=== PATIENT | male | born 1995 | race Caucasian/White ===

== ENCOUNTER → 2017-07-06 | Outpatient (CLI) | payer OTHER | LOC: M LAB 14:09 | PROVIDERS: ATTEND Physician Assistant Medical | DX: Z77.120 Contact with and (suspected) exposure to mold (toxic) (principal) ==

== ENCOUNTER → 2017-07-23 | Outpatient (CLI) | payer OTHER ==
[2017-07-23 17:09] LABS: VITAMIN B12 LEVEL 351 PG/ML (247-911)
[2017-07-23 17:10] LABS: ADD MANUAL DIFFER YES; MEAN CORPUSCULAR HEMOGLOBIN 30.4 pg (27.0-33.0); MEAN CORPUSCULAR HGB CONC 35.4 g/dl (32.0-36.5); MEAN CORPUSCULAR VOLUME 85.8 fl (80.0-96.0); PLATELET COUNT, AUTOMATED 197 k/mm3 (150-450); RED CELL DISTRIBUTION WIDTH 13.2 % (11.5-14.5); WHITE BLOOD COUNT 6.8 K/mm3 (4.0-10.0)
[2017-07-23 17:11] LABS: ALBUMIN 3.9 GM/DL (3.2-5.2); ALBUMIN/GLOBULIN RATIO 1.11 (1.00-1.93); ALKALINE PHOSPHATASE 91 U/L (45-117); ALT/SGPT 43 U/L (12-78); ANION GAP 9 MEQ/L (8-16); AST/SGOT 20 U/L (15-37); BILIRUBIN,TOTAL 0.3 MG/DL (0.2-1.0); BLOOD UREA NITROGEN 10 MG/DL (7-18); CARBON DIOXIDE LEVEL 27 MEQ/L (21-32); CHLORIDE LEVEL 105 MEQ/L (98-107); CREATININE FOR GFR 0.99 MG/DL (0.70-1.30); GLOMERULAR FILTRATION RATE > 60.0 (>60); GLUCOSE, FASTING 99 MG/DL (70-105); POTASSIUM SERUM 3.9 MEQ/L (3.5-5.1); SODIUM LEVEL 141 MEQ/L (136-145); TOTAL PROTEIN 7.4 GM/DL (6.4-8.2)
[2017-07-23 18:12] LABS: ERYTHROCYTE SEDIMENTATION RATE 10 mm/hr (0-15)
[2017-07-23 19:26] LABS: EOSINOPHILS 5 % (0-5)
[2017-07-23 19:27] LABS: PLATELET CLUMPS SMALL AMT
[2017-07-27 11:19] LABS: ALBUMIN 4.35 GM/DL (3.29-5.55); ALBUMIN % 58.8 % (55.8-66.1); GAMMA GLOBULIN % 13.2 % (11.1-18.8)
[2017-07-29 08:06] LABS: Lyme Disease IgG/IgM Antibodie <0.91 ISR (0.00-0.90); Lyme Disease IgM Ab Quantitati <0.80 index (0.00-0.79); VITAMIN E LEVEL 7.1 mg/L (5.3-17.5)
== END ==
LOC: M LAB 15:19
PROVIDERS: ATTEND Psychiatry & Neurology Neurology
DX: R51 Headache (principal); R41.3 Other amnesia

== ENCOUNTER 2017-12-10 11:40 | Emergency (ER) | payer OTHER ==
[2017-12-10] MEDS: GI COCKTAIL 50ML BTL(HYOSCYAMINE/MAALOX/LIDOCAINE VISCOUS)(1:3:1) PO (13:39)
[2017-12-10] MEDS: KETOROLAC 60 MG/2 ML VIAL (J1885) IM (13:39)
[2017-12-10 13:58] LABS: BASO % 0.5 % (0.0-1.0); EOS # 0.1 10^3/uL (0.0-0.50); EOS % 1.6 % (0.0-3.0); HEMATOCRIT 46.5 % (42.0-52.0); HEMOGLOBIN 15.5 g/dl (14.0-18.0); IMMATURE GRANULOCYTE % 0.3 % (0-0); LYMPH # 2.3 10^3/uL (1.5-6.5); LYMPH % 30.9 % (24.0-44.0); MEAN CORPUSCULAR HEMOGLOBIN 28.3 pg (27.0-33.0); MEAN CORPUSCULAR HGB CONC 33.3 g/dl (32.0-36.5); MONO # 0.5 10^3/uL (0.0-0.8); MONO % 6.3 % (0.0-5.0); NEUTROPHILS # 4.4 10^3/uL (1.8-7.7); NEUTROPHILS % 60.4 % (36.0-66.0); PLATELET COUNT, AUTOMATED 369 10^3/uL (150-450); RED BLOOD COUNT 5.47 10^6/uL (4.30-6.10); RED CELL DISTRIBUTION WIDTH 13.1 % (11.5-14.5); WHITE BLOOD COUNT 7.3 10^3/uL (4.0-10.0)
[2017-12-10 14:16] LABS: ALBUMIN 4.1 GM/DL (3.2-5.2); ALBUMIN/GLOBULIN RATIO 0.98 (1.00-1.93); ALKALINE PHOSPHATASE 92 U/L (45-117); ALT/SGPT 47 U/L (12-78); ANION GAP 6 MEQ/L (8-16); AST/SGOT 22 U/L (7-37); BILIRUBIN,TOTAL 0.5 MG/DL (0.2-1.0); BLOOD UREA NITROGEN 10 MG/DL (7-18); CALCIUM LEVEL 9.2 MG/DL (8.5-10.1); CARBON DIOXIDE LEVEL 29 MEQ/L (21-32); CHLORIDE LEVEL 104 MEQ/L (98-107); CREATININE FOR GFR 0.84 MG/DL (0.70-1.30); GLOMERULAR FILTRATION RATE > 60.0 (>60); GLUCOSE, FASTING 98 MG/DL (70-105); LIPASE 111 U/L (73-393); POTASSIUM SERUM 4.2 MEQ/L (3.5-5.1); SODIUM LEVEL 139 MEQ/L (136-145); TOTAL PROTEIN 8.3 GM/DL (6.4-8.2); TROPONIN I < 0.02 NG/ML (< 0.10)
== END 2017-12-10 16:09 | disposition home or self-care (01) ==
LOC: M ED 11:40
DX: R07.89 Other chest pain (principal); Z79.899 Other long term (current) drug therapy; Z88.8 Allergy status to other drugs, medicaments and biological substances
CPT/HCPCS: J1885

== ENCOUNTER → 2018-02-14 | Outpatient (CLI) | payer OTHER | LOC: M RAD 09:51 | DX: M54.11 Radiculopathy, occipito-atlanto-axial region (principal); M99.01 Segmental and somatic dysfunction of cervical region; M99.03 Segmental and somatic dysfunction of lumbar region | CPT/HCPCS: 72040 ==

== ENCOUNTER → 2018-03-16 | Outpatient (REF) | payer OTHER, MEDICARE ==
[2018-03-16 16:18] LABS: APPEARANCE, URINE CLEAR (CLEAR); BACTERIA, URINE AUTO NEGATIVE (NEGATIVE); BILIRUBIN, URINE AUTO NEGATIVE (NEGATIVE); BLOOD, URINE BLOOD NEGATIVE (NEGATIVE); COLOR, URINE YELLOW (YELLOW); GLUCOSE, URINE (UA) AUTO NEGATIVE (NEGATIVE); KETONE, URINE AUTO NEGATIVE (NEGATIVE); LEUKOCYTE ESTERASE, URINE AUTO NEGATIVE (NEGATIVE); MUCUS, URINE SMALL (NEGATIVE); NITRITE, URINE AUTO NEGATIVE (NEGATIVE); PROTEIN, URINE AUTO NEGATIVE (NEGATIVE); RBC, URINE AUTO 1 /HPF (0-3); SPECIFIC GRAVITY URINE AUTO 1.026 (1.002-1.035); SQUAMOUS EPITHELIAL CELL UR AU 1 /HPF (0-6); UROBILINOGEN, URINE AUTO 0.2 mg/dL (0.0-2.0); WBC, URINE AUTO 0 /HPF (0-3)
== END ==
LOC: M SMT 15:45
DX: R31.0 Gross hematuria (principal)

== ENCOUNTER → 2018-05-09 | Outpatient (REF) | payer OTHER, MEDICARE | LOC: M LAB REF 13:00 | DX: J02.9 Acute pharyngitis, unspecified (principal) ==

== ENCOUNTER 2018-07-21 17:20 | Emergency (ER) | payer OTHER, MEDICARE ==
[2018-07-21] MEDS: GI COCKTAIL 50ML BTL(HYOSCYAMINE/MAALOX/LIDOCAINE VISCOUS)(1:3:1) PO (18:59)
[2018-07-21 19:19] LABS: BASO % 0.3 % (0.0-1.0); EOS # 0.2 10^3/uL (0.0-0.50); EOS % 1.4 % (0.0-3.0); HEMATOCRIT 43.5 % (42.0-52.0); HEMOGLOBIN 14.2 g/dl (13.5-17.5); IMMATURE GRANULOCYTE % 0.2 % (0-3.0); LYMPH # 2.3 10^3/uL (1.5-6.5); LYMPH % 20.7 % (24.0-44.0); MEAN CORPUSCULAR HEMOGLOBIN 27.8 pg (27.0-33.0); MEAN CORPUSCULAR HGB CONC 32.6 g/dl (32.0-36.5); MEAN CORPUSCULAR VOLUME 85.3 fl (80.0-96.0); MONO # 0.7 10^3/uL (0.0-0.8); MONO % 6.7 % (0.0-5.0); NEUTROPHILS # 7.7 10^3/uL (1.8-7.7); NEUTROPHILS % 70.7 % (36.0-66.0); PLATELET COUNT, AUTOMATED 337 10^3/uL (150-450); RED CELL DISTRIBUTION WIDTH 13.2 % (11.5-14.5); WHITE BLOOD COUNT 10.9 10^3/uL (4.0-10.0)
[2018-07-21 19:24] LABS: KETONE, URINE AUTO RFX NEGATIVE (NEGATIVE); LEUKOCYTE ESTERASE UR AUTO RFX NEGATIVE (NEGATIVE); MUCUS, URINE RFX SMALL (NEGATIVE); NITRITE, URINE AUTO RFX NEGATIVE (NEGATIVE); RBC, URINE AUTO RFX 2 /HPF (0-3); SPECIFIC GRAVITY UR AUTO RFX 1.019 (1.002-1.035); SQUAM EPITHELIAL CELL UR AURFX 0 /HPF (0-6); WBC, URINE AUTO RFX 1 /HPF (0-3)
[2018-07-21 19:44] LABS: ALBUMIN 3.8 GM/DL (3.2-5.2); ALBUMIN/GLOBULIN RATIO 0.95 (1.00-1.93); ALKALINE PHOSPHATASE 89 U/L (45-117); ALT/SGPT 39 U/L (12-78); AMYLASE 41 U/L (25-115); ANION GAP 7 MEQ/L (8-16); AST/SGOT 18 U/L (7-37); BILIRUBIN,DIRECT < 0.1 MG/DL (0.0-0.2); BILIRUBIN,TOTAL 0.3 MG/DL (0.2-1.0); BLOOD UREA NITROGEN 9 MG/DL (7-18); CARBON DIOXIDE LEVEL 30 MEQ/L (21-32); CHLORIDE LEVEL 104 MEQ/L (98-107); CREATININE FOR GFR 0.89 MG/DL (0.70-1.30); GLOMERULAR FILTRATION RATE > 60.0 (>60); GLUCOSE, FASTING 86 MG/DL (70-100); LIPASE 138 U/L (73-393); POTASSIUM SERUM 4.2 MEQ/L (3.5-5.1); SODIUM LEVEL 141 MEQ/L (136-145); TOTAL PROTEIN 7.8 GM/DL (6.4-8.2)
== END 2018-07-21 20:34 | disposition home or self-care (01) ==
LOC: M ED 17:20
DX: K21.9 Gastro-esophageal reflux disease without esophagitis (principal); Z79.899 Other long term (current) drug therapy; Z88.8 Allergy status to other drugs, medicaments and biological substances
CPT/HCPCS: 76705

== ENCOUNTER 2018-10-11 12:03 | Day surgery (SDC) | payer OTHER ==
[2018-10-11] MEDS: NS 1,000 ML IV (07:00)
[~2018-10-11 12:03] MED LIST: NS 1,000 ML IV
[2018-10-11] MEDS ORDERED: fentaNYL 100 MCG/2 ML INJECTION (J3010) As Ordered (14:22)
[2018-10-11] MEDS ORDERED: LIDOCAINE 2% INJ 100 MG/5 ML SDV (FOR ANES.) As Ordered (14:24)
[2018-10-11] MEDS ORDERED: PROPOFOL 200 MG/20 ML VIAL As Ordered ×2 (14:24→14:45)
== END 2018-10-11 15:26 | disposition home or self-care (01) ==
LOC: M OPP 12:03
DX: K21.0 Gastro-esophageal reflux disease with esophagitis (principal); K29.70 Gastritis, unspecified, without bleeding; R10.13 Epigastric pain
CPT/HCPCS: 43239

== ENCOUNTER → 2019-01-24 | Outpatient (REF) | payer OTHER ==
[~2019-01-24] MED LIST changes: +AMBI10TA PO; +AMIT50TA; +CETI10TA PO; -NS 1,000 ML IV; +OMEP40CA2 PO; +PROT1TAB2 PO; +RANI15TA PO; +XYZA5TAB4 PO; +ZOLP10TA2
[2019-01-24 14:05] LABS: BASO # 0.1 10^3/uL (0.0-0.2); BASO % 0.7 % (0.0-1.0); EOS # 0.2 10^3/uL (0.0-0.50); HEMATOCRIT 43.7 % (42.0-52.0); HEMOGLOBIN 14.4 g/dl (13.5-17.5); LYMPH # 2.4 10^3/uL (1.5-6.5); LYMPH % 32.8 % (24.0-44.0); MEAN CORPUSCULAR HEMOGLOBIN 27.8 pg (27.0-33.0); MEAN CORPUSCULAR VOLUME 84.4 fl (80.0-96.0); MONO # 0.5 10^3/uL (0.0-0.8); MONO % 7.3 % (0.0-5.0); NEUTROPHILS # 4.2 10^3/uL (1.8-7.7); NEUTROPHILS % 57.1 % (36.0-66.0); PLATELET COUNT, AUTOMATED 372 10^3/uL (150-450); RED BLOOD COUNT 5.18 10^6/uL (4.30-6.10); WHITE BLOOD COUNT 7.4 10^3/uL (4.0-10.0)
[2019-01-24 14:44] LABS: ALT/SGPT 47 U/L (12-78); BILIRUBIN,TOTAL 0.4 MG/DL (0.2-1.0); BLOOD UREA NITROGEN 9 MG/DL (7-18); CALCIUM LEVEL 8.8 MG/DL (8.5-10.1); CARBON DIOXIDE LEVEL 30 MEQ/L (21-32); CHLORIDE LEVEL 104 MEQ/L (98-107); CHOLESTEROL LEVEL 201 MG/DL (<200); CHOLESTEROL RISK RATIO 4.102 (<5); CREATININE FOR GFR 0.91 MG/DL (0.70-1.30); FREE T4 1.11 NG/DL (0.76-1.46); GLOMERULAR FILTRATION RATE > 60.0 (>60); GLUCOSE, FASTING 91 MG/DL (70-100); HDL CHOLESTEROL 49 MG/DL (>40); LDL CHOLESTEROL 124 MG/DL (<100); NON-HDL-C 152 MG/DL; POTASSIUM SERUM 4.9 MEQ/L (3.5-5.1); SODIUM LEVEL 140 MEQ/L (136-145); TOTAL PROTEIN 7.7 GM/DL (6.4-8.2); TRIGLYCERIDES LEVEL 139 MG/DL (<150)
[2019-01-24 14:46] LABS: HEMOGLOBIN A1c 5.8 %
== END ==
LOC: M SFHCPLAZ 12:06
PROVIDERS: ATTEND Physician Assistant Medical
DX: R73.01 Impaired fasting glucose (principal); K21.0 Gastro-esophageal reflux disease with esophagitis; Z13.220 Encounter for screening for lipoid disorders; E66.01 Morbid (severe) obesity due to excess calories

== ENCOUNTER 2019-04-13 09:00 | Emergency (ER) | payer OTHER ==
[~2019-04-13] VITALS: Ht 157.5 cm; Wt 112.7 kg
[2019-04-13] MEDS ORDERED: RANI150T14 (09:07)
[2019-04-13] MEDS ORDERED: TRAZ-160 (09:07)
[2019-04-13] MEDS ORDERED: FLON27.5 NARES (10:26)
[2019-04-13] MEDS ORDERED: ACETAMINOPHEN 500 MG TAB PO ONE (10:30)
[2019-04-13 10:42] VITALS: BP 120/83
== END 2019-04-13 10:47 | disposition home or self-care (01) ==
LOC: M ED 09:00
DX: R51 Headache (principal); J34.89 Other specified disorders of nose and nasal sinuses; I10 Essential (primary) hypertension; Z88.8 Allergy status to other drugs, medicaments and biological substances; Z79.899 Other long term (current) drug therapy

== ENCOUNTER → 2019-04-26 | Outpatient (REF) | payer OTHER ==
[~2019-04-26] MED LIST changes: +FLON27.5 NARES; +RANI150T14; +TRAZ-252
[2019-04-26 18:25] LABS: HEMOGLOBIN A1c 5.9 %
== END ==
LOC: M SFHCPLAZ 15:42
PROVIDERS: ATTEND Physician Assistant Medical
DX: R73.01 Impaired fasting glucose (principal)

== ENCOUNTER → 2019-04-26 | Outpatient (REF) | payer OTHER | LOC: M LAB REF 15:35 | PROVIDERS: ATTEND Ophthalmology | DX: L72.0 Epidermal cyst (principal); D23.122 Other benign neoplasm of skin of left lower eyelid, including canthus; H02.87 Vascular anomalies of eyelid ==

== ENCOUNTER → 2019-07-19 | Outpatient (REF) | payer OTHER ==
[2019-07-19 13:39] LABS: BASO % 0.4 % (0.0-1.0); EOS # 0.2 10^3/uL (0.0-0.50); EOS % 2.5 % (0.0-3.0); HEMATOCRIT 40.7 % (42.0-52.0); HEMOGLOBIN 13.3 g/dl (13.5-17.5); LYMPH # 2.2 10^3/uL (1.5-6.5); LYMPH % 32.6 % (24.0-44.0); MEAN CORPUSCULAR HEMOGLOBIN 27.5 pg (27.0-33.0); MEAN CORPUSCULAR HGB CONC 32.7 g/dl (32.0-36.5); MEAN CORPUSCULAR VOLUME 84.1 fl (80.0-96.0); MONO # 0.5 10^3/uL (0.0-0.8); MONO % 7.1 % (0.0-5.0); NEUTROPHILS # 3.9 10^3/uL (1.8-7.7); NEUTROPHILS % 57.3 % (36.0-66.0); PLATELET COUNT, AUTOMATED 351 10^3/uL (150-450); RED BLOOD COUNT 4.84 10^6/uL (4.30-6.10); WHITE BLOOD COUNT 6.9 10^3/uL (4.0-10.0)
[2019-07-19 14:13] LABS: ALBUMIN 3.7 GM/DL (3.2-5.2); ALT/SGPT 36 U/L (12-78); BILIRUBIN,TOTAL 0.4 MG/DL (0.2-1.0); BLOOD UREA NITROGEN 10 MG/DL (7-18); CALCIUM LEVEL 9.1 MG/DL (8.5-10.1); CARBON DIOXIDE LEVEL 29 MEQ/L (21-32); CHLORIDE LEVEL 106 MEQ/L (98-107); CREATININE FOR GFR 0.91 MG/DL (0.70-1.30); GLOMERULAR FILTRATION RATE > 60.0 (>60); GLUCOSE, FASTING 94 MG/DL (70-100); POTASSIUM SERUM 4.2 MEQ/L (3.5-5.1); SODIUM LEVEL 139 MEQ/L (136-145); TOTAL PROTEIN 7.3 GM/DL (6.4-8.2)
[2019-07-19 14:29] LABS: HEMOGLOBIN A1c 6.1 %
== END ==
LOC: M SFHCPLAZ 11:29
PROVIDERS: ATTEND Physician Assistant Medical
DX: R73.01 Impaired fasting glucose (principal); J06.9 Acute upper respiratory infection, unspecified

== ENCOUNTER → 2019-10-25 | Outpatient (REF) | payer OTHER ==
[~2019-10-25] MED LIST changes: +FAMO40TA3; +LANS30CA93; +NAPR-837 PO; -OMEP40CA2 PO; +OMEP40CA97 PO; +PARO5TAB
== END ==
LOC: M SFHCPLAZ 08:52
PROVIDERS: ATTEND Physician Assistant Medical
DX: R73.01 Impaired fasting glucose (principal); E66.01 Morbid (severe) obesity due to excess calories

== ENCOUNTER → 2019-10-25 | Outpatient (CLI) | payer OTHER ==
[2019-10-25 16:17] LABS: FREE T4 1.01 NG/DL (0.76-1.46); THYROID STIMULATING HORMONE 2.61 uIU/ML (0.358-3.740)
== END ==
LOC: M PLALAB 11:49
PROVIDERS: ATTEND Physician Assistant Medical
DX: R73.01 Impaired fasting glucose (principal); E66.01 Morbid (severe) obesity due to excess calories

== ENCOUNTER 2019-10-26 10:03 | Emergency (ER) | payer OTHER ==
[~2019-10-26] VITALS: Ht 157.5 cm; Wt 117.2 kg
[2019-10-26 10:03] VITALS: BP 138/80
[~2019-10-26 10:03] MED LIST changes: -FAMO40TA3; -LANS30CA93; -NAPR-837 PO; -PARO5TAB
[2019-10-26] MEDS ORDERED: PARO5TAB (10:13)
[2019-10-26] MEDS ORDERED: FAMO40TA3 (10:13)
[2019-10-26] MEDS ORDERED: LANS30CA93 (10:13)
--- NOTE | 2019-10-26 11:44 | REP ---
Clinical: Left ankle pain . Technique: AP, lateral, bilateral oblique views. Findings: No acute fracture or dislocation. Skeletal structures and joint spaces are intact and normal. Ankle mortise appears stable. No subcutaneous emphysema or radiodense foreign body. Impression: Normal left ankle radiograph series. Electronically Signed by Claude Gusman MD 10/26/2019 11:35 A
[2019-10-26] MEDS ORDERED: NAPR-837 PO (11:56)
== END 2019-10-26 12:13 | disposition home or self-care (01) ==
LOC: M ED 10:03
DX: M25.572 Pain in left ankle and joints of left foot (principal); K21.9 Gastro-esophageal reflux disease without esophagitis; F41.9 Anxiety disorder, unspecified; Z79.899 Other long term (current) drug therapy; Z88.8 Allergy status to other drugs, medicaments and biological substances

== ENCOUNTER → 2019-11-10 | Outpatient (REF) | payer OTHER ==
[~2019-11-10] MED LIST changes: +FAMO40TA3; +LANS30CA93; +NAPR-837 PO; +PARO5TAB
== END ==
LOC: M LAB REF 10:44
PROVIDERS: ATTEND Physician Assistant Medical
DX: B34.9 Viral infection, unspecified (principal); J06.9 Acute upper respiratory infection, unspecified

== ENCOUNTER → 2019-11-23 | Outpatient (CLI) | payer OTHER ==
[2019-11-23 13:51] LABS: HEMOGLOBIN A1c 6.2 %
== END ==
LOC: M PLALAB 11:10
PROVIDERS: ATTEND Physician Assistant Medical
DX: R73.01 Impaired fasting glucose (principal)

== ENCOUNTER 2020-01-31 23:44 | Emergency (ER) | payer OTHER ==
[~2020-01-31] VITALS: Ht 157.5 cm; Wt 120.1 kg
[2020-01-31 23:45] VITALS: BP 140/97
== END 2020-02-01 03:08 | disposition left against medical advice (07) ==
LOC: M ED 23:44
DX: Z53.21 Procedure and treatment not carried out due to patient leaving prior to being seen by health care provider (principal)

== ENCOUNTER → 2020-01-31 | Outpatient (REF) | payer OTHER ==
[2020-01-31 14:27] LABS: BASO # 0.1 10^3/uL (0.0-0.2); BASO % 0.7 % (0.0-1.0); EOS # 0.2 10^3/uL (0.0-0.5); EOS % 2.4 % (0.0-3.0); HEMATOCRIT 43.6 % (42.0-52.0); HEMOGLOBIN 13.9 g/dl (13.5-17.5); LYMPH # 2.3 10^3/uL (1.5-5.0); LYMPH % 29.6 % (24.0-44.0); MEAN CORPUSCULAR HEMOGLOBIN 26.9 pg (27.0-33.0); MEAN CORPUSCULAR HGB CONC 31.9 g/dl (32.0-36.5); MEAN CORPUSCULAR VOLUME 84.5 fl (80.0-96.0); MONO # 0.6 10^3/uL (0.0-0.8); MONO % 7.3 % (0.0-5.0); NEUTROPHILS # 4.6 10^3/uL (1.5-8.5); NEUTROPHILS % 59.6 % (36.0-66.0); PLATELET COUNT, AUTOMATED 356 10^3/uL (150-450); RED BLOOD COUNT 5.16 10^6/uL (4.30-6.10); WHITE BLOOD COUNT 7.6 10^3/uL (4.0-10.0)
[2020-01-31 15:00] LABS: ALBUMIN 3.5 GM/DL (3.2-5.2); ALT/SGPT 53 U/L (12-78); BILIRUBIN,TOTAL 0.2 MG/DL (0.2-1.0); BLOOD UREA NITROGEN 10 MG/DL (7-18); CALCIUM LEVEL 8.6 MG/DL (8.5-10.1); CARBON DIOXIDE LEVEL 27 MEQ/L (21-32); CHLORIDE LEVEL 106 MEQ/L (98-107); CHOLESTEROL LEVEL 181 MG/DL (<200); CHOLESTEROL RISK RATIO 3.549 (<5); CREATININE FOR GFR 0.81 MG/DL (0.70-1.30); FREE T4 1.46 NG/DL (0.76-1.46); GLOMERULAR FILTRATION RATE > 60.0 (>60); GLUCOSE, FASTING 115 MG/DL (70-100); HDL CHOLESTEROL 51 MG/DL (>40); LDL CHOLESTEROL 61 MG/DL (<100); NON-HDL-C 130 MG/DL; POTASSIUM SERUM 4.3 MEQ/L (3.5-5.1); SODIUM LEVEL 139 MEQ/L (136-145); TOTAL PROTEIN 7.1 GM/DL (6.4-8.2); TRIGLYCERIDES LEVEL 344 MG/DL (<150)
== END ==
LOC: M SFHCPLAZ 11:41
PROVIDERS: ATTEND Physician Assistant Medical
DX: Z13.220 Encounter for screening for lipoid disorders (principal); R73.01 Impaired fasting glucose; K21.0 Gastro-esophageal reflux disease with esophagitis

== ENCOUNTER 2020-02-12 19:08 | Emergency (ER) | payer OTHER ==
[~2020-02-12] VITALS: Ht 157.5 cm; Wt 115.5 kg
[2020-02-12] MEDS ORDERED: TRAZ-252 PO (19:16)
[2020-02-12 20:00] LABS: BASO % 0.5 % (0.0-1.0); EOS # 0.2 10^3/uL (0.0-0.5); EOS % 1.8 % (0.0-3.0); HEMATOCRIT 43.6 % (42.0-52.0); HEMOGLOBIN 14.1 g/dl (13.5-17.5); LYMPH # 2.4 10^3/uL (1.5-5.0); LYMPH % 28.7 % (24.0-44.0); MEAN CORPUSCULAR HEMOGLOBIN 26.8 pg (27.0-33.0); MEAN CORPUSCULAR HGB CONC 32.3 g/dl (32.0-36.5); MEAN CORPUSCULAR VOLUME 82.7 fl (80.0-96.0); MONO # 0.6 10^3/uL (0.0-0.8); MONO % 7.7 % (0.0-5.0); NEUTROPHILS % 61.1 % (36.0-66.0); PLATELET COUNT, AUTOMATED 355 10^3/uL (150-450); RED BLOOD COUNT 5.27 10^6/uL (4.30-6.10); WHITE BLOOD COUNT 8.2 10^3/uL (4.0-10.0)
--- NOTE | 2020-02-12 20:22 | REP ---
Clinical: Chest pain . Comparison: 04/18/2016 . Findings: The mediastinum and cardiac silhouette are stable and within normal limits for portable technique. The lung mosher are clear without acute consolidation, effusion, or pneumothorax. Skeletal structures are intact. Impression: No acute cardiopulmonary process appreciated. Electronically Signed by Claude Gusman MD 02/12/2020 08:13 P
[2020-02-12] MEDS ORDERED: MOME50SP NARES (20:42)
[2020-02-12] MEDS ORDERED: LEVOTAB10 PO (20:42)
[2020-02-12 20:50] VITALS: BP 127/80
--- NOTE | 2020-02-13 05:45 | ECGEPIP ---
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 Order Number: [id number] Reading MD: Amaury Gardiner Measurements Intervals [place] Rate: 91 P: 38 TN: 158 QRS: 17 QRSD: 88 T: 25 QT: 347 QTc: 427 Interpretive Statements SINUS RHYTHM SIMILAR TO 12/10/17 Electronically Signed on 02-13-2020 5:45:28 EDT by Amaury Gardiner
== END 2020-02-12 21:04 | disposition home or self-care (01) ==
LOC: M ED 19:08
DX: J31.0 Chronic rhinitis (principal); J45.901 Unspecified asthma with (acute) exacerbation; Z88.8 Allergy status to other drugs, medicaments and biological substances; Z79.899 Other long term (current) drug therapy

== ENCOUNTER → 2020-05-02 | Outpatient (CLI) | payer OTHER ==
[~2020-05-02] MED LIST changes: +LEVOTAB10 PO; +MOME50SP NARES; +TRAZ-252 PO
--- NOTE | 2020-05-03 15:56 | HOLTMON ---
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 Underlying rhythm was sinus with minimal artifact. Rate varied from 38 to 138 beats per minute. There were no significant pauses. Patient experienced 2 ventricular ectopic beats and 9 supraventricular ectopic beats. All diary events were associated with normal sinus rhythm. This is a normal 24 hour holter study. If there is further consideration for the cause of "palpitations" which were not diary events in this study, then consider an event or loop recorder. Electronically Signed on 05-03-2020 15:56:04 EDT by Diomedes Monk
== END ==
LOC: M EKG 09:50
PROVIDERS: ATTEND Family Medicine
DX: R00.2 Palpitations (principal)

== ENCOUNTER → 2020-08-26 | Outpatient (CLI) | payer OTHER, MEDICAID ==
[2020-08-26 15:46] LABS: HEMOGLOBIN A1c 5.6 %
== END ==
LOC: M PLALAB 11:54
PROVIDERS: ATTEND Surgery
DX: Z86.39 Personal history of other endocrine, nutritional and metabolic disease (principal)

== ENCOUNTER 2020-09-16 14:53 | Emergency (ER) | payer MEDICAID, OTHER ==
[~2020-09-16] VITALS: Ht 157.5 cm; Wt 120.7 kg
[2020-09-16] MEDS ORDERED: CYCLOBENZAPRINE 10MG TABLET PO ONE (16:00)
--- NOTE | 2020-09-16 16:19 | REP ---
INDICATION: L knee pain/ distal thigh pain COMPARISON: None. TECHNIQUE: Five views obtained. FINDINGS: Five views of the left knee demonstrate no evidence of acute fracture, dislocation, or intrinsic bone disease. IMPRESSION: No fracture or dislocation. <Electronically signed by Aljeandro Hicks > 09/16/20 1603
--- NOTE | 2020-09-16 16:20 | REP ---
INDICATION: L groin/anterior hip pain. COMPARISON: None. TECHNIQUE: Two views obtained. FINDINGS: Two views of the left hip were performed. There is no acute fracture, dislocation or intrinsic bone disease. Left hip joint is unremarkable. IMPRESSION: Negative left hip series. <Electronically signed by Alejandro Hicks > 09/16/20 2752
--- NOTE | 2020-09-16 17:21 | REP ---
INDICATION: r/o dvt LLE COMPARISON: None. TECHNIQUE: Real time compression and duplex Doppler interrogation of the left lower extremity deep venous system is performed. FINDINGS: The left common femoral, superficial femoral and popliteal veins are fully compressible with transducer pressure and demonstrate normal spontaneous and phasic flow, without evidence of deep venous thrombosis. IMPRESSION: No evidence of deep venous thrombosis of the left lower extremity femoral popliteal venous system. <Electronically signed by Alejandro Hicks > 09/16/20 [id number]
[2020-09-16 18:29] VITALS: BP 128/86
== END 2020-09-16 18:32 | disposition home or self-care (01) ==
LOC: M ED 14:53
DX: S79.922A Unspecified injury of left thigh, initial encounter (principal); X50.0XXA Overexertion from strenuous movement or load, initial encounter; Y92.019 Unspecified place in single-family (private) house as the place of occurrence of the external cause; Y93.9 Activity, unspecified; Y99.9 Unspecified external cause status; I10 Essential (primary) hypertension; R51.9 Headache, unspecified; F41.9 Anxiety disorder, unspecified; Z98.84 Bariatric surgery status; Z88.8 Allergy status to other drugs, medicaments and biological substances; Z79.899 Other long term (current) drug therapy

== ENCOUNTER 2020-10-01 14:58 | Emergency (ER) | payer OTHER ==
[~2020-10-01] VITALS: Ht 157.5 cm; Wt 112.0 kg
[2020-10-01] MEDS ORDERED: NS 1,000 ML IV ONE (16:45)
--- NOTE | 2020-10-01 17:14 | REP ---
INDICATION: bilat rib pain, recent gastic surgery. COMPARISON: Portable chest 02/12/2020. TECHNIQUE: AP chest with bilateral ribs (four views) FINDINGS: AP chest: The lung mosher are adequately inflated. There is no pleural effusion, lateral pleural thickening or pneumothorax heart not enlarged for this projection but I do suspect some left atrial enlargement. No vascular redistribution or edema. No infiltrate, atelectasis or mass. The aorta and airway were intact. Visualized bones show showed clavicles, scapulae and those portions of ribs included to be intact. Some minor lateral pleural thickening or subpleural fat unchanged. Bilateral ribs: There is a mild the levoconvex curve at the thoracolumbar junction in the lumbar spine shows a dextro rotatory curve centered at L2-3. Pedicles spinous and transverse processes are grossly intact the posterior rib articulations were intact bilaterally no visible or displaced rib fracture, focal rib lesion, pleural effusion or pneumothorax. No free air under the diaphragm. Some surgical clips in the left upper quadrant gastric stapling evident. IMPRESSION: 1. No acute cardiopulmonary change is seen. No pneumothorax, infiltrate, effusion or definite rib fracture 2. Spine, clavicles and shoulders intact with no acute finding. No free air under the diaphragm. Postoperative changes with surgical clips and gastric deny in the left upper quadrant. <Electronically signed by Aden Cosby > 10/01/20 1407
[2020-10-01 17:29] LABS: BASO % 0.5 % (0.0-1.0); EOS # 0.1 10^3/uL (0.0-0.5); EOS % 1.5 % (0.0-3.0); HEMATOCRIT 45.4 % (42.0-52.0); HEMOGLOBIN 14.6 g/dl (13.5-17.5); LYMPH # 1.9 10^3/uL (1.5-5.0); LYMPH % 26.2 % (24.0-44.0); MEAN CORPUSCULAR HEMOGLOBIN 27.3 pg (27.0-33.0); MEAN CORPUSCULAR HGB CONC 32.2 g/dl (32.0-36.5); MEAN CORPUSCULAR VOLUME 84.9 fl (80.0-96.0); MONO # 0.6 10^3/uL (0.0-0.8); MONO % 7.4 % (0.0-5.0); NEUTROPHILS # 4.8 10^3/uL (1.5-8.5); NEUTROPHILS % 64.1 % (36.0-66.0); PLATELET COUNT, AUTOMATED 365 10^3/uL (150-450); RED BLOOD COUNT 5.35 10^6/uL (4.30-6.10); WHITE BLOOD COUNT 7.4 10^3/uL (4.0-10.0)
[2020-10-01 18:02] LABS: ALT/SGPT 125 U/L (12-78); BILIRUBIN,DIRECT 0.1 MG/DL (0.0-0.2); BILIRUBIN,TOTAL 0.3 MG/DL (0.2-1.0); BLOOD UREA NITROGEN 12 MG/DL (7-18); CALCIUM LEVEL 9.7 MG/DL (8.5-10.1); CARBON DIOXIDE LEVEL 26 MEQ/L (21-32); CHLORIDE LEVEL 103 MEQ/L (98-107); CK-MB VALUE MASS < 1.0 NG/ML (<3.6); CPK CREATINE PHOSPHOKINASE 58 U/L (39-308); CREATININE FOR GFR 0.96 MG/DL (0.70-1.30); FREE T4 1.37 NG/DL (0.76-1.46); GLOMERULAR FILTRATION RATE > 60.0 (>60); GLUCOSE, FASTING 83 MG/DL (70-100); LIPASE 272 U/L (73-393); MAGNESIUM LEVEL 2.2 MG/DL (1.8-2.4); MB/CK RELATIVE INDEX 1.72 (< OR =4); POTASSIUM SERUM 3.9 MEQ/L (3.5-5.1); SODIUM LEVEL 140 MEQ/L (136-145); TOTAL PROTEIN 7.8 GM/DL (6.4-8.2); TROPONIN I < 0.02 NG/ML (< 0.10)
[2020-10-01 19:51] VITALS: BP 124/74
--- NOTE | 2020-10-01 19:58 | ECGEPIP ---
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
== END 2020-10-01 19:53 | disposition home or self-care (01) ==
LOC: M ED 14:58
DX: R55 Syncope and collapse (principal); E86.0 Dehydration; R42 Dizziness and giddiness; R07.82 Intercostal pain; E11.9 Type 2 diabetes mellitus without complications; I10 Essential (primary) hypertension; K44.9 Diaphragmatic hernia without obstruction or gangrene; Z88.8 Allergy status to other drugs, medicaments and biological substances; Z98.84 Bariatric surgery status; Z79.899 Other long term (current) drug therapy

== ENCOUNTER → 2020-11-18 | Outpatient (REF) | payer OTHER ==
[2020-11-18 15:15] LABS: BASO % 0.6 % (0.0-1.0); EOS # 0.3 10^3/uL (0.0-0.5); HEMATOCRIT 46.2 % (42.0-52.0); HEMOGLOBIN 14.5 g/dl (13.5-17.5); LYMPH # 2.2 10^3/uL (1.5-5.0); LYMPH % 33.3 % (24.0-44.0); MEAN CORPUSCULAR HEMOGLOBIN 27.4 pg (27.0-33.0); MEAN CORPUSCULAR HGB CONC 31.4 g/dl (32.0-36.5); MEAN CORPUSCULAR VOLUME 87.3 fl (80.0-96.0); MONO # 0.5 10^3/uL (0.0-0.8); MONO % 7.3 % (0.0-5.0); NEUTROPHILS # 3.6 10^3/uL (1.5-8.5); NEUTROPHILS % 54.5 % (36.0-66.0); PLATELET COUNT, AUTOMATED 346 10^3/uL (150-450); RED BLOOD COUNT 5.29 10^6/uL (4.30-6.10); WHITE BLOOD COUNT 6.7 10^3/uL (4.0-10.0)
[2020-11-18 15:37] LABS: ALBUMIN 3.7 GM/DL (3.2-5.2); ALT/SGPT 74 U/L (12-78); BILIRUBIN,TOTAL 0.5 MG/DL (0.2-1.0); BLOOD UREA NITROGEN 8 MG/DL (7-18); CALCIUM LEVEL 9.1 MG/DL (8.5-10.1); CARBON DIOXIDE LEVEL 29 MEQ/L (21-32); CHLORIDE LEVEL 106 MEQ/L (98-107); CREATININE FOR GFR 0.98 MG/DL (0.70-1.30); FERRITIN 20 NG/ML (26-388); GLOMERULAR FILTRATION RATE > 60.0 (>60); GLUCOSE, FASTING 115 MG/DL (70-100); IRON (FE) 68 UG/DL (65-175); MAGNESIUM LEVEL 2.1 MG/DL (1.8-2.4); POTASSIUM SERUM 4.1 MEQ/L (3.5-5.1); SODIUM LEVEL 142 MEQ/L (136-145); TOTAL PROTEIN 7.1 GM/DL (6.4-8.2)
[2020-11-18 15:46] LABS: VITAMIN B12 LEVEL 1471 PG/ML (247-911)
[2020-11-18 17:10] LABS: HEMOGLOBIN A1c 5.4 %
== END ==
LOC: M SFHCPLAZ 11:45
PROVIDERS: ATTEND Physician Assistant Medical
DX: Z98.84 Bariatric surgery status (principal); R63.4 Abnormal weight loss

== ENCOUNTER 2020-12-03 03:19 | Emergency (ER) | payer OTHER ==
[~2020-12-03] VITALS: Ht 157.5 cm; Wt 105.2 kg
[2020-12-03 03:19] VITALS: BP 139/83
--- OUTSIDE RECORDS SUMMARY | 2020-12-03 03:24 | CCD ---
Author Author [facility] Organization [facility] ems Address Unknown Phone Unavailable Care Team Providers Care Ambulance Dispatcher Name Role Phone Kyleigh Hernandez Unavailable PROBLEMS Type Condition ICD9-CM Code [id number] Code Onset Dates Condition S tatus SNOMED Code Notes Problem Body mass index (BMI) of 40.0-44.9 in adult Z68.41 Active 785779285 Problem Gastroesophageal reflux disease with esophagitis K 21.0 Active 672392638 Problem PTSD (post-traumatic stress disorder) F43.10 Ac tive 05083442 Problem Gross hematuria R31.0 Active 114127096 Problem Seasonal allergies J30.2 Active 699992369 Problem Morbid (severe) obesity due to excess calories E66 .01 Active 99692301388544 Problem Personal history of other endocrine, nut ritional and metabolic disease Z86.39 Active 581565107 Problem Impaired fasting glucose R73.01 Active 4346047 07 Problem PATTY (obstructive sleep apnea) G47.33 Active 78 960549 Problem Anxiety F41.9 Active 67662572 Problem Vitamin D deficiency E55.9 Active 18231521 Problem H/O gastric bypass Z98.84 Active 118830406 ALLERGIES Allergen (clinical drug ingredient) Drug/Non Drug Allergy do cumented on EMR Reaction Allergy Type Onset Date Status diphenhydramine DiphenhydrAMINE HCl([facility] Code:[address]-93) Unkn own Drug Allergy Active valproate Depakote(NDC Code:[address]-61) Unknown Drug Allergy Active methylphenidate Concerta(ND Code:[address]-71) Unknown Drug Jasson rgy Active ENCOUNTERS from 1995 to 2020-11-25 Encounter Location Date Provider Diagnosis [facility] [address] [place] [address] Oct, Kyleigh Lauraatsworth Anxiety F41.9 ; Weight loss R63.4 ; H/O gastric bypass Z98.84 ; Gastroesophageal reflux disease with esophagitis K21.0 ; Personal history of other endocrine, nutritional and metabolic disease Z86.39 ; Seasonal allergies J30.2 ; Impaired fasting glucose R73.01 and Vitamin D deficiency E55.9 IMMUNIZATIONS Vaccine Route Administration Date Status Influenza (18 yrs & older) Flublok Unknown Aug 22, 2019 Administered SOCIAL HISTORY Tobacco Use: Social History Observation Description Date Details (start date - stop date) Never Smoker Sex Assigned At : Social History Observation Description Sex Assigned At Unknown Education: Question Answer Notes Level of Education: Finished High School Audit Question Answer Notes Total Score: 6 Interpretation: Alcohol Education Language: Question Answer Notes Languages spoken: Romansh Scientology: Question Answer Notes Scientology 21 Zoroastrian No christianity beliefs that would impact health care. Sexual Hx: Question Answer Notes Had sex in the last 12 months (vaginal, oral, or anal)? Yes Have you ever had an STD? No with Men only Use protection? Yes How often? All of the time Drug and Alcohol Question Answer Notes Total Score: 0 Interpretation: No problems reported Alcohol Screening: Question Answer Notes Did you have a drink containing alcohol in the past year? No Points 0 Interpretation Negative Tobacco Use: Question Answer Notes Are you a: never smoker REASON FOR REFERRAL No Information VITAL SIGNS Weight 234 lbs Oct, Height 65 in Oct, BMI 38.94 kg/m2 Oct, Heart Rate 120 /min Oct, Respiratory Rate 18 /min Oct, Temperature 96.5 degrees Fahrenheit Oct, Oximetry 97 Oct, Blood pressure systolic 120 mm Hg Oct, Blood pressure diastolic 80 mm Hg Oct, MEDICATIONS Medication SIG (Take, Route, Frequency, Duration) Notes Start Da te End Date Status Multi For Him - as directed Orally A ctive Vitamin D3 25 MCG (1000 UT) 1 tablet Orally Once a day for 30 da y(s) Oct, Active ReliOn Blood Glucose Test - as directed In Vitro Daily for 30 days Active Famotidine 40 MG 1 tab Orally once daily Active Vitamin B12 1000 MCG 1 tablet Orally Once a day for 30 day(s) Active Ventolin HFA 108 (90 Base) MCG/ACT 1 puff as needed In halation every 4 hrs for 30 days Active Zoloft 25 MG 1 tablet at bedtime Orally Once a day for 30 day(s) Active PROCEDURES No Information RESULTS Component Value Reference Range CBC with Differential Reviewed date:11/19/2020 13:28:42 Interpretation: Performing Lab:[facility] [address] [address] , ,[place] [address] WHITE BLOOD COUNT 6.7 4.0-10.0 RED BLOOD COUNT 5.29 4.30-6.10 HEMOGLOBIN 14.5 13.5-17.5 HEMATOCRIT 46.2 42.0-52.0 MEAN CORPUSCULAR VOLUME 87.3 80.0-96.0 MEAN CORPUSCULAR HEMOGLOBIN 27.4 27.0-33.0 MEAN CORPUSCULAR HGB CONC 31.4 32.0-36.5 RED CELL DISTRIBUTION WIDTH 14.6 11.5-14.5 PLATELET COUNT, AUTOMATED 346 150-450 NEUTROPHILS % 54.5 36.0-66.0 LYMPH % 33.3 24.0-44.0 MONO % 7.3 0.0-5.0 EOS % 4.0 0.0-3.0 BASO % 0.6 0.0-1.0 NEUTROPHILS # 3.6 1.5-8.5 LYMPH # 2.2 1.5-5.0 MONO # 0.5 0.0-0.8 EOS # 0.3 0.0-0.5 BASO # 0.0 0.0-0.2 IRON (FE) Reviewed date:11/19/2020 13:28:59 Interpretation: Performing Lab:[facility] [address] [address] , ,[place] [address] IRON (FE) 68 65-175 FERRITIN Reviewed date:11/19/2020 13:29:32 Interpretation: Performing Lab:[facility] [address] [address] , ,[place] [address] FERRITIN 20 26-388 HEMOGLOBIN A1c Reviewed date:11/19/2020 13:27:48 Interpretation: Performing Lab:[facility], [facility] [address] [address] , ,[facility] HEMOGLOBIN A1c 5.4 ESTIMATED AVERAGE GLUCOSE 108 60-110 VITAMIN D 25-HYDROXY Reviewed date:11/19/2020 13:28:27 Interpretation: Performing Lab:[facility] [address] [address] , ,[place] [address] TOTAL 25(OH) VITAMIN D 17.0 30.0-100.0 MAGNESIUM LEVEL Reviewed date:11/19/2020 13:29:40 Interpretation: Performing Lab:[facility] [address] [address] , ,[place] [address] MAGNESIUM LEVEL 2.1 1.8-2.4 VITAMIN B12 LEVEL Reviewed date:11/19/2020 13:30:23 Interpretation: Performing Lab:[facility] [address] [address] , ,[facility] VITAMIN B12 LEVEL 1471 247-271 REASON FOR VISIT 2-3 MONTH PER RM MEDICAL (GENERAL) HISTORY Type Description Date Medical History PATTY-dx in [address] Posada, Neurology-cannot tolerate CPAP Medical History asthma, mild persistent Medical History hypetension, essential Medical History chronic MDD/PTSD/ADD Medical History GROSS HEMATURIA-last year 2017 seen @ [facility] Medical History GERD Surgical History BILATERAL ANKLE 2015 Surgical History Biopsy under L)eye 04/2019 Surgical History gastric bypass-Dr. Pierre-Jay 09/20 Goals Section No Information Health Concerns No Information MEDICAL EQUIPMENT No Information MENTAL STATUS No Information FUNCTIONAL STATUS No Information ASSESSMENTS Encounter Date Diagnosis Assessment Notes Treatment Notes Treatm ent Clinical Notes Oct, Anxiety (ICD-10 - F41.9) Will cont. rx nl tfts 10/2020 vit. D 17.0 Oct, Weight loss (ICD-10 - R63.4) wt. 234lbs. was 266 04/2019, his goal 145lb.s s/p gastric bypass Oct, H/O gastric bypass (ICD-10 - Z98.84) s/p surgery 09/20/202010/2020 b12 1471,mag 2.1, iron 68, ferr 10/2020 na 142,4.1, bun/cr 8/0.98, gluc 115, calc.9.1, ast 26, alt 74 Oct, Gastroesophageal reflux disease with eso phagitis (ICD-10 - K21.0) Gerd has improved already c wt. loss Oct, Personal history of other en docrine, nutritional and metabolic disease (ICD-10 - Z86.39) Oct, Seasonal allergies (ICD-10 - J30.2) Cont. rx Oct, Impaired fasting glucose (ICD-10 - R73.01) 10/2020 a1c 5.4 Oct, Vitamin D deficiency (ICD-10 - E55.9) Add D 1,000IU daily 10/2020 vit. d 17.0 PLAN OF TREATMENT Medication Medication Name Sig Start Date Stop Date ReliOn Blood Glucose Test - as directed In Vitro Daily for 30 da ys Ventolin HFA 108 (90 Base) MCG/ACT 1 puff as needed In halation every 4 hrs for 30 days Zoloft 25 MG 1 tablet at bedtime Orally Once a day for 30 day (s) Vitamin D3 25 MCG (1000 UT) 1 tablet Orally Once a day for 3 0 day(s) Oct, Treatment Notes Assessment Notes Clinical Notes Anxiety Will cont. rx nl tft vit. D 17.0 Weight loss wt. 234lbs. was 266 04/2019, his goal 145lb.ss/p gastric bypass H/O gastric bypass s/p surgery 09/20/20 b12 1471,mag 2.1, iron 68, ferr na 142,4.1, bun/cr 8/0.98, gluc 115, calc.9.1, ast 26, alt 74 Gastroesophageal reflux disease with esophagitis Gerd has improved already c wt. loss Seasonal allergies Cont. rx Impaired fasting glucose 10/2020 a1c 5.4 Vitamin D deficiency Add D 1,000IU daily 10/2020 vit. d 17.0 Treatment Notes Test Name Order Date FREE T4 & TSH PANEL 2020-11-25 Next Appt Details 2-3 Months c SS BW prior Reason: Provider Name:Kyleigh Garciaworth, 01-15 03:00:00 PM, [address] [place], [address], Insurance Providers Payer Name Payer Address Payer Phone Insured Name Patient Relati onship to Insured Coverage Start Date Coverage End Date [facility] COMM[facility] [address] [facility] [address] [phone] MORA LINN self
--- OUTSIDE RECORDS SUMMARY | 2020-12-03 03:24 | CCD ---
Author Author [facility] Organization [facility] Address Unknown Phone Unavailable Care Team Providers Care Packaging Design Engineer Name Role Phone Kyleigh Hernandez Unavailable PROBLEMS Type Condition ICD9-CM Code IFV90-OG Code Onset Dates Condition S tatus SNOMED Code Notes Problem Morbid (severe) obesity due to excess calories E66 .01 Active 01368579804654 Problem Body mass index (BMI) of 40.0-44.9 in adult Z68.41 Active 080094103 Problem Gastroesophageal reflux disease with esophagitis K 21.0 Active 139186876 Problem Seasonal allergies J30.2 Active 915707617 Problem Impaired fasting glucose R73.01 Active 1665668 07 Problem Personal history of other endocrine, nut ritional and metabolic disease Z86.39 Active 585649667 Problem Gross hematuria R31.0 Active 368018357 Problem PTSD (post-traumatic stress disorder) F43.10 Ac tive 85383763 Problem PATTY (obstructive sleep apnea) G47.33 Active 78 796637 Problem Anxiety F41.9 Active 42924181 Problem H/O gastric bypass Z98.84 Active 302113386 ALLERGIES Allergen (clinical drug ingredient) Drug/Non Drug Allergy do cumented on EMR Reaction Allergy Type Onset Date Status diphenhydramine DiphenhydrAMINE HCl(NDC Code:[address]-44) Unkn own Drug Allergy Active valproate Depakote(NDC Code:[address]-70) Unknown Drug Allergy Active methylphenidate Concerta(NDC Code:[address]-23) Unknown Drug Jasson rgy Active ENCOUNTERS from 1995 to 2020-10-30 Encounter Location Date Provider Diagnosis [address] [address] Oct, Kyleigh Hernandez Anxiety F41.9 ; Weight loss R63.4 ; Pers onal history of other endocrine, nutritional and metabolic disease Z86.39 ; Gastroesophageal reflux disease with esophagitis K21.0 ; H/O gastric bypass Z98.84 ; Seasonal allergies J30.2 and Impaired fasting glucose R73.01 IMMUNIZATIONS Vaccine Route Administration Date Status Influenza [...] Education Language: Question Answer Notes Languages spoken: German Hoahaoism: Question Answer Notes Hoahaoism 21 Adventism No anabaptism beliefs that would impact health care. Sexual [...] FOR REFERRAL No Information VITAL SIGNS Weight 242.6 lbs Oct, Height 65 in Oct, BMI 40.37 kg/m2 Oct, Heart Rate 89 /min Oct, Respiratory Rate 18 /min Oct, Temperature 97.4 degrees Fahrenheit Oct, Oximetry 97% Oct, Blood pressure systolic 122 mm Hg Oct, Blood pressure diastolic 78 mm Hg Oct, MEDICATIONS Medication SIG (Take, Route, Frequency, Duration) Notes Start Da te End Date Status Ventolin HFA 108 (90 Base) MCG/ACT 1 puff as needed In halation every 4 hrs for 30 days Active Vitamin B12 1000 MCG 1 tablet Orally Once a day for 30 day(s) Active Zoloft 25 MG 1 tablet at bedtime Orally Once a day for 30 day(s) Oct, Active Famotidine 40 MG 1 tab Orally once daily Active PROCEDURES No Information RESULTS No Results REASON FOR VISIT Trazadone MEDICAL (GENERAL) HISTORY Type Description Date Medical History PATTY-dx in [address] Posada, Neurology-cannot tolerate [...] Notes Oct, Anxiety (ICD-10 - F41.9) Will add Oct, Weight loss (ICD-10 - R63.4) Already lost 20lbs s/p gastric bypass, bp is down, now drinking better his 64oz Oct, Personal history of other en docrine, nutritional and metabolic disease (ICD-10 - Z86.39) Oct, Gastroesophageal reflux disease with eso phagitis (ICD-10 - K21.0) Gerd has improved already c wt. loss Oct, H/O gastric bypass (ICD-10 - Z98.84) s/p surgery 09/20/2020 Oct, Seasonal allergies (ICD-10 - J30.2) Oct, Impaired fasting glucose (ICD-10 - R73.01) PLAN OF TREATMENT Medication Medication Name Sig Start Date Stop Date Ventolin HFA 108 (90 Base) MCG/ACT 1 puff as needed In halation every 4 hrs for 30 days Zoloft 25 MG 1 tablet at bedtime Orally Once a day for 30 day (s) Oct, Treatment Notes Assessment Notes Clinical Notes Anxiety Will add Weight loss Already lost 20lbs s /p gastric bypass, bp is down, now drinking better his 64oz Gastroesophageal reflux disease with esophagitis Gerd has improved already c wt. loss H/O gastric bypass s/p surgery 09/20/20 Treatment Notes Test Name Order Date HEMOGLOBIN A1c 2020-10-30 Comprehensive Metabolic Profile (CMP) 2020-10-30 VITAMIN D 25-HYDROXY 2020-10-30 CBC with Differential 2020-10-30 IRON (FE) 2020-10-30 VITAMIN B12 LEVEL 2020-10-30 FERRITIN 2020-10-30 VITAMIN B1 LEVEL WHOLE BLOOD 2020-10-30 RBC FOLATE PROFILE 2020-10-30 MAGNESIUM LEVEL 2020-10-30 Next Appt Details BW prior to f/u Reason: Provider Name:Kyleigh Hernandez, 2019-11 03:00:00 PM, [address] [place], [address], Insurance Providers Payer Name Payer Address Payer Phone Insured Name Patient Relati onship to Insured Coverage Start Date Coverage End Date [facility] [employer] [address] [facility] [phone] MORA LINN self
--- OUTSIDE RECORDS SUMMARY | 2020-12-03 03:24 | CCD ---
Author Author [facility] Organization [facility] Address Unknown Phone Unavailable Care Team Providers Care Diamond Driller Helper Name Role Phone Kyleigh Hernandez Unavailable PROBLEMS Type Condition ICD9-CM Code IJF14-ID Code Onset Dates Condition S tatus SNOMED Code Notes Problem Morbid (severe) obesity due to excess calories E66 .01 Active 80224957768588 Problem Body mass index (BMI) of 40.0-44.9 in adult Z68.41 Active 362346638 Problem Gastroesophageal reflux disease with esophagitis K 21.0 Active 650326890 Problem Seasonal allergies J30.2 Active 404558998 Problem Impaired fasting glucose R73.01 Active 5826222 07 Problem Personal history of other endocrine, nut ritional and metabolic disease Z86.39 Active 103003281 Problem Gross hematuria R31.0 Active 722205927 Problem PTSD (post-traumatic stress disorder) F43.10 Ac tive 65052810 Problem PATTY (obstructive sleep apnea) G47.33 Active 78 234093 Problem Anxiety F41.9 Active 88503268 Problem H/O gastric bypass Z98.84 Active 753258924 ALLERGIES Allergen (clinical drug ingredient) Drug/Non Drug Allergy do cumented on EMR Reaction Allergy Type Onset Date Status diphenhydramine DiphenhydrAMINE HCl(NDC Code:[address]-40) Unkn own Drug Allergy Active valproate Depakote(NDC Code:[address]-92) Unknown Drug Allergy Active methylphenidate Concerta(NDC Code:[address]-18) Unknown Drug Jasson rgy Active ENCOUNTERS from 1995 to 2020-10-24 Encounter Location Date Provider Diagnosis [address] [address] Oct, Kyleigh Hernandez IMMUNIZATIONS Vaccine Route Administration Date Status Influenza [...] Education Language: Question Answer Notes Languages spoken: Tristanian Anabaptist: Question Answer Notes Anabaptist 21 Cheondoism No amish beliefs that would impact health care. Sexual [...] REASON FOR REFERRAL No Information VITAL SIGNS No information MEDICATIONS Medication SIG (Take, Route, Frequency, Duration) [...] Information RESULTS No Results REASON FOR VISIT Update Demographics - Personal Info MEDICAL (GENERAL) HISTORY Type Description Date Medical [...] No Information FUNCTIONAL STATUS No Information ASSESSMENTS No Information PLAN OF TREATMENT Medication Medication Name Sig Start Date Stop Date Ventolin HFA 108 (90 Base) MCG/ACT 1 puff as needed In halation every 4 hrs for 30 days Zoloft 25 MG 1 tablet at bedtime Orally Once a day for 30 day (s) Oct, Next Appt Details Provider Name:Kyleigh Laurent David, 2019-01-19 03:00:00 PM, [address] [place], [address], Insurance Providers Payer Name Payer Address Payer Phone Insured Name Patient Relati onship to Insured Coverage Start Date Coverage End Date [facility] COMM[facility]AN [facility] [address] [facility] [phone] MORA LINN self
--- OUTSIDE RECORDS SUMMARY | 2020-12-03 03:24 | CCD ---
Author Author [facility] Organization [facility] Address Unknown Phone Unavailable Care Team Providers Care Studio Sales Associate Name Role Phone Kyleigh Hernandez Unavailable PROBLEMS Type Condition ICD9-CM Code HGP41-KV Code Onset Dates Condition S tatus SNOMED Code Notes Problem Morbid (severe) obesity due to excess calories E66 .01 Active 79134801187381 Problem Body mass index (BMI) of 40.0-44.9 in adult Z68.41 Active 534477651 Problem Gastroesophageal reflux disease with esophagitis K 21.0 Active 041452004 Problem Seasonal allergies J30.2 Active 614621806 Problem Impaired fasting glucose R73.01 Active 5667878 07 Problem Personal history of other endocrine, nut ritional and metabolic disease Z86.39 Active 247121256 Problem Gross hematuria R31.0 Active 002207528 Problem PTSD (post-traumatic stress disorder) F43.10 Ac tive 35586475 Problem PATTY (obstructive sleep apnea) G47.33 Active 78 267520 Problem Anxiety F41.9 Active 42759851 Problem H/O gastric bypass Z98.84 Active 064020232 ALLERGIES Allergen (clinical drug ingredient) Drug/Non Drug Allergy do cumented on EMR Reaction Allergy Type Onset Date Status diphenhydramine DiphenhydrAMINE HCl(NDC Code:[address]-82) Unkn own Drug Allergy Active valproate Depakote(NDC Code:[address]-65) Unknown Drug Allergy Active methylphenidate Concerta(NDC Code:[address]-64) Unknown Drug Jasson rgy Active ENCOUNTERS from 1995 to 2020-10-25 Encounter Location Date Provider Diagnosis [address] [address] Oct, Kyleigh Hernandez Impaired fasting glucose R73.01 IMMUNIZATIONS Vaccine Route [...] Education Language: Question Answer Notes Languages spoken: Indonesian Sikh: Question Answer Notes Sikh 21 Hindu No pentecostal beliefs that would impact health care. Sexual [...] Information RESULTS No Results REASON FOR VISIT ReliOn premier test strips MEDICAL (GENERAL) HISTORY Type Description Date Medical [...] Treatment Notes Treatm ent Clinical Notes Oct, Impaired fasting glucose (ICD-10 - R73.01) PLAN OF TREATMENT Medication Medication Name Sig Start Date Stop Date Ventolin HFA 108 (90 Base) MCG/ACT 1 puff as needed In halation every 4 hrs for 30 days Zoloft 25 MG 1 tablet at bedtime Orally Once a day for 30 day (s) Oct, Next Appt Details Provider Name:Kyleigh Hernandez, 2019-11 03:00:00 PM, [facility] [place], [address], Insurance Providers Payer Name Payer Address Payer Phone Insured Name Patient Relati onship to Insured Coverage Start Date Coverage End Date [facility] [address] [facility] [address] MORA LINN self
--- OUTSIDE RECORDS SUMMARY | 2020-12-03 03:25 | CCD ---
Author Author [facility] [employer] em[employer] Organization [facility] Address Unknown Phone Unavailable Care Team Providers Care Patent Lawyer Name Role Phone Ernie Jaramillo Unavailable PROBLEMS Type Condition ICD9-CM Code BRV41-OE Code Onset Dates Condition S tatus SNOMED Code Notes Problem Gross hematuria R31.0 Active 491693845 Problem Body mass index (BMI) of 40.0-44.9 in adult Z68.41 Active 795138706 Problem PATTY (obstructive sleep apnea) G47.33 Active 78 159364 Problem Anxiety F41.9 Active 96262784 Problem Impaired fasting glucose R73.01 Active 5572106 07 Problem Morbid (severe) obesity due to excess calories E66 .01 Active 32370806786384 Problem Gastroesophageal reflux disease with esophagitis K 21.0 Active 056530062 Problem PTSD (post-traumatic stress disorder) F43.10 Ac tive 87732910 ALLERGIES Allergen (clinical drug ingredient) Drug/Non Drug Allergy do cumented on EMR Reaction Allergy Type Onset Date Status diphenhydramine DiphenhydrAMINE HCl(NDC Code:[address]-59) Unkn own Drug Allergy Active valproate Depakote(NDC Code:[address]-14) Unknown Drug Allergy Active methylphenidate Concerta(NDC Code:[address]-16) Unknown Drug Jasson rgy Active ENCOUNTERS from 1995 to 2020-09-17 Encounter Location Date Provider Diagnosis [address] [address] Aug, 2 020 Ernie Jaramillo Preoperative clearance Z01.818 ; Gastroesophageal reflux disease with esophagitis K21.0 ; PATTY (obstructive sleep apnea) G47.33 ; Impaired fasting glucose R73.01 ; Morbid (severe) obesity due to excess calories E66.01 and Anxiety F41.9 IMMUNIZATIONS Vaccine Route Administration Date Status Influenza [...] Education Language: Question Answer Notes Languages spoken: Kazakh Jewish: Question Answer Notes Jewish 21 Druze No sabianism beliefs that would impact health care. Sexual [...] FOR REFERRAL No Information VITAL SIGNS Weight 265.4 lbs Aug, Height 65 in Aug, BMI 44.16 kg/m2 Aug, Heart Rate 86 /min Aug, Respiratory Rate 20 /min Aug, Temperature 97.4 degrees Fahrenheit Aug, Oximetry 97% Aug, Blood pressure systolic 128 mm Hg Aug, Blood pressure diastolic 72 mm Hg Aug, MEDICATIONS Medication SIG (Take, Route, Frequency, Duration) Start Date En d Date Status Ventolin HFA 108 (90 Base) MCG/ACT 1 puff as needed Inhalation ever y 4 hrs Active Famotidine 40 MG 1 tab Orally bid Active ReliOn Blood Glucose Test - as directed In Vitro Daily for 30 Da ys March, Active PROCEDURES No Information RESULTS No Results REASON FOR VISIT Pre op clearance for Gastric bypass- [facility]. [facility]- 09/20/20-General, Joey escobar @ [phone] fax # [phone] DX: E66.01 MEDICAL (GENERAL) HISTORY Type Description Date Medical History PATTY-dx in [address] Posada, Neurology-cannot tolerate CPAP Medical History asthma, mild persistent Medical History hypetension, essential Medical History chronic MDD/PTSD/ADD Medical History GROSS HEMATURIA-last year 2017 seen @ [facility] Medical History GERD Surgical History BILATERAL ANKLE 2016 Surgical History Biopsy under L)eye 04/2019 Goals Section No Information Health Concerns No Information MEDICAL EQUIPMENT No Information MENTAL STATUS No Information FUNCTIONAL STATUS No Information ASSESSMENTS Encounter Date Diagnosis Notes Aug, Preoperative clearance (ICD-10 - Z01.818 ) Aug, Anxiety (ICD-10 - F41.9) Aug, Morbid (severe) obesity due to excess ca lories (ICD-10 - E66.01) Aug, Gastroesophageal reflux disease with eso phagitis (ICD-10 - K21.0) Aug, Impaired fasting glucose (ICD-10 - R73.0 1) Aug, PATTY (obstructive sleep apnea) (ICD-10 - G47.33) PLAN OF TREATMENT Medication Medication Name Sig Start Date Stop Date Famotidine 40 MG 1 tab Orally bid Treatment Notes Assessment Notes Clinical Notes Preoperative clearance On 09/10/20 the p atient had a stable CBCD, CMP, -COVID PCR.On 09/10/20 the patient's EKG showed normal sinus rhythm at 76 beats per minute, no hypertrophy, normal axis similar to 02/12/20 EKG.On the AM of the surgery, the patient will take famotidine with a sip of water.The patient is currently medically optimized for the above surgery. By the modified RCRI, the patient's 30 day MACE risk is 4%. The patient wishes to assume this risk and proceed with the above surgery. Given unpalliated moderate PATTY, would avoid significant post-operative sedation. Gastroesophageal reflux disease with esophagitis Stable on famo 40 BID PATTY (obstructive sleep apnea) Patient ca nnot tolerate CPAP use03/06/[address] Valenzuela, Sleep Medicine, but then px NS for fu apt Impaired fasting glucose Continue ADA di et08/26/20 A1C 5.6 Morbid (severe) obesity due to excess calories for gb Next Appt Details 2-3M-Kyleigh Reason: Provider Name:Kyleigh Hernandez, 2019-11 03:00:00 PM, [address] [place], [address], Insurance Providers Payer Name Payer Address Payer Phone Insured Name Patient Relati onship to Insured Coverage Start Date Coverage End Date [facility] [address] [facility] [address] MORA LINN self
--- OUTSIDE RECORDS SUMMARY | 2020-12-03 03:25 | CCD ---
Author Author [facility] [employer] [facility] Organization [facility] Address Unknown Phone Unavailable Care Team Providers Care Inhalation Therapist Name Role Phone Kyleigh Hernandez Unavailable PROBLEMS Type Condition ICD9-CM Code UTN81-RW Code Onset Dates Condition S tatus SNOMED Code Notes Problem Gross hematuria R31.0 Active 911861078 Problem Body mass index (BMI) of 40.0-44.9 in adult Z68.41 Active 935864581 Problem PATTY (obstructive sleep apnea) G47.33 Active 78 033465 Problem Anxiety F41.9 Active 80649362 Problem Impaired fasting glucose R73.01 Active 7565503 07 Problem Morbid (severe) obesity due to excess calories E66 .01 Active 22826513022083 Problem Gastroesophageal reflux disease with esophagitis K 21.0 Active 684127101 Problem PTSD (post-traumatic stress disorder) F43.10 Ac tive 58241490 ALLERGIES Allergen (clinical drug ingredient) Drug/Non Drug Allergy do cumented on EMR Reaction Allergy Type Onset Date Status diphenhydramine DiphenhydrAMINE HCl(NDC Code:[address]-35) Unkn own Drug Allergy Active valproate Depakote(NDC Code:[address]-49) Unknown Drug Allergy Active methylphenidate Concerta(NDC Code:[address]-86) Unknown Drug Jasson rgy Active ENCOUNTERS from 1995 to 2020-09-27 Encounter Location Date Provider Diagnosis [address] [address] May, Kyleigh Hernandez IMMUNIZATIONS Vaccine Route Administration Date [...] Education Language: Question Answer Notes Languages spoken: Martiniquais Latter Day: Question Answer Notes Latter Day 21 Caodaism No jainism beliefs that would impact health care. Sexual [...] Information RESULTS No Results REASON FOR VISIT 3rd No SHow MEDICAL (GENERAL) HISTORY Type Description Date Medical [...] Famotidine 40 MG 1 tab Orally bid Next Appt Details Provider Name:Kyleigh Laurent David, 2019-11 03:00:00 PM, [address] [place], [address], Insurance Providers Payer Name Payer Address Payer Phone Insured Name Patient Relati onship to Insured Coverage Start Date Coverage End Date [facility] [address] [place] [phone] MORA LINN self
--- OUTSIDE RECORDS SUMMARY | 2020-12-03 03:25 | CCD ---
Author Organization Unknown Address [address] [place] [address] Phone [phone] Care Team Providers Care Gas Torch Brazier Name Role Phone Rogelio Cadet Unavailable Unavailable Allergies Code Code System Name Reaction Severity Status Onset 386473 RxNorm Concerta Active 03/01/2013108738 RxNorm Benadryl Active 12/17/2015 [place] and Derivatives Active Notes: DEPOKOTE - Reaction: rash Medications Name Status Start Date Stop Date B12 Active Not available calcium citrate Active Not available famotidine Active Not available trazodone 150 mg tablet Take 1 tablet every day by oral route. Active Not available Problems Name Status Onset Date Source Finding of Lower Limb Active 03/01/[address] Concept Active 03/01/[address] Concept Active 10/03/2013 History Pain in Right Knee Active 10/03/2013 History Influenza Vaccination Status Active 10/03/2013 His tory Depressive Disorder Active 10/27/2013 History Finding of General Energy Active 04/30/2014 Histor y Allergic Rhinitis Active 05/07/2014 History Negative Dysphotopsia Active 01/23/2015 History Backache Active 01/23/2015 History Headache Active 01/23/2015 History Finding of Sensation of Skin Active 01/23/2015 His tory Polyalgia Active 03/07/2015 History Influenza Vaccine Needed Active 03/07/2015 History Finding of Neck Region Active 03/07/2015 History Eruption Active 08/01/2015 History Clinical Finding Active 08/01/2015 History Abnormal Weight Gain Active 12/17/[address] Concept Active 12/17/[address] Concept Active History Procedures Date Name Performed by 09/20/2020 Gastric Bypass for Obesity Information n ot available 11/22/2018 Procedure on Skin Information not avai lable 11/22/2014 Ankle Arthroscopy/surgery Information no t available 09/25/2020 US, Breast, Unilateral Information not a vailable 09/25/2020 MAMMO, Screening, Digital, Unilateral In formation not available Notes: wisdom teeth extraction Results Lab Results None recorded. Past Encounters 09/25/2020 Gynecomastia Rogelio Cadet MD: [address] [place] [address], Ph. Social History Tobacco Smoking Status Never Smoker Vaccine List Vaccine Type Hep A, ped/adol, 2 dose 10/03/2013 HPV, quadrivalent 10/03/20130.5 mL 03/07/20150.5 mL influenza, seasonal, injectable, preserv ative free 03/07/2015 IPV 03/07/20150.5 mL meningococcal MCV4O 10/03/20130.5 mL Tdap 03/07/20150.5 mL varicella 03/07/20150.5 mL Plan of Care Reminders Provider Appointments None recorded. Lab None recorded. Referral None recorded. Procedures None recorded. Surgeries None recorded. Imaging None recorded. Vitals Height Weight BMI Blood Pressure 62.4 in 251 lbs 4 oz 45.4 kg/m2 109/79 mm[Hg]
--- OUTSIDE RECORDS SUMMARY | 2020-12-03 03:25 | CCD ---
Author Author [facility] [facility] Organization [facility] Address Unknown Phone Unavailable Care Team Providers Care Pack Out Operator Name Role Phone Kyleigh Hernandez Unavailable PROBLEMS Type Condition ICD9-CM Code YWS75-UR Code Onset Dates Condition S tatus SNOMED Code Notes Problem Body mass index (BMI) of 40.0-44.9 in adult Z68.41 Active 152785153 Problem Impaired fasting glucose R73.01 Active 1183004 07 Problem Primary insomnia F51.01 Active 1995436 Problem PATTY (obstructive sleep apnea) G47.33 Active 78 935320 Problem UTI (urinary tract infection) N39.0 Active 31 8663418 Problem Anxiety F41.9 Active 12977340 Problem Gross hematuria R31.0 Active 540086394 Problem Morbid (severe) obesity due to excess calories E66 .01 Active 08008625314086 Problem Gastroesophageal reflux disease with esophagitis K 21.0 Active 735322043 Problem PTSD (post-traumatic stress disorder) F43.10 Ac tive 34108776 Problem Lipid screening Z13.220 Active 142565726 ALLERGIES Allergen (clinical drug ingredient) Drug/Non Drug Allergy do cumented on EMR Reaction Allergy Type Onset Date Status diphenhydramine DiphenhydrAMINE HCl([facility] Code:[address]-67) Unkn own Drug Allergy Active valproate Depakote(ND Code:[address]-03) Unknown Drug Allergy Active methylphenidate Concerta(ND Code:[address]-62) Unknown Drug Jasson rgy Active ENCOUNTERS from 1995 to 2020-09-07 Encounter Location Date Provider Diagnosis [address] [address] Aug, Kyleigh Hernandez IMMUNIZATIONS Vaccine Route Administration Date [...] Education Language: Question Answer Notes Languages spoken: Mongolian Jewish: Question Answer Notes Jewish 21 Congregation No orthodoxy beliefs that would impact health care. Sexual [...] Duration) Start Date En d Date Status ReliOn Blood Glucose Test - as directed In Vitro Daily for 30 Da ys March, Active Famotidine 40 MG 1 tab Orally bid for 30 Days Active Ventolin HFA 108 (90 Base) MCG/ACT 1 puff as needed Inhalation ever y 4 hrs Active Metformin HCl 500 MG 1 tablet with a meal Orally bid for 30 day( s) March, Active Escitalopram Oxalate 10 MG 1 tablet Orally Once a day for 30 day(s) Apr, Active Trazodone HCl 150 MG 1 tablet at bedtime Orally Once a day f or 30 day(s) Aug, Active PROCEDURES No Information RESULTS No Results REASON FOR VISIT Re:RE:3 month A1C MEDICAL (GENERAL) HISTORY Type Description Date Medical History ADHD Medical History PTSD Medical History DEPRESSION Medical History INSOMNIA Medical History GROSS HEMATURIA-last year 2017 seen [facility] Medical History HTN Medical History GERD Surgical History BILATERAL ANKLE 2016 Surgical History Biopsy under L)eye 04/2019 Goals Section No Information Health Concerns No Information MEDICAL EQUIPMENT No Information MENTAL STATUS No Information FUNCTIONAL STATUS No Information ASSESSMENTS No Information PLAN OF TREATMENT Medication Medication Name Sig Start Date Stop Date Trazodone HCl 150 MG 1 tablet at bedtime Orally Once a day f or 30 day(s) Aug, Escitalopram Oxalate 10 MG 1 tablet Orally Once a day for 30 day(s) Apr, Famotidine 40 MG 1 tab Orally bid for 30 Days Insurance Providers Payer Name Payer Address Payer Phone Insured Name Patient Relati onship to Insured Coverage Start Date Coverage End Date [facility] [address] [facility] [phone] MORA LINN self
--- OUTSIDE RECORDS SUMMARY | 2020-12-03 03:25 | CCD ---
Author Author [facility] [employer] [facility] Organization [facility] Address Unknown Phone Unavailable Care Team Providers Care Handbag Finisher Name Role Phone Kyleigh Hernandez Unavailable PROBLEMS Type Condition ICD9-CM Code ESP66-SL Code Onset Dates Condition S tatus SNOMED Code Notes Problem Gross hematuria R31.0 Active 366516787 Problem Body mass index (BMI) of 40.0-44.9 in adult Z68.41 Active 863070058 Problem PATTY (obstructive sleep apnea) G47.33 Active 78 326611 Problem Anxiety F41.9 Active 52991580 Problem Impaired fasting glucose R73.01 Active 2992747 07 Problem Morbid (severe) obesity due to excess calories E66 .01 Active 86210546508788 Problem Gastroesophageal reflux disease with esophagitis K 21.0 Active 912716837 Problem PTSD (post-traumatic stress disorder) F43.10 Ac tive 62781597 ALLERGIES Allergen (clinical drug ingredient) Drug/Non Drug Allergy do cumented on EMR Reaction Allergy Type Onset Date Status diphenhydramine DiphenhydrAMINE HCl(NDC Code:[address]-81) Unkn own Drug Allergy Active valproate Depakote(NDC Code:[address]-79) Unknown Drug Allergy Active methylphenidate Concerta(NDC Code:[address]-08) Unknown Drug Jasson rgy Active ENCOUNTERS from 1995 to 2020-09-17 Encounter Location Date Provider Diagnosis [address] [address] Aug, Kyleigh Hernandez IMMUNIZATIONS Vaccine Route Administration [...] Education Language: Question Answer Notes Languages spoken: Moldovan Restorationist: Question Answer Notes Restorationist 21 Religion No alevism beliefs that would impact health care. Sexual [...] Information RESULTS No Results REASON FOR VISIT ed [facility] d[facility]c 09/16; knee pain MEDICAL (GENERAL) HISTORY Type Description Date Medical History PATTY-dx in [address] Posada, Neurology-cannot tolerate CPAP Medical History asthma, mild persistent Medical History hypetension, essential Medical History chronic MDD/PTSD/ADD Medical History GROSS HEMATURIA-last [facility] 2017 [facility] Medical History GERD Surgical History BILATERAL ANKLE 2015 Surgical History Biopsy under L)eye 04/2019 Goals Section No Information Health Concerns No Information MEDICAL EQUIPMENT No Information MENTAL STATUS No Information FUNCTIONAL STATUS No Information ASSESSMENTS No Information PLAN OF TREATMENT Medication Medication Name Sig Start Date Stop Date Famotidine 40 MG 1 tab Orally bid Next Appt Details Provider Name:Kyleigh Hernandez, 2019-11 03:00:00 PM, [address] [place], [address], Insurance Providers Payer Name Payer Address Payer Phone Insured Name Patient Relati onship to Insured Coverage Start Date Coverage End Date [facility] [address] [place] [phone] MORA LINN self
--- OUTSIDE RECORDS SUMMARY | 2020-12-03 03:25 | CCD ---
Author Author [facility] Organization [facility] [employer] Address Unknown Phone Unavailable Care Team Providers Care Bun Panner Name Role Phone VizcainoSukh Unavailable PROBLEMS Type Condition ICD9-CM Code GWO09-GB Code Onset Dates Condition S tatus SNOMED Code Notes Problem Gross hematuria R31.0 Active 563407607 Problem Body mass index (BMI) of 40.0-44.9 in adult Z68.41 Active 835486085 Problem PATTY (obstructive sleep apnea) G47.33 Active 78 432641 Problem Anxiety F41.9 Active 32115227 Problem Impaired fasting glucose R73.01 Active 4748800 07 Problem Morbid (severe) obesity due to excess calories E66 .01 Active 92174893378425 Problem Gastroesophageal reflux disease with esophagitis K 21.0 Active 126496059 Problem PTSD (post-traumatic stress disorder) F43.10 Ac tive 49156322 ALLERGIES Allergen (clinical drug ingredient) Drug/Non Drug Allergy do cumented on EMR Reaction Allergy Type Onset Date Status diphenhydramine DiphenhydrAMINE HCl(NDC Code:[address]-58) Unkn own Drug Allergy Active valproate Depakote(NDC Code:[address]-99) Unknown Drug Allergy Active methylphenidate Concerta(NDC Code:[address]-76) Unknown Drug Jasson rgy Active ENCOUNTERS from 1995 to 2020-09-27 Encounter Location Date Provider Diagnosis [address] [address] May, Sukh Vizcaino IMMUNIZATIONS Vaccine Route Administration Date Status Influenza [...] Education Language: Question Answer Notes Languages spoken: Mohawk Jain: Question Answer Notes Jain 21 Shinto No taoist beliefs that would impact health care. Sexual [...] Information RESULTS No Results REASON FOR VISIT missed appts MEDICAL (GENERAL) HISTORY Type Description Date Medical History PATTY-dx in [address] Posada, Neurology-cannot tolerate CPAP Medical History asthma, mild persistent Medical History hypetension, essential Medical History chronic MDD/PTSD/ADD Medical History GROSS HEMATURIA-last year 2017 seen [facility] Medical History GERD Surgical History BILATERAL ANKLE 2016 Surgical History Biopsy under L)eye 04/2019 Goals Section No Information Health Concerns No Information MEDICAL EQUIPMENT No Information MENTAL STATUS No Information FUNCTIONAL STATUS No Information ASSESSMENTS No Information PLAN OF TREATMENT Medication Medication Name Sig Start Date Stop Date Famotidine 40 MG 1 tab Orally bid Next Appt Details Provider Name:Kyleigh Mehran Hernandez, 2019-11 03:00:00 PM, [address] [place], [address], Insurance Providers Payer Name Payer Address Payer Phone Insured Name Patient Relati onship to Insured Coverage Start Date Coverage End Date [facility] [address] [place] [phone] MORA LINN self
--- OUTSIDE RECORDS SUMMARY | 2020-12-03 03:25 | CCD ---
Author Author [facility] [employer] Organization [facility] Address Unknown Phone Unavailable Care Team Providers Care Flight Paramedic Name Role Phone Kyleigh Hernandez Unavailable PROBLEMS Type Condition ICD9-CM Code NWS13-XA Code Onset Dates Condition S tatus SNOMED Code Notes Problem Body mass index (BMI) of 40.0-44.9 in adult Z68.41 Active 372751550 Problem Impaired fasting glucose R73.01 Active 6396517 07 Problem Primary insomnia F51.01 Active 2611249 Problem PATTY (obstructive sleep apnea) G47.33 Active 78 609102 Problem UTI (urinary tract infection) N39.0 Active 31 1354883 Problem Anxiety F41.9 Active 82166156 Problem Gross hematuria R31.0 Active 931295751 Problem Morbid (severe) obesity due to excess calories E66 .01 Active 45622125804132 Problem Gastroesophageal reflux disease with esophagitis K 21.0 Active 490240265 Problem PTSD (post-traumatic stress disorder) F43.10 Ac tive 46866945 Problem Lipid screening Z13.220 Active 973280455 ALLERGIES Allergen (clinical drug ingredient) Drug/Non Drug Allergy do cumented on EMR Reaction Allergy Type Onset Date Status diphenhydramine DiphenhydrAMINE HCl([facility] Code:[address]-11) Unkn own Drug Allergy Active valproate Depakote(ND Code:[address]-86) Unknown Drug Allergy Active methylphenidate Concerta(ND Code:[address]-74) Unknown Drug Jasson rgy Active ENCOUNTERS from 1995 to 2020-09-06 Encounter Location Date Provider Diagnosis [address] [address] Aug, Kyleigh Hernandez IMMUNIZATIONS Vaccine Route Administration [...] Education Language: Question Answer Notes Languages spoken: Slovak Presybeterian: Question Answer Notes Presybeterian 21 Cheondoism No sikh beliefs that would impact health care. Sexual [...] Insured Coverage Start Date Coverage End Date [facility] [address] [facility] [phone] MORA LINN self
--- OUTSIDE RECORDS SUMMARY | 2020-12-03 03:25 | CCD ---
Author Author [facility] Organization [facility] Address Unknown Phone Unavailable Care Team Providers Care Animal Chiropractor Name Role Phone Ernie Jaramillo Unavailable PROBLEMS Type Condition ICD9-CM Code [id number] Code Onset Dates Condition S tatus SNOMED Code Notes Problem Gross hematuria R31.0 Active 298933391 Problem Body mass index (BMI) of 40.0-44.9 in adult Z68.41 Active 005092047 Problem PATTY (obstructive sleep apnea) G47.33 Active 78 531260 Problem Anxiety F41.9 Active 25574303 Problem Impaired fasting glucose R73.01 Active 7716838 07 Problem Morbid (severe) obesity due to excess calories E66 .01 Active 83375091247787 Problem Gastroesophageal reflux disease with esophagitis K 21.0 Active 317959135 Problem PTSD (post-traumatic stress disorder) F43.10 Ac tive 92653979 ALLERGIES Allergen (clinical drug ingredient) Drug/Non Drug Allergy do cumented on EMR Reaction Allergy Type Onset Date Status diphenhydramine DiphenhydrAMINE HCl(NDC Code:[address]-06) Unkn own Drug Allergy Active valproate Depakote(NDC Code:[address]-48) Unknown Drug Allergy Active methylphenidate Concerta(NDC Code:[address]-26) Unknown Drug Jasson rgy Active ENCOUNTERS from 1995 to 2020-09-19 Encounter Location Date Provider Diagnosis [address] [address] Aug, 020 Ernie Jaramillo IMMUNIZATIONS Vaccine Route Administration Date Status Influenza [...] Education Language: Question Answer Notes Languages spoken: [place] Taoism: Question Answer Notes Taoism 21 Worship No jainism beliefs that would impact health [...] Information RESULTS No Results REASON FOR VISIT No Information MEDICAL (GENERAL) HISTORY Type Description Date Medical History PATTY-dx in [address] Posada, Neurology-cannot tolerate CPAP Medical History asthma, mild persistent Medical History hypetension, essential Medical History chronic MDD/PTSD/ADD Medical History GROSS HEMATURIA-[facility] Medical History GERD Surgical History [...] Name:Kyleigh Mehran Hernandez, 2019-11 03:00:00 PM, [address] [place], [address], Insurance Providers Payer Name Payer Address Payer Phone Insured Name Patient Relati onship to Insured Coverage Start Date Coverage End Date [facility] [address] [facility] [phone] MORA LINN self
--- OUTSIDE RECORDS SUMMARY | 2020-12-03 03:25 | CCD ---
Author Author [facility] Organization [facility] Address Unknown Phone Unavailable Care Team Providers Care Artificial Insemination Technician Name Role Phone Kyleigh Hernandez Unavailable PROBLEMS Type Condition ICD9-CM Code BTR42-BO Code Onset Dates Condition S tatus SNOMED Code Notes Problem Body mass index (BMI) of 40.0-44.9 in adult Z68.41 Active 950533326 Problem Impaired fasting glucose R73.01 Active 7314946 07 Problem Primary insomnia F51.01 Active 4762418 Problem PATTY (obstructive sleep apnea) G47.33 Active 78 583961 Problem UTI (urinary tract infection) N39.0 Active 31 3983177 Problem Anxiety F41.9 Active 63821989 Problem Gross hematuria R31.0 Active 867220911 Problem Morbid (severe) obesity due to excess calories E66 .01 Active 92512543542330 Problem Gastroesophageal reflux disease with esophagitis K 21.0 Active 701050372 Problem PTSD (post-traumatic stress disorder) F43.10 Ac tive 12279997 Problem Lipid screening Z13.220 Active 819180354 ALLERGIES Allergen (clinical drug ingredient) Drug/Non Drug Allergy do cumented on EMR Reaction Allergy Type Onset Date Status diphenhydramine DiphenhydrAMINE HCl([facility] Code:[address]-21) Unkn own Drug Allergy Active valproate Depakote(ND Code:[address]-12) Unknown Drug Allergy Active methylphenidate Concerta(ND Code:[address]-72) Unknown Drug Jasson rgy Active ENCOUNTERS from 1995 to 2020-09-06 Encounter Location Date Provider Diagnosis [address] [address] Aug, Kyleigh Hernandez IMMUNIZATIONS Vaccine Route Administration [...] Education Language: Question Answer Notes Languages spoken: Polish Yazidi: Question Answer Notes Yazidi 21 Pentecostal No judaism beliefs that would impact health care. Sexual [...] Results REASON FOR VISIT Update Demographics - Additional Info MEDICAL (GENERAL) HISTORY Type Description Date [...] Insured Coverage Start Date Coverage End Date [facility] [address] [facility] [phone] MORA LINN self
--- OUTSIDE RECORDS SUMMARY | 2020-12-03 03:25 | CCD ---
Author Author [facility] Organization [facility] Address Unknown Phone Unavailable Care Team Providers Care Sales Development Consultant Name Role Phone Kyleigh Hernandez Unavailable PROBLEMS Type Condition ICD9-CM Code IHM15-WY Code Onset Dates Condition S tatus SNOMED Code Notes Problem Morbid (severe) obesity due to excess calories E66 .01 Active 21118244041973 Problem Body mass index (BMI) of 40.0-44.9 in adult Z68.41 Active 315908294 Problem Gastroesophageal reflux disease with esophagitis K 21.0 Active 446169240 Problem Seasonal allergies J30.2 Active 241391318 Problem Impaired fasting glucose R73.01 Active 5170678 07 Problem Personal history of other endocrine, nut ritional and metabolic disease Z86.39 Active 429933330 Problem Gross hematuria R31.0 Active 693139277 Problem PTSD (post-traumatic stress disorder) F43.10 Ac tive 42838873 Problem APTTY (obstructive sleep apnea) G47.33 Active 78 789060 Problem Anxiety F41.9 Active 25340132 Problem H/O gastric bypass Z98.84 Active 835735577 ALLERGIES Allergen (clinical drug ingredient) Drug/Non Drug Allergy do cumented on EMR Reaction Allergy Type Onset Date Status diphenhydramine DiphenhydrAMINE HCl(NDC Code:[address]-27) Unkn own Drug Allergy Active valproate Depakote(NDC Code:[address]-03) Unknown Drug Allergy Active methylphenidate Concerta(NDC Code:[address]-93) Unknown Drug Jasson rgy Active ENCOUNTERS from 1995 to 2020-10-23 Encounter Location Date Provider Diagnosis [address] [address] Oct, Kyleigh Hernandez IMMUNIZATIONS Vaccine Route Administration [...] Education Language: Question Answer Notes Languages spoken: [place] Anabaptist: Question Answer Notes Anabaptist 21 Anglican No confucianism beliefs that would impact health care. Sexual [...] Name:Kyleigh Laurent David, 2019-11 03:00:00 PM, [address] [place], [address], Insurance Providers Payer Name Payer Address Payer Phone Insured Name Patient Relati onship to Insured Coverage Start Date Coverage End Date [facility] [address] [facility] [phone] MORA LINN self
--- OUTSIDE RECORDS SUMMARY | 2020-12-03 03:25 | CCD ---
Author Author [facility] Organization [facility] Address Unknown Phone Unavailable Care Team Providers Care Occupational Health And Safety Manager Name Role Phone Kyleigh Hernandez Unavailable PROBLEMS Type Condition ICD9-CM Code XLT88-ME Code Onset Dates Condition S tatus SNOMED Code Notes Problem Morbid (severe) obesity due to excess calories E66 .01 Active 23318104449550 Problem Body mass index (BMI) of 40.0-44.9 in adult Z68.41 Active 490147943 Problem Gastroesophageal reflux disease with esophagitis K 21.0 Active 224336934 Problem Seasonal allergies J30.2 Active 306532893 Problem Impaired fasting glucose R73.01 Active 8527445 07 Problem Personal history of other endocrine, nut ritional and metabolic disease Z86.39 Active 585832542 Problem Gross hematuria R31.0 Active 218721059 Problem PTSD (post-traumatic stress disorder) F43.10 Ac tive 16627843 Problem PATTY (obstructive sleep apnea) G47.33 Active 78 845221 Problem Anxiety F41.9 Active 76413418 Problem H/O gastric bypass Z98.84 Active 624328245 ALLERGIES Allergen (clinical drug ingredient) Drug/Non Drug Allergy do cumented on EMR Reaction Allergy Type Onset Date Status diphenhydramine DiphenhydrAMINE HCl(NDC Code:[address]-27) Unkn own Drug Allergy Active valproate Depakote(NDC Code:[address]-86) Unknown Drug Allergy Active methylphenidate Concerta(NDC Code:[address]-62) Unknown Drug Jasson rgy Active ENCOUNTERS from 1995 to 2020-10-23 Encounter Location Date Provider Diagnosis [address] [address] Oct, Kyleigh Hernandez IMMUNIZATIONS Vaccine Route Administration [...] Education Language: Question Answer Notes Languages spoken: Panamanian Anabaptism: Question Answer Notes Anabaptism 21 Restoration No bahai beliefs that would impact health care. Sexual [...] Information RESULTS No Results REASON FOR VISIT paperwork, fax office note MEDICAL (GENERAL) HISTORY Type Description Date Medical [...] Name:Kyleigh Laurent David, 2019-11 03:00:00 PM, [address] [place], [address], Insurance Providers Payer Name Payer Address Payer Phone Insured Name Patient Relati onship to Insured Coverage Start Date Coverage End Date [facility] [address] [facility] [phone] MORA LINN self
--- OUTSIDE RECORDS SUMMARY | 2020-12-03 03:25 | CCD ---
Author Author [facility] Organization [facility] Address Unknown Phone Unavailable Care Team Providers Care Automatic Bandsaw Tender Name Role Phone Kyleigh Hernandez Unavailable PROBLEMS Type Condition ICD9-CM Code MUH51-KG Code Onset Dates Condition S tatus SNOMED Code Notes Problem Body mass index (BMI) of 40.0-44.9 in adult Z68.41 Active 095428230 Problem Impaired fasting glucose R73.01 Active 8885915 07 Problem Primary insomnia F51.01 Active 2540697 Problem PATTY (obstructive sleep apnea) G47.33 Active 78 961627 Problem UTI (urinary tract infection) N39.0 Active 31 0337434 Problem Anxiety F41.9 Active 86921438 Problem Gross hematuria R31.0 Active 684147762 Problem Morbid (severe) obesity due to excess calories E66 .01 Active 22940961055271 Problem Gastroesophageal reflux disease with esophagitis K 21.0 Active 246593898 Problem PTSD (post-traumatic stress disorder) F43.10 Ac tive 76969891 Problem Lipid screening Z13.220 Active 120748530 ALLERGIES Allergen (clinical drug ingredient) Drug/Non Drug Allergy do cumented on EMR Reaction Allergy Type Onset Date Status diphenhydramine DiphenhydrAMINE HCl([facility] Code:[address]-04) Unkn own Drug Allergy Active valproate Depakote(ND Code:[address]-11) Unknown Drug Allergy Active methylphenidate Concerta(ND Code:[address]-39) Unknown Drug Jasson rgy Active ENCOUNTERS from 1995 to 2020-09-05 Encounter Location Date Provider Diagnosis [address] [address] Jul, Kyleigh Hernandez Impaired fasting glucose R73.01 IMMUNIZATIONS [...] Language: Question Answer Notes Languages spoken: Mohawk Rastafari: Question Answer Notes Rastafari 21 Gnosticism No catholic beliefs that would impact health care. Sexual [...] Daily for 30 Da ys March, Active TraZODone HCl 100 MG 1 tablet at bedtime Orally Active Ventolin HFA 108 (90 Base) MCG/ACT 1 puff as needed Inhalation ever y 4 hrs Active Metformin HCl 500 MG 1 tablet with a meal Orally bid for 30 day( s) March, Active Escitalopram Oxalate 10 MG 1 tablet Orally Once a day for 30 day(s) Apr, Active Famotidine 40 MG Orally bid Active PROCEDURES No Information RESULTS No Results REASON FOR VISIT 3 month A1C MEDICAL (GENERAL) HISTORY Type Description [...] No Information ASSESSMENTS Encounter Date Diagnosis Notes Jul, Impaired fasting glucose (ICD-10 - R73.0 1) PLAN OF TREATMENT Medication Medication Name Sig Start Date Stop Date Escitalopram Oxalate 10 MG 1 tablet Orally Once a day for 30 day(s) Apr, Insurance Providers Payer Name Payer Address Payer Phone Insured Name Patient Relati onship to Insured Coverage Start Date Coverage End Date [facility] [address] [facility] [phone] MORA LINN self
--- OUTSIDE RECORDS SUMMARY | 2020-12-03 03:26 | CCD ---
Author Author [facility] Organization [facility] Address Unknown Phone Unavailable Support Name Relationship Address Phone [employer] [place] [address] Cathy Torres Next Of Kin [address] [place] [phone] [employer] Next Of Kin [address] [place] [address] [address] [place] [address] STEWARTS* Next Of [facility] [address] [place] [address] KRAFT Next Of Kin [facility] [place] [address] Regina Almanzar Next Of Kin [address] [place] [address] Madelin KITCHEN WORK SUPERVISOR-C, Regina Next Of Kin [address] [place] [phone] Lyudmila PNP-CAyala Next Of [facility] [address] [place], [place] [phone] [employer] [place] [address] [employer] Next Of Kin [address] [place] [address] COUSINS, KAYCEE Next Of Kin [address] [place] [address] STREAM Next Of [facility] [address] [place] [address] JUSTINE ELENA Next Of Kin [address] [place] [address] Madelin KITCHEN WORK SUPERVISOR-C KITCHEN WORK SUPERVISOR-C, Regina Next Of Kin [address] [place] [address] Lyudmila PNP-C, Reba Next Of Kin [address] [place] [address] Laquita Castaneda MD Next Of Kin [address] [place] [address] COUSINS, MARIEL Next [place] [facility] [place] [address] [employer] Galenea [employer]ORY Next [place] [address] - COUSINS, ROBLES Next Of Kin [address] [place] [address] Paola ALVAREZ Next Of Kin [address] [place] [address] UE Next Of Kin Unknown Unavailable ST Next Of Kin [address] [place] [address] ARRON ALVAREZ Next Of Kin [address] [place] [address] COUSINS, MARIEL [facility] , [place] Unavailable Rosangela Das ECON Unknown Care Team Providers Care Manager Of Internal Name Role Phone Cathy Kaur Unavailable Unavailable SKINNY FELTON Unavailable Unavailable Chino Cadet MD Unavailable Unavailable Chino Cadet MD Unavailable Unavailable Chino Cadet MD Unavailable Unavailable Chino Cadet MD Unavailable Unavailable Chino Cadet MD Unavailable Unavailable Chino Cadet MD Unavailable Unavailable Chino Cadet MD Unavailable Unavailable Chino Cadet MD Unavailable Unavailable Chino Cadet MD Unavailable Unavailable Chino Cadet MD Unavailable Unavailable Chino Cadet MD Unavailable Unavailable Chino Cadet MD Unavailable Unavailable Chino Cadet MD Unavailable Unavailable Chino Cadet MD Unavailable Unavailable Chino Cadet MD Unavailable Unavailable Chino Cadet MD Unavailable Unavailable Chino Cadet MD Unavailable Unavailable Chino Cadet MD Unavailable Unavailable Chino Cdaet MD Unavailable Unavailable Chino Cadet MD Unavailable Unavailable Chino Cadet MD Unavailable Unavailable Chino Cadet MD Unavailable Unavailable Chino Cadet MD Unavailable Unavailable Chino Cadet MD Unavailable Unavailable Chino Cadet MD Unavailable Unavailable Chino Cadet MD Unavailable Unavailable Chino Cadet MD Unavailable Unavailable Chino Cadet MD Unavailable Unavailable Chino Cadet MD Unavailable Unavailable Chino Cadet MD Unavailable Unavailable Chino Cadet MD Unavailable Unavailable Chino Cadet MD Unavailable Unavailable Chino Cadet MD Unavailable Unavailable Chino Cadet MD Unavailable Unavailable Chino Cadet MD Unavailable Unavailable Chino Cadet MD Unavailable Unavailable Chino Cadet MD Unavailable Unavailable Chino Cadet MD Unavailable Unavailable Chino Cadet MD Unavailable Unavailable Chino Cadet MD Unavailable Unavailable Chino Cadet MD Unavailable Unavailable Chino Cadet MD Unavailable Unavailable Chino Cadet MD Unavailable Unavailable Chino Cadet MD Unavailable Unavailable Chino Cadet MD Unavailable Unavailable Chino Cadet MD Unavailable Unavailable Cihno Cadet MD Unavailable Unavailable Chino Cadet MD Unavailable Unavailable Chino Cadet MD Unavailable Unavailable Chino Cadet MD Unavailable Unavailable Chino Cadet MD Unavailable Unavailable Chino Cadet MD Unavailable Unavailable Chino Cadet MD Unavailable Unavailable Chino Cadet MD Unavailable Unavailable Chino Cadet MD Unavailable Unavailable Chino Cadet MD Unavailable Unavailable Chino Cadet MD Unavailable Unavailable Chino Cadet MD Unavailable Unavailable Chino Cadet MD Unavailable Unavailable Chino Cadet MD Unavailable Unavailable Chino Cadet MD Unavailable Unavailable Chino Cadet MD Unavailable Unavailable Chino Cadet MD Unavailable Unavailable Chino Cadet MD Unavailable Unavailable Chino Cadet MD Unavailable Unavailable Chino Cadet MD Unavailable Unavailable Chino Cadet MD Unavailable Unavailable Chino Cadet MD Unavailable Unavailable Chino Cadet MD Unavailable Unavailable Chino Cadet MD Unavailable Unavailable Chino Cadet MD Unavailable Unavailable Chino Cadet MD Unavailable Unavailable Chino Cadet MD Unavailable Unavailable Chino Cadet MD Unavailable Unavailable Chino Cadet MD Unavailable Unavailable Chino Cadet MD Unavailable Unavailable Chino Cadet MD Unavailable Unavailable Chino Cadet MD Unavailable Unavailable Chino Cadet MD Unavailable Unavailable Chino Cadet MD Unavailable Unavailable Chino Cadet MD Unavailable Unavailable Chino Cadet MD Unavailable Unavailable Chino Cadet MD Unavailable Unavailable Chino Cadet MD Unavailable Unavailable Chino Cadet MD Unavailable Unavailable Chino Cadet MD Unavailable Unavailable Chino Cadet MD Unavailable Unavailable Chino Cadet MD Unavailable Unavailable Chino Cadet MD Unavailable Unavailable Mehran Lane MD Unavailable Unavailable Mehran Lane MD Unavailable Unavailable Mehran Lane MD Unavailable Unavailable Mehran Lane MD Unavailable Unavailable Mehran Lane MD Unavailable Unavailable Mehran Lane MD Unavailable Unavailable Mehran Lane MD Unavailable Unavailable Mehran Lane MD Unavailable Unavailable Mehran Lane MD Unavailable Unavailable Mehran Lane MD Unavailable Unavailable Mehran Lane MD Unavailable Unavailable Mehran Lane MD Unavailable Unavailable Mehran Lane MD Unavailable Unavailable Mehran Lane MD Unavailable Unavailable Mehran Lane MD Unavailable Unavailable Mehran Lane MD Unavailable Unavailable Mehran Lane MD Unavailable Unavailable Mehran Lane MD Unavailable Unavailable Mehran Lane MD Unavailable Unavailable Mehran Lane MD Unavailable Unavailable Mehran Lane MD Unavailable Unavailable Mehran Lane MD Unavailable Unavailable Mehran Lane MD Unavailable Unavailable Mehran Lane MD Unavailable Unavailable Mehran Lane MD Unavailable Unavailable Mehran Lane MD Unavailable Unavailable Mehran Lane MD Unavailable Unavailable Mehran Lane MD Unavailable Unavailable Mehran Lane MD Unavailable Unavailable Mehran Lane MD Unavailable Unavailable Mehran Lane MD Unavailable Unavailable Mehran Lane MD Unavailable Unavailable Mehran Lane MD Unavailable Unavailable Mehran Lane MD Unavailable Unavailable Mehran Lane MD Unavailable Unavailable Mehran aLne MD Unavailable Unavailable Mehran Lane MD Unavailable Unavailable Mehran Lane MD Unavailable Unavailable Mehran Lane MD Unavailable Unavailable Mehran Lane MD Unavailable Unavailable Mehran Lane MD Unavailable Unavailable Mehran Lane MD Unavailable Unavailable Mehran Lane MD Unavailable Unavailable Mehran Lane MD Unavailable Unavailable Mehran Lane MD Unavailable Unavailable Mehran Lane MD Unavailable Unavailable Mehran Lane MD Unavailable Unavailable Mehran Lane MD Unavailable Unavailable Mehran Lane MD Unavailable Unavailable Mehran Lane MD Unavailable Unavailable Mehran Lane MD Unavailable Unavailable Mehran Lane MD Unavailable Unavailable Mehran Lane MD Unavailable Unavailable Mehran Lane MD Unavailable Unavailable Mehran Lane MD Unavailable Unavailable Mehran Lane MD Unavailable Unavailable Mehran Lane MD Unavailable Unavailable Mehran Lane MD Unavailable Unavailable Mehran Lane MD Unavailable Unavailable Mehran Lane MD Unavailable Unavailable Mehran Lane MD Unavailable Unavailable Mehran Lane MD Unavailable Unavailable Mehran Lane MD Unavailable Unavailable Mehran Lane MD Unavailable Unavailable Mehran Lane MD Unavailable Unavailable Mehran Lane MD Unavailable Unavailable Mehran Lane MD Unavailable Unavailable Mehran Lane MD Unavailable Unavailable Mehran Lane MD Unavailable Unavailable Mehran Lane MD Unavailable Unavailable Mehran Lane MD Unavailable Unavailable Mehran Lane MD Unavailable Unavailable Mehran Lane MD Unavailable Unavailable Mehran Lane MD Unavailable Unavailable Mehran Lane MD Unavailable Unavailable Mehran Lane MD Unavailable Unavailable Mehran Lane MD Unavailable Unavailable Mehran Lane MD Unavailable Unavailable Mehran Lane MD Unavailable Unavailable Mehran Lane MD Unavailable Unavailable Mehran Lane MD Unavailable Unavailable Mehran Lane MD Unavailable Unavailable Mehran Lane MD Unavailable Unavailable Mehran Lane MD Unavailable Unavailable Mehran Lane MD Unavailable Unavailable Mehran Lane MD Unavailable Unavailable Mehran Lane MD Unavailable Unavailable Mehran Lane MD Unavailable Unavailable Mehran Lane MD Unavailable Unavailable Mehran Lane MD Unavailable Unavailable Mehran Lane MD Unavailable Unavailable Mehran Lane MD Unavailable Unavailable Mehran Lane MD Unavailable Unavailable [facility], FASIM Unavailable Unavailable RamsesJennifer PA-C Unavailable Unavailable RamsesJennifer PA-C Unavailable Unavailable RamsesJennifer PA-C Unavailable Unavailable RamsesJennifer PA-C Unavailable Unavailable RamsesJennifer PA-C Unavailable Unavailable RamsesJennifer PA-C Unavailable Unavailable RamsesJennifer PA-C Unavailable Unavailable RamsesJennifer PA-C Unavailable Unavailable RamsesJennifer PA-C Unavailable Unavailable RamsesJennifer PA-C Unavailable Unavailable RamsesJennifer PA-C Unavailable Unavailable Ravi YEH Unavailable Unavailable TONTARSKI, G DANDY PA Unavailable Unavailable TONTARSKI, G DANDY PA Unavailable Unavailable TONTARSKI, G DANDY PA Unavailable Unavailable TONTARSKI, G DANDY PA Unavailable Unavailable TONTARSEMERSON, G DANDY PA Unavailable Unavailable TONTARSEMERSON, G DANDY PA Unavailable Unavailable TONTARSEMERSON, G DANDY PA Unavailable Unavailable TONTARSKI, G DANDY PA Unavailable Unavailable TONTARSKI, G DANDY PA Unavailable Unavailable TONTARSKI, G DANDY PA Unavailable Unavailable TONTARSKI, G DANDY PA Unavailable Unavailable TONTARSEMERSON, G DANDY PA Unavailable Unavailable TONTARSKI, G DANDY PA Unavailable Unavailable TONTARSEMERSON, G DANDY PA Unavailable Unavailable TONTARSEMERSON, G DANDY PA Unavailable Unavailable TONTARSEMERSON, G DANDY PA Unavailable Unavailable TONTARSEMERSON, G DANDY PA Unavailable Unavailable TONTARSEMERSON, G DANDY PA Unavailable Unavailable TONTARSEMERSON, G DANDY PA Unavailable Unavailable TONTARSEMERSON, G DANDY PA Unavailable Unavailable TONTARSEMERSON, G DANDY PA Unavailable Unavailable TONTARSEMERSON, G DANDY PA Unavailable Unavailable TONTARSEMERSON, G DANDY PA Unavailable Unavailable TONTARSEMERSON, G DANDY PA Unavailable Unavailable TONTARSEMERSON, G DANDY PA Unavailable Unavailable TONTARSEMERSON, G DANDY PA Unavailable Unavailable TONTARSEMERSON, G DANDY PA Unavailable Unavailable TONTARSEMERSON, G DANDY PA Unavailable Unavailable TONTARSEMERSON, G DANDY PA Unavailable Unavailable TONTARSEMERSON, G DANDY PA Unavailable Unavailable TONTARSEMERSON, G DANDY PA Unavailable Unavailable TONTARSEMERSON, G DANDY PA Unavailable Unavailable TONTARSEMERSON, G DANDY PA Unavailable Unavailable TONTARSEMERSON, G DANDY PA Unavailable Unavailable TONTARSEMERSON, G DANDY PA Unavailable Unavailable TONTARSEMERSON, G DANDY PA Unavailable Unavailable TONTARSEMERSON, G DANDY PA Unavailable Unavailable TONTARSEMERSON, G DANDY PA Unavailable Unavailable TONTARSEMERSON, G DANDY PA Unavailable Unavailable TONTARSKI, G DANDY PA Unavailable Unavailable TONTARSEMERSON, G DANDY PA Unavailable Unavailable TONTARSEMERSON, G DANDY PA Unavailable Unavailable TONTARSEMERSON G DANDY PA Unavailable Unavailable TONTAARTIE G DANDY PA Unavailable Unavailable TONTARSEMERSON G DANDY PA Unavailable Unavailable Clint, Yelena Klein MD Unavailable Unavailable Clint, E Ernie VUONG Unavailable Unavailable Clint, Yelena Klein MD Unavailable Unavailable Clint, E Ernie VUONG Unavailable Unavailable Clint, E Ernie VUONG Unavailable Unavailable Clint, E Ernie VUONG Unavailable Unavailable Clint, E Ernie VUONG Unavailable Unavailable Clint, E Ernie VUONG Unavailable Unavailable Clint, E Ernie VUONG Unavailable Unavailable Clint, E Ernie VUONG Unavailable Unavailable Clint, E Ernie VUONG Unavailable Unavailable Clint, E Ernie VUONG Unavailable Unavailable Clint, E Ernie VUONG Unavailable Unavailable Clint, E Ernie VUONG Unavailable Unavailable Clint, E Ernie VUONG Unavailable Unavailable Clint, E Ernie VUONG Unavailable Unavailable Clint, E Ernie VUONG Unavailable Unavailable Clint, Yelena Klein MD Unavailable Unavailable Clint, Yelena Klein MD Unavailable Unavailable Clint, Yelena Klein MD Unavailable Unavailable Clint, Yelena Klein MD Unavailable Unavailable Clint, E Ernie VUONG Unavailable Unavailable Clint, Yelena Klein MD Unavailable Unavailable Clint, Yelena Klein MD Unavailable Unavailable Clint, Yelena Klein MD Unavailable Unavailable Clint, Yelena Klein MD Unavailable Unavailable Clint, E Ernie VUONG Unavailable Unavailable Clint, Yelena lKein MD Unavailable Unavailable Clint, Yelena Klein MD Unavailable Unavailable Clint, E Ernie VUONG Unavailable Unavailable Clint, Yelena Klein MD Unavailable Unavailable Clint, E Ernie VUONG Unavailable Unavailable Clint, E Ernie VUONG Unavailable Unavailable Clint, E Ernie VUONG Unavailable Unavailable Clint, E Ernie VUONG Unavailable Unavailable Clint, E Ernie VUONG Unavailable Unavailable Clint, E Ernie VUONG Unavailable Unavailable Clint, Yelena Klein MD Unavailable Unavailable Clint, Yelena Klein MD Unavailable Unavailable Clint, Yelena Klein MD Unavailable Unavailable Clint, Yelena Klein MD Unavailable Unavailable Clint, Yelena Klein MD Unavailable Unavailable Clint, E Ernie VUONG Unavailable Unavailable Clint, Yelena Klein MD Unavailable Unavailable Clint, Yelena Klein MD Unavailable Unavailable Clint, E Ernie VUONG Unavailable Unavailable Clint, Yelena Klein MD Unavailable Unavailable Clint, Yelena Klein MD Unavailable Unavailable Clint, E Ernie VUONG Unavailable Unavailable Clint, E Ernie VUONG Unavailable Unavailable Clint, E Ernie VUONG Unavailable Unavailable Clint, E Ernie VUONG Unavailable Unavailable Clint, Yelena Klein MD Unavailable Unavailable Clint, Yelena Klein MD Unavailable Unavailable Clint, Yelena Klein MD Unavailable Unavailable Clint, Yelena Klein MD Unavailable Unavailable Clint, E Ernie VUONG Unavailable Unavailable SKINNY FELTON Unavailable Unavailable Re-disclosure Warning The records that you are about to access may contain information from federally-assisted alcohol or drug abuse programs. If such information is present, then the following federally mandated warning applies: This information has been disclosed to you from records protected by federal confidentiality rules (42 CFR part 2). The federal rules prohibit you from making any further disclosure of this information unless further disclosure is expressly permitted by the written consent of the person to whom it pertains or as otherwise permitted by 42 CFR part 2. A general authorization for the release of medical or other information is NOT sufficient for this purpose. The Federal rules restrict any use of the information to criminally investigate or prosecute any alcohol or drug abuse patient.The records that you are about to access may contain highly sensitive health information, the redisclosure of which is protected by Article 27-F of the [facility] Public Health law. If you continue you may have access to information: Regarding HIV / AIDS; Provided by facilities licensed or operated by the [facility] Office of Mental Health; or Provided by the [facility] Office for People With Developmental Disabilities. If such information is present, then the following [facility] mandated warning applies: This information has been disclosed to you from confidential records which are protected by state law. State law prohibits you from making any further disclosure of this information without the specific written consent of the person to whom it pertains, or as otherwise permitted by law. Any unauthorized further disclosure in violation of state law may result in a fine or senior living sentence or both. A general authorization for the release of medical or other information is NOT sufficient authorization for further disc losure. Allergies and Adverse Reactions Type Description Substance Reaction Status Data Source(s ) Propensity to adverse reactions DIVALPROEX SODIUM Divalproex Sodium Rash Low Active [facility] Low Propensity to adverse reactions METHYLPHENIDATE HCL ER (CD) Methylphenidate Hcl Er (Cd) Palpitations Low Active [facility] Low Propensity to adverse reactions CITRUS CITRUS AURANTIUM FRUIT OIL Active [facility] Propensity to adverse reactions DIPHENHYDRAMINE Diphenhydramine Active [facility] Drug allergy Concerta Methylphenidate Unknown Active eCW1 ([facility]) Drug allergy Depakote Valproate Unknown Active eCW1 ([facility]) Drug allergy DiphenhydrAMINE HCl Diphenhydramine Unknown Active eCW1 ([facility]) Family History Family Member Name Family Member Gender Family Member Status Date o f Status Description Data Source(s) Unknown Unknown Problem MEDENT ([facility], [facility]) Encounters Encounter Providers Location Date Indications Data Source(s ) Outpatient [address] [id number] 11/18/2020 12:00:00 AM EST eCW1 ([facility]) Unknown [address] [address] 10/23/2020 12:00:00 AM EST eCW1 ([facility]) Unknown [address] [address] 10/23/2020 12:00:00 AM EST eCW1 ([facility]) Outpatient [address] [address] 10/22/2020 12:00:00 AM EST eCW1 ([facility]) Unknown [address] [address] 10/22/2020 12:00:00 AM EST eCW1 ([facility]) Unknown [address] [address] 10/22/2020 12:00:00 AM EST eCW1 ([facility]) Rogelio Cadet MD: [address] [place] [phone], Ph. Attender: Rogelio Cadet MD [place] - [facility] Medical 09/25/2020 12:00:00 AM EST YARA ([facility]) Unknown [address] [address] 09/17/2020 12:00:00 AM EDT eCW1 ([facility]) Outpatient Referrer: SKINNY FELTON MOB-MOB.PAT 2019 10:09:03 AM EDT - 09/15/2020 10:09:07 AM EDT [facility] [place] [address] [address] 09/12/2020 12:00:00 AM EDT eCW1 ([facility]) [place] [address] [address] 09/12/2020 12:00:00 AM EDT eCW1 ([facility]) Outpatient Attender: SKINNY FELTONReferrer: SKINNY HOOVER MOB-MOB.PAT 09/10/2020 11:03:19 AM EDT - 09/10/2020 12:25:[address] [facility] [place] [address] [address] 09/06/2020 12:00:00 AM EDT eCW1 ([facility]) [place] [address] [address] 09/06/2020 12:00:00 AM EDT eCW1 ([facility]) [place] [address] [address] 09/06/2020 12:00:00 AM EDT eCW1 ([facility]) Inpatient Attender: SKINNY Trinidad vincenzo: SKINNY FELTONAdmitter: SKINNY FELTON [id number] 09/03/2020 10:29:48 AM EDT - 09/21/2020 01:49:[address] [facility] Patient discharged. Outpatient Attender: JENNIFER JIANG 08/28/2020 11:18:[address] [facility] Outpatient Attender: LINDA [facility] AP[facility] 08/26/2020 12:25:[address] [facility] Outpatient Attender: LINDA MORALES APOLINAR 08/26/2020 12:22:[address] [facility] [place] [address] [address] 08/13/2020 12:00:00 AM EDT eCW1 ([facility]) [place] [address] [address] 08/13/2020 12:00:00 AM EDT eCW1 ([facility]) [place] [address] [address] 06/05/2020 12:00:00 AM EDT eCW1 ([facility]) [place] [address] [address] 06/03/2020 12:00:00 AM EDT eCW1 ([facility]) Emergency Attender: Anjum RODRIGUEZ-CConsultant: ARMAAN RODRIGUEZ 05/21/2020 01:27:00 PM EDT - 05/21/2020 03:21:00 PM EDT [facility] Patient admitted. [facility] [address] [address] 05/09/2020 12:00:00 AM EDT eCW1 ([facility]) [place] [address] [address] 05/04/2020 12:00:00 AM EDT eCW1 ([facility]) Outpatient Attender: LINDA MORALES APOLINAR 04/30/2020 07:38:[address] [facility] [place] [address] [address] 04/30/2020 12:00:00 AM EDT eCW1 ([facility]) [place] [address] [address] 04/28/2020 12:00:00 AM EDT eCW1 ([facility]) [facility] [address] [address] 04/23/2020 12:00:00 AM EDT eCW1 ([facility]) [facility] [address] [address] 03/28/2020 12:00:00 AM EDT eCW1 ([facility]) [facility] [address] [address] 03/26/2020 12:00:00 AM EDT eCW1 ([facility]) [facility] [address] [address] 03/10/2020 12:00:00 AM EDT eCW1 ([facility]) [address] [address] 03/04/2020 12:00:00 AM EDT eCW1 ([facility]) Outpatient 03/01/2020 06:00:00 AM EDT [facility] [address] [address] 02/13/2020 12:00:00 AM EDT eCW1 ([facility] [address] [address] 02/13/2020 12:00:00 AM EDT eCW1 ([facility] [address] [address] 02/01/2020 12:00:00 AM EDT eCW1 ([facility]) [address] [address] 01/22/2020 12:00:00 AM EST eCW1 ([facility]) [address] [address] 11/23/2019 12:00:00 AM EST eCW1 ([facility]) [address] [address] 11/17/2019 12:00:00 AM EST eCW1 ([facility]) Outpatient 11/07/2019 09:50:00 PM EST [facility] Outpatient Attender: [facility] 10/27/2019 08:01:[address] [facility] Outpatient Attender: [facility] 10/27/2019 01:07:01 PM EST [address] [address] 10/27/2019 12:00:00 AM EST eCW1 ([facility]) Recurring Patient Attender: Dandy Lane MDReferrer: Ernie umanzor MD 10/25/2019 02:47:20 PM EST [facility] [address] [address] 10/25/2019 12:00:00 AM EST eCW1 ([facility]) [facility] [address] [address] 10/25/2019 12:00:00 AM EST eCW1 ([facility]) [facility] [address] [address] 10/12/2019 12:00:00 AM EST eCW1 ([facility]) [facility] [address] [address] 10/05/2019 12:00:00 AM EST eCW1 ([facility]) Immunizations Vaccine Date Status Description Data Source(s) INFLUENZA VIRUS VACCINE QUADRIVALENT 2019-21 (6 MOS AN D UP) 08/08/2020 12:00:00 AM EDT completed [facility] Flu Vaccine Historical 08/07/2020 12:00:00 AM EDT completed Flu Vaccine Historical 08/07/2020 [facility] Medications Medication Brand Name Start Date Product Form Dose Route Admi nistrative Instructions Pharmacy Instructions Status Indications Reaction Description Data Source(s) Cholecalciferol 1000 UNT Oral Tablet Vitamin D3 25 MCG (1000 UT) Vitamin D3 25 MCG (1000 UT) 11/19/2020 12:00:00 AM EST 1.0 {tablet} active Vitamin D3 25 MCG (1000 UT) eCW1 ([facility]) Sertraline 25 MG Oral Tablet [Zoloft] Zoloft 25 MG Zoloft 25 MG 10/22/2020 12:00:00 AM EST 1.0 {tablet_at_bedtime} active Zoloft 25 MG eCW1 ([facility]) Sertraline 25 MG Oral Tablet [Zoloft] Zoloft 25 MG Zoloft 25 MG 10/22/2020 12:00:00 AM EST 1.0 {tablet_at_bedtime} active Zoloft 25 MG eCW1 ([facility]) Sertraline 25 MG Oral Tablet [Zoloft] Zoloft 25 MG Zoloft 25 MG 10/22/2020 12:00:00 AM EST 1.0 {tablet_at_bedtime} active Zoloft 25 MG eCW1 ([facility]) Sertraline 25 MG Oral Tablet [Zoloft] Zoloft 25 MG Zoloft 25 MG 10/22/2020 12:00:00 AM EST 1.0 {tablet_at_bedtime} active Zoloft 25 MG eCW1 ([facility]) Sertraline 25 MG Oral Tablet [Zoloft] Zoloft 25 MG Zoloft 25 MG 10/22/2020 12:00:00 AM EST 1.0 {tablet_at_bedtime} active Zoloft 25 MG [facility] ([facility]) ondansetron (ZOFRAN-ODT) disintegrating tablet 8 mg 09/21/2020 06:00:00 AM EDT 8 mg Oral active [Order 1 Start] Name: ondansetron (ZOFRAN-ODT) disintegrating tablet 8 mg Signed Summary: 8 mg, Oral, Every 6 hours PRN, nausea, Starting 09/21/20 at 0600, Post-op [Order 1 End] [Order 2 Start] N ellyn: ondansetron (ZOFRAN) injection 8 mg Signed Summary: 8 mg, Intravenous, Every 6 hours PRN, nausea, severe nausea, Starting 09/21/20 at 0600, Post-op [Order 2 End] [facility] Medication administered onsite lactated ringers bolus 1,000 mL [id number] 09/21/2020 06:00:00 AM EDT 1000 mL Intravenous completed 1,000 mL , Intravenous, Administer over 2 Hours, Once, 09/21/20 at 0600, For 1 dose, Post-op [facility] Medication administered onsite Acetaminophen 325 MG Oral Tablet acetaminophen (TYLENO L) 325 MG tablet 650 mg acetaminophen (TYLENOL) 325 MG tablet 650 mg 09/21/2020 12:00:00 AM EDT 650 mg Oral active 650 mg, Or al, Every 4 hours PRN, mild pain (1-3), for mild pain, headache, or temperature > 101, Starting 10/31/20 at 0000, Post- op
To begin after routine doses of tylenol.
[facility] Medication administered onsite Magnesium Hydroxide 80 MG/ML Oral Suspen reilly magnesium hydroxide (MILK OF MAGNESIA) 400 MG/5ML suspension magnesium hydroxide (MILK OF MAGNESIA) 4 00 MG/5ML suspension 09/21/2020 12:00:00 AM EDT 15 mL Oral active Take 15 mL by mouth daily as needed for constipation [facility] Metoprolol Tartrate 25 MG Oral Tablet me toprolol tartrate (LOPRESSOR) tablet 25 mg metoprolol tartrate (LOPRESSOR) tablet 25 mg 09/20/2020 09:00:00 PM EDT 25 mg Oral active 25 mg, Ora l, 2 times daily, First dose on Wed09/20/20 at 2100, Post-op
Hold Lopressor for SBP < 100 mmHg or HR < 60.
[facility] Medication administered onsite heparin (porcine) injection 5,000 Units [id number] 09/20/20 06:00:00 PM EDT 5000 U Subcutaneous active 5,000 Units , Subcutaneous, Every 8 hours (relative), First dose on Wed09/20/20 at 1800, Post-op
If platelet count is less than 100,000 or hematocrit is less than 25, or if there is a 5 point decrea se in hematocrit, do not give the dose and call physician/designee.
[facility] Medication administered onsite Insulin Lispro 100 UNT/ML Injectable Jennifer ution insulin lispro (HumaLOG) injection 4-16 Units insulin lispro (HumaLOG) injection 4-16 Units 09/20/20 06:00:00 PM EDT Subcutaneous active 4-1 6 Units, Subcutaneous, Q6HSS, First dose on Wed09/20/20 at 1800, Post-op
Blood Sugar Units of [id number] 4 [id number] 6 [id number] 8 [id number] 10 units 321-370 12 units 371-420 14 units>420 16 units, Call MD
[facility] Medication administered onsite 1 ML Ketorolac Tromethamine 30 MG/ML Car tridge ketorolac (TORADOL) injection 30 mg ketorolac (TORADOL) injection 30 mg 09/20/2020 06:00:00 PM EDT 30 mg Intravenous active 30 mg, Intrav enous, Every 6 hours PRN, severe pain (7-10), Starting Wed09/20/20 at 1800, For 4 doses, Post-op [facility] Medication administered onsite Acetaminophen 500 MG Oral Tablet acetaminophen (TYLENO L) tablet 1,000 mg acetaminophen (TYLENOL) tablet 1,000 mg 09/20/2020 03:00:00 PM EDT 1000 mg Oral active 1,000 mg, Oral , Every 8 hours, First dose on Wed09/20/20 at 1500, For 48 hours, Post-op [facility] Medication administered onsite normal saline flush 0.9 % injection 3 mL [id number] 09/20/2020 02:00:00 PM EDT 3 mL Intravenous active 3 mL , Intravenous, QSHIFT, First dose on Wed09/20/20 at 1400, Post-op
Convert to saline lock after discontinuing D5LR IV.
[facility] Medication administered onsite gabapentin 300 MG Oral Capsule gabapentin (NEURONTIN) capsule 300 mg gabapentin (NEURONTIN) capsule 300 mg 09/20/2020 02:00:00 PM EDT 300 mg Oral active 300 mg, Oral, 3 times daily, First dose on Wed09/20/20 at 1400, Post-op [facility] Medication administered onsite Ondansetron 4 MG Disintegrating Oral Tab let ondansetron (ZOFRAN-ODT) disintegrating tablet 8 mg ondansetron (ZOFRAN-ODT) disintegrating tablet 8 mg 09/20/2020 01:00:00 PM EDT 8 mg Oral completed 8 mg, Oral, Every 6 hours (scheduled), First dose on Wed09/20/20 at 1300, For 24 hours, Post-op [facility] Medication administered onsite Calcium Chloride 0.001 MEQ/ML / Glucose 50 MG/ML / Potassium Chloride 0.004 MEQ/ML / Sodium Chloride 0.103 MEQ/ML / Sodium Lactate 0.028 MEQ/ML Injectable Solution dextrose 5 % in lactated ringers infusion dextrose 5 % in lactated ringers infusion 09/20/2020 01:00:00 PM EDT 150 mL/h Intravenous active at 150 mL/hr, 150 mL/hr, Intravenous, Co ntinuous, Starting Wed09/20/20 at 1300, Post-op
Discontinue IV with adequate PO & convert to saline lock
[facility] Medication administered onsite Simethicone 80 MG Chewable Tablet simethicone (MYLICON ) chewable tablet 80 mg simethicone (MYLICON) chewable tablet 80 mg 09/20/2020 01:00:00 PM EDT 80 mg Oral active 80 mg, Oral, E very 4 hours (scheduled), First dose on Wed09/20/20 at 1300, Post-op [facility] Medication administered onsite pantoprazole 40 MG Delayed Release Oral Tablet pantoprazole (PROTONIX) EC tablet 40 mg pantoprazole (PROTONIX) EC tablet 40 mg 09/20/2020 01:00:00 PM E DT 40 mg Oral active Stress Ulcer Prophylaxis 40 mg, Oral, Daily, Indications: Stress Ulcer Prophylaxis, First dose on Wed09/20/20 at 1300, Post-op [facility] Stress Ulcer Prophylaxis Medication administered onsite metoclopramide (REGLAN) injection 10 mg 09/20/2020 12:19:0 1 PM EDT 10 mg Intravenous active [Order 1 Star t] Name: metoclopramide (REGLAN) injection 10 mg Signed Summary: 10 mg, Intravenous, Every 6 hours PRN, nausea, not relieved by ondansetron, Starting Wed09/20/20 at 1219, Post-op
Once in PACU then every 6 hours PRN for nausea
[Order 1 End] [Order 2 Start] Name: metoclopramide (REGLAN) tablet 10 mg Signed Summary: 10 mg, Oral, Every 6 hours PRN, nausea, not relieved by ondansetron, Starting Wed09/20/20 at 1219, Post- op
Once in PACU then every 6 hours PRN for nausea
[Order 2 End] [facility] Medication administered onsite Prochlorperazine 10 MG Oral Tablet prochlorperazine (C OMPAZINE) tablet 10 mg prochlorperazine (COMPAZINE) tablet 10 mg 09/20/2020 12:19:00 PM EDT 10 mg Oral active 10 mg, Oral, E very 6 hours PRN, nausea, not relieved by metoclopramide, Starting Wed09/20/20 at 1219, Post-op [facility] Medication administered onsite traZODone (DESYREL) tablet 150 mg 09/20/2020 12:19:00 PM EDT 150 mg Oral active 150 mg, Oral, Ni ghtly PRN, sleep, Starting Wed09/20/20 at 1219, Post-op [facility] Medication administered onsite Promethazine Hydrochloride 25 MG Oral Ta blet promethazine (PHENERGAN) tablet 12.5 mg promethazine (PHENERGAN) tablet 12.5 mg 09/20/2020 12:19:00 PM E DT 12.5 mg Oral active 12.5 mg, O ral, Every 4 hours PRN, nausea, not relieved by prochlorperazine, Starting Wed09/20/20 at 1219, Post-op [facility] Medication administered onsite Albuterol 0.83 MG/ML Inhalant Solution a lbuterol (PROVENTIL) nebulizer solution 2.5 mg albuterol (PROVENTIL) nebulizer solution 2.5 mg 2019 12:18:59 PM EDT 2.5 mg active 2.5 mg, Nebulization, RT every 4 hours as needed, wheezing, shortness of breath, Starting Wed09/20/20 at 1218, Post-op [facility] Medication administered onsite Clonidine Hydrochloride 0.1 MG Oral Tablet cloNIDine ( CATAPRES) tablet 0.1 mg cloNIDine (CATAPRES) tablet 0.1 mg 09/20/2020 12:18:59 PM EDT 0.1 mg Oral active 0.1 mg, Oral, Every 4 hours PRN, high blood pressure, for SBP > 140 mmHg and/or DBP > 90 mmHg, Starting Wed09/20/20 at 1218, Post-op [facility] Medication administered onsite enalaprilat (VASOTEC) injection 1.25 mg [id number] 09/20/20 12:18:59 PM EDT 1.25 mg Intravenous active 1.25 mg, Int ravenous, Every 6 hours PRN, for SBP > 140 mmHg and/or DBP > 90 mmHg, Starting Wed09/20/20 at 1218, Post- op
Mix in 50 mL NS, infuse over 30 minutes via infusion pump.For IVMB on NON-ICU units.
[facility] Medication administered onsite 0.4 ML Enoxaparin sodium 100 MG/ML Prefi lled Syringe enoxaparin (LOVENOX) syringe 40 mg enoxaparin (LOVENOX) syringe 40 mg 09/20/2020 12:18:59 PM EDT 40 mg Subcutaneous completed 40 mg, Subcutaneous, Before Discharge, for prophylaxis, Starting Wed09/20/20 at 1218, For 1 dose, Post-op
At discharge. To be administered by patient or significant other.
[facility] Medication administered onsite HYDROmorphone (DILAUDID) injection 0.5 mg [id number] 09/20/2020 10:16:41 AM EDT 0.5 mg Intravenous aborted 0.5 mg, Intravenous, Every 5 min PRN, severe pain (7-10), Starting Wed09/20/20 at 1016, For 5 doses, PACU (only) [facility] Medication administered onsite fentaNYL Citrate (PF) (SUBLIMAZE) injection 25 mcg [id number] 09/20/2020 10:16:41 AM EDT 25 ug Intravenous aborted 25 mcg, Intravenous, Every 5 min PRN, moderate pain (4-6), Starting Wed09/20/20 at 1016, For 12 doses, PACU (only) [facility] Medication administered onsite Clonidine Hydrochloride 0.1 MG Oral Tablet cloNIDine ( CATAPRES) tablet 0.1 mg cloNIDine (CATAPRES) tablet 0.1 mg 09/20/2020 07:00:00 AM EDT 0.1 mg Oral completed 0.1 mg, Oral, call center consultant, 09/20 at 0700, For 1 dose, Pre-op [facility] Medication administered onsite Acetaminophen 325 MG Oral Tablet acetaminophen (TYLENO L) 325 MG tablet 975 mg acetaminophen (TYLENOL) 325 MG tablet 975 mg 09/20/2020 07:00:00 AM EDT 975 mg Oral completed 975 mg, Or al, call center consultant, Wed09/20/20 at 0700, For 1 dose, Pre-op
"Maximum dose of acetaminophen is 4,000 mg from all sources in 24 hours."
[facility] Medication administered onsite Albuterol 0.83 MG/ML Inhalant Solution a lbuterol (PROVENTIL) nebulizer solution 2.5 mg albuterol (PROVENTIL) nebulizer solution 2.5 mg 2019 07:00:00 AM EDT 2.5 mg completed 2.5 mg , Nebulization, call center consultant, Wed09/20/20 at 0700, For 1 dose, Pre-op
To be started by pre-op unit
[facility] Medication administered onsite Calcium Chloride 0.0014 MEQ/ML / Potassi um Chloride 0.004 MEQ/ML / Sodium Chloride 0.103 MEQ/ML / Sodium Lactate 0.028 MEQ/ML Injectable Solution lactated ringers infusion lactated ringers infusion 09/20/2020 07:00:00 AM EDT 100 mL/h Intravenous aborted at 100 m L/hr, 100 mL/hr, Intravenous, Continuous, Starting Wed09/20/20 at 0700, Pre-op
Please place IV on left side if able
[facility] Medication administered onsite heparin (porcine) injection 5,000 Units [id number] 09/20/20 20 07:00:00 AM EDT 5000 U Subcutaneous completed 5,000 Uni ts, Subcutaneous, call center consultant, Wed09/20/20 at 0700, For 1 dose, Pre-op
If platelet count is less than 100,000 or hematocrit is less than 25, or if there is a 5 point decrease in hematocrit, do not give the dose and call physician/designee.
[facility] Medication administered onsite gabapentin 600 MG Oral Tablet gabapentin (NEURONTIN) t ablet 600 mg gabapentin (NEURONTIN) tablet 600 mg 09/20/2020 07:00:00 AM EDT 600 mg Oral completed 600 mg, Oral, On hai l, Wed09/20/20 at 0700, For 1 dose, Pre-op
Hold if age greater than 70 or chronic renal failure/insufficiency
[facility] Medication administered onsite Dexamethasone 4 MG Oral Tablet dexamethasone (DECADRON ) tablet 4 mg dexamethasone (DECADRON) tablet 4 mg 09/20/2020 07:00:00 AM EDT 4 mg Oral completed 4 mg, Oral, call center consultant, Wed 0 at 0700, For 1 dose, Pre-op [facility] Medication administered onsite Alprazolam 0.25 MG Oral Tablet ALPRAZolam (XANAX) tabl et 0.25 mg ALPRAZolam (XANAX) tablet 0.25 mg 09/20/2020 07:00:00 AM EDT 0.25 mg Oral completed 0.25 mg, Oral, call center consultant, Wed09/20/20 at 0700, For 1 dose, Pre-op [facility] Medication administered onsite celecoxib 100 MG Oral Capsule celecoxib (CeleBREX) cap raeann 200 mg celecoxib (CeleBREX) capsule 200 mg 09/20/2020 07:00:00 AM EDT 200 mg Oral completed 200 mg, Oral, call center consultant, 09/20 at 0700, For 1 dose, Pre-op [facility] Medication administered onsite Tetrahydrocannabinol 2.5 MG Oral Capsule dronabinol (M ARINOL) capsule 5 mg dronabinol (MARINOL) capsule 5 mg 09/20/2020 07:00:00 AM EDT 5 mg Oral completed 5 mg, Oral, call center consultant, Wed 0 at 0700, For 1 dose, Pre-op [facility] Medication administered onsite Prochlorperazine 10 MG Oral Tablet prochlorperazine (C OMPAZINE) tablet 10 mg prochlorperazine (COMPAZINE) tablet 10 mg 09/20/2020 07:00:00 AM EDT 10 mg Oral completed 10 mg, Oral, O n call, Wed09/20/20 at 0700, For 1 dose, Pre-op [facility] Medication administered onsite scopolamine (TRANSDERM-SCOP) 1.5 MG (Bariatric only) 1 patch [id number] 09/20/2020 05:46:17 AM EDT 1 {patch} Transdermal aborted 1 patch, Transdermal, Administer over 24 Hours, Every 24 hours (relative), First dose on Wed09/20/20 at 0700, For 1 dose, Pre-op
Scopolamine patch applied behind ear. Hold for any of the followin+ yrs old, hx of glaucoma, hx of vertigo, dementia.
[facility] Medication administered onsite Ondansetron 4 MG Disintegrating Oral Tab let ondansetron (ZOFRAN-ODT) 4 MG disintegrating tablet ondansetron (ZOFRAN-ODT) 4 MG disintegrating tablet 09/20/2020 12:00:00 AM EDT 4 mg Oral active Take 1 tablet (4 mg total) by mouth every 6 (six) hours as needed for nausea [facility] Simethicone 80 MG Chewable Tablet simethicone (MYLICON ) 80 MG chewable tablet simethicone (MYLICON) 80 MG chewable tablet 09/20/2020 12:00:00 AM EDT 80 mg Oral active Chew 1 tablet (80 mg total) every 6 (six) hours as needed for flatulence [facility] Vitamin B 12 0.5 MG Oral Tablet cyanocob alamin ([facility] VITAMIN B-12) 500 MCG tablet cyanocobalamin ([facility] VITAMIN B-12) 500 MCG tablet 09/20/2020 12:0 0:00 AM EDT 1000 ug Oral active Take 2 tablets (1,000 mc g total) by mouth daily [facility] Acetaminophen 325 MG Oral Tablet acetaminophen (TYLENO L) 325 MG tablet acetaminophen (TYLENOL) 325 MG tablet 09/20/2020 12:00:00 AM EDT 65 0 mg Oral active Take 2 tablets (650 mg total) by mouth every 6 (six) hours as needed for pain [facility] Omeprazole 40 MG Delayed Release Oral Ca psule omeprazole (PRILOSEC) 40 MG capsule omeprazole (PRILOSEC) 40 MG capsule 09/20/2020 12:00:00 AM EDT 40 mg Oral active Take 1 capsule (40 m g total) by mouth daily [facility] Ascorbic Acid 60 MG / Beta Carotene 5000 UNT / Copper Sulfate 40 MG / dl-alpha tocopheryl acetate 30 UNT / Sodium Selenite 0.04 MG / Zinc Oxide 40 MG Oral Tablet Multiple Vitamins-Minerals (MULTIVITAMIN WITH MINERALS) tablet Multiple Vitamins-Minerals (MULTIVITAMIN WITH MINERALS) tablet 09/20/2020 12:00:00 AM EDT 2 {tbl} Oral active Take 2 tablets b y mouth daily [facility] 0.4 ML Enoxaparin sodium 100 MG/ML Prefi lled Syringe enoxaparin (LOVENOX) 40 MG/0.4ML SOLN enoxaparin (LOVENOX) 40 MG/0.4ML SOLN 09/20/2020 12:00:00 AM EDT 40 mg Subcutaneous active Inject 0.4 mL (40 mg total) under the skin daily for [address] [facility] Trazodone Hydrochloride 150 MG Oral Tablet Trazodone H Cl 150 MG Trazodone HCl 150 MG 09/06/2020 12:00:00 AM EDT 1.0 {tablet_at_bedtime} active Trazodone HCl 150 MG eCW1 ([facility]) Trazodone Hydrochloride 150 MG Oral Tablet Trazodone H Cl 150 MG Trazodone HCl 150 MG 09/06/2020 12:00:00 AM EDT 1.0 {tablet_at_bedtime} active Trazodone HCl 150 MG eCW1 ([facility]) Trazodone Hydrochloride 150 MG Oral Tablet Trazodone H Cl 150 MG Trazodone HCl 150 MG 09/06/2020 12:00:00 AM EDT 1.0 {tablet_at_bedtime} active Trazodone HCl 150 MG eCW1 ([facility]) Escitalopram 10 MG Oral Tablet Escitalopram Oxalate 10 MG Escitalopram Oxalate 10 MG 04/30/2020 12:00:00 AM EDT 1.0 {tablet} activ e Escitalopram Oxalate 10 MG eCW1 ([facility]) Escitalopram 10 MG Oral Tablet Escitalopram Oxalate 10 MG Escitalopram Oxalate 10 MG 04/30/2020 12:00:00 AM EDT 1.0 {tablet} activ e Escitalopram Oxalate 10 MG eCW1 ([facility]) Escitalopram 10 MG Oral Tablet Escitalopram Oxalate 10 MG Escitalopram Oxalate 10 MG 04/30/2020 12:00:00 AM EDT 1.0 {tablet} activ e Escitalopram Oxalate 10 MG eCW1 ([facility]) Escitalopram 10 MG Oral Tablet ESCITALOPRAM OXALATE 04/30/2020 1 2:00:00 AM EDT tablet 30 TAKE ONE TABLET BY MOUTH EVERY D AY TAKE ONE TABLET BY MOUTH EVERY DAY SOLD: 04/30/2020 [facility] Escitalopram 10 MG Oral Tablet Escitalopram Oxalate 10 MG Escitalopram Oxalate 10 MG 04/30/2020 12:00:00 AM EDT 1.0 {tablet} activ e Escitalopram Oxalate 10 MG eCW1 ([facility]) Escitalopram 10 MG Oral Tablet Escitalopram Oxalate 10 MG Escitalopram Oxalate 10 MG 04/30/2020 12:00:00 AM EDT 1.0 {tablet} activ e Escitalopram Oxalate 10 MG eCW1 ([facility]) Escitalopram 10 MG Oral Tablet Escitalopram Oxalate 10 MG Escitalopram Oxalate 10 MG 04/30/2020 12:00:00 AM EDT 1.0 {tablet} activ e Escitalopram Oxalate 10 MG eCW1 ([facility]) Escitalopram 10 MG Oral Tablet Escitalopram Oxalate 10 MG Escitalopram Oxalate 10 MG 04/30/2020 12:00:00 AM EDT 1.0 {tablet} activ e Escitalopram Oxalate 10 MG eCW1 ([facility]) Escitalopram 10 MG Oral Tablet Escitalopram Oxalate 10 MG Escitalopram Oxalate 10 MG 04/30/2020 12:00:00 AM EDT 1.0 {tablet} activ e Escitalopram Oxalate 10 MG eCW1 ([facility]) Metformin hydrochloride 500 MG Oral Tablet Metformin H Cl 500 MG Metformin HCl 500 MG 03/28/2020 12:00:00 AM EDT 1.0 {tablet_with_a_meal} active Metformin HCl 500 MG eCW1 ([facility]) ReliOn Blood Glucose Test - ReliOn Blood Glucose Test - 05/2020 12:00:00 AM EDT active ReliOn Blood Gluc ose Test - eCW1 ([facility]) Metformin hydrochloride 500 MG Oral Tablet Metformin H Cl 500 MG Metformin HCl 500 MG 03/28/2020 12:00:00 AM EDT 1.0 {tablet_with_a_meal} active Metformin HCl 500 MG eCW1 ([facility]) BLOOD SUGAR DIAGNOSTIC 03/28/2020 12:00:00 AM EDT strip 25 TEST DAILY DIRECTED TEST DAILY DIRECTED SOLD: 03/28/2020 [facility] ReliOn Blood Glucose Test - ReliOn Blood Glucose Test - 05/2020 12:00:00 AM EDT active ReliOn Blood Gluc ose Test - eCW1 ([facility]) ReliOn Blood Glucose Test - ReliOn Blood Glucose Test - 05/2020 12:00:00 AM EDT active ReliOn Blood Gluc ose Test - eCW1 ([facility]) Metformin hydrochloride 500 MG Oral Tablet Metformin H Cl 500 MG Metformin HCl 500 MG 03/28/2020 12:00:00 AM EDT active 1 tablet with a meal eCW1 ([facility]) Metformin hydrochloride 500 MG Oral Tablet Metformin H Cl 500 MG Metformin HCl 500 MG 03/28/2020 12:00:00 AM EDT 1.0 {tablet_with_a_meal} active Metformin HCl 500 MG eCW1 ([facility]) Metformin hydrochloride 500 MG Oral Tablet Metformin H Cl 500 MG Metformin HCl 500 MG 03/28/2020 12:00:00 AM EDT 1.0 {tablet_with_a_meal} active Metformin HCl 500 MG eCW1 ([facility]) ReliOn Blood Glucose Test - ReliOn Blood Glucose Test - 05/2020 12:00:00 AM EDT active ReliOn Blood Gluc ose Test - W1 ([facility]) ReliOn Blood Glucose Test - ReliOn Blood Glucose Test - 05/2020 12:00:00 AM EDT active ReliOn Blood Gluc ose Test - eCW1 ([facility]) ReliOn Blood Glucose Test - ReliOn Blood Glucose Test - 05/2020 12:00:00 AM EDT active ReliOn Blood Gluc ose Test - eCW1 ([facility]) ReliOn Blood Glucose Test - ReliOn Blood Glucose Test - 05/2020 12:00:00 AM EDT active ReliOn Blood Gluc ose Test - eCW1 ([facility]) Metformin hydrochloride 500 MG Oral Tablet Metformin H Cl 500 MG Metformin HCl 500 MG 03/28/2020 12:00:00 AM EDT 1.0 {tablet_with_a_meal} active Metformin HCl 500 MG eCW1 ([facility]) ReliOn Blood Glucose Test - ReliOn Blood Glucose Test - 05/2020 12:00:00 AM EDT active ReliOn Blood Gluc ose Test - eCW1 ([facility]) Metformin hydrochloride 500 MG Oral Tablet Metformin H Cl 500 MG Metformin HCl 500 MG 03/28/2020 12:00:00 AM EDT 1.0 {tablet_with_a_meal} active Metformin HCl 500 MG eCW1 ([facility]) ReliOn Blood Glucose Test - ReliOn Blood Glucose Test - 05/2020 12:00:00 AM EDT active as directed eCW1 ([facility]) ReliOn Blood Glucose Test - ReliOn Blood Glucose Test - 05/2020 12:00:00 AM EDT active ReliOn Blood Gluc ose Test - W1 ([facility]) 500 mg 03/28/2020 12:00:00 AM EDT tablet 60 TAKE ONE TABLET BY MOUTH TWICE A DAY WITH A MEAL TAKE ONE TABLET BY MOUTH TWICE A DAY WITH A MEAL SOLD: 03/28/2020 [facility] ReliOn Blood Glucose Test - ReliOn Blood Glucose Test - 05/2020 12:00:00 AM EDT active ReliOn Blood Gluc ose Test - W1 ([facility]) ReliOn Blood Glucose Test - ReliOn Blood Glucose Test - 05/2020 12:00:00 AM EDT active ReliOn Blood Gluc ose Test - W1 ([facility]) Metformin hydrochloride 500 MG Oral Tablet Metformin H Cl 500 MG Metformin HCl 500 MG 03/28/2020 12:00:00 AM EDT 1.0 {tablet_with_a_meal} active Metformin HCl 500 MG eCW1 ([facility]) Metformin hydrochloride 500 MG Oral Tablet Metformin H Cl 500 MG Metformin HCl 500 MG 03/28/2020 12:00:00 AM EDT 1.0 {tablet_with_a_meal} active Metformin HCl 500 MG eCW1 ([facility]) ReliOn Blood Glucose Test - ReliOn Blood Glucose Test - 05/2020 12:00:00 AM EDT active ReliOn Blood Gluc ose Test - eCW1 ([facility]) ReliOn Blood Glucose Test - ReliOn Blood Glucose Test - 050 05/2020 12:00:00 AM EDT active ReliOn Blood Gluc ose Test - eCW1 ([facility]) 90 mcg/actuation 03/12/2020 12:00:00 AM EDT HFA aerosol inha ler 8 INHALE ONE PUFF BY MOUTH EVERY 4 HOURS NEEDED INHALE ONE PUFF BY MOUTH EVERY 4 HOURS A S NEEDED SOLD: 03/13/2020 [facility] 50 mcg/actuation 03/12/2020 12:00:00 AM EDT spray,suspension 16 USE 1 SPRAY IN EACH NOSTRIL ONCE DAILY USE 1 SPRAY IN EACH NOSTRIL ONCE DAILY SOLD: 03/13/2020 [facility] 200 ACTUAT Albuterol 0.09 MG/ACTUAT Mete red Dose Inhaler [ProAir] ProAir HFA 108 (90 Base) MCG/ACT ProAir HFA 108 (90 Base) MCG/ACT 03/11/2020 12:00:00 AM EDT active 1 puff as needed eCW1 ([facility]) Fluticasone Propionate 50 MCG/ACT Fluticasone Propionate 50 MCG/ACT 03/11/2020 12:00:00 AM EDT active 1 spray in each nostril eCW1 ([facility]) 50 mg 03/06/2020 12:00:00 AM EDT tablet 30 TAKE 1 TABLET BY MOUTH NEEDED ONCE DAILY AT BEDTIME TAKE 1 TABLET BY MOUTH NEEDED ONCE DAILY AT BEDTIME SOLD: 03/06/2020 [facility] 50 mg 03/06/2020 12:00:00 AM EDT tablet 30 TAKE 1 TABLET BY MOUTH NEEDED ONCE DAILY AT BEDTIME TAKE 1 TABLET BY MOUTH NEEDED ONCE DAILY AT BEDTIME SOLD: 04/30/2020 [facility] 50 mcg/actuation 02/13/2020 12:00:00 AM EDT spray,suspension 16 SPRAY 2 SPRAYS IN EACH NOSTRIL DAILY FOR ALLERGY SYMPTOMS SPRAY 2 SPRAYS IN EACH NOSTRIL DAILY FOR ALLERGY SYMPTOMS SOLD: 02/14/2020 [facility] levocetirizine dihydrochloride 5 MG Oral Tablet LEVOCETIRIZI NE DIHYDROCHLORIDE 02/13/2020 12:00:00 AM EDT tablet 30 TAKE ONE TABLE T BY MOUTH EVERY DAY TAKE ONE TABLET BY MOUTH EVERY DAY SOLD: 02/14/2020 [facility] 40 mg 02/06/2020 12:00:00 AM EDT tablet 60 TAKE ONE TABLET BY MOUTH TWICE A DAY TAKE ONE TABLET BY MOUTH TWICE A DAY SOLD: 04/11/2020 [facility] 40 mg 02/06/2020 12:00:00 AM EDT tablet 60 TAKE ONE TABLET BY MOUTH TWICE A DAY TAKE ONE TABLET BY MOUTH TWICE A DAY SOLD: 08/03/2020 [facility] 40 mg 02/06/2020 12:00:00 AM EDT tablet 60 TAKE ONE TABLET BY MOUTH TWICE A DAY TAKE ONE TABLET BY MOUTH TWICE A DAY SOLD: 06/02/2020 [facility] 40 mg 02/06/2020 12:00:00 AM EDT tablet 60 TAKE ONE TABLET BY MOUTH TWICE A DAY TAKE ONE TABLET BY MOUTH TWICE A DAY SOLD: 02/13/2020 [facility] 220 mg 02/02/2020 12:00:00 AM EDT tablet 40 TAKE 2 TABLETS BY MOUTH TWO TIMES A DAY NEEDED FOR PAIN TAKE 2 TABLETS BY MOUTH TWO TIMES A DAY NEEDED FOR PAIN SOLD: 02/03/2020 [facility] 10 mg 02/01/2020 12:00:00 AM EDT tablet 21 TAKE 1 TABLET BY MOUTH THREE TIMES A DAY NEEDED FOR 7 DAYS TAKE 1 TABLET BY MOUTH THREE TIMES A DAY NEEDED FOR 7 DAYS SOLD: 02/03/2020 [facility] 50 mg 12/23/2019 12:00:00 AM EST tablet 30 TAKE ONE TABLET BY MOUTH EVERY DAY AT BEDTIME BEFORE BEDTIME TAKE ONE TABLET BY MOUTH EVERY DAY AT BE DTIME BEFORE BEDTIME SOLD: 12/25/2019 [facility] 40 mg 11/20/2019 12:00:00 AM EST tablet 30 TAKE ONE TABLET BY MOUTH ONCE DAILY AT BEDTIME TAKE ONE TABLET BY MOUTH ONCE DAILY AT BEDTIME SOLD: 0 12/25/2019 [facility] 40 mg 11/20/2019 12:00:00 AM EST tablet 30 TAKE ONE TABLET BY MOUTH ONCE DAILY AT BEDTIME TAKE ONE TABLET BY MOUTH ONCE DAILY AT BEDTIME SOLD: 0 11/23/2019 [facility] 40 mg 11/20/2019 12:00:00 AM EST tablet 30 TAKE ONE TABLET BY MOUTH ONCE DAILY AT BEDTIME TAKE ONE TABLET BY MOUTH ONCE DAILY AT BEDTIME SOLD: 0 01/24/2020 [facility] Famotidine 40 MG Oral Tablet [Pepcid] Pepcid 40 MG Pepcid 40 MG 10/25/2019 12:00:00 AM EST active 1 tablet at bedtime eCW1 ([facility]) 40 mg 10/25/2019 12:00:00 AM EST tablet 30 TAKE ONE TABLET BY MOUTH AT BEDTIME TAKE ONE TABLET BY MOUTH AT BEDTIME SOLD: 10/25/2019 [facility] 10 mg 10/25/2019 12:00:00 AM EST tablet 30 TAKE ONE TABLET BY MOUTH EVERY DAY IN THE MORNING TAKE ONE TABLET BY MOUTH EVERY DAY IN THE MORNING SOLD : 10/25/2019 [facility] Paroxetine 10 MG Oral Tablet [Paxil] Paxil 10 MG Paxil 10 MG 10/25/2019 12:00:00 AM EST active 1 tablet in the morning eCW1 ([facility]) Famotidine 40 MG Oral Tablet [Pepcid] Pepcid 40 MG Pepcid 40 MG 10/25/2019 12:00:00 AM EST active 1 tablet at bedtime eCW1 ([facility]) Famotidine 40 MG Oral Tablet famotidine (PEPCID) 40 MG tablet famotidine (PEPCID) 40 MG tablet 40 mg Oral aborted Take 40 mg by mouth 2 (two) times a day as needed for heartburn [facility] Insurance Providers Payer name Policy type / Coverage type Policy ID Covered libertarian ID Covered libertarian's relationship to layton Policy [place] Plan Information [facility] [id number] SP [id number] [facility] [id number] SP [id number] [facility] O [id number] S [id number] [facility] MEDICAID [id number] [facility] MEDICAID [id number] Magi [id number] INSURANCE COVID-19 COVID Magi C OVID [facility] [id number] SP [id number] INSURANCE COVID-19 [id number] 2 [id number] Managed Care - [facility] Community Plan P [id number] S [id number] Medicaid S [id number] S [id number] [facility] XIX [id number] 18 [id number] [facility] Comm Plan Medicaid F [id number] SELF [id number] [facility]-Medicaid [id number] ANSI-Not a Secondary Insurance [id number] ANSI-Medicaid [id number] ANSI-Not a Secondary Insurance [id number] ANSI-Not a Secondary Insurance [id number] ANSI-Medicaid [id number] ANSI-Not a Secondary Insurance [id number] ANSI-Medicaid [id number] [facility] Comm Plan Medicaid F [id number] SELF [id number] [facility] Comm Plan Medicaid F [id number] SELF [id number] [facility] Comm Plan Medicaid F [id number] SELF [id number] ANSI-Medicaid [id number] ANSI-Not a Secondary Insurance [id number] ANSI-Not a Secondary Insurance [id number] ANSI-Medicaid [id number] ANSI-Medicaid [id number] ANSI-Not a Secondary Insurance [id number] [facility] Commercial [id number] Self [id number] ANSI-Not a Secondary Insurance [id number] ANSI-Medicaid [id number] ANSI-Not a Secondary Insurance [id number] ANSI-Medicaid [id number] ANSI-Medicaid [id number] ANSI-Not a Secondary Insurance [id number] ANSI-Medicaid [id number] ANSI-Not a Secondary Insurance [id number] ANSI-Not a Secondary Insurance [id number] ANSI-Medicaid [id number] [facility] Maintenance Organization (O) [id number] Self [id number] ANSI-Medicaid [id number] ANSI-Not a Secondary Insurance [id number] ANSI-Not a Secondary Insurance [id number] ANSI-Medicaid [id number] [facility] Care - [facility] [id number] S [id number] FRANK [id number] SP [id number] [facility] [place] Commercial [id number] Self [id number] [place] [id number] [facility] [employer] Commercial [id number] Self [id number] [employer] COMMUNITY PLAN [id number] SP [id number] [facility]) O [id number] S [id number] [facility] COMMUNTY PLAN MC [id number] 18 [id number] [facility] Communty Plan Medicaid [id number] Self [id number] [facility] [id number] SP [id number] [facility] Communty Plan Medicaid [id number] Self [id number] UNHC COMMUNITY PLAN XIX MC [id number] 18 [id number] UNHC AMERICHOICE XIX -HMO [id number] 18 [id number] [facility] Communty Plan Medicaid [id number] Self [id number] [facility] Communty Plan Medicaid [id number] Self [id number] [facility] (HMO) [id number] Self [id number] [facility] (HMO) [id number] Self [id number] [facility] (HMO) [id number] Self [id number] [facility] (HMO) Self [employer] Hmo Commercial Self MEDICAID [id number] SP [id number] [facility] [place] [id number] HU2 [id number] SELF PAY UNAVAILABLE SP UNAVAILA BLE [facility] Comm Plan Medicaid F [id number] SELF [id number] [place] F [id number] SPOUSE [id number] [place] F [id number] SPOUSE [id number] N REGIONAL CLAIMS [place] -O/P [id number] 01 [id number] [place] P [id number] S [id number] [place] P [id number] S [id number] [facility] [place] [id number] SP [id number] Managed Care - Community Plan [facility] P [id number] S [id number] Sliding Fee Scale O none S no ne Medicaid S [id number] S [id number] Managed Care - Community Plan [facility] P [id number] S [id number] Managed Care - Community Plan [facility] P [id number] S [id number] Managed Care BCBS O [id number] S [id number] Medicaid S [id number] S [id number] Managed Care - Community Plan [facility] P [id number] S [id number] [facility] I [id number] Self [id number] EXCELLUS BCBS P [id number] S [id number] BLUE CROSS VIRAMONTES PLAN [id number] SP [id number] [facility] COMM PLAN [id number] 18 [id number] [employer]CE[employer] BCBS P [id number] S [id number] BLUE CROSS VIRAMONTES PLAN [id number] SP [id number] Problems, Conditions, and Diagnoses Code Display Name Description Problem Type Effective Dates Data Source(s) E55.9 [id number] Vitamin D deficiency Problem 11/19/2020 12:0 0:00 AM EST eCW1 ([facility]) Z98.84 [id number] H/O gastric bypass Problem 10/22/2020 12:00: 00 AM EST eCW1 ([facility]) Z86.39 [id number] Personal history of other endocrine, nutritional and metabolic disease Problem 10/22/2020 12:00:00 AM EST eCW1 ([facility]) J30.2 [id number] Seasonal allergies Problem 10/22/2020 12:00: 00 AM EST eCW1 ([facility]) Z98.84 S/P gastric bypass S/P gastric bypass [id number] 12:00:[address] [facility] K21.9 GERD (gastroesophageal reflux disease) G ERD (gastroesophageal reflux disease) [id number] 09/20/2020 12:00:[address] [facility] J45.909 Asthma Asthma [id number] 09/20/2020 12:00:[address] [facility] E78.5 Hyperlipidemia Hyperlipidemia [id number] 09/20/2020 12:00: [address] [facility] I10 Hypertension Hypertension 51233237 09/20/2020 12:00:[address] [facility] E66.01 Morbid obesity Morbid obesity [id number] 09/20/2020 12:00: [address] [facility] G47.30 Sleep apnea Sleep apnea 39055305 09/20/2020 12:00:[address] [facility] [id number] SNOMED CT Concept SNOMED CT Concept Problem 09/05 04:40:55 PM EDT YARA ([facility]) F41.9 [id number] Anxiety Problem 04/30/2020 12:00:00 AM ED T eCW1 ([facility]) E66.01 Morbid (severe) obesity due to excess ca lories Morbid (severe) obesity due to excess ca Diagnosis 09/20/2020 05:18:[address] [facility] U07.1 COVID-19 COVID-19 Diagnosis 09/15/2020 10:09:[address] [facility] R0789 Other chest pain Other chest pain Diagnosis 05/21/2020 01 :27:00 PM EDT [facility] Surgeries/Procedures Procedure Description Date Indications Data Source(s) MAMMO, screening, digital, unilateral 09/25/2020 12:00 :00 AM EST YARA ([facility]) US, breast, unilateral 09/25/2020 12:00:00 AM EST Y[facility] ([facility]) GLUC BLD GLUC MNTR DEV CLEARED FDA SPEC HOME USE POCT GLUCOSE Routine 09/21/2020 1:27 PM EDT 09/21/2020 05:27:[address] [facility] GLUC BLD GLUC MNTR DEV CLEARED FDA SPEC HOME USE POCT GLUCOSE Routine 09/21/2020 6:49 AM EDT 09/21/2020 10:49:[address] [facility] GLUC BLD GLUC MNTR DEV CLEARED FDA SPEC HOME USE POCT GLUCOSE Routine 09/20/2020 11:52 PM EDT 09/21/2020 03:52:[address] [facility] BLOOD COUNT COMPLETE AUTOMATED CBC Routine 09/20/2020 6:33 P M EDT 09/20/2020 10:33:00 PM EDT [facility] GLUC BLD GLUC MNTR DEV CLEARED FDA SPEC HOME USE POCT GLUCOSE Routine 09/20/2020 5:51 PM EDT 09/20/2020 09:51:[address] [facility] GLUC BLD GLUC MNTR DEV CLEARED FDA SPEC HOME USE POCT GLUCOSE Routine 09/20/2020 10:37 AM EDT 09/20/2020 02:37:[address] [facility] GASTRIC RSTCV W/BYP W/SHORT LIMB 150 CM/< Gastric Bypass for Obesity 09/20/2020 12:00:00 AM EDT YARA ([facility]) ECG ROUTINE ECG W/LEAST 12 LDS TRCG ONLY W/O I&R ECG 12-LEAD Routine 09/10/2020 12:26 PM EDT Morbid obesity 09/10/2020 04:26:00 PM EDT Morbid obesity [facility] Morbid obesity BLOOD COUNT COMPLETE AUTOMATED CBC Routine 0 12:15 PM EDT Morbid obesity 09/10/2020 04:15:00 PM EDT Morbid obesity [facility] Morbid obesity BLOOD TYPING ABO TYPE AND SCREEN Routine 09/10/2020 12:15 PM EDT Morbid obesity 09/10/2020 04:15:00 PM EDT Morbid obesity [facility] Morbid obesity THYROID STIMULATING HORMONE TSH TSH Routine 09/10/20 12:15 PM EDT Morbid obesity 09/10/2020 04:15:00 PM EDT Morbid obesity [facility] Morbid obesity HEMOGLOBIN GLYCOSYLATED A1C HEMOGLOBIN A1C Routine 09/10/2020 12:15 PM EDT Morbid obesity 09/10/2020 04:15:00 PM EDT Morbid obesity [facility] Morbid obesity COMPREHENSIVE METABOLIC PANEL COMPREHENSIVE METABOLIC PANEL Rou liz 09/10/2020 12:15 PM EDT Morbid obesity 09/10/2020 04:15:00 PM EDT Morbid obesity [facility] Morbid obesity PHYSICIAN TELEPHONE EVALUATION 11-20 MIN 03/28/2020 12 :00:00 AM EDT eCW1 ([facility]) Results ID Date Data Source VITAMIN B12 LEVEL 11/18/2020 12:00:00 AM EST eCW1 ([facility]) Name Value Range Interpretation Code Description Data Holly rce(s) Supporting Document(s) [id number] VITAMIN B12 LEVEL eCW1 ([facility]) ID Date Data Source MAGNESIUM LEVEL 11/18/2020 12:00:00 AM EST eCW1 ([facility]) Name Value Range Interpretation Code Description Data Holly rce(s) Supporting Document(s) 2.1 1.8-2.4 MAGNESIUM LEVEL eCW1 ([facility]) ID Date Data Source VITAMIN D 25-HYDROXY 11/18/2020 12:00:00 AM EST eCW1 ([facility]) Name Value Range Interpretation Code Description Data Holly rce(s) Supporting Document(s) 17.0 30.0-100.0 TOTAL 25(OH) VITAMIN D eC W1 ([facility]) ID Date Data Source [id number] 11/18/2020 12:00:00 AM EST eCW1 ([facility]) Name Value Range Interpretation Code Description Data Holly rce(s) Supporting Document(s) Hemoglobin A1c/Hemoglobin.total in Blood 5.4 HEMOGLOBIN A1c eCW1 ([facility]) ID Date Data Source FERRITIN 11/18/2020 12:00:00 AM EST eCW1 ([facility]) Name Value Range Interpretation Code Description Data Holly rce(s) Supporting Document(s) [id number] FERRITIN eCW1 ([facility]) ID Date Data Source IRON (FE) 11/18/2020 12:00:00 AM EST eCW1 ([facility]) Name Value Range Interpretation Code Description Data Holly rce(s) Supporting Document(s) [id number] IRON (FE) eCW1 ([facility]) ID Date Data Source CBC with Differential 11/18/2020 12:00:00 AM EST eCW1 ([facility]) Name Value Range Interpretation Code Description Data Holly rce(s) Supporting Document(s) 5.29 4.30-6.10 RED BLOOD COUNT eCW1 ([facility]) 6.7 4.0-10.0 WHITE BLOOD COUNT eCW1 ([facility]) 14.5 13.5-17.5 HEMOGLOBIN eCW1 (Counts include 234 beds at the [facility]) 46.2 42.0-52.0 HEMATOCRIT eCW1 (Counts include 234 beds at the [facility]) 31.4 32.0-36.5 MEAN CORPUSCULAR HGB CONC eCW1 ([facility]) 87.3 80.0-96.0 MEAN CORPUSCULAR VOLUME e CW1 ([facility]) 27.4 27.0-33.0 MEAN CORPUSCULAR HEMOGLOB IN eCW1 ([facility]) 346 150-450 PLATELET COUNT, AUTOMATED eCW1 ([facility]) 14.6 11.5-14.5 RED CELL DISTRIBUTION WID TH eCW1 ([facility]) 54.5 36.0-66.0 NEUTROPHILS % eCW1 ([facility]) 33.3 24.0-44.0 LYMPH % eCW1 ([facility]) 2.2 1.5-5.0 LYMPH # eCW1 ([facility]) 0.6 0.0-1.0 BASO % eCW1 ([facility]) 3.6 1.5-8.5 NEUTROPHILS # eCW1 ([facility]) 7.3 0.0-5.0 MONO % eCW1 ([facility]) 4.0 0.0-3.0 EOS % eCW1 ([facility]) 0.3 0.0-0.5 EOS # eCW1 ([facility]) 0.5 0.0-0.8 MONO # eCW1 ([facility]) 0.0 0.0-0.2 BASO # eCW1 ([facility]) ID Date Data Source [id number] 09/21/2020 01:29:04 PM EDT [facility] Name Value Range Interpretation Code Description Data Holly rce(s) Supporting Document(s) POC NOVA GLU 91 mg/dL (70-99) [facility] PERFOR[facility] BY [facility] ID Date Data Source [id number] 09/21/2020 07:01:57 AM EDT [facility] Name Value Range Interpretation Code Description Data Holly rce(s) Supporting Document(s) POC NOVA GLU 118 mg/dL (70-99) H [facility] [place] [facility] BY [facility] ID Date Data Source [id number] 09/21/2020 12:06:49 AM EDT [facility] Name Value Range Interpretation Code Description Data Holly rce(s) Supporting Document(s) POC NOVA GLU 115 mg/dL (70-99) [facility] [place] [facility] ID Date Data Source [id number] 09/20/2020 07:26:38 PM EDT [facility] Name Value Range Interpretation Code Description Data Holly rce(s) Supporting Document(s) WBC 11.1 10*3/uL (4.1-11.0) [facility] RBC 4.61 10*6/uL (4.60-6.10) [facility] HGB 13.0 g/dL (13.5-18.0) L [facility] HCT 38.4 % (41.0-53.0) L [facility] MCV 83.3 fL (80.0-95.0) [facility] MCH 28.2 pg (27.0-32.0) [facility] MCHC 33.8 g/dL (32.0-36.0) [facility] RDW 14.7 % (10.5-14.5) [facility] PLT 310 10*3/uL (150-450) [facility] MPV 7.8 fL (7.1-10.7) [facility] ID Date Data Source [id number] 09/20/2020 05:53:11 PM EDT [facility] Name Value Range Interpretation Code Description Data Holly rce(s) Supporting Document(s) POC NOVA GLU 166 mg/dL (70-99) [facility] [place] [facility] ID Date Data Source [id number] 09/20/2020 10:39:01 AM EDT [facility] Name Value Range Interpretation Code Description Data Holly rce(s) Supporting Document(s) POC NOVA GLU 130 mg/dL (70-99) H [facility] PERFORMED BY [facility] ID Date Data Source [id number] 09/23/2020 03:18:01 PM EST [facility] [address] [place], [place] [address]Obb# Surgical Pathology ReportAccession #:[id number](s) ReceivedA: Liver biopsyClinical Diagnosis and HistoryMorbid obesityDIAGNOSISLIVER, WEDGE BIOPSY: MILD STEATOSIS. MILD CHRONIC INFLAMMATION OF THE PORTAL TRACTS.Comments: Trichrome shows no increased fibrosis. Reticulun highlightsnormal architecture. No iron is seen. No PASD positive cytoplasmicinclusions are seen. Gross DescriptionThe specimen is received in formalin labeled with the patient's name"Mora Linn", date of and "liver biopsy". It consists of a2.4 x 1.3 x 0.8 cm wedge biopsy of liver. Serially sectioned andsubmitted entirely in one cassette. Modified liver biopsy protocol. jglixt/jjf Reported: 09/23/2020Electronically Signed Out By Ramez Bledsoe MD [facility] [place] [address] [id number] component performed at [facility], [address] [place] [address], [phone].Reported at [facility], [address] [place] [address], [phone]. This report may includeimmunohistochemical or in-situ hybridization results. Testing wasdeveloped and the performance characteristics determined by [employer] as required by CLIA '88. The FDA hasdetermined that approval for specific use is not necessary for clinicaluse. The quality of Hematoxylin and Eosin stains and as applicable, forall immunohistochemical and/or special stains, including positive andnegative controls, were reviewed and considered appropriate.ICD codes E66.01 K76.0CPT codesA: 38588X, 39564Z, 22211T, 69354N, 60131F Name Value Range Interpretation Code Description Data Holly rce(s) Supporting Document(s) ID Date Data Source [id number] 09/20/2020 10:21:55 AM EDT [facility] NT INFORMATIONPatient MRN Name Date of Age Gend*PT [id number] Mora Linn 1995 25 years M SDAPT Location Ad[facility] Date/Time [facility] --- Skinny Felton MD([id number]) EPI ID CSN Admitting Provider [id number] Skinny Felton MD([id number])CREATION, GASTRIC BYPASS, MADHURI-EN-Y, LAPAROSCOPIC, WITH LIVER BIOPSY ProcedureNotRory Linn CSN:[id number]/30/2020Surgeon(s):KIRSTEN Oneilurgical Assist: Erica Werner, PAStaff:OR Livestock Inspector: JUSTIN Felixurgical Assist: LEONARDO Chacon Livestock Inspector: Yarely Kinsey RNOR Relief Scrub: Jennifer Motta Scrub Person: Marika Garcia; Marika MonkProcedure(s):CREATION, GASTRIC BYPASS, MADHURI-EN-Y, LAPAROSCOPIC, WITH LIVER BIOPSYLaparoscopic Madhuri Y Gastric Bypass, antecolic, antegastric, 50 cm PancreaticoBiliary Limb, 150 cm Madhuri Limb,Wedge liver biopsyEsophagogastrojejunoscopyAnesthesia: GeneralPre-op Diagnosis:Morbid obesity [E66.01]Post-Op Diagnosis Codes: * Morbid obesity [E66.01] * Fatty liver [K76.0]Drains: NoneGrafts/Implants:NoneSpecimens:ID Type Source Tests Collected by [facility] : Liver Biopsy Tissue Tissue SURGICAL PATHOLOGY EXAM Skinny Felton MD09/20/2020 0914Estimated Blood Loss: 20 mLBlood Administered: See Anesthesia RecordComplications: NoneFindings: Consistent with the Operative Diagnosis, central visceral obesity,fatty liver, delayed JJ enterotomy closure, negative leak test, umbilical portsite fascial closure.Indication for Procedure(s):Mora Linn is a 25 years year old male who suffers from severe obesity.Mora Linn has attempted multiple diets over the years, and has been ableto lose modest amounts of weight, however the weight loss has never beensustained. He is 62 in, 262lb and BMI of 47.92. His weight impacts hisactivities of daily living. His associated comorbidities include:(I10) Essential (primary) hypertension(M25.50) Pain in unspecified joint(M54.9) Dorsalgia, unspecified(K21.9) Gastro-esophageal reflux disease without esophagitis(E11.9) Type 2 diabetes mellitus without complications(G47.33) Obstructive sleep apnea (adult) (pediatricHe meets the criteria for bariatric surgery as defined in the NIH consensusstatement, surgery is medically necessary. We explained the operation, potentialcomplications, what can be expected after surgery, and what to expect for therest of their life. An informed consent discussion was held. The operations Ioffer and their potential complications were discussed. After discussion,patient and I agreed to proceed with a laparoscopic Madhuri-en-Y Gastric Bypass,possible Sleeve Gastrectomy if hostile abdomen is encountered. Botox educationgiven to patient. This may include repair of a Hiatal Hernia if found and aWedge Liver Biopsy if there is a fatty liver. We covered complicationsincluding: , NV, DVT, PE, leaks, sepsis, gallbladder disease, anastomoticulcers, bleeding, failure of weight loss, malnutrition, need for open surgery,internal and external hernias, the need for repeat surgery, and risk of COVID 19infection during his hospital stay, among others.DESCRIPTION OF PROCEDURE: The patient was taken to the operating room and placedon the operating table in supine position. Next, general anest hesia was inducedand patient was intubated. The abdomen was prepped and draped in the usualsterile fashion. A time-out was performed with all OR personnel inparticipation. The patient's identity, procedure, preoperative antibiotics,subcutaneous heparin and SCDs were all confirmed.Access into the intraabdominal cavity was gained through a 12- mm RUQ incisionusing a 12-mm Optiview port with a 10-mm 0- degree scope. Once inside,pneumoperitoneum was established and additional ports were placed in thefollowing configuration: one 12-mm in supraumbilical area and one 12-mm rightlower quadrant port, two 12-mm left sided flank ports and one 5-mm epigastricport. Next, the liver was evaluated, which looked fatty infiltrated, and a wedgeliver biopsy was taken from the left lobe with Harmonic device. Afterwards, theroot of the mesentery was identified by retracting the mesocolon and transversecolon in a cephalad direction. A 3-0 V-Loc suture was placed at the root of themesentery. This would be used later for closure of the Retro-Madhuri space. Theligament of Treitz was identified and the small bowel was ran distally 50 cm forthe pancreaticobiliary limb and this was pushed to the patient's left. Anadditional 150 cm was measured distally for the Madhuri limb. The small bowel wastransected with a blue load on a power [place] stapler at the 50 cm point. Thebiliopancreatic limb and the Madhuri limb were positioned [id number]. Theintermesenteric defect between the two limbs was closed with a running 3-0 V-Locsuture. Once this was closed, an enterotomy was made in the biliopancreatic limband then in the Madhuri limb. The 60-mm [place] stapler with a blue load wasinserted into both enterotomies and fired creating the jejunojejunostomy. Next,the greater omentum was transected with the Harmonic device from the colon up tothe stomach. Attention was re- directed at the jejunojejunostomy to perform adelayed closure. The internal staple line of the jejunojejunostomy wasinspectedwith wavy graspers; several maneuvers were used to achieve hemostasis-cautery, and hemostatic clips. Next, the remaining enterotomy defect was closedwith a 3-0 V-loc suture in a standard running fashion and double-layer closuretechnique was done. The proximal end of the Madhuri limb was anchored to thestomach using a 3-0 silk suture.The patient was then placed in steep reverse Trendelenburg and the NG tube wasremoved. The scope was changed to a long bariatric 45 degree scope. The angle ofHis was dissected out with a [facility] grasper behind the hiatus, exposing theleft laurent. There was no significant hiatal hernia appreciatedThe gastric pouch was then created. Using the wavy graspers and Harmonic device,a perigastric dissection was performed 10 cm distal to the GE junction along thelesser curvature. Once inside the lesser sac, a 60-mm stapler with the greenload cartridge was fired transversely across the lesser curve 50 mm. A 30-Frenchbougie was used up to help size the pouch. The pouch was completed usingmultiple firings of green loads up towards the angle of His and parallel to thelesser curve. Afterwards, a gastrotomy was made at the distal end of the pouch.The silk suture anchoring the Madhuri to the stomach was removed. An enterotomywas made at the 11 o'clock position. The linear stapler with a blue loadcartridge was inserted at 40 mm into the gastrotomy and enterotomy and firedcreating the gastrojejunostomy. An anti-tension stitch was placed at the crotchof the anastomosis using a 3-0 V-Loc suture and this was used to oversew thevertical staple line of the pouch. 3-0 silk anchoring sutures were placed atthe proximal and distal end of the gastrojejunostomy opening. The remainingdefect of the anastomosis was closed with a 3-0 V-loc suture in a runningfashion. A double-layer closure technique was performed. The staple lines of thepouch and remnant stomach were inspected for bleeding. Hemostasis was obtainedwith bipolar cautery.Next, the patient was laid flat. The retro-Madhuri space was closed with thepreviously placed 3-0 V- Loc suture. After this was done, the anastomosis wastested for leaks. My retail assistant store manager clamped across the Madhuri limb with the bowel clampwhile I passed the endoscope into the esophagus, into the pouch, and into theRoux limb. I insufflated with air and my retail assistant store manager irrigated over theanastomosis with normal saline. There were no bubbles seen emanating from theanastomosis; therefore, the test was negative and complete. The insufflated airwas evacuated and the scope was retrieved. Next, all staple lines werereinspected and hemostasis was obtained with bipolar cautery. All port siteswere inspected for bleeding and hemostasis was excellent. Umbilical port sitefascial closure was done. The pneumoperitoneum was evacuated and the skinincisions were closed with 4-0 Vicryl. 0.25% Marcaine was used to infiltrate theskin incisions and dermabond was applied. Sponge, needle, and instrument countswere accurate at the end of the case.The patient tolerated the procedure well. They were extubated and taken torecovery room in stable condition.All significant tasks completed under the direction of the primary surgeon withthe exception of:Closing - Performed By: Performed By: LIN Angelate: 09/20/2020 Time: 10:11 AM Name Value Range Interpretation Code Description Data Holly rce(s) Supporting Document(s) ID Date Data Source [id number] 09/20/2020 08:19:20 AM [address] [facility] NT INFORMATIONPatient MRN Name Date of Age Gend*PT [id number] Mora Linn 1995 25 years M SDAPT Location Admission Date/Time Visit ID Attending Provider --- --- --- --- EPI ID CSN Admitting Provider [id number] ---AirwayPatient location during procedure: ORUrgency: electiveDifficult airway: noAdvanced airway equipment used: noStaffingPerformed by: Mimi Gage CRNAAnesthesiologist: Dhaval Andrade MDIndications and Patient ConditionIndications for airway management: anesthesiaPreoxygenated: yesPatient position: sniffingIn-line stabilization: noMask ventilation: 1 - vent by maskFinal Airway/ApproachesFinal airway type: ETTNumber of attempts at final approach: 1Number of other approaches attempted: 0Final Airway DetailsFinal ETT airway: ETT - singleCuffed: noTechnique used for successful ETT placement: direct laryngoscopyCricoid pressure: noRSI: noInsertion site: oralBlade type/size: MAC 3.5ETT size: 7.5 mmMeasured from: lipsETT to lips: 23 cmPlacement verified by: chest auscultation and + [id number]: equal breath sounds bilateralGrade view: grade IIa - partial view of glottis Name Value Range Interpretation Code Description Data Holly rce(s) Supporting Document(s) ID Date Data Source [id number] 09/20/2020 07:24:10 AM EDT [facility] NT INFORMATIONPatient MRN Name Date of Age Gend*PT [id number] Mora Linn 1995 25 years M SDAPT Location Admission Date/Time Visit ID Attending ProviderCARSON ORONA 09/20/20 0518 --- Skinny Felton MD([id number]) EPI ID CSN Admitting Provider [id number] Skinny Felton MD([id number])H&P reviewed. The patient was examined and there are no changes to the H&P.Skinny Felton MD7:24 AM Name Value Range Interpretation Code Description Data Holly rce(s) Supporting Document(s) ID Date Data Source [id number] 09/15/2020 10:10:00 AM EDT [facility] Name Value Range Interpretation Code Description Data Holly rce(s) Supporting Document(s) SARS coronavirus 2 RNA [facility] This lab was ordered by [facility] and reported by [employer]. ID Date Data Source [id number] 09/16/2020 08:09:17 AM EDT [facility] Name Value Range Interpretation Code Description Data Holly rce(s) Supporting Document(s) SARS-COV-2 IMMANUEL [facility] Not DetectedReference range: Not Detecte d This nucleic acid amplification test was developed and its performance characteristics determined by [employer]. Nucleic acid amplification tests include PCR and TMA. This test has not been FDA cleared or approved. This test has been authorized by FDA under an Emergency Use Authorization (EUA). This test is only authorized for the duration of time the declaration that circumstances exist justifying the authorization of the emergency use of in vitro diagnostic tests for detection of SARS-CoV-2 virus and/or diagnosis of COVID-19 infection under section 564(b)(1) of the Act, 21 U.S.C. 360bbb-3(b) (1), unless the authorization is terminated or revoked sooner. When diagnostic testing is negative, the possibility of a false negative result should be considered in the context of a patient's recent exposures and the presence of clinical signs and symptoms consistent with COVID- 19. An individual without symptoms of COVID- 19 and who is not shedding SARS -CoV-2 virus would expect to have a negative (not detected) result in this assay. Performed At: [facility] [address] [place] [address] [id number] Maurilio Urrutia MD Ph:[phone] ID Date Data Source [id number] 09/10/2020 02:35:[address] [facility] Name Value Range Interpretation Code Description Data Holly rce(s) Supporting Document(s) [facility] ORLFRt1lWfTDAfGuf1YfBiPlRJToAH9yjab5N3U2qAKaG0PebSKqg8dpW3AdB8CyRRWwYDTEYW4TxOZg jb2 [file] 4ji13hWM8I0mjI32/Pzo+/Fv73ofO4JF0/74oZ602Ba6/uf5l+/je66r0q12yL570IYf7/v7v/Y/rpn3 udzE/fTE+Sw4amtV2w536ZHxgHZs9g/O2Xr/wla4jcP2/yjQ6u8WhnWSje+NN7lC+fYWWUx/nt/1C4vo h8ikK3wd0XowoYUvU8wi3htKMGnHWiR0XCncNeA48d sqlWsdL+gt39r/cUs9bZAW8a1Zov2s/Sc99Gcl9cLm3qnkLV+0YTf7e/zTncKNglg8Bv5bBTrZqTiulD iJZS9WUjY1aRgq1//ZZ0vx05bp6I+57C0P2A4E/6xD+9/u8oW2J/JArsbG4WO05k5k//c/mES1ipfKsN vcXey+sOxy4dU+5upl/+XGJ/cEe0Aa01wELC2AsHUl tu9Ikrnq+lkFxXOpJNb5uwlLCp9Z1JpS8iWi/XB3OhVjvy6+iGfETRJjGp26i5Z5hS2V/airline attendant/990GzPbZ lgEd41m/gLjCuij9b83/nsr26c4I/Waq5lK2+7DNUi5T790c2lc30x5+/hhrN94EMm2EPnB/c12mTMz7 nwDIBkr8114g7y414BQ8f2k3co9r0///Bc7cKwFIk+ /rL0mF/4t/GMErlmh0S25Z/5b0rXyw8Di+PPt2dxtQqLNEGqen5S26+YxYeD1yi5EQlFTOfxNe1+FKEG 2vo12UFm9oJc6ZErUis+jAv7qk8oon9ORZ1lw0PgBRYmJwJmMU5lqvzsWZThOG2oftd6Q8RcwIxiWFhC QKNvFc9yoJAbSU2OCRH6PGbfWOEeNWSbL1WblM9kA1 5skRIqDmDdBAXNKM2UrqG1WHA6QVH9OOKlBmTmIRViIH51FOSqDHYSBp7xiqNoZfkNJhIqPY5stuy6K3 P6cWIoV958hZtbjgRtBR2Jj8GdrZXqRG5SdLUaiQCpLUCeLCIeJ7mcn4FcDYzjFMAMDp7ebuXxUysDZj HsGY8mynr9E7N6mKhrzqUbSUWFBVswJzctKA7qzEib rzdaO2EveZVgKBUuW5UwSRSzk32RGPVyWSeCUgMjJzZyXXLgUJGdBRqjInXcFUHoFNGfBWAcWU3AbICg GMIsIGCZDSxnNpemQCJzoT2asAAPg8JgS2AULfoUAKydP7HKItcMPMD0RMZ3EZL6TEqqB6N0ArzxK0Il TD8PS5WuWWIxMDKOHSWobaIiNH7GfzSwdC6iPFbSVC SURFvZFMhuAfK0l42pkmDRPWJxGJRrXFcaVSRzFIQeOLVzGQBbDJSlAYGzUTNyYU0IT2EnZBHuHWFTET E4y2ApIBGmlxgziyxoEb7vlvIuItf+NswsTRUef9NlTQefX3N7nPBkF6RtY7DpVW2TfIQrEWdvMRPgQW XmSAHfR980fgUbVM5+BW6st9GnOxytDZSKBCBhODPj NJKrNJO2TkFkCGHeYWGoJZOxMaA3XyIsNhIEWWJeGNU6CiC9ZeXoHPCjVLDuQDtjWWHrBLMcWNI4PNSr SWQbWS2zHzBtDNUlJZDmBZKeDZIfMGYtybJDZVCcQPQcTKBdDEU4MPNyJMXiLKepFCHqUGZaQTW0NJNq YGEwDA9wYsIyYFNhBASiIblsJHQqQTLtonYMRRSdZP UfCEB6YtTkOVDkQZXuKDouHAXaEHMvKrh3PURpBVBoKA6qNqVxDJYaMEV1LOcwZCFcPIVfwvEVRMMfOG QlTXGdXaWiPTRzEPEcJQsvHDQbWMJaFmQwFMAuUHAaCE2hDnRbTZZoEHK6NPJyYBYxAKRcagTGTMYfAF FyGWx8GAUeXUOjUNImHMirTUWjBGXbDMS6WJCqJCBt JS5iExJkANCiSXIuVLNkIXLrHNOsdrWBVUXoBQJnHUZ1DFBuAXDfFNZmUCjjXQAhIJSoHwu2GQFpFWLa KE7gWpZwYXXyWZH9ZSNnWFBxKVQinyMQUIGjEWR6RNgmUHVuOUGsOLTfIXikNKLiWMDuJoJ2TYAcAZTa PE2hSuJbHZWaOKC5NoRmPBBbLBUbnfZAFWIuLGTxEU J8SwNhHCAuMBCfBZswQODjPTAsWRJoFRM3PGR8VHEgYdXvCLmzIKASICeBM6AbusYsHgPIE1ymWp4zGg AsJHKCE5Otp1RyURFrVCNTHc0+GgW2RFR0jUSrGon2PmTnLBewZIAGAh== ID Date Data Source [id number] 09/10/2020 12:25:50 PM ED[address] [facility] NT INFORMATIONPatient MRN Name Date of Age Gend*PT [id number] Mora Linn 1995 25 years M OPPT Location Admission Date/Time Visit ID Attending Provider --- --- --- Skinny Felton MD([id number]) EPI ID CSN Admitting Provider [id number] ---HISTORY PHYSICALName: Mora Linn : 1995 Sex: male Care Provider: Kyleigh Tapiaending Physician: Dr. FeltonInformant: The patient who is reliable.Chief Complaint: OverweightHISTORY OF PRESENT ILLNESS: This is a 25 years old white male with a 6 yearhistory of being overweight. He has tried multiple weight loss methods, such asketo diet, cutting down soda intake, increasing fruits and vegetables, but hasbeen unable to lose significant weight or sustain the weight loss. He is nowready for surgical intervention.The patient met with Dr. Felton, options were discussed and they have elected tounder go CREATION, GASTRIC BYPASS, MADHURI-EN-Y, LAPAROSCOPIC, WITH SLEEVEGASTRECTOMY IF INDICATED, WITH LIVER BIOPSY IF INDICATED, WITH HIATAL HERNIAREPAIR IF INDICATED, WITH LAPAROTOMY IF INDICATED 09/20/2020.PAST MEDICAL HISTORY:Past Medical History:Diagnosis Date Anxiety Asthma Depression GERD (gastroesophageal reflux disease) Hyperlipidemia Hypertension Morbid obesity Osteoarthritis in ankles Panic disorder Prediabetes Sleep apnea CPAPPAST SURGICAL HISTORY:Past Surgical History:Procedure Laterality Date ANKLE SURGERY Bilateral PANENDOSCOPY SKIN BIOPSYALLERGIES:AllergiesAllergen Reactions Benadryl [Diphenhydramine] Hives [place] Other (See Comments) Tongue Hinds Concerta [Methylphenidate Hcl Er (Cd)] Palpitations Depakote [Divalproex Sodium] RashMEDICATIONS:Prior to Admission medicationsMedication Sig Start Date End Date Taking? Authorizing Providerfamotidine (PEPCID) 40 MG tablet Take 40 mg by mouth 2 (two) times a day asneeded for heartburn Historical Provider, traZODone (DESYREL) 150 MG tablet Take 150 mg by mouth nightly as needed forsleep Historical Provider, KIRSTENocial HistoryTobacco Use Smoking status: Never Smoker Smokeless tobacco: Never UsedSubstance Use Topics Alcohol use: Yes Comment: rare Drug use: Not Currently Types: Marijuana Comment: used once on 09/03/2020Family HistoryProblem Relation Age of Onset Hypertension Mother Diabetes Mother Malig Hyperthermia Neg HxREVIEW OF SYSTEMS:Constitution: Weight stable, Denies fatigue, fever or chills. Caffeine intake:1-2 cups/day.HEENT: Denies any blurred vision, double vision, dizziness, tinnitus, dysphagiaor headaches.Respiratory:Reports occasional shortness of breath secondary to asthma. Deniesany cough, yellow sputum production or wheezing.Cardiovascular: Denies any chest pain, pressure or tightness. Denies anyparoxysmal nocturnal dyspnea or orthopnea.Muscle/Skeletal System: Denies any muscle ache, joint ache or weakness.Neurologic: Denies any numbness, tingling, tremors or syncope.GI: Reports diarrhea. Denies any nausea, vomiting constipation or melena.: Denies any dysuria, hematuria or nocturia.Endocrine: Denies polyuria, polydipsia or polyphagia. Denies any heat or coldintolerance, or night sweats.Hematology: Denies any bleeding or bruising tendencies.DNR Status: Full Code per the patient.HCP: No per patient.PHYSICAL EXAM:General: He is a 25 years old, pleasant white male, in no acute distress at timeof examination. Vitals on arrival to the office are BP 138/74 (BP Location: Leftupper arm, Patient Position: Sitting) | Pulse 77 | Ht 1.575 m (5' 2") | Wt(!) 120.2 kg (265 lb) | SpO2 96% | BMI 48.47 kg/m Body mass index is 48.47kg/m ..Skin is pink warm and dry.HEENT: He is normocephalic, atraumatic. Enigma conjunctivae. Anicteric sclerae.Pupils are equal, round, reactive to light and accommodation. Extraocularmovements are intact. Ears: Without drainage or lesion. Mouth: Dentition is ingood repair. He has a grade 1 airway. Neck is supple midline without cervicaladenopathy. There is no tonsillo pharyngeal congestion. Mucous membranes aremoist. There are no oral lesions. No jugular distention. No carotid bruit.CHEST/BREAST: A/P less than transverse. Breast exam declined.LUNGS: Clear to auscultation. No wheezes, rhonchi or crackles.HEART: Rate rhythm regular. S1, S2. No murmur, rub or gallop.ABDOMEN: Morbidly obese. Bowel sounds positive times four. Soft, non tender. Norebound tenderness. No hepatosplenomegaly. Negative CVAT.GENITAL/RECTAL: Deferred.MUSCLE/SKELETAL: Strength is 5/5. Cold Strip Feeder are equal.NEUROLOGICALLY: Cranial nerves II through XII are grossly intact.VASCULAR: Pulses are symmetrical. No edema.Anesthesia complications: deniesSteroid use: He denies any oral steroid therapy for three weeks or greaterwithin the last 3 months.CSHA Frailty Scale :: 2/10 Well (without active disease, but less fit thanpeople in category I. Often they e xercise or are very active occasionally, e.g.seasonally).IMPRESSION and PLAN:Primary Diagnosis: Morbid obesity Surgery as per Dr. Felton.Secondary Diagnosis and Plan:1. Morbid Obesity Body mass index is 48.47 kg/m .2. Hypertension Continuation of prior to admission anti- hypertensivemedications unless precluded by clinical status.3. Sleep apnea Obstructive Patient to continue with use of home CPAP /BiPAP4. GI prophylaxis Per surgeon5. DVT prophylaxis Early ambulation. Pneumatic compression device.Subcutaneous Heparin or LMW Heparin if clinically indicatedBased on above medical co morbidities, length of stay may be prolonged greaterthan previously anticipated.ALLERGIES:Benadryl [diphenhydramine]; [place]; Concerta [methylphenidate hcl er(cd)]; and Depakote [divalproex sodium]09/10/2020 12:25 PMLylisa Martines, NPThis document or parts of this document, were dictated using [employer] speaking software. A reasonable attempt at proofreading has beenmade to minimize errors. Please call with any questions or corrections. Name Value Range Interpretation Code Description Data Holly e(s) Supporting Document(s) ID Date Data Source [id number] 09/10/2020 08:10:23 PM EDT [facility] Name Value Range Interpretation Code Description Data Holly rce(s) Supporting Document(s) HEMOGLOBIN A1C @ 5.7 % (4.0-6.0) [facility] Performed using Siemens [place] immunoassa y.Care must be taken when interpreting MaQ5vkgmqzte in patients with a hemoglobin variantor decreased erythrocyte lifespan. Values 5.7 - 6.4% suggest prediabetes.Values >=6.5% are diagnostic for diabetes.REFERENCE: DIABETES CARE 2018: 41(S13-S27). EST AVERAGE GLUCOSE 117 mg/dL [facility] ID Date Data Source [id number] 09/10/2020 08:04:21 PM EDT [facility] Name Value Range Interpretation Code Description Data Holly rce(s) Supporting Document(s) TSH,ULTRASENSITIVE @ 2.540 mIU/L (0.360-4.170) [facility] ID Date Data Source [id number] 09/10/2020 08:04:21 PM EDT [facility] Name Value Range Interpretation Code Description Data Holly rce(s) Supporting Document(s) SODIUM 139 mmol/L (136-145) [facility] POTASSIUM 4.8 mmol/L (3.6-5.2) [facility] CHLORIDE 105 mmol/L (100-108) [facility] CO2 28 mmol/L (22-31) [facility] ANION GAP 6 mmol/L (7-16) L [facility] UREA NITROGEN 10 mg/dL (7-24) [facility] CREATININE 0.96 mg/dL (0.80-1.30) [facility] BUN/CREAT RATIO 10.4 RATIO (10.0-20.0) [facility] GLUCOSE 99 mg/dL (70-99) [facility] CALCIUM 9.0 mg/dL (8.4-10.2) [facility] TOTAL PROTEIN 7.3 g/dL (6.4-8.2) [facility] ALBUMIN 3.7 g/dL (3.5-4.6) [facility] GLOBULIN 3.6 g/dL (2.7-4.3) [facility] ALB/GLOB RATIO 1.0 RATIO [facility] ALKALINE PHOSPHATASE 92 U/L (45-117) [facility] BILIRUBIN,TOTAL 0.3 mg/dL (0.0-1.0) [facility] PLEASE NOTE:Total bilirubin results may be falselyelevated in patients taking Eltrombopag. AST (SGOT) 19 U/L (11-39) [facility] ALT (SGPT) 45 U/L (12-78) [facility] GFR >60 ml/min/1.73m2 (>59) [facility] GFR ( AMER) >60 ml/min/1.73m2 (>59) [facility] GFR INTERPRETATION [facility] --NORMAL KIDNEY FUNCTION OR MILD DISEASE - GFR >OR= 60CHRONIC KIDNEY DISEASE - GFR 15 - 59RENAL FAILURE - GFR <15 Est. GFR calculation based on the MDRDstudy equation, which assumes a steadystate for creatinine. Est. GFR should notbe used for medication dosing. ID Date Data Source [id number] 09/10/2020 06:59:27 PM EDT [facility] Name Value Range Interpretation Code Description Data Holly rce(s) Supporting Document(s) WBC 6.4 10*3/uL (4.1-11.0) [facility] RBC 4.96 10*6/uL (4.60-6.10) [facility] HGB 13.8 g/dL (13.5-18.0) [facility] HCT 42.0 % (41.0-53.0) [facility] MCV 84.6 fL (80.0-95.0) [facility] MCH 27.7 pg (27.0-32.0) [facility] MCHC 32.8 g/dL (32.0-36.0) [facility] RDW 14.9 % (10.5-14.5) H [facility] PLT 319 10*3/uL (150-450) [facility] MPV 8.1 fL (7.1-10.7) [facility] SCHULTE ID Date Data Source [id number] 09/10/2020 03:26:34 PM EDT [facility] SCHULTE SPEC EXP DATE 09/21/2020PATI ENT ABO/Rh A POSITIVEANTIBODY SCREEN NEGATIVETESTING SITE PERFORMED AT [address] [place] [id number] Name Value Range Interpretation Code Description Data Holly rce(s) Supporting Document(s) TYPE AND SCREEN [facility] PATIENT ABO/Rh A POSITIVE ID Date Data Source [id number] 07/04/2020 12:00:00 AM EDT [facility] Name Value Range Interpretation Code Description Data Holly rce(s) Supporting Document(s) SARS coronavirus 2 RNA [Presence] in Res piratory specimen by IMMANUEL with probe detection [facility] This lab was ordered by Ramone Smith and reported by [employer]. ID Date Data Source [id number] 05/22/2020 12:53:00 PM EDT [facility] [address] [place] [address] PHONE: [phone] FAX: [phone] Name .................. : KAVEH Box Acct Number.................. : [id number] ROOM. ................. : TR-03 MR Number ................... : [id number] Stay type ............. : E/R Discharge Date......... ... : Admit Date ......... : 05/21/20 Admit Phys .................... : RAMSES STEVEN Date of ....... : 1995 Family Phys ................... : RUBA Phone .................. : [phone] Age ................................ : 25 Film# .................. .:[id number] Sex ................................. : M Unsigned transcriptions are preliminary reports and do not represent a medical or legal document CHEST PORTABLE [id number] COMPLETE:05/21/20 14:10 BE [id number] Reason(s): Chest Pain PORTABLE CHEST, 05/21/20: INDICATION: Chest pain. FINDINGS: The cardiac and mediastinal silhouettes appear normal and the lungs are clear. The bones and soft tissues are normal. The upper abdomen is unremarkable. IMPRESSION: No acute disease identifiable. Examination dictated by JENNIFER Franco. Examination was reviewed with Zachary Arzola MD, radiologist at the time of this dictation. Electronically Reviewed and Signed By ZACHARY ARZOLA MD , 05/22/20 12:53, [facility] Transcribe Initials: [facility], Transcribe Date: 05/21/20 14:49, Dictation Date: Copy for: RAMSES Rodriguez via fax Copy for: EMERGENCY DEPT via [facility] Copy for: 710 MED REC DISCHARGED Page 1 of 1 Name Value Range Interpretation Code Description Data Holly rce(s) Supporting Document(s) ID Date Data Source [id number] 05/21/2020 08:45:00 PM EDT [facility] [address] [place] [address] PHONE: [phone] FAX: [phone] Name ..............: KAVEH Box Acct Number ...........................: [id number] ROOM. ............: TR-03 MR Number ............................: [id number] Stay type.........: E/R Discharge Date...............:05/21/20 Admit Date .....: 05/21/20 Admit Phys .............................: RAMSES STEVEN Date of ..: 1995 Family Phys ...........................: [employer] Phone..............: [phone] Age.................................:25 Film# ...............:[id number] Sex.................................:M Unsigned transcriptions are preliminary reports and do not represent a medical or legal document [facility] [id number] COMPLETE:05/21/20 14:33 EWW [id number] Please See Scanned Results. Name Value Range Interpretation Code Description Data Holly rce(s) Supporting Document(s) ID Date Data Source [id number] 05/21/2020 01:27:00 PM EDT [facility] 1 OrderSheet [facility] Emergency Department [address] [place] [address] Phone #: ext- [phone] 05/21/2020 13:27 [id number] Sex: M : 1995 Age: 25yWEIGHT:122.0 kg (M) HEIGHT:62 inches (S) BMI:49.2ALLERGIES: Benadryl, [place], Concerta, DepakoteCHIEF COMPLAINT: chest painDIAGNOSIS: Atypical chest pain, Chest wall painLAB ORDERSOrder Description Priority Entered Acknowledged InitialedCBC w Diff STAT 13:44 05/21/2020 13:46 Anjum Díaz; Sukh AntoineCMP STAT 13:44 05/21/2020 13:46 Anjum Díaz; Sukh AntoineD-Dimer STAT 13:44 05/21/2020 13:46 Anjum Díaz; Sukh AntoineTroponin-T STAT 13:44 05/21/2020 13:46 Anjum Díaz; Sukh AntoineUrinalysis (Clean STAT 13:44 05/21/2020 13:56 Arjun,Catch) Anjum RODRIGUEZ; Sukh AntoineDIAGNOSTIC STUDY ORDERSOrder Description Priority Entered Acknowledged InitialedChest Portable 1 STAT 13:44 05/21/2020 13:46 Arjun,View Anjum RODRIGUEZ; Sukh Antoine(Oxygen?(No)) Reason for Stud y: Chest PainMEDICATION/IV/DRIP/FLUID ORDERSOrder Description Priority Entered Acknowledged InitialedAspirin PO 13:44 05/21/2020 13:47 ArjunChewable 81 mg Anjum RODRIGUEZ; Sukh Antoine324 mg (NOW x1)Acetaminophen 1 g 14:20 05/21/2020 14:23 Arjun,PO X1 dose: 1000 Anjum Luz R.N.mg (NOW x1)Toradol IVP 30 mg 15:01 05/21/2020 15:19 Arjun,(NOW x1) Anjum RODRIGUEZ; Sukh AntoineGENERAL ORDERSOrder Description Priority Entered Acknowledged Initialed 2 OrderSheet [facility] Emergency Department [address] [place] [address] Phone #: [phone]- [phone] 05/21/2020 13:27 Patient: MORA LINN Sex: M : 1995 Age: 25yCardiac Monitor 13:44 05/21/2020 13:46 Arjun(continuous) Anjum RODRIGUEZ; Sukh AntoineBlood Pressure 13:44 05/21/2020 13:46 Arjun,Monitor Anjum RODRIGUEZ; Sukh AntoineEKG 13:05/21/2020 13:46 Anjum Díaz; Sukh AntoinePulse Oximetry 13:05/21/2020 13:46 Arjun,Continuous Anjum RODRIGUEZ; Sukh AntoineSaline Lock 13:05/21/2020 13:46 Anjum Díaz; Sukh Antoine[Electronically signed by Sukh Díaz R.N. (15:05/21/2020)][Electronically signed by Anjum Pearce (15:36 05/21/2020)][Electronically locked by Sukh Díaz R.N. (15:05/21/2020)] Name Value Range Interpretation Code Description Data Holly rce(s) Supporting Document(s) ID Date Data Source [id number] 05/21/2020 01:27:00 PM EDT [facility] 1 Medication Reconciliation Report [facility] Emergency Department [address] [place] [address] Phone #: ext- [phone] 05/21/2020 13:27 Patient: MORA LINN Sex: M : 1995 Age: 25yWeight: 122.0 kgHeight/Length: 62 in.BMI: 49.2ALLERGIES: Benadryl, [place], Concerta, DepakoteThe patient's Home Medications are listed below:CONTINUE TAKING THE FOLLOWING MEDICATIONS: Famotidine Oral Lexapro Oral traZODone HCl OralThe source(s) of the original Home Medication information:Not obtained.The following Medications were given to the patient in the Emergency Department:ASPIRIN CHEWABLE 81 MG [PO] PO 81 mg, administered: 05/21/2020 1:47:00 PMTylenol [PO] PO 1000 mg, administered: 05/21/2020 2:23:00 PMToradol [IM] IM 30 mg, administered: 05/21/2020 3:19:00 PMThe following Medications were prescribed to the patient:ibuprofen 800 mg tablet Take 1 tablet every eight hours as needed for pain for 5 days -- Dispense 15tablet. Refills: 0. Substitution permitted.Pharmacy - [id number] - [address] [facility] ; [place] [address]. . -- JENNIFER Mccormick Name Value Range Interpretation Code Description Data Holly rce(s) Supporting Document(s) ID Date Data Source [id number] 05/21/2020 01:27:00 PM EDT [facility] 1 Medication Administration Record [facility] Emergency Department [address] [place] [address] Phone #: ext- [phone] 05/21/2020 13:27 Patient: MORA LINN Sex: M : 1995 Age: 25yWeight: 122.0 kgHeight/Length: 62 inBMI: 49.2ALLERGIES: Concerta, Benadryl, [place], Depakote Date/Time Medication Administered Medication OrderedGiven ASPIRIN CHEWABLE 81 MG [PO] Aspirin PO Chewable 81 mg 35101:[id number] 05/21/2020 Dose: 81 mg Tablets PO mg (NOW x1)Sukh Díaz R.N.Given TYLENOL [PO] (APAP) Acetaminophen 1 g PO X1 dose:14:23 05/21/2020 Dose: 1000 mg Tablets PO 1000 mg (NOW x1)Sukh Díaz R.N.Given TORADOL [IM] (KETOROLAC Toradol IVP 30 mg (NOW x1)15:19 05/21/2020 TROMETHAMINE)Sukh Díaz R.N. Dose: 30 mg IM Name Value Range Interpretation Code Description Data Holly rce(s) Supporting Document(s) ID Date Data Source [id number] 05/21/2020 01:27:00 PM EDT [facility] 1 General Instructions [facility] Emergency Department [address] [place] [address] Phone #: ext- [phone] 05/21/2020 13:27 Patient: MORA LINN Sex: M : 1995 Age: 25yAtypical chest painChest wall painINSTRUCTIONSNo strenuous activity until better. Rest at home for one days. Do not work for two days.Avoid stimulants (such as cigarettes, coffee, cold medicines, sinus medicines, street drugs) until better.Do not smoke. No alcohol.Warnings: Further evaluation is necessary in order to conduct further tests. It is very important to follow upwith a healthcare provider.GENERAL WARNINGS: Return or contact your physician immediately if your condition worsens orchanges unexpectedly, if not improving as expected, or if other problems arise. SPECIFICALLY, return ifyou develop neck pain, jaw pain, shoulder pain, arm pain, back pain, difficulty breathing, a flutteringsensation in your chest, lightheadedness, fainting, extreme fatigue or sudden sweating; or for a return ofchest pain.Your Current Medications: Your current home medications have been reviewed.CONTINUE TAKING THE FOLLOWING MEDICATIONS:Famotidine Oral.Lexapro Oral.traZODone HCl Oral.Prescription Medications:ibuprofen 800 mg tablet Take 1 tablet every eight hours as needed for pain for 5 days -- Dispense 15tablet. Refills: 0. Substitution permitted.Pharmacy - [facility] - [address] [facility] ; [place] [address]. .Follow- up:Follow up with your healthcare provider in three days even if well. Call for the next available appointment.Reason for referral: evaluation and recommend cardiology referral for complaint of chest pain x 1 yr..Summary of care provided to patient via paper.Understanding of the discharge instructions verbalized by patient. Expected course of illness and injury,discharge instructions, activity level, prescriptions x1, follow-up appointment and risks and benefits oftreatment reviewed with patient and understanding verbalized. Agrees to plan of care. 2 General Instructions [facility] Emergency Department [address] [place] [address] Phone #: ext- [phone] 05/21/2020 13:27 Patient: MORA LINN Sex: M : 1995 Age: 25y ADDITIONAL INFORMATIONUncertain Causes of Chest PainChest pain can happen for a number of reasons. Sometimes the cause can't be determined. Ifyour condition does not seem serious, and your pain does not appear to be coming from your heart,your healthcare provider may recommend watching it closely. Sometimes the signs of a seriousproblem take more time to appear. Many problems not related to your heart can cause chest pain.These include: Musculoskeletal. Costochondritis is an inflammation of the tissues around the ribs that can occur from trauma or overuse injuries, or a strain of the muscles of the chest wall Respiratory. Pneumonia, collapsed lung (pneumothorax), or inflammation of the lining of the chest and lungs (pleurisy) Gastrointestinal. Esophageal reflux, heartburn, ulcers, or gallbladder disease Anxiety and panic disorders Nerve compression and inflammation Rare miscellaneous problems such as aortic aneurysm (a swelling of the large artery coming 3 General Instructions [facility] Emergency Department [address] [place] [address] Phone #: ext- [phone] 05/21/2020 13:27 Patient: MORA LINN Sex: Charu : 1995 Age: 25y out of the heart) or pulmonary embolism (a blood clot in the lungs)Home careAfter your visit, follow these recommendations: Rest today and avoid strenuous activity. Take any prescribed medicine as directed. Be aware of any recurrent chest pain and notice any changesFollow-up careFollow up with your healthcare provider if you do not start to feel better within 24 hours, or as advised.Call [phone] if any of these occur: A change in the type of pain: if it feels different, becomes more severe, lasts longer, or begins to spread into your shoulder, arm, neck, jaw or back Shortness of breath or increased pain with breathing Weakness, dizziness, or fainting Rapid heart beat Crushing sensation in your chestWhen to seek medical adviceCall your healthcare provider right away if any of the following occur: Cough with dark colored sputum (phlegm) or blood Fever of 100.4F (38C) or higher, or as directed by your healthcare provider Swelling, pain or redness in one leg [phone] [employer]. [address] [place] [address]. All rights reserved. This information is not intended as asubstitute for professional medical care. Always follow your healthcare professional's instructions.Chest Wall Strain (Child)Injury can overstretch a muscle on the front or back of the chest wall. This is called a chest wallstrain. In children, the injury may occur during play or sports. It may also happen during repeated 4 General Instructions [facility] Emergency Department [address] [place] [address] Phone #: ext- [phone] 05/21/2020 13:27 Patient: MORA LINN Sex: M : 1995 Age: 25ycoughing or when lifting a heavy object. Symptoms include sharp pain and soreness. However, noserious injury or permanent damage is present.Muscle strain can be treated with [id number] or prescription medicine for pain andswelling. Pain from a muscle strain usually resolves within a week.Home care The healthcare provider may prescribe medicine for pain and swelling. If the child has strained the chest by coughing, a cough medicine may be prescribed. Follow the healthcare provider's instructions for giving medicine to your child. Don't give your child medicines that were not prescribed. Don't give your child any other pain medicine unless you check with your healthcare provider first. Allow your child to rest as needed. Cold can help reduce swelling and pain. Wrap a cold pack or bag of frozen peas in a thin towel. Have the child apply this to the affected site for up to 20 minutes, 4 to 8 times a day. Don't apply cold for longer than 20 minutes at a time. Have your child hold a pillow to the affected area when coughing. This can help ease pain due to the injury.Follow-up careFollow up with your child's healthcare provider, or as advised.When to seek medical adviceCall your child's healthcare provider if your child has any of the following: Pain not relieved by medicine. Numbness or severe pain that lasts longer than 1 hour Trouble breathing, shortness of breath, or fast breathing Pain that continues for longer than 7 days Trouble moving normally Loss of strength Redness develops, swelling, or pain gets worse and not better [id number] [employer]. [address] [place] [address]. All rights reserved. This information is not intended as asubstitute for professional medical care. Always follow your healthcare professional's instructions. 5 General Instructions [facility] Emergency Department [address] [place] [address] Phone #: ext- [phone] 05/21/2020 13:27 Patient: MORA LINN Sex: M : 1995 Age: 25yYou have been given the following additional information:Chest Pain, Uncertain CauseChest Wall Strain (Child)No strenuous activity until better. Rest at home f or one days. Do not work for two days.(Electronically signed by JENNIFER Mccormick 05/21/2020 15:36) Name Value Range Interpretation Code Description Data Holly rce(s) Supporting Document(s) ID Date Data Source [id number] 05/21/2020 01:27:00 PM EDT [facility] 1 Clinical Report - Nurses [facility] Emergency Department [address] [place] [address] Phone #: ext- [phone] 05/21/2020 13:27 Patient: MORA LINN Sex: M : 1995 Age: 25yTRIAGEHistorian: patient.Triage time: 13:29 05/21/2020. Acuity: LEVEL 2.Chief Complaint: CHEST PAIN.Alert. No acute distress.( pt woke up from sleep at 2-3am in the morning with chest tightness to mid chest. pt states now slighttightness to left chest. c/o migraine yesterday. pain worse with palpation. denies injury.).SEPSIS SCREEN: Sepsis Screen negative. No suspected or confirmed signs of infection present. --13: Hammad February, R.N.13:29 05/21/20. BP: 144/91. MAP: 108. HR: 88. RR: 20. O2 saturation: 97%. Temp: 98.5 F (oral). Painlevel now: 05/31. --13:34 05/21/20 Nicolette Cueva, R.N.Weight: 122 kg measured. Height/Length: 62 inches Per Patient. BMI: 49.2. --13:29 20 Zoss, February,R.N.MedicationstraZODone HCl Oral. --13:05/21/20, February, R.N. Famotidine Oral. --13:05/21/20, February, R.N. Lexapro Oral. --13:05/21/20, February, R.N.AllergiesCitrus. --13:05/21/20February, R.N.Benadryl.(hives) --13:05/21/20, February, R.N.Concerta.(rash) --13:05/21/20February, R.N.Depakote.(rash) --13:05/21/20, February, R.N.The following entry was struck and corrected by Hammad February RBrendonN., 13:32 (05/21/20) Reason for correction -other(correction). Depakote. --13:05/21/20February, R.N. .PROBLEMS:Chronic Headache.Back Pain.Anxiety Reaction.ADD - Attention Deficit Disorder.Migraine Headache.Sleep Apnea. 2 Clinical Report - Nurses [facility] Emergency Department [address] [place] [address] Phone #: ext- [phone] 05/21/2020 13:27 Patient: MORA LINN Sex: M : 1995 Age: 25y Depression. --13:31 05/21/20, February, R.N. ADDITIONAL SURGERIES: Left ankle. Right ankle surgery. --13:32 05/21/20, February, R.N. Left eye. --13:32 05/21/20, February, R.N. History SOCIAL HX: Never smoker. Occasional alcohol use. No drug use. He was offered HIV testing but declined. He has not traveled outside the [place] Infectious disease exposure: No infectious disease exposure. (covid screen neg). Patient is not a known carrier of tuberculosis, hepatitis, HIV, MRSA or VRE. Patient is not a known carrier of CRE. SELF HARM ASSESSMENT: Self harm assessment was performed. The patient answered "no" to the question(s) "Have you recently felt down, depressed, or hopeless?", "Do you have thoughts of harming or killing yourself?", "Do you have a plan for harming or killing yourself?", "Have you recently had thoughts about harming or killing others?", "Do you have any dangerous items in your possession?", "Have you noticed less interest or pleasure in doing things?", "Are you here because you tried to hurt yourself?" and "Have you ever tried to hurt yourself before today?". ABUSE ASSESSMENT: Abuse assessment. yes. The patient had positive responses to the question(s) "Do you feel safe in your home?". No report of abuse. NUTRITIONAL RISK ASSESSMENT: The nutritional risk assessment revealed no deficiencies. FUNCTIONAL ASSESSMENT: Functional assessment: no impairments noted. LEARNING NEEDS ASSESSMENT: The learning needs assessment revealed no barriers. FALL RISK ASSESSMENT: Fall risk assessment completed. No risk factors identified. SKIN INTEGRITY ASSESSMENT: Skin integrity risk assessment completed. No skin integrity risk identified. --13:34 05/21/20 Nicolette Cueva R.N. Interventions To treatment room. --13:34 05/21/20 Nicolette Cueva R.N.PHYSICAL ASSESSMENT( states he was awoke last night at 2 with chest pain. upon arrival n no acute distress. chest wall pain isreproducable with pressing down on it.).G ENERAL / NEURO / PSYCH: Oriented X 4. Appears anxious.RESPIRATORY: Respirations not labored.CVS: Normal sinus rhythm noted. Capillary refill less than 2 seconds.SKIN: Skin is warm and dry. --14:01 05/21/20 Sukh Díaz R.N. 3 Clinical Report - Nurses [facility] Emergency Department [address] [place] [address] Phone #: ext- [phone] 05/21/2020 13:27 Patient: MORA LINN Sex: M : 1995 Age: 25yNURSING PROGRESS NOTESCardiac monitor, NIBP monitor and pulse oximeter placed on patient; monitor alarms on. Patient gowned.Head of bed elevated. Two patient identifiers checked. Bed placed in lowest position. Brakes of bed on.Patient ready for evaluation- PA notified. --13:34 05/21/20 Nicolette Cueva R.N. EKG time: (13:32 05/21/2020). EKG was performed by a nurse and shown to the PA. --13:37 05/21/20 Nicolette Cueva R.N. 13:47 05/21/2020 ASPIRIN CHEWABLE 81 MG PO Tablets 81 mg given. --13:47 05/21/20 Sukh Díaz R.N. 14:23 05/21/2020 Tylenol (APAP) PO Tablets 1000 mg given. --14:23 05/21/20 Sukh Díaz R.N. 14:24 05/21/20. BP: 139/76. MAP: 97. HR: 84. RR: 18. O2 saturation: 99%. Temp: deferred. Pain level now: 03/01. --14:24 05/21/20 Sukh Díaz R.N. 15:19 05/21/2020 Toradol (Ketorolac Tromethamine) IM 30 mg given. --15:19 05/21/20 Sukh Díaz R.N.DISPOSITION / DISCHARGE No learning barriers present. Written instructions provided in Urdu. 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 He was discharged home and accompanied by estate agent. He left ambulatory and via private vehicle. Patient driving. --15:21 05/21/20 Sukh Daíz R.N. 15:20 05/21/20. BP: 122/72. MAP: 88. HR: 72. RR: 18. O2 saturation: deferred. Temp: deferred. Pain level now: 01/29. --15:21 05/21/20 Sukh Díaz R.N.Locked/Released at 05/21/2020 15:21 by Sukh Díaz R.N. Name Value Range Interpretation Code Description Data Holly rce(s) Supporting Document(s) ID Date Data Source [id number] 05/21/2020 01:27:00 PM EDT [facility] 1 Clinical Report - Physicians/Mid Levels [facility] Emergency Department [address] [place] [address] Phone #: ext- [phone] 05/21/2020 13:27 Patient: MORA LINN Sex: M : 1995 Age: 25y Time Seen: 13:37 05/21/2020. Arrived- By private vehicle. Historian- patient. Disposition decision: 15:08 05/21/2020.HISTORY OF PRESENT ILLNESS Chief Complaint: CHEST PAIN. It is described as pressure and tightness and it is described as located in the central chest and left chest area and radiating to the left arm. This started about 1 years ago; Pt sattes that he has had similar chest pain for about 1 yr, has been worked up by PCM multiple times and is awaiting appt with cardiology. Pt states over past several days pain and SOB is getting worse and symptoms usually awaken him from sleep at 0200 with pain in central and L chest, with L arm numbness. Denies NV. Has been using inhalers more lately. No nausea, vomiting or diaphoresis. He has had difficulty breathing (SOB). Similar symptoms previously. Patient has had similar symptoms many times. Recent medical care: The patient was seen recently at another facility in the office.REVIEW OF SYSTEMSNo fever, chills, cough, pedal edema or calf pain. No fainting episodes, headache, sore throat, blurredvision or abdominal pain. No black stools, difficulty with urination, skin rash, enlarged lymph nodes or jointpain. No bloody stools.PAST HISTORYSee nurses notes. Problems: Acute Pain. Insomnia. Hematuria. Chronic Headache. Back Pain. Anxiety Reaction. ADD - Attention Deficit Disorder. Migraine Headache. Sleep Apnea. Depression. Additional Surgeries: BILAT ANKLE SURGERIES. Left ankle. Left eye. Right ankle surgery. 2 Clinical Report - Physicians/Mid Levels [facility] Emergency Department [address] [place] [address] Phone #: ext- [phone] 05/21/2020 13:27 Patient: MORA LINN Sex: M : 1995 Age: 25y Medications: Lexapro Oral. Famotidine Oral. traZODone HCl Oral. Allergies: Benadryl.(hives) [place]. Concerta.(rash) Depakote.(rash).SOCIAL HISTORYNever smoker. Occasional alcohol use. No drug use. No recent travel.ADDITIONAL NOTESThe nursing notes have been reviewed with agreement regarding the chief complaint, HPI, ROS, PMH andpatient medications and allergies.PHYSICAL EXAMVital Signs: 05/21/2020 13:29 BP: 144/91. MAP: 108. HR: 88. RR: 20. O2 saturation: 97%. Temp: 98.5 F.Pain level now: 7/10. Have been reviewed as abnormal and appear to be correct. Hypertensive. Meanarterial pressure- normal. Heart rate normal. Respiratory rate normal. Temperature normal. Oxygensaturation normal.Appearance: Alert. Oriented X3. No acute distress.Eyes: Pupils equal, round and reactive to light. Eyes normal inspection.ENT: Ears normal. Nose normal. Pharynx normal.Neck: Normal inspection. Neck supple.CVS: Normal heart rate and rhythm. Heart sounds normal. Pulses normal.Respiratory: No respiratory distress. Chest pain reproducible with palpation of the anterior and lateralchest wall. Painless inspiration. Breath sounds normal.Abdomen: Soft and nontender. Bowel sounds normal. No organomegaly. No mass. Femoral pulsesequal. Moderately obese.Back: Normal external inspection.Skin: Skin warm and dry. Normal skin color. No rash. Normal skin turgor.Extremities: Extremities exhibit normal ROM. No lower extremity edema.Neuro: Oriented X 3. No motor deficit. No sensory deficit. Reflexes normal.LABS, X-RAYS, AND EKGEKG: EKG time: 13:38 05/21/2020. No acute process. No acute ischemia. Normal EKG. Normalsinus rhythm. Rate: 88. Normal P waves. Normal AKILA. Normal QRS complex. Normal axis. NormalST and T waves, QT and QTc. Prior EKG unavailable. The study has been interpretedcontemporaneously by me. The study has been independently viewed by me. The EKG appears to be agood tracing. I agree with and confirm the computer reading of the EKG. Interpretation time: 13:. 3 Clinical Report - Physicians/Mid Levels [facility] Emergency Department [address] [place] [address] Phone #: ext- [phone] 05/21/2020 13:27 Patient: MORA LINN Sex: M : 1995 Age: 25yChest X-ray: No acute disease. Views: AP (portable). Technique: good. The X- rays wereindependently viewed by me and interpreted by the radiologist and contemporaneously by me.Interpretation time: 14:15 05/21/2020.Laboratory Tests: Laboratory tests have been ordered, with results reviewed and considered in themedical decision making process.CBC w Diff: (JAELYN: 05/21/2020 14:00) ( MsgRcvd 05/21/2020 14:41) Final results Test Result Flag Units (Reference) CBC W/AUTOMATED DIFF COMPLETE BLOOD COUNT WBC 6.3 10/uL (4.2 - 11.0) RBC 5.02 10/uL (4.50 - 6.30) HEMOGLOBIN 13.6 L g/dL (14.0 - 16.0) HEMATOCRIT 42.0 % (41.0 - 51.0) MCV 83.7 fL (80.0 - 94.0) MCH 27.1 pg (27.0 - 34.0) MCHC 32.4 g/dL (31.0 - 36.0) RDW 14.1 % (11.5 - 14.8) PLATELETS 239 10/uL (150 - 450) MPV 10.6 H fL (7.4 - 10.4) NEUT 63.0 % (37.0 - 80.0) LYMPH 27.5 % (25.0 - 40.0) MONO 6.8 % (3.0 - 8.0) EOS 1.6 % (0.0 - 7.0) BASO 0.8 % (0.0 - 2.0) %IG 0.3 H % (0.0 - 0.0) %NRBC 0.0 % (0.0 - 0.0) #NEUT 3.98 10/uL (2.00 - 6.90) #LYMPH 1.74 10/uL (0.60 - 3.40) #MONO 0.43 10/uL (0.00 - 0.90) #EOS 0.10 10/uL (0.00 - 0.70) #BASO 0.05 10/uL (0.00 - 0.20) #IG 0.02 10/uL (0.00 - 0.10) #NRBC 0.00 10/uL (0.00 - 0.00) MANUAL DIFF NOT INDICATED RBC MORPH MORPH IS NORMAL { SICKLE CELL (NORMAL: NONE SEEN ) PLT EST CLUMPED (NORMAL: KEM COMMENT: CMP: (JAELYN: 05/21/2020 14:00) ( MsgRcvd 05/21/2020 14:46) Final results Test Result Flag Units (Reference) COMPREHENSIVE METABOLIC PANEL COMPREHENSIVE METABOLIC PANEL SODIUM 141 mEq/L (134 - 153) POTASSIUM 4.4 mEq/L (3.6 - 5.0) CHLORIDE 103 mEq/L (98 - 107) CO2 27 MEQ/L (22 - 30) GLUCOSE 121 H MG/DL (65 - 110) BUN 8 MG/DL (7 - 21) CREATININE 0.9 MG/DL (0.7 - 1.5) BUN/CREAT 9 (8 - 27) TOTAL PROTEIN 7.1 G/DL (6.3 - 8.2) 4 Clinical Report - Physicians/[facility] Emergency Department [address] [place] [address] Phone #: ext- [phone] 05/21/2020 13:27 Patient: MORA LINN Sex: M : 1995 Age: 25y ALBUMIN 4.3 G/DL (3.9 - 5.0) GLOBULIN 2.8 GM/DL (2.4 - 3.2) A/G RATIO 1.5 (0.8 - 2.0) CALCIUM 9.5 MG/DL (8.4 - 10.2) TOTAL BILI <0.7 MG/DL (0.2 - 1.3) ALKALINE PHOS 80 U/L (38 - 126) SGOT/AST 27 U/L (5 - 40) SGPT/ALT 40 U/L (7 - 56) ANION GAP 11.0 mmol/L (8.0 - 16.0) AGE 25 yrs NON-AA GFR >60 mL/min AFR AMER GFR >60 mL/min Male GFR Interprentation 20-49 yrs >60 mL/min Qegihb63-79 yrs >56 mL/min Normal 60-69 yrs >49 mL/min Normal 70-79yrs>42 mL/min Normal 80 and above >35 mL/min Normal Female GFRInterpretation 20-39 yrs >60 mL/min Normal 40-49 yrs >58 mL/minNormal 50-59 yrs >51 mL/min Normal 60-69 yrs >45 mL/min Bndoaq22-75 yrs >39 mL/min Normal 80 and above >32 mL/min NormalD-Dimer: (JAELYN: 05/21/2020 14:00) ( [facility] 14:27) Final results Test Result Flag Units (Reference) D-DIMER QUANT <0.27 ug/mL (0.27 - 0.50)Troponin-T: (JAELYN: 05/21/2020 14:00) ( [facility] 05/21/2020 14:31) Final results Test Result Flag Units (Reference) TROPONIN T <0.01 NG/ML (0.00 - 0.10) TROPONIN T0.1 ng/ml Recommended as the clinical threshold value forTroponin T.EKG: (AJELYN: 05/21/2020 13:44) ( [facility] 05/21/2020 14:36) [facility]: (JAELYN: 05/21/2020 13:44) ( [facility] [place]/21/2020 14:50) [facility]LER[facility](s): Chest PainTRANSPORTATION: P IV? O2? Oxygen?(No) Room: ED Exam CHEST PORTABLE [address] [place] [address] PHONE: [phone] FAX: [phone] Name .................. : KAVEH Box Acct Number.................. : [id number] ROOM. ................. : TR-03 MR Number ................... : [id number] Stay type ............. : E/R Discharge Date......... ... : Admit Date ......... : 05/21/20 Admit Phys .................... : RAMSES STEVEN Date of ....... : 1995 Family Phys ................... : [employer] Phone .................. : [phone] Age ................................ : 25 Film# .................. .:[id number] Sex ................................. : M Unsigned transcriptions are preliminary reports and do not represent a medical or legal document CHEST PORTABLE [id number] COMPLETE:05/21/20 14:10 [facility] [id number] Reason(s): Chest Pain 5 Clinical Report - Physicians/Mid Levels [facility] Emergency Department [address] [place] [address] Phone #: ext- [phone] 05/21/2020 13:27 Patient: MORA LINN Sex: M : 1995 Age: 25y PORTABLE CHEST, 05/21/20: INDICATION: Chest pain. FINDINGS: The cardiac and mediastinal silhouettes appear normal and the lungs are clear. The bones and soft tissues are normal. The upper abdomen is unremarkable. IMPRESSION: No acute disease identifiable. Examination dictated by JENNIFER Franco. Examination was reviewed with Zachary Arzola MD, radiologist at the time of this dictation. Electronically Reviewed and Signed By DCTNAME , SIGNDATE, [facility] Transcribe Initials: SSR, Transcribe Date: 05/21/20 14:49, Dictation Date: <<REPDIST>> Page 1 of 1.PROGRESS AND PROCEDURESCourse of Care: 15:01 May 21 2020. Pt with normal EKG, CXR, troponin and d dimer today, normalcardiac activity on monitor throughout ED course, pain to L anterior lateral chest reproducible withpalpation, likely , chest wall pain, will discharge to home, place on trial of NSAID's and recommend PCM f/uand cardiology referral for ongoing chest pain for 1 yr. Advised return precautions. Disposition: Discharged home in good and improved condition. Discharge decision based on the following: patient's condition is improved; patient is ambulatory; patient is active; patient's pain is controlled; patient's exam is improved; minimally abnormal test results; improving condition on repeat evaluation; social support is adequate; transportation is available; follow-up is available; clinical impression is consistent with outpatient treatment.CLINICAL IMPRESSION Atypical chest pain Chest wall pain 6 Clinical Report - Physicians/Mid Levels [facility] Emergency Department [address] [place] [address] Phone #: ext- [phone] 05/21/2020 13:27 Patient: MORA LINN Sex: M : 1995 Age: 25yINSTRUCTIONS No strenuous activity until better. Rest at home for one days. Do not work for two days. Avoid stimulants (such as cigarettes, coffee, cold medicines, sinus medicines, street drugs) until better. Do not smoke. No alcohol. Warnings: Further evaluation is necessary in order to conduct further tests. It is very important to follow up with a healthcare provider. GENERAL WARNINGS: Return or contact your physician immediately if your condition worsens or changes unexpectedly, if not improving as expected, or if other problems arise. SPECIFICALLY, return if you develop neck pain, jaw pain, shoulder pain, arm pain, back pain, difficulty breathing, a fluttering sensation in your chest, lightheadedness, fainting, extreme fatigue or sudden sweating; or for a return of chest pain. Your Current Medications: Your current home medications have been reviewed. CONTINUE TAKING THE FOLLOWING MEDICATIONS: Famotidine Oral. Lexapro Oral. traZODone HCl Oral. Prescription Medications: ibuprofen 800 mg tablet Take 1 tablet every eight hours as needed for pain for 5 days -- Dispense 15 tablet. Refills: 0. Substitution permitted. Pharmacy - [facility] [address] [place] [address]. . Follow-up: Follow up with your healthcare provider in three days even if well. Call for the next available appointment. Reason for referral: evaluation and recommend cardiology referral for complaint of chest pain x 1 yr.. Summary of care provided to patient via paper. Understanding of the discharge instructions verbalized by patient. Expected course of illness and injury, discharge instructions, activity level, prescriptions x1, follow-up appointment and risks and benefits of treatment reviewed with patient and understanding verbalized. Agrees to plan of care.(Electronically signed by JENNIFER Mccormick 05/21/2020 15:36) Name Value Range Interpretation Code Description Data Holly rce(s) Supporting Document(s) ID Date Data Source [id number] 05/21/2020 02:45:00 PM EDT [facility] Name Value Range Interpretation Code Description Data Holly rce(s) Supporting Document(s) COMPREHENSIVE METABOLIC PANEL [facility] COMPREHENSIVE METABOLIC PANEL Sodium [Moles/volume] in Serum or Plasma 141 mEq/L 134 - 153 [facility] Potassium [Moles/volume] in Serum or Plasma 4.4 mEq/L 3.6 - 5.0 [facility] Chloride [Moles/volume] in Serum or Plasma 103 mEq/L 98 - 107 [facility] Carbon dioxide, total [Moles/volume] in Serum or Plasma 27 MEQ/L 22 - 30 [facility] Glucose [Mass/volume] in Serum or Plasma 121 MG/DL 65 - 110 H [facility] BUN 8 MG/DL 7 - 21 [facility] al Creatinine [Mass/volume] in Serum or Plasma 0.9 MG/DL 0.7 - 1.5 [facility] BUN/CREAT 9 8 - 27 [facility] Protein [Mass/volume] in Serum or Plasma 7.1 G/DL 6.3 - 8.2 [facility] Albumin [Mass/volume] in Serum or Plasma 4.3 G/DL 3.9 - 5.0 [facility] Globulin [Mass/volume] in Serum by calculation 2.8 GM/DL 2.4 - 3.2 [facility] A/G RATIO 1.5 0.8 - 2.0 [facility] Calcium [Mass/volume] in Serum or Plasma 9.5 MG/DL 8.4 - 10.2 [facility] Bilirubin.total [Mass/volume] in Serum or Plasma <0.7 MG/DL 0.2 - 1.3 [facility] Alkaline phosphatase [Enzymatic activity/volume] in Serum or Plasma 80 U/L 38 - 126 [facility] Aspartate aminotransferase [Enzymatic activity/volume] in Serum or Plasma 27 U/L 5 - 40 [facility] Alanine aminotransferase [Enzymatic activity/volume] in Seru m or Plasma 40 U/L 7 - 56 [facility] Anion gap 3 in Serum or Plasma 11.0 mmol/L 8.0 - 16.0 [facility] AGE 25 yrs [facility] al NON-AA GFR >60 mL/min [facility] ital AFR AMER GFR >60 mL/min [facility] spital Male GFR In terprentation 20-49 yrs >60 mL/min Normal 50-59 yrs >56 mL/min Normal 60-69 yrs >49 mL/min Normal 70-79yrs >42 mL/min Normal 80 and above >35 mL/min Normal Female GFR Interpretation 20-39 yrs >60 mL/min Normal 40-49 yrs >58 mL/min Normal 50-59 yrs >51 mL/min Normal 60-69 yrs >45 mL/min Normal 70-79 yrs >39 mL/min Normal 80 and above >32 mL/min Normal ID Date Data Source [id number] 05/21/2020 02:41:00 PM EDT [facility] Name Value Range Interpretation Code Description Data Holly rce(s) Supporting Document(s) CBC W/AUTOMATED DIFF [facility] COMPLETE BLOOD COUNT Leukocytes [#/volume] in Blood by Automated count 6.3 10^3/uL 4.2 - 1 1.0 [facility] Erythrocytes [#/volume] in Blood by Automated count 5.02 10^6/uL 4. 50 - 6.30 [facility] Hemoglobin [Mass/volume] in Blood 13.6 g/dL 14.0 - 16.0 L [facility] Hematocrit [Volume Fraction] of Blood by Automated count 42.0 % 4 1.0 - 51.0 [facility] Erythrocyte mean corpuscular volume [Entitic volume] by Auto mated count 83.7 fL 80.0 - 94.0 [facility] Erythrocyte mean corpuscular hemoglobin [Entitic mass] by Automated count 27.1 pg 27.0 - 34.0 [facility] Erythrocyte mean corpuscular hemoglobin concentration [Mass/volume] by Automated count 32.4 g/dL 31.0 - 36.0 [facility] Erythrocyte distribution width [Ratio] by Automated count 14.1 % 11.5 - 14.8 [facility] Platelets [#/volume] in Blood by Automated count 239 10^3/uL 150 - 45 0 [facility] Platelet mean volume [Entitic volume] in Blood by Automated count 10.6 fL 7.4 - 10.4 H [facility] Neutrophils/100 leukocytes in Blood by Automated count 63.0 % 37. 0 - 80.0 [facility] Lymphocytes/100 leukocytes in Blood by Manual count 27.5 % 25.0 - 40.0 [facility] Monocytes/100 leukocytes in Blood by Automated count 6.8 % 3.0 - 8.0 [facility] Eosinophils/100 leukocytes in Blood by Automated count 1.6 % 0.0 - 7.0 [facility] Basophils/100 leukocytes in Blood by Automated count 0.8 % 0.0 - 2.0 [facility] %IG 0.3 % 0.0 - 0.0 H [facility] Hospit al %NRBC 0.0 % 0.0 - 0.0 [facility] Neutrophils [#/volume] in Blood by Automated count 3.98 10^3/uL 2.00 - 6.90 [facility] Lymphocytes [#/volume] in Blood by Automated count 1.74 10^3/uL 0.60 - 3.40 [facility] Monocytes [#/volume] in Blood by Automated count 0.43 10^3/uL 0.00 - 0.90 [facility] Eosinophils [#/volume] in Blood by Automated count 0.10 10^3/uL 0.00 - 0.70 [facility] Basophils [#/volume] in Blood by Automated count 0.05 10^3/uL 0.00 - 0.20 [facility] #IG 0.02 10^3/uL 0.00 - 0.10 [facility]spital #NRBC 0.00 10^3/uL 0.00 - 0.00 [facility] MANUAL DIFF NOT INDICATED [facility] RBC MORPH MORPH IS NORMAL [facility] { SICKLE CELL (NORMAL: NONE SEEN ) Platelet adequacy [Presence] in Blood by Light microscopy CL UMPED NORMAL: NORMAL [facility] COMMENT: ID Date Data Source [id number] 05/21/2020 02:31:00 PM EDT [facility] Name Value Range Interpretation Code Description Data Holly rce(s) Supporting Document(s) TROPONIN T <0.01 NG/ML 0.00 - 0.10 [facility] ospital TROPONIN T0.1 ng/ml Recommended as the c linical threshold value forTroponin T. ID Date Data Source [id number] 05/21/2020 02:27:00 PM EDT [facility] Name Value Range Interpretation Code Description Data Holly rce(s) Supporting Document(s) Fibrin D-dimer FEU [Mass/volume] in Platelet poor plasma <0. 27 ug/mL 0.27 - 0.50 [facility] ID Date Data Source LIPID PANEL (CARDIAC RISK) 01/31/2020 12:00:00 AM EDT eCW1 ( [facility]) Name Value Range Interpretation Code Description Data Holly rce(s) Supporting Document(s) Cholesterol [Moles/volume] in Serum or Plasma 181 <200 CHOLESTEROL LEVEL eCW1 ([facility]) Cholesterol in LDL [Mass/volume] in Serum or Plasma by calculation 61 <100 LDL CHOLESTEROL eCW1 ([facility]) Triglyceride [Mass/volume] in Serum or Plasma by calculation 344 <150 TRIGLYCERIDES LEVEL eCW1 ([facility]) Cholesterol in HDL [Moles/volume] in Serum or Plasma 51 >40 HDL CHOLESTEROL eCW1 ([facility]) 130 NON-HDL-C eCW1 ([facility]) 3.549 <5 CHOLESTEROL RISK RATIO eCW1 ([facility]) ID Date Data Source FREE T4 & TSH PANEL 01/31/2020 12:00:00 AM EDT eCW1 ([facility]) Name Value Range Interpretation Code Description Data Holly rce(s) Supporting Document(s) 1.930 0.358-3.740 THYROID STIMULATING HORM ONE eCW1 ([facility]) 1.46 0.76-1.46 FREE T4 eCW1 ([facility]) ID Date Data Source Comprehensive Metabolic Profile (CMP) 01/31/2020 12:00:00 AM EDT eCW1 ([facility]) Name Value Range Interpretation Code Description Data Holly rce(s) Supporting Document(s) 115 70-100 GLUCOSE, FASTING eCW1 ([facility]) 0.81 0.70-1.30 CREATININE FOR GFR eCW1 ([facility]) 10 7-18 BLOOD UREA NITROGEN eCW1 ([facility]) 4.3 3.5-5.1 POTASSIUM SERUM eCW1 ([facility]) 139 136-145 SODIUM LEVEL eCW1 ([facility]) > 60.0 >60 GLOMERULAR FILTRATION RATE eCW 1 ([facility]) 106 98-107 CHLORIDE LEVEL eCW1 ([facility]) 27 21-32 CARBON DIOXIDE LEVEL eCW1 ([facility]) 25 7-37 AST/SGOT eCW1 ([facility]) 84 45-117 ALKALINE PHOSPHATASE eCW1 ([facility]) 8.6 8.5-10.1 CALCIUM LEVEL eCW1 ([facility]) 53 12-78 ALT/SGPT eCW1 ([facility]) 3.5 3.2-5.2 ALBUMIN eCW1 ([facility]) 0.97 1.00-1.93 ALBUMIN/GLOBULIN RATIO eCW1 ([facility]) 7.1 6.4-8.2 TOTAL PROTEIN eCW1 ([facility]) 0.2 0.2-1.0 BILIRUBIN,TOTAL eCW1 ([facility]) Procedure Social History Code Duration Value Status Description Data Source(s ) Smoking 11/18/2020 12:00:00 AM EST Never Smoker completed Never S moker eCW1 ([facility]) Smoking 10/22/2020 12:00:00 AM EST Never Smoker completed Never S moker eCW1 ([facility]) Smoking 10/22/2020 12:00:00 AM EST Never Smoker completed Never S moker eCW1 ([facility]) Smoking 10/22/2020 12:00:00 AM EST Never Smoker completed Never S moker eCW1 ([facility]) Smoking 10/22/2020 12:00:00 AM EST Never Smoker completed Never S moker eCW1 ([facility]) Smoking 10/22/2020 12:00:00 AM EST Never Smoker completed Never S moker eCW1 ([facility]) Alcohol intake 09/20/2020 12:00:00 AM EDT Yes completed [facility] Smoking 09/20/2020 12:00:00 AM EDT Never smoker completed Never s moker [facility] Smoking 09/12/2020 12:00:00 AM EDT Never Smoker completed Never S moker eCW1 ([facility]) Smoking 09/12/2020 12:00:00 AM EDT Never Smoker completed Never S moker eCW1 ([facility]) Smoking 09/12/2020 12:00:00 AM EDT Never Smoker completed Never S moker eCW1 ([facility]) Smoking 09/12/2020 12:00:00 AM EDT Never Smoker completed Never S moker eCW1 ([facility]) Smoking 09/12/2020 12:00:00 AM EDT Never Smoker completed Never S moker eCW1 ([facility]) Alcohol intake 09/10/2020 12:00:00 AM EDT Yes completed [facility] Smoking 09/10/2020 12:00:00 AM EDT Never smoker completed Never s moker [facility] Smoking 04/30/2020 12:00:00 AM EDT Never Smoker completed Never S moker eCW1 ([facility]) Smoking 04/30/2020 12:00:00 AM EDT Never Smoker completed Never S moker eCW1 ([facility]) Smoking 04/30/2020 12:00:00 AM EDT Never Smoker completed Never S moker eCW1 ([facility]) Smoking 04/30/2020 12:00:00 AM EDT Never Smoker completed Never S moker eCW1 ([facility]) Smoking 04/30/2020 12:00:00 AM EDT Never Smoker completed Never S moker eCW1 ([facility]) Smoking 04/30/2020 12:00:00 AM EDT Never Smoker completed Never S moker eCW1 ([facility]) Smoking 04/30/2020 12:00:00 AM EDT Never Smoker completed Never S moker eCW1 ([facility]) Smoking 04/30/2020 12:00:00 AM EDT Never Smoker completed Never S moker eCW1 ([facility]) Vital Signs ID Date Data Source UNK Name Value Range Interpretation Code Description Data Source(s) Diastolic blood pressure 80 mm[Hg] 80 mm[Hg] eCW1 ([facility]) Systolic blood pressure 120 mm[Hg] 120 mm[Hg] e CW1 ([facility]) Body temperature 96.5 [degF] 96.5 [degF] eCW1 ( [facility]) Respiratory rate 18 /min 18 /min eCW1 ([facility]) Heart rate 120 /min 120 /min eCW1 ([facility]) Body mass index (BMI) [Ratio] 38.94 kg/m2 38.94 kg/m2 W1 ([facility]) Body height 65 [in_i] 65 [in_i] eCW1 ([facility]) Body weight 234 [lb_av] 234 [lb_av] eCW1 ([facility]) Diastolic blood pressure 78 mm[Hg] 78 mm[Hg] eCW1 ([facility]) Systolic blood pressure 122 mm[Hg] 122 mm[Hg] e CW1 ([facility]) Body temperature 97.4 [degF] 97.4 [degF] eCW1 ( [facility]) Respiratory rate 18 /min 18 /min eCW1 ([facility]) Heart rate 89 /min 89 /min eCW1 ([facility]) Body mass index (BMI) [Ratio] 40.37 kg/m2 40.37 kg/m2 eCW1 ([facility]) Body height 65 [in_i] 65 [in_i] eCW1 ([facility]) Body weight 242.6 [lb_av] 242.6 [lb_av] eCW1 ([facility]) Body weight 4020 [oz_av] 4020 [oz_av] YARA ([facility]) Systolic blood pressure 109 mm[Hg] 109 mm[Hg] A THENA ([facility]) Body mass index (BMI) [Ratio] 45.4 kg/m2 45.4 k g/m2 YARA ([facility]) Body height 62.4 [in_i] 62.4 [in_i] YARA ([facility]) Diastolic blood pressure 79 mm[Hg] 79 mm[Hg] YARA ([facility]) Respiratory rate 16 /min 16 /min [facility] Body temperature 36.67 Jaci 36.67 Jaci [facility] Heart rate 82 /min 82 /min [facility] Diastolic blood pressure 83 mm[Hg] 83 mm[Hg] [facility] Systolic blood pressure 126 mm[Hg] 126 mm[Hg] [facility] Oxygen saturation in Arterial blood by Pulse oximetry 97 % 97 % [facility] Body mass index (BMI) [Ratio] 47.37 kg/m2 47.37 kg/m2 [facility] Body weight 117.[address] [facility] Body height 157.[address] [facility] Diastolic blood pressure 72 mm[Hg] 72 mm[Hg] eCW1 ([facility]) Systolic blood pressure 128 mm[Hg] 128 mm[Hg] e CW1 ([facility]) Body temperature 97.4 [degF] 97.4 [degF] [facility] ( [facility]) Respiratory rate 20 /min 20 /min eCW1 ([facility]) Heart rate 86 /min 86 /min eCW1 ([facility]) Body mass index (BMI) [Ratio] 44.16 kg/m2 44.16 kg/m2 eCW1 ([facility]) Body height 65 [in_i] 65 [in_i] eCW1 ([facility]) Body weight 265.4 [lb_av] 265.4 [lb_av] eCW1 ([facility]) Oxygen saturation in Arterial blood by Pulse oximetry 96 % 96 % [facility] Body mass index (BMI) [Ratio] 48.47 kg/m2 48.47 kg/m2 [facility] Body weight 120.[address] [facility] Body height 157.[address] [facility] Heart rate 77 /min 77 /min [facility] Diastolic blood pressure 74 mm[Hg] 74 mm[Hg] [facility] Systolic blood pressure 138 mm[Hg] 138 mm[Hg] [facility] Diastolic blood pressure 89 mm[Hg] 89 mm[Hg] eCW1 ([facility]) Systolic blood pressure 129 mm[Hg] 129 mm[Hg] e CW1 ([facility]) Body temperature 97.9 [degF] 97.9 [degF] eCW1 ( [facility]) Respiratory rate 18 /min 18 /min eCW1 ([facility]) Heart rate 84 /min 84 /min eCW1 ([facility]) Body mass index (BMI) [Ratio] 44.26 kg/m2 44.26 kg/m2 eCW1 ([facility]) Body height 65 [in_i] 65 [in_i] eCW1 ([facility]) Body weight 266 [lb_av] 266 [lb_av] eCW1 ([facility]) Diastolic blood pressure 80 mm[Hg] 80 mm[Hg] eCW1 ([facility]) Systolic blood pressure 136 mm[Hg] 136 mm[Hg] e CW1 ([facility]) Body temperature 97.7 [degF] 97.7 [degF] eCW1 ( [facility]) Respiratory rate 18 /min 18 /min eCW1 ([facility]) Heart rate 110 /min 110 /min eCW1 ([facility]) Body mass index (BMI) [Ratio] 43.10 kg/m2 43.10 kg/m2 eCW1 ([facility]) Body height 65 [in_us] 65 [in_us] eCW1 ([facility]) Body weight Measured 259 [lb_av] 259 [lb_av] eC W1 ([facility]) Diastolic blood pressure 80 mm[Hg] 80 mm[Hg] eCW1 ([facility]) Systolic blood pressure 124 mm[Hg] 124 mm[Hg] e CW1 ([facility]) Body temperature 97.4 [degF] 97.4 [degF] eCW1 ( [facility]) Respiratory rate 17 /min 17 /min eCW1 ([facility]) Heart rate 94 /min 94 /min eCW1 ([facility]) Body mass index (BMI) [Ratio] 42.80 kg/m2 42.80 kg/m2 eCW1 ([facility]) Body height 65 [in_us] 65 [in_us] eCW1 ([facility]) Body weight Measured 257.2 [lb_av] 257.2 [lb_av ] eCW1 ([facility]) Diastolic blood pressure 80 mm[Hg] 80 mm[Hg] eCW1 ([facility]) Systolic blood pressure 118 mm[Hg] 118 mm[Hg] e CW1 ([facility]) Body temperature 96.8 [degF] 96.8 [degF] eCW1 ( [facility]) Respiratory rate 18 /min 18 /min eCW1 ([facility]) Heart rate 86 /min 86 /min eCW1 ([facility]) Body mass index (BMI) [Ratio] 42.60 kg/m2 42.60 kg/m2 eCW1 ([facility]) Body height 65 [in_us] 65 [in_us] eCW1 ([facility]) Body weight Measured 256 [lb_av] 256 [lb_av] eC W1 ([facility]) Patient Treatment Plan of Care Planned Activity Planned Date Details Description Data Source (s) Cholecalciferol 1000 UNT Oral Tablet 11/19/2020 12:00:00 AM EST eCW1 ([facility]) Sertraline 25 MG Oral Tablet [Zoloft] 10/22/2020 12:00:00 AM EST eCW1 ([facility]) Sertraline 25 MG Oral Tablet [Zoloft] 10/22/2020 12:00:00 AM EST eCW1 ([facility]) Sertraline 25 MG Oral Tablet [Zoloft] 10/22/2020 12:00:00 AM EST eCW1 ([facility]) Sertraline 25 MG Oral Tablet [Zoloft] 10/22/2020 12:00:00 AM EST eCW1 ([facility]) Sertraline 25 MG Oral Tablet [Zoloft] 10/22/2020 12:00:00 AM EST eCW1 ([facility]) Magnesium Hydroxide 80 MG/ML Oral Suspension 09/21/2020 12:00:[address] [facility] Ondansetron 4 MG Disintegrating Oral Tablet 09/20/2020 12:00:[address] [facility] Acetaminophen 325 MG Oral Tablet 09/20/2020 12:00:[address] [facility] Omeprazole 40 MG Delayed Release Oral Capsule 09/20/2020 12:00:[address] [facility] Ascorbic Acid 60 MG / Beta Carotene 5000 UNT / Copper Sulfate 40 MG / dl-alpha tocopheryl acetate 30 UNT / Sodium Selenite 0.04 MG / Zinc Oxide 40 MG Oral Tablet 09/20/2020 12:00:00 AM EDT [facility] 0.4 ML Enoxaparin sodium 100 MG/ML Prefilled Syringe 020 12:00:[address] [facility] Simethicone 80 MG Chewable Tablet 09/20/2020 12:00:[address] [facility] Vitamin B 12 0.5 MG Oral Tablet 09/20/2020 12:00:[address] [facility] Trazodone Hydrochloride 150 MG Oral Tablet 09/06/2020 12:00:00 AM E DT eCW1 ([facility]) Trazodone Hydrochloride 150 MG Oral Tablet 09/06/2020 12:00:00 AM E DT eCW1 ([facility]) Trazodone Hydrochloride 150 MG Oral Tablet 09/06/2020 12:00:00 AM E DT eCW1 ([facility]) Escitalopram 10 MG Oral Tablet 04/30/2020 12:00:00 AM EDT eCW1 ([facility]) Escitalopram 10 MG Oral Tablet 04/30/2020 12:00:00 AM EDT eCW1 ([facility]) Escitalopram 10 MG Oral Tablet 04/30/2020 12:00:00 AM EDT eCW1 ([facility]) Escitalopram 10 MG Oral Tablet 04/30/2020 12:00:00 AM EDT eCW1 ([facility]) Escitalopram 10 MG Oral Tablet 04/30/2020 12:00:00 AM EDT eCW1 ([facility]) Escitalopram 10 MG Oral Tablet 04/30/2020 12:00:00 AM EDT eCW1 ([facility]) Escitalopram 10 MG Oral Tablet 04/30/2020 12:00:00 AM EDT eCW1 ([facility]) Escitalopram 10 MG Oral Tablet 04/30/2020 12:00:00 AM EDT eCW1 ([facility]) Metformin hydrochloride 500 MG Oral Tablet 03/28/2020 12:00:00 AM E DT eCW1 ([facility]) ReliOn Blood Glucose Test - 03/28/2020 12:00:00 AM EDT eCW1 ([facility]) 200 ACTUAT Albuterol 0.09 MG/ACTUAT Metered Dose Inhal er [ProAir] 03/11/2020 12:00:00 AM EDT eCW1 ([facility]) Fluticasone Propionate 50 MCG/ACT 03/11/2020 12:00:00 AM EDT eCW1 ([facility]) Famotidine 40 MG Oral Tablet [Pepcid] 10/25/2019 12:00:00 AM EST eCW1 ([facility]) Paroxetine 10 MG Oral Tablet [Paxil] 10/25/2019 12:00:00 AM EST eCW1 ([facility]) Famotidine 40 MG Oral Tablet [Pepcid] 10/25/2019 12:00:00 AM EST eCW1 ([facility]) Famotidine [address] [facility]
[2020-12-03] MEDS ORDERED: SERT25TA21 (03:34)
--- OUTSIDE RECORDS SUMMARY | 2020-12-03 05:26 | CCD ---
Author Author [facility] Organization [facility] Address Unknown Phone Unavailable Support Name Relationship Address Phone [employer] [place] [address] Cathy Torres Next Of Kin [address] [place] [id number] [employer] Next Of Kin [address] [place] [address] [address] [place] [address] STEWARTS* Next Of [facility] [address] [place] [address] KRAFT Next Of Kin [facility] [place] [address] Regina Almanzar Next Of Kin [address] [place] [address] Madelin TOY ASSEMBLER-C, Regina Next Of Kin [address] [place] [phone] Lyudmila PNP-CAyala Next Of [facility] [address] [place], [place] [id number] [employer] [place] [address] [employer] Next Of Kin [address] [place] [address] COUSINS, KAYCEE Next Of Kin [address] [place] [address] STREAM Next Of [facility] [address] [place] [address] JUSTINE ELENA Next Of Kin [address] [place] [address] Madelin TOY ASSEMBLER-C TOY ASSEMBLER-C, Regina Next Of Kin [address] [place] [address] Lyudmila PNP-C, Reba Next Of Kin [address] [place] [address] Laquita Castaneda MD Next Of Kin [address] [place] [address] COUSINS, MARIEL Next [place] [facility] [place] [address] [employer] Next [place] [address] - COUSINS, ROBLES Next Of Kin [address] [place] [address] Paola ALVAREZ Next Of Kin [address] [place] [address] UE Next Of Kin Unknown Unavailable ST Next Of Kin [address] [place] [address] ARRON ALVAREZ Next Of Kin [address] [place] [address] COUSINS, MARIEL [facility] , [place] Unavailable Rosangela Das ECON Unknown [phone] Care Team Providers Care Utility Arborist Name Role Phone Cathy Kaur Unavailable Unavailable [...] Unavailable Mehran Lane MD Unavailable Unavailable Mehran Lnae MD Unavailable Unavailable Mehran Lane MD Unavailable [...] Clint, E Ernie VUONG Unavailable Unavailable Clint, Yelnea Klein MD Unavailable Unavailable Clint, Yelena Klein MD Unavailable Unavailable Clint, Yelena Klein MD Unavailable Unavailable Clint, Yelena Klein MD Unavailable Unavailable Clint, E Erine VUONG Unavailable Unavailable Clint, Yelena Klein MD [...] is protected by Article 27-F of the [place] Public Health law. If you continue you may have access to information: Regarding HIV / AIDS; Provided by facilities licensed or operated by the [place] Office of Mental Health; or Provided by the [place] Office for People With Developmental Disabilities. If such information is present, then the following [place] [employer] mandated warning applies: This information has been [...] law may result in a fine or snf sentence or both. A general authorization for the release of medical or other information is NOT sufficient authorization for further disc losure. Allergies and Adverse Reactions Type Description Substance Reaction Status Data Source(s ) Propensity to adverse reactions DIVALPROEX SODIUM Divalproex Sodium Rash Low Active [facility] Low Propensity to adverse reactions METHYLPHENIDATE HCL ER (CD) Methylphenidate Hcl Er (Cd) Palpitations Low Active [facility] Low Propensity to adverse reactions CITRUS CITRUS AURANTIUM FRUIT OIL Active [facility] Propensity to adverse reactions DIPHENHYDRAMINE Diphenhydramine Active [facility] Drug allergy Concerta Methylphenidate Unknown Active eCW1 ([facility]) Drug allergy Depakote Valproate Unknown Active eCW1 ([facility]) Drug allergy DiphenhydrAMINE HCl Diphenhydramine Unknown Active eCW1 ([facility]) Family History Family Member Name Family Member Gender Family Member Status Date o f Status Description Data Source(s) Unknown Unknown Problem MEDENT ([facility], [facility]) Encounters Encounter Providers Location Date Indications Data Source(s ) Outpatient [address] [facility] [id number] 11/18/2020 12:00:00 AM EST eCW1 ([facility]) Unknown [address] [facility] [id number] 10/23/2020 12:00:00 AM EST eCW1 ([facility]) Unknown [address] [facility] [address] 10/23/2020 12:00:00 AM EST eCW1 ([facility]) Outpatient [address] [facility] [id number] 10/22/2020 12:00:00 AM EST eCW1 ([facility]) Unknown [address] [facility] [id number] 10/22/2020 12:00:00 AM EST eCW1 ([facility]) Unknown [address] [facility] [id number] 10/22/2020 12:00:00 AM EST eCW1 ([facility]) Rogelio Cadet MD: [address] [place] [phone], Ph. Attender: Rogelio Cadet MD [place] - [facility] - [facility] Medical 09/25/2020 12:00:00 AM EST YARA ([facility]) Unknown [address] [facility] [id number] 09/17/2020 12:00:00 AM EDT eCW1 ([facility]) Outpatient Referrer: SKINNY FELTON MOB-MOB.PAT 2019 10:09:03 AM EDT - 09/15/2020 10:09:07 AM EDT [facility] Unknown [address] [facility] [address] 09/12/2020 12:00:00 AM EDT [facility]CW1 ([facility]) [place] [address] [facility] [address] 09/12/2020 12:00:00 AM EDT [facility] Outpatient Attender: SKINNY FELTONReferrer: SKINNY HOOVER MOB-MOB.PAT 09/10/2020 11:03:19 AM EDT - 09/10/2020 12:25:34 PM EDT [facility] Unknown [address] [facility] [address] 09/06/2020 12:00:00 AM EDT [facility]CW1 ([facility]) [place] [address] [facility] [address] 09/06/2020 12:00:00 AM EDT [facility]) Unknown [address] [facility] [address] 09/06/2020 12:00:00 AM EDT [facility]CW1 [facility]) Inpatient Attender: SKINNY Trinidad vincenzo: SKINNY FELTONAdmitter: SKINNY FELTON [id number] 09/03/2020 10:29:48 AM EDT - 09/21/2020 01:49:00 PM EDT [facility] Patient discharged. Outpatient Attender: JENNIFER JIANG 08/28/2020 11:18:[address] [facility] Outpatient Attender: [facility] 08/26/2020 12:25:[address] [facility] Outpatient Attender: LINDA MORALES APOLINAR 08/26/2020 12:22:[address] [facility] [place] [address] [facility] [address] 08/13/2020 12:00:00 AM EDT eCW1 ([facility]) [place] [address] [facility] [address] 08/13/2020 12:00:00 AM EDT eCW1 ([facility]) [place] [address] [facility] [address] 06/05/2020 12:00:00 AM EDT eCW1 ([facility]) [place] [address] [facility] [address] 06/03/2020 12:00:00 AM EDT eCW1 ([facility]) Emergency Attender: Anjum RODRIGUEZ-CConsultant: ARMAAN RODRIGUEZ 05/21/2020 01:27:00 PM EDT - 05/21/2020 03:21:00 PM EDT [facility] Patient admitted. [facility] [address] [facility] [address] 05/09/2020 12:00:00 AM EDT eCW1 ([facility]) Unknown [address] [facility] [address] 05/04/2020 12:00:00 AM EDT eCW1 ([facility]) Outpatient Attender: LINDA MORALES APOLINAR 04/30/2020 07:38:[address] [facility] Outpatient [address] [facility] [address] 04/30/2020 12:00:00 AM EDT eCW1 ([facility]) Unknown [address] [facility] [address] 04/28/2020 12:00:00 AM EDT eCW1 ([facility]) [facility] [address] [facility] [address] 04/23/2020 12:00:00 AM EDT eCW1 ([facility]) [facility] [address] [facility] [address] 03/28/2020 12:00:00 AM EDT eCW1 ([facility]) [facility] [address] [facility] [address] 03/26/2020 12:00:00 AM EDT eCW1 ([facility]) [facility] [address] [facility] [address] 03/10/2020 12:00:00 AM EDT eCW1 ([facility]) [address] [address] 03/04/2020 12:00:00 AM EDT eCW1 ([facility]) Outpatient 03/01/2020 06:00:00 AM EDT [facility] [address] [address] 02/13/2020 12:00:00 AM EDT eCW1 ([facility] [place] [address] [address] 02/13/2020 12:00:00 AM EDT [facility]CW1 [facility] [address] [address] 02/01/2020 12:00:00 AM EDT eCW1 ([facility]) [address] [address] 01/22/2020 12:00:00 AM EST [facility]CW1 [facility]) [address] [address] 11/23/2019 12:00:00 AM EST eCW1 ([facility]) [address] [address] 11/17/2019 12:00:00 AM EST eCW1 ([facility]) Outpatient 11/07/2019 09:50:00 PM EST [facility] Outpatient Attender: ON LICENSE OF [facility] FP 10/27/2019 08:01:[address] [facility] Outpatient Attender: [facility] 10/27/2019 01:07:01 PM EST [address] [address] 10/27/2019 12:00:00 AM EST eCW1 ([facility]) Recurring Patient Attender: Dandy Lane MDReferrer: Ernie umanzor MD 10/25/2019 02:47:20 PM EST [facility] [address] [facility] [address] 10/25/2019 12:00:00 AM EST eCW1 ([facility]) [facility] [address] [facility] [address] 10/25/2019 12:00:00 AM EST eCW1 ([facility]) [facility] [address] [facility] [address] 10/12/2019 12:00:00 AM EST eCW1 ([facility]) [facility] [address] [facility] [address] 10/05/2019 12:00:00 AM EST eCW1 ([facility]) Immunizations Vaccine Date Status Description Data Source(s) INFLUENZA VIRUS VACCINE QUADRIVALENT 2019-21 (6 MOS AN D UP) 08/08/2020 12:00:00 AM EDT completed [facility] Flu Vaccine Historical 08/07/2020 12:00:00 AM EDT completed Flu Vaccine Historical 08/07/2020 [facility] Medications Medication Brand Name Start Date Product Form Dose Route Admi nistrative Instructions Pharmacy Instructions Status Indications Reaction Description Data Source(s) Cholecalciferol 1000 UNT Oral Tablet Vitamin D3 25 MCG (1000 UT) Vitamin D3 25 MCG (1000 UT) 11/19/2020 12:00:00 AM EST 1.0 {tablet} active Vitamin D3 25 MCG (1000 UT) eCW1 ([facility]) Sertraline 25 MG Oral Tablet [Zoloft] Zoloft 25 MG Zoloft 25 MG 10/22/2020 12:00:00 AM EST 1.0 {tablet_at_bedtime} active Zoloft 25 MG eCW1 ([facility]) Sertraline 25 MG Oral Tablet [Zoloft] Zoloft 25 MG Zoloft 25 MG 10/22/2020 12:00:00 AM EST 1.0 {tablet_at_bedtime} active Zoloft 25 MG eCW1 ([facility]) Sertraline 25 MG Oral Tablet [Zoloft] Zoloft 25 MG Zoloft 25 MG 10/22/2020 12:00:00 AM EST 1.0 {tablet_at_bedtime} active Zoloft 25 MG eCW1 ([facility]) Sertraline 25 MG Oral Tablet [Zoloft] Zoloft 25 MG Zoloft 25 MG 10/22/2020 12:00:00 AM EST 1.0 {tablet_at_bedtime} active Zoloft 25 MG eCW1 ([facility]) Sertraline 25 MG Oral Tablet [Zoloft] Zoloft 25 MG Zoloft 25 MG 10/22/2020 12:00:00 AM EST 1.0 {tablet_at_bedtime} active Zoloft [address] [facility] ([facility]) ondansetron (ZOFRAN-ODT) disintegrating tablet 8 mg 09/21/2020 [...] 09/21/20 at 0600, Post-op [Order 2 End] [facility] Medication administered onsite lactated ringers bolus 1,000 mL [id number] 09/21/2020 06:00:00 AM EDT 1000 mL Intravenous completed 1,000 mL , Intravenous, Administer over 2 Hours, Once, 09/21/20 at 0600, For 1 dose, Post-op [facility] Medication administered onsite Acetaminophen 325 MG Oral Tablet acetaminophen (TYLENO L) 325 MG tablet 650 mg acetaminophen (TYLENOL) 325 MG tablet 650 mg 09/21/2020 12:00:00 AM EDT 650 mg Oral active 650 mg, Or al, Every 4 hours PRN, mild pain (1-3), for mild pain, headache, or temperature > 101, Starting 10/31/20 at 0000, Post- op
To begin after routine doses of tylenol.
[facility] Medication administered onsite Magnesium Hydroxide 80 MG/ML Oral Suspen reilly magnesium hydroxide (MILK OF MAGNESIA) 400 MG/5ML suspension magnesium hydroxide (MILK OF MAGNESIA) 4 00 MG/5ML suspension 09/21/2020 12:00:00 AM EDT 15 mL Oral active Take 15 mL by mouth daily as needed for constipation [facility] Metoprolol Tartrate 25 MG Oral Tablet me toprolol tartrate (LOPRESSOR) tablet 25 mg metoprolol tartrate (LOPRESSOR) tablet 25 mg 09/20/2020 09:00:00 PM EDT 25 mg Oral active 25 mg, Ora l, 2 times daily, First dose on Wed09/20/20 at 2100, Post-op
Hold Lopressor for SBP < 100 mmHg or HR < 60.
[facility] Medication administered onsite heparin (porcine) injection 5,000 Units [id number] 09/20/20 06:00:00 PM EDT 5000 U Subcutaneous active 5,000 Units , Subcutaneous, Every 8 hours (relative), First dose on Wed09/20/20 at 1800, Post-op
If platelet count is less than 100,000 or hematocrit is less than 25, or if there is a 5 point decrea se in hematocrit, do not give the dose and call physician/designee.
[facility] Medication administered onsite Insulin Lispro 100 UNT/ML Injectable Jennifer ution insulin lispro (HumaLOG) injection 4-16 Units insulin lispro (HumaLOG) injection 4-16 Units 09/20/20 06:00:00 PM EDT Subcutaneous active 4-1 6 Units, Subcutaneous, Q6HSS, First dose on Wed09/20/20 at 1800, Post-op
Blood Sugar Units of [id number] 4 [id number] 6 -395 8 [id number] 10 units 321-370 12 units 371-420 14 units>420 16 units, Call MD
[facility] Medication administered onsite 1 ML Ketorolac Tromethamine 30 MG/ML Car tridge ketorolac (TORADOL) injection 30 mg ketorolac (TORADOL) injection 30 mg 09/20/2020 06:00:00 PM EDT 30 mg Intravenous active 30 mg, Intrav enous, Every 6 hours PRN, severe pain (7-10), Starting Wed09/20/20 at 1800, For 4 doses, Post-op [facility] Medication administered onsite Acetaminophen 500 MG Oral Tablet acetaminophen (TYLENO L) tablet 1,000 mg acetaminophen (TYLENOL) tablet 1,000 mg 09/20/2020 03:00:00 PM EDT 1000 mg Oral active 1,000 mg, Oral , Every 8 hours, First dose on Wed09/20/20 at 1500, For 48 hours, Post-op [facility] Medication administered onsite normal saline flush 0.9 % injection 3 mL [id number] 09/20/2020 02:00:00 PM EDT 3 mL Intravenous active 3 mL , Intravenous, QSHIFT, First dose on Wed09/20/20 at 1400, Post-op
Convert to saline lock after discontinuing D5LR IV.
[facility] Medication administered onsite gabapentin 300 MG Oral Capsule gabapentin (NEURONTIN) capsule 300 mg gabapentin (NEURONTIN) capsule 300 mg 09/20/2020 02:00:00 PM EDT 300 mg Oral active 300 mg, Oral, 3 times daily, First dose on Wed09/20/20 at 1400, Post-op [facility] Medication administered onsite Ondansetron 4 MG Disintegrating Oral Tab let ondansetron (ZOFRAN-ODT) disintegrating tablet 8 mg ondansetron (ZOFRAN-ODT) disintegrating tablet 8 mg 09/20/2020 01:00:00 PM EDT 8 mg Oral completed 8 mg, Oral, Every 6 hours (scheduled), First dose on Wed09/20/20 at 1300, For 24 hours, Post-op [facility] Medication administered onsite Calcium Chloride 0.001 MEQ/ML [...] adequate PO & convert to saline lock
[facility] Medication administered onsite Simethicone 80 MG Chewable Tablet simethicone (MYLICON ) chewable tablet 80 mg simethicone (MYLICON) chewable tablet 80 mg 09/20/2020 01:00:00 PM EDT 80 mg Oral active 80 mg, Oral, E very 4 hours (scheduled), First dose on Wed09/20/20 at 1300, Post-op [facility] Medication administered onsite pantoprazole 40 MG Delayed Release Oral Tablet pantoprazole (PROTONIX) EC tablet 40 mg pantoprazole (PROTONIX) EC tablet 40 mg 09/20/2020 01:00:00 PM E DT 40 mg Oral active Stress Ulcer Prophylaxis 40 mg, Oral, Daily, Indications: Stress Ulcer Prophylaxis, First dose on Wed09/20/20 at 1300, Post-op [facility] Stress Ulcer Prophylaxis Medication administered onsite metoclopramide [...] hours PRN for nausea
[Order 2 End] [facility] Medication administered onsite Prochlorperazine 10 MG Oral Tablet prochlorperazine (C OMPAZINE) tablet 10 mg prochlorperazine (COMPAZINE) tablet 10 mg 09/20/2020 12:19:00 PM EDT 10 mg Oral active 10 mg, Oral, E very 6 hours PRN, nausea, not relieved by metoclopramide, Starting Wed09/20/20 at 1219, Post-op [facility] Medication administered onsite traZODone (DESYREL) tablet 150 mg 09/20/2020 12:19:00 PM EDT 150 mg Oral active 150 mg, Oral, Ni ghtly PRN, sleep, Starting Wed09/20/20 at 1219, Post-op [facility] Medication administered onsite Promethazine Hydrochloride 25 MG Oral Ta blet promethazine (PHENERGAN) tablet 12.5 mg promethazine (PHENERGAN) tablet 12.5 mg 09/20/2020 12:19:00 PM E DT 12.5 mg Oral active 12.5 mg, O ral, Every 4 hours PRN, nausea, not relieved by prochlorperazine, Starting Wed09/20/20 at 1219, Post-op [facility] Medication administered onsite Albuterol 0.83 MG/ML Inhalant Solution a lbuterol (PROVENTIL) nebulizer solution 2.5 mg albuterol (PROVENTIL) nebulizer solution 2.5 mg 2019 12:18:59 PM EDT 2.5 mg active 2.5 mg, Nebulization, RT every 4 hours as needed, wheezing, shortness of breath, Starting Wed09/20/20 at 1218, Post-op [facility] Medication administered onsite Clonidine Hydrochloride 0.1 MG Oral Tablet cloNIDine ( CATAPRES) tablet 0.1 mg cloNIDine (CATAPRES) tablet 0.1 mg 09/20/2020 12:18:59 PM EDT 0.1 mg Oral active 0.1 mg, Oral, Every 4 hours PRN, high blood pressure, for SBP > 140 mmHg and/or DBP > 90 mmHg, Starting Wed09/20/20 at 1218, Post-op [facility] Medication administered onsite enalaprilat (VASOTEC) injection 1.25 mg [id number] 09/20/20 12:18:59 PM EDT 1.25 mg Intravenous active 1.25 mg, Int ravenous, Every 6 hours PRN, for SBP > 140 mmHg and/or DBP > 90 mmHg, Starting Wed09/20/20 at 1218, Post- op
Mix in 50 mL NS, infuse over 30 minutes via infusion pump.For IVMB on NON-ICU units.
[facility] Medication administered onsite 0.4 ML Enoxaparin sodium 100 MG/ML Prefi lled Syringe enoxaparin (LOVENOX) syringe 40 mg enoxaparin (LOVENOX) syringe 40 mg 09/20/2020 12:18:59 PM EDT 40 mg Subcutaneous completed 40 mg, Subcutaneous, Before Discharge, for prophylaxis, Starting Wed09/20/20 at 1218, For 1 dose, Post-op
At discharge. To be administered by patient or significant other.
[facility] Medication administered onsite HYDROmorphone (DILAUDID) injection 0.5 mg [id number] 09/20/2020 10:16:41 AM EDT 0.5 mg Intravenous aborted 0.5 mg, Intravenous, Every 5 min PRN, severe pain (7-10), Starting Wed09/20/20 at 1016, For 5 doses, PACU (only) [facility] Medication administered onsite fentaNYL Citrate (PF) (SUBLIMAZE) injection 25 mcg [id number] 09/20/2020 10:16:41 AM EDT 25 ug Intravenous aborted 25 mcg, Intravenous, Every 5 min PRN, moderate pain (4-6), Starting Wed09/20/20 at 1016, For 12 doses, PACU (only) [facility] Medication administered onsite Clonidine Hydrochloride 0.1 MG Oral Tablet cloNIDine ( CATAPRES) tablet 0.1 mg cloNIDine (CATAPRES) tablet 0.1 mg 09/20/2020 07:00:00 AM EDT 0.1 mg Oral completed 0.1 mg, Oral, faculty i on call medical assistant, 09/20 at 0700, For 1 dose, Pre-op [facility] Medication administered onsite Acetaminophen 325 MG Oral Tablet acetaminophen (TYLENO L) 325 MG tablet 975 mg acetaminophen (TYLENOL) 325 MG tablet 975 mg 09/20/2020 07:00:00 AM EDT 975 mg Oral completed 975 mg, Or al, faculty i on call medical assistant, Wed09/20/20 at 0700, For 1 dose, Pre-op
"Maximum dose of acetaminophen is 4,000 mg from all sources in 24 hours."
[facility] Medication administered onsite Albuterol 0.83 MG/ML Inhalant Solution a lbuterol (PROVENTIL) nebulizer solution 2.5 mg albuterol (PROVENTIL) nebulizer solution 2.5 mg 2019 07:00:00 AM EDT 2.5 mg completed 2.5 mg , Nebulization, faculty i on call medical assistant, Wed09/20/20 at 0700, For 1 dose, Pre-op
To be started by pre-op unit
[facility] Medication administered onsite Calcium Chloride 0.0014 MEQ/ML / Potassi um Chloride 0.004 MEQ/ML / Sodium Chloride 0.103 MEQ/ML / Sodium Lactate 0.028 MEQ/ML Injectable Solution lactated ringers infusion lactated ringers infusion 09/20/2020 07:00:00 AM EDT 100 mL/h Intravenous aborted at 100 m L/hr, 100 mL/hr, Intravenous, Continuous, Starting Wed09/20/20 at 0700, Pre-op
Please place IV on left side if able
[facility] Medication administered onsite heparin (porcine) injection 5,000 Units [id number] 09/20/20 20 07:00:00 AM EDT 5000 U Subcutaneous completed 5,000 Uni ts, Subcutaneous, faculty i on call medical assistant, Wed09/20/20 at 0700, For 1 dose, Pre-op
If platelet count is less than 100,000 or hematocrit is less than 25, or if there is a 5 point decrease in hematocrit, do not give the dose and call physician/designee.
[facility] Medication administered onsite gabapentin 600 MG Oral Tablet gabapentin (NEURONTIN) t ablet 600 mg gabapentin (NEURONTIN) tablet 600 mg 09/20/2020 07:00:00 AM EDT 600 mg Oral completed 600 mg, Oral, On hai l, Wed09/20/20 at 0700, For 1 dose, Pre-op
Hold if age greater than 70 or chronic renal failure/insufficiency
[facility] Medication administered onsite Dexamethasone 4 MG Oral Tablet dexamethasone (DECADRON ) tablet 4 mg dexamethasone (DECADRON) tablet 4 mg 09/20/2020 07:00:00 AM EDT 4 mg Oral completed 4 mg, Oral, faculty i on call medical assistant, Wed 0 at 0700, For 1 dose, Pre-op [facility] Medication administered onsite Alprazolam 0.25 MG Oral Tablet ALPRAZolam (XANAX) tabl et 0.25 mg ALPRAZolam (XANAX) tablet 0.25 mg 09/20/2020 07:00:00 AM EDT 0.25 mg Oral completed 0.25 mg, Oral, faculty i on call medical assistant, Wed09/20/20 at 0700, For 1 dose, Pre-op [facility] Medication administered onsite celecoxib 100 MG Oral Capsule celecoxib (CeleBREX) cap raeann 200 mg celecoxib (CeleBREX) capsule 200 mg 09/20/2020 07:00:00 AM EDT 200 mg Oral completed 200 mg, Oral, faculty i on call medical assistant, 09/20 at 0700, For 1 dose, Pre-op [facility] Medication administered onsite Tetrahydrocannabinol 2.5 MG Oral Capsule dronabinol (M ARINOL) capsule 5 mg dronabinol (MARINOL) capsule 5 mg 09/20/2020 07:00:00 AM EDT 5 mg Oral completed 5 mg, Oral, faculty i on call medical assistant, Wed 0 at 0700, For 1 dose, Pre-op [facility] Medication administered onsite Prochlorperazine 10 MG Oral Tablet prochlorperazine (C OMPAZINE) tablet 10 mg prochlorperazine (COMPAZINE) tablet 10 mg 09/20/2020 07:00:00 AM EDT 10 mg Oral completed 10 mg, Oral, O n call, Wed09/20/20 at 0700, For 1 dose, Pre-op [facility] Medication administered onsite scopolamine (TRANSDERM-SCOP) 1.5 MG (Bariatric only) 1 patch [id number] 09/20/2020 05:46:17 AM EDT 1 {patch} Transdermal aborted 1 patch, Transdermal, Administer over 24 Hours, Every 24 hours (relative), First dose on Wed09/20/20 at 0700, For 1 dose, Pre-op
Scopolamine patch applied behind ear. Hold for any of the followin+ yrs old, hx of glaucoma, hx of vertigo, dementia.
[facility] Medication administered onsite Ondansetron 4 MG Disintegrating Oral Tab let ondansetron (ZOFRAN-ODT) 4 MG disintegrating tablet ondansetron (ZOFRAN-ODT) 4 MG disintegrating tablet 09/20/2020 12:00:00 AM EDT 4 mg Oral active Take 1 tablet (4 mg total) by mouth every 6 (six) hours as needed for nausea [facility] Simethicone 80 MG Chewable Tablet simethicone (MYLICON ) 80 MG chewable tablet simethicone (MYLICON) 80 MG chewable tablet 09/20/2020 12:00:00 AM EDT 80 mg Oral active Chew 1 tablet (80 mg total) every 6 (six) hours as needed for flatulence [facility] Vitamin B 12 0.5 MG Oral Tablet cyanocob alamin ([facility] VITAMIN B-12) 500 MCG tablet cyanocobalamin ([facility] VITAMIN B-12) 500 MCG tablet 09/20/2020 12:0 0:00 AM EDT 1000 ug Oral active Take 2 tablets (1,000 mc g total) by mouth daily [facility] Acetaminophen 325 MG Oral Tablet acetaminophen (TYLENO L) 325 MG tablet acetaminophen (TYLENOL) 325 MG tablet 09/20/2020 12:00:00 AM EDT 65 0 mg Oral active Take 2 tablets (650 mg total) by mouth every 6 (six) hours as needed for pain [facility] Omeprazole 40 MG Delayed Release Oral Ca psule omeprazole (PRILOSEC) 40 MG capsule omeprazole (PRILOSEC) 40 MG capsule 09/20/2020 12:00:00 AM EDT 40 mg Oral active Take 1 capsule (40 m g total) by mouth daily [facility] Ascorbic Acid 60 MG / Beta Carotene 5000 UNT / Copper Sulfate 40 MG / dl-alpha tocopheryl acetate 30 UNT / Sodium Selenite 0.04 MG / Zinc Oxide 40 MG Oral Tablet Multiple Vitamins-Minerals (MULTIVITAMIN WITH MINERALS) tablet Multiple Vitamins-Minerals (MULTIVITAMIN WITH MINERALS) tablet 09/20/2020 12:00:00 AM EDT 2 {tbl} Oral active Take 2 tablets b y mouth daily [facility] 0.4 ML Enoxaparin sodium 100 MG/ML Prefi lled Syringe enoxaparin (LOVENOX) 40 MG/0.4ML SOLN enoxaparin (LOVENOX) 40 MG/0.4ML SOLN 09/20/2020 12:00:00 AM EDT 40 mg Subcutaneous active Inject 0.4 mL (40 mg total) under the skin daily for 10 days [facility] Trazodone Hydrochloride 150 MG Oral Tablet Trazodone H Cl 150 MG Trazodone HCl 150 MG 09/06/2020 12:00:00 AM EDT 1.0 {tablet_at_bedtime} active Trazodone HCl 150 MG eCW1 (Formerly [facility]) Trazodone Hydrochloride 150 MG Oral Tablet Trazodone H Cl 150 MG Trazodone HCl 150 MG 09/06/2020 12:00:00 AM EDT 1.0 {tablet_at_bedtime} active Trazodone HCl 150 MG eCW1 (Formerly [facility]) Trazodone Hydrochloride 150 MG Oral Tablet Trazodone H Cl 150 MG Trazodone HCl 150 MG 09/06/2020 12:00:00 AM EDT 1.0 {tablet_at_bedtime} active Trazodone HCl 150 MG eCW1 (Formerly [facility]) Escitalopram 10 MG Oral Tablet Escitalopram Oxalate 10 MG Escitalopram Oxalate 10 MG 04/30/2020 12:00:00 AM EDT 1.0 {tablet} activ e Escitalopram Oxalate 10 MG eCW1 (Formerly [facility]) Escitalopram 10 MG Oral Tablet Escitalopram Oxalate 10 MG Escitalopram Oxalate 10 MG 04/30/2020 12:00:00 AM EDT 1.0 {tablet} activ e Escitalopram Oxalate 10 MG eCW1 (Formerly [facility]) Escitalopram 10 MG Oral Tablet Escitalopram Oxalate 10 MG Escitalopram Oxalate 10 MG 04/30/2020 12:00:00 AM EDT 1.0 {tablet} activ e Escitalopram Oxalate 10 MG eCW1 (Formerly [facility]) Escitalopram 10 MG Oral Tablet ESCITALOPRAM OXALATE 04/30/2020 1 2:00:00 AM EDT tablet 30 TAKE ONE TABLET BY MOUTH EVERY D AY TAKE ONE TABLET BY MOUTH EVERY DAY SOLD: 04/30/2020 [facility] Escitalopram 10 MG Oral Tablet Escitalopram Oxalate 10 MG Escitalopram Oxalate 10 MG 04/30/2020 12:00:00 AM EDT 1.0 {tablet} activ e Escitalopram Oxalate 10 MG eCW1 ([facility]ly [facility]) Escitalopram 10 MG Oral Tablet Escitalopram Oxalate 10 MG Escitalopram Oxalate 10 MG 04/30/2020 12:00:00 AM EDT 1.0 {tablet} activ e Escitalopram Oxalate 10 MG eCW1 ([facility]ly [facility]) Escitalopram 10 MG Oral Tablet Escitalopram Oxalate 10 MG Escitalopram Oxalate 10 MG 04/30/2020 12:00:00 AM EDT 1.0 {tablet} activ e Escitalopram Oxalate 10 MG eCW1 ([facility]ly [facility]) Escitalopram 10 MG Oral Tablet Escitalopram Oxalate 10 MG Escitalopram Oxalate 10 MG 04/30/2020 12:00:00 AM EDT 1.0 {tablet} activ e Escitalopram Oxalate 10 MG eCW1 ([facility]ly [facility]) Escitalopram 10 MG Oral Tablet Escitalopram Oxalate 10 MG Escitalopram Oxalate 10 MG 04/30/2020 12:00:00 AM EDT 1.0 {tablet} activ e Escitalopram Oxalate 10 MG eCW1 ([facility]ly [facility]) Metformin hydrochloride 500 MG Oral Tablet Metformin H Cl 500 MG Metformin HCl 500 MG 03/28/2020 12:00:00 AM EDT 1.0 {tablet_with_a_meal} active Metformin HCl 500 MG eCW1 ([facility]ly [facility]) ReliOn Blood Glucose Test - ReliOn Blood Glucose Test - 05/2020 12:00:00 AM EDT active ReliOn Blood Gluc ose Test - eCW1 (Formerly [facility]) Metformin hydrochloride 500 MG Oral Tablet Metformin H Cl 500 MG Metformin HCl 500 MG 03/28/2020 12:00:00 AM EDT 1.0 {tablet_with_a_meal} active Metformin HCl 500 MG eCW1 ([facility]ly [facility]) BLOOD SUGAR DIAGNOSTIC 03/28/2020 12:00:00 AM EDT strip 25 TEST DAILY DIRECTED TEST DAILY DIRECTED SOLD: 03/28/2020 [facility] ReliOn Blood Glucose Test - ReliOn Blood Glucose Test - 05/2020 12:00:00 AM EDT active ReliOn Blood Gluc ose Test - eCW1 ([facility]ly [facility]) ReliOn Blood Glucose Test - ReliOn Blood Glucose Test - 05/2020 12:00:00 AM EDT active ReliOn Blood Gluc ose Test - eCW1 ([facility]ly [facility]) Metformin hydrochloride 500 MG Oral Tablet Metformin H Cl 500 MG Metformin HCl 500 MG 03/28/2020 12:00:00 AM EDT active 1 tablet with a meal eCW1 ([facility]) Metformin hydrochloride 500 MG Oral Tablet Metformin H Cl 500 MG Metformin HCl 500 MG 03/28/2020 12:00:00 AM EDT 1.0 {tablet_with_a_meal} active Metformin HCl 500 MG eCW1 ([facility]) Metformin hydrochloride 500 MG Oral Tablet Metformin H Cl 500 MG Metformin HCl 500 MG 03/28/2020 12:00:00 AM EDT 1.0 {tablet_with_a_meal} active Metformin HCl 500 MG eCW1 ([facility]) ReliOn Blood Glucose Test - ReliOn Blood Glucose Test - 05/2020 12:00:00 AM EDT active ReliOn Blood Gluc ose Test - W1 ([facility]ly [facility]) ReliOn Blood Glucose Test - ReliOn Blood Glucose Test - 05/2020 12:00:00 AM EDT active ReliOn Blood Gluc ose Test - eCW1 ([facility]ly [facility]) ReliOn Blood Glucose Test - ReliOn Blood Glucose Test - 05/2020 12:00:00 AM EDT active ReliOn Blood Gluc ose Test - eCW1 ([facility]ly [facility]) ReliOn Blood Glucose Test - ReliOn Blood Glucose Test - 05/2020 12:00:00 AM EDT active ReliOn Blood Gluc ose Test - eCW1 ([facility]ly [facility]) Metformin hydrochloride 500 MG Oral Tablet Metformin H Cl 500 MG Metformin HCl 500 MG 03/28/2020 12:00:00 AM EDT 1.0 {tablet_with_a_meal} active Metformin HCl 500 MG eCW1 ([facility]ly [facility]) ReliOn Blood Glucose Test - ReliOn Blood Glucose Test - 05/2020 12:00:00 AM EDT active ReliOn Blood Gluc ose Test - eCW1 ([facility]ly [facility]) Metformin hydrochloride 500 MG Oral Tablet Metformin H Cl 500 MG Metformin HCl 500 MG 03/28/2020 12:00:00 AM EDT 1.0 {tablet_with_a_meal} active Metformin HCl 500 MG eCW1 ([facility]) ReliOn Blood Glucose Test - ReliOn Blood Glucose Test - 05/2020 12:00:00 AM EDT active as directed eCW1 ([facility]ly [facility]) ReliOn Blood Glucose Test - ReliOn Blood Glucose Test - 05/2020 12:00:00 AM EDT active ReliOn Blood Gluc ose Test - W1 ([facility]ly [facility]) 500 mg 03/28/2020 12:00:00 AM EDT tablet 60 TAKE ONE TABLET BY MOUTH TWICE A DAY WITH A MEAL TAKE ONE TABLET BY MOUTH TWICE A DAY WITH A MEAL SOLD: 03/28/2020 [facility] ReliOn Blood Glucose Test - ReliOn Blood Glucose Test - 05/2020 12:00:00 AM EDT active ReliOn Blood Gluc ose Test - W1 ([facility]ly [facility]) ReliOn Blood Glucose Test - ReliOn Blood Glucose Test - 05/2020 12:00:00 AM EDT active ReliOn Blood Gluc ose Test - W1 ([facility]ly [facility]) Metformin hydrochloride 500 MG Oral Tablet Metformin H Cl 500 MG Metformin HCl 500 MG 03/28/2020 12:00:00 AM EDT 1.0 {tablet_with_a_meal} active Metformin HCl 500 MG eCW1 ([facility]) Metformin hydrochloride 500 MG Oral Tablet Metformin H Cl 500 MG Metformin HCl 500 MG 03/28/2020 12:00:00 AM EDT 1.0 {tablet_with_a_meal} active Metformin HCl 500 MG eCW1 ([facility]) ReliOn Blood Glucose Test - ReliOn Blood Glucose Test - 05/2020 12:00:00 AM EDT active ReliOn Blood Gluc ose Test - eCW1 ([facility]ly [facility]) ReliOn Blood Glucose Test - ReliOn Blood Glucose Test - 050 05/2020 12:00:00 AM EDT active ReliOn Blood Gluc ose Test - eCW1 ([facility]ly [facility]) 90 mcg/actuation 03/12/2020 12:00:00 AM EDT HFA [...] EDT active 1 puff as needed eCW1 ([facility]) Fluticasone Propionate 50 MCG/ACT Fluticasone Propionate 50 MCG/ACT 03/11/2020 12:00:00 AM EDT active 1 spray in each nostril eCW1 ([facility]) 50 mg 03/06/2020 12:00:00 AM EDT tablet [...] EST active 1 tablet at bedtime eCW1 ([facility]) 40 mg 10/25/2019 12:00:00 AM EST tablet [...] active 1 tablet in the morning eCW1 ([facility]ly [facility]) Famotidine 40 MG Oral Tablet [Pepcid] Pepcid 40 MG Pepcid 40 MG 10/25/2019 12:00:00 AM EST active 1 tablet at bedtime eCW1 ([facility]) Famotidine 40 MG Oral Tablet famotidine (PEPCID) 40 MG tablet famotidine (PEPCID) 40 MG tablet 40 mg Oral aborted Take 40 mg by mouth 2 (two) times a day as needed for heartburn [facility] Insurance Providers Payer name Policy type / Coverage type Policy ID Covered libertarian ID Covered libertarian's relationship to lay[place] Policy [place] Plan Information [facility] [id number] SP [id number] [facility] [id number] SP [id number] [facility] O [id number] S [id number] [facility] MEDICAID [id number] [facility] MEDICAID [id number] Magi [id number] INSURANCE COVID-19 COVID Magi C OVID [facility] [id number] SP [id number] INSURANCE COVID-19 [id number] 2 [id number] Managed Care - [facility] Community Plan P [id number] S [id number] Medicaid S [id number] S [id number] [facility] COMM[facility] PLAN XIX [id number] 18 [id number] [facility] Comm Plan Medicaid F [id number] SELF [id number] [facility]-Medicaid [id number] ANSI-Not a Secondary Insurance [id number] ANSI-Medicaid [id number] ANSI-Not a Secondary Insurance [id number] ANSI-Not a Secondary Insurance [id number] ANSI-Medicaid [id number] ANSI-Not a Secondary Insurance [id number] ANSI-Medicaid [id number] [facility] Comm Plan Medicaid F [id number] SELF [id number] [facility] Comm Plan Medicaid F [id number] SELF [id number] [facility] Comm Plan Medicaid F [id number] SELF [id number] ANSI-Medicaid [id number] ANSI-Not a Secondary Insurance [id number] ANSI-Not a Secondary Insurance [id number] ANSI-Medicaid [id number] ANSI-Medicaid [id number] ANSI-Not a Secondary Insurance [id number] [facility] Commercial [id number] Self [id number] ANSI-Not a Secondary Insurance [id number] ANSI-Medicaid [id number] ANSI-Not a Secondary Insurance [id number] ANSI-Medicaid [id number] ANSI-Medicaid [id number] ANSI-Not a Secondary Insurance [id number] ANSI-Medicaid [id number] ANSI-Not a Secondary Insurance [id number] ANSI-Not a Secondary Insurance [id number] ANSI-Medicaid [id number] [facility] (O) [id number] Self [id number] ANSI-Medicaid [id number] ANSI-Not a Secondary Insurance [id number] ANSI-Not a Secondary Insurance [id number] ANSI-Medicaid [id number] [facility] Care - [facility] [id number] S [id number] FRANK [id number] SP [id number] [facility] [place] Commercial [id number] Self [id number] [place] [id number] 18 [id number] [facility] [employer] Commercial [id number] Self [id number] [employer] COMMUNITY PLAN MCDHMO [id number] SP [id number] [facility]) O [id number] S [id number] [facility] COMMUNTY PLAN MC [id number] 18 [id number] [facility] Communty Plan Medicaid [id number] Self [id number] [facility] [id number] SP [id number] [facility] Communty Plan Medicaid [id number] Self [id number] UNHC COMMUNITY PLAN XIX MC [id number] 18 [id number] UNHC AMERICHOICE XIX -HMO [id number] 18 [id number] [facility] Communty Plan Medicaid [id number] Self [id number] [facility] Communty Plan Medicaid [id number] Self [id number] [facility] [id number] Self [id number] [facility] (HMO) [id number] Self [id number] [facility] (HMO) [id number] Self [id number] [facility] (HMO) Self [employer] [facility] Hmo Commercial Self MEDICAID [id number] SP [id number] [facility] [place] [id number] HU2 [id number] SELF PAY UNAVAILABLE SP UNAVAILA BLE [facility] Comm Plan Medicaid F [id number] SELF [id number] [place] F [id number] SPOUSE [id number] [place] F [id number] SPOUSE [id number] N REGIONAL CLAIMS [place] -O/P [id number] 01 [id number] [place] P [id number] S [id number] [place] P [id number] S [id number] [facility] [place] [id number] SP [id number] Managed Care - Community Plan [facility] P [id number] S [id number] Sliding Fee Scale O none S no ne Medicaid S [id number] S [id number] Managed Care - Community Plan [facility] P [id number] S [id number] Managed Care - Community Plan [facility] P [id number] S [id number] Managed Care BCBS O [id number] S [id number] Medicaid S [id number] S [id number] Managed Care - Community Plan [facility] P [id number] S [id number] [facility] I [id number] Self [id number] [employer]CE[employer] BCBS P [id number] S [id number] BLUE CROSS VIRAMONTES PLAN [id number] SP [id number] [facility] COMM PLAN [id number] 18 [id number] [employer] BCBS P [id number] BLUE CROSS VIRAMONTES PLAN [id number] SP [id number] Problems, Conditions, and Diagnoses Code Display Name Description Problem Type Effective Dates Data Source(s) E55.9 [id number] Vitamin D deficiency Problem 11/19/2020 12:0 0:00 AM EST eCW1 ([facility]) Z98.84 [id number] H/O gastric bypass Problem 10/22/2020 12:00: 00 AM EST eCW1 ([facility]) Z86.39 [id number] Personal history of other endocrine, nutritional and metabolic disease Problem 10/22/2020 12:00:00 AM EST eCW1 ([facility]) J30.2 [id number] Seasonal allergies Problem 10/22/2020 12:00: 00 AM EST eCW1 ([facility]ly [facility]) Z98.84 S/P gastric bypass S/P gastric bypass [id number] 12:00:00 AM EDT [facility] K21.9 GERD (gastroesophageal reflux disease) G ERD (gastroesophageal reflux disease) 28047014 09/20/2020 12:00:00 AM EDT [facility] J45.909 Asthma Asthma [id number] 09/20/2020 12:00:00 AM ED T [facility] E78.5 Hyperlipidemia Hyperlipidemia [id number] 09/20/2020 12:00: 00 AM EDT [facility] I10 Hypertension Hypertension 54428167 09/20/2020 12:00:00 A M EDT [facility] E66.01 Morbid obesity Morbid obesity 15176846 09/20/2020 12:00: 00 AM EDT [facility] G47.30 Sleep apnea Sleep apnea 12090136 09/20/2020 12:00:00 AM EDT [facility] [id number] SNOMED CT Concept SNOMED CT Concept Problem 09/05 04:40:55 PM EDT YARA ([facility]) F41.9 [id number] Anxiety Problem 04/30/2020 12:00:00 AM ED T eCW1 ([facility]) E66.01 Morbid (severe) obesity due to excess ca lories Morbid (severe) obesity due to excess ca Diagnosis 09/20/2020 05:18:00 AM EDT [facility] U07.1 COVID-19 COVID-19 Diagnosis 09/15/2020 10:09:03 AM ED T [facility] R0789 Other chest pain Other chest pain Diagnosis 05/21/2020 01 :27:00 PM EDT [facility] Surgeries/Procedures Procedure Description Date Indications Data Source(s) MAMMO, screening, digital, unilateral 09/25/2020 12:00 :00 AM EST YARA ([facility]) US, breast, unilateral 09/25/2020 12:00:00 AM EST YARA ([facility]) GLUC BLD GLUC MNTR DEV CLEARED FDA SPEC HOME USE POCT GLUCOSE Routine 09/21/2020 1:27 PM EDT 09/21/2020 05:27:00 PM EDT [facility] GLUC BLD GLUC MNTR DEV CLEARED FDA SPEC HOME USE POCT GLUCOSE Routine 09/21/2020 6:49 AM EDT 09/21/2020 10:49:00 AM EDT [facility] GLUC BLD GLUC MNTR DEV CLEARED FDA SPEC HOME USE POCT GLUCOSE Routine 09/20/2020 11:52 PM EDT 09/21/2020 03:52:00 AM EDT [facility] BLOOD COUNT COMPLETE AUTOMATED CBC Routine 09/20/2020 6:33 P M EDT 09/20/2020 10:33:00 PM EDT [facility] GLUC BLD GLUC MNTR DEV CLEARED FDA SPEC HOME USE POCT GLUCOSE Routine 09/20/2020 5:51 PM EDT 09/20/2020 09:51:00 PM EDT [facility] GLUC BLD GLUC MNTR DEV CLEARED FDA SPEC HOME USE POCT GLUCOSE Routine 09/20/2020 10:37 AM EDT 09/20/2020 02:37:00 PM EDT [facility] GASTRIC RSTCV W/BYP W/SHORT LIMB 150 CM/< Gastric Bypass for Obesity 09/20/2020 12:00:00 AM EDT YARA ([facility]) ECG ROUTINE ECG W/LEAST 12 LDS TRCG ONLY W/O I&R ECG 12-LEAD Routine 09/10/2020 12:26 PM EDT Morbid obesity 09/10/2020 04:26:00 PM EDT Morbid obesity [facility] Morbid obesity BLOOD COUNT COMPLETE AUTOMATED CBC Routine 0 12:15 PM EDT Morbid obesity 09/10/2020 04:15:00 PM EDT Morbid obesity [facility] Morbid obesity BLOOD TYPING ABO TYPE AND SCREEN Routine 09/10/2020 12:15 PM EDT Morbid obesity 09/10/2020 04:15:00 PM EDT Morbid obesity [facility] Morbid obesity THYROID STIMULATING HORMONE TSH TSH Routine 09/10/20 12:15 PM EDT Morbid obesity 09/10/2020 04:15:00 PM EDT Morbid obesity [facility] Morbid obesity HEMOGLOBIN GLYCOSYLATED A1C HEMOGLOBIN A1C Routine 09/10/2020 12:15 PM EDT Morbid obesity 09/10/2020 04:15:00 PM EDT Morbid obesity [facility] Morbid obesity COMPREHENSIVE METABOLIC PANEL COMPREHENSIVE METABOLIC PANEL Rou liz 09/10/2020 12:15 PM EDT Morbid obesity 09/10/2020 04:15:00 PM EDT Morbid obesity [facility] Morbid obesity PHYSICIAN TELEPHONE EVALUATION 11-20 MIN 03/28/2020 12 :00:00 AM EDT eCW1 ([facility]) Results ID Date Data Source VITAMIN B12 LEVEL 11/18/2020 12:00:00 AM EST eCW1 ([facility]) Name Value Range Interpretation Code Description Data Holly rce(s) Supporting Document(s) [id number] VITAMIN B12 LEVEL eCW1 ([facility]) ID Date Data Source MAGNESIUM LEVEL 11/18/2020 12:00:00 AM EST eCW1 ([facility]) Name Value Range Interpretation Code Description Data Holly rce(s) Supporting Document(s) 2.1 1.8-2.4 MAGNESIUM LEVEL eCW1 ([facility]) ID Date Data Source VITAMIN D 25-HYDROXY 11/18/2020 12:00:00 AM EST eCW1 ([facility]) Name Value Range Interpretation Code Description Data Holly rce(s) Supporting Document(s) 17.0 30.0-100.0 TOTAL 25(OH) VITAMIN D eC W1 ([facility]) ID Date Data Source [id number] 11/18/2020 12:00:00 AM EST eCW1 ([facility]) Name Value Range Interpretation Code Description Data Holly rce(s) Supporting Document(s) Hemoglobin A1c/Hemoglobin.total in Blood 5.4 HEMOGLOBIN A1c eCW1 ([facility]) ID Date Data Source FERRITIN 11/18/2020 12:00:00 AM EST eCW1 ([facility]) Name Value Range Interpretation Code Description Data Holly rce(s) Supporting Document(s) [id number] FERRITIN eCW1 ([facility]) ID Date Data Source IRON (FE) 11/18/2020 12:00:00 AM EST eCW1 ([facility]) Name Value Range Interpretation Code Description Data Holly rce(s) Supporting Document(s) [id number] IRON (FE) eCW1 ([facility]) ID Date Data Source CBC with Differential 11/18/2020 12:00:00 AM EST eCW1 ([facility]) Name Value Range Interpretation Code Description Data Holly rce(s) Supporting Document(s) 5.29 4.30-6.10 RED BLOOD COUNT eCW1 ([facility]) 6.7 4.0-10.0 WHITE BLOOD COUNT eCW1 ([facility]) 14.5 13.5-17.5 HEMOGLOBIN eCW1 ([facility]) 46.2 42.0-52.0 HEMATOCRIT eCW1 ([facility]) 31.4 32.0-36.5 MEAN CORPUSCULAR HGB CONC eCW1 ([facility]) 87.3 80.0-96.0 MEAN CORPUSCULAR VOLUME e CW1 ([facility]) 27.4 27.0-33.0 MEAN CORPUSCULAR HEMOGLOB IN eCW1 ([facility]) 346 150-450 PLATELET COUNT, AUTOMATED eCW1 ([facility]) 14.6 11.5-14.5 RED CELL DISTRIBUTION WID TH eCW1 ([facility]) 54.5 36.0-66.0 NEUTROPHILS % eCW1 ([facility]) 33.3 24.0-44.0 LYMPH % eCW1 ([facility]) 2.2 1.5-5.0 LYMPH # eCW1 ([facility]) 0.6 0.0-1.0 BASO % eCW1 ([facility]) 3.6 1.5-8.5 NEUTROPHILS # eCW1 ([facility]) 7.3 0.0-5.0 MONO % eCW1 ([facility]) 4.0 0.0-3.0 EOS % eCW1 ([facility]) 0.3 0.0-0.5 EOS # eCW1 ([facility]) 0.5 0.0-0.8 MONO # eCW1 ([facility]) 0.0 0.0-0.2 BASO # eCW1 ([facility]) ID Date Data Source [id number] 09/21/2020 01:29:04 PM EDT Lab [facility] Name Value Range Interpretation Code Description Data Holly rce(s) Supporting Document(s) POC NOVA GLU 91 mg/dL (70-99) [facility] [place] PERFOR[facility] BY [facility] ID Date Data Source [id number] 09/21/2020 07:01:57 AM EDT [facility] [place] [facility] Name Value Range Interpretation Code Description Data Holly rce(s) Supporting Document(s) POC NOVA GLU 118 mg/dL (70-99) H [facility] [place] [facility] [place] PERFORMED BY [facility]ICAL STAFF ID Date Data Source [id number] 09/21/2020 12:06:49 AM EDT [facility] [place] [facility] Name Value Range Interpretation Code Description Data Holly rce(s) Supporting Document(s) POC NOVA GLU 115 mg/dL (70-99) [facility] [place] [facility] [place] [facility]FOR[facility] ID Date Data Source [id number] 09/20/2020 07:26:38 PM EDT [facility] [place] [facility] Name Value Range Interpretation Code Description Data Holly rce(s) Supporting Document(s) WBC 11.1 10*3/uL (4.1-11.0) [facility] [place] [facility] RBC 4.61 10*6/uL (4.60-6.10) [facility] [place] [facility] HGB 13.0 g/dL (13.5-18.0) L [facility] [place] [facility] [place] HCT 38.4 % (41.0-53.0) [facility] [place] [facility] [place] MCV 83.3 fL (80.0-95.0) [facility] [place] [facility] MCH 28.2 pg (27.0-32.0) [facility] [place] [facility] MCHC 33.8 g/dL (32.0-36.0) [facility] [place] [facility] RDW 14.7 % (10.5-14.5) [facility] [place] [facility] [place] PLT 310 10*3/uL (150-450) [facility] [place] [facility] MPV 7.8 fL (7.1-10.7) [facility] [place] [facility] ID Date Data Source [id number] 09/20/2020 05:53:11 PM EDT [facility] [place] [facility] Name Value Range Interpretation Code Description Data Holly rce(s) Supporting Document(s) POC NOVA GLU 166 mg/dL (70-99) [facility] [place] [facility] [place] [facility] ID Date Data Source [id number] 09/20/2020 10:39:01 AM EDT [facility] [place] [facility] [place] Name Value Range Interpretation Code Description Data Holly rce(s) Supporting Document(s) POC NOVA GLU 130 mg/dL (70-99) H [facility] PERFORMED BY [facility] ID Date Data Source [id number] 09/23/2020 03:18:01 PM EST [facility] [address] [place], [place] [address]Vlq# Surgical Pathology ReportAccession #:[id number](s) ReceivedA: Liver biopsyClinical Diagnosis and HistoryMorbid obesityDIAGNOSISLIVER, [...] 09/23/2020Electronically Signed Out By Ramez Bledsoe MD [facility] [place] [address] 73627gajTwphdgonc component performed at [facility] [employer] [facility], Histopathology, [address] [place] [address], [address].Reported at [facility], [address] [place] [address], [address]. This report may includeimmunohistochemical or in-situ hybridization results. Testing wasdeveloped and the performance characteristics determined by [employer] as required by CLIA '88. The FDA hasdetermined that approval for specific use is not necessary for clinicaluse. The quality of Hematoxylin and Eosin stains and as applicable, forall immunohistochemical and/or special stains, including positive andnegative controls, were reviewed and considered appropriate.ICD codes E66.01 K76.0CPT codesA: 03868Q, 84437S, 19261W, 05382B, 61662G Name Value Range Interpretation Code Description Data Holly rce(s) Supporting Document(s) ID Date Data Source [id number] 09/20/2020 10:21:55 AM EDT [facility] NT INFORMATIONPatient MRN Name Date of Age Gend*PT [id number] Mora Linn 1995 25 years M SDAPT Location Admission Date/Time Visit ID [facility] --- Skinny Felton MD([id number]) EPI ID CSN Admitting Provider [id number] Skinny Felton MD([id number])CREATION, GASTRIC BYPASS, MADHURI-EN-Y, LAPAROSCOPIC, WITH LIVER BIOPSY ProcedureNotRory Linn CSN:[id number]/30/2020Surgeon(s):KIRSTEN Oneilurgical Assist: Erica Werner, PAStaff:OR Casting Machine Operator: JUSTIN Felixurgical Assist: LEONARDO Chacon Casting Machine Operator: Yarely Kinsey RNOR Relief Scrub: Jennifer Motta [...] a fatty liver. We covered complicationsincluding: , PA, DVT, PE, leaks, sepsis, gallbladder disease, anastomoticulcers, [...] with a blue load on a power [place] stapler at the 50 cm point. Thebiliopancreatic limb and the Madhuri limb were positioned [id number]. Theintermesenteric defect between the two limbs was closed with a running 3-0 V-Locsuture. Once this was closed, an enterotomy was made in the biliopancreatic limband then in the Madhuri limb. The 60-mm [place] stapler with a blue load wasinserted into [...] angle ofHis was dissected out with a Bailey grasper behind the hiatus, exposing theleft laurent. [...] done, the anastomosis wastested for leaks. My medical office assistant clamped across the Madhuri limb with the bowel clampwhile I passed the endoscope into the esophagus, into the pouch, and into theRoux limb. I insufflated with air and my medical office assistant irrigated over theanastomosis with normal saline. There [...] rce(s) Supporting Document(s) ID Date Data Source [id number] 09/20/2020 08:19:20 AM EDT [facility] NT INFORMATIONPatient MRN Name Date of Age Gend*PT [id number] Mora Linn 1995 25 years M SDAPT Location Admission Date/Time Visit ID Attending Provider --- --- --- --- EPI ID CSN Admitting Provider [id number] ---AirwayPatient location during procedure: ORUrgency: electiveDifficult airway: [...] cmPlacement verified by: chest auscultation and + PUMV6Oczxolwdqclk: equal breath sounds bilateralGrade view: grade IIa - partial view of glottis Name Value Range Interpretation Code Description Data Holly rce(s) Supporting Document(s) ID Date Data Source [id number] 09/20/2020 07:24:10 AM EDT [facility] NT INFORMATIONPatient MRN Name Date of Age Gend*PT [id number] Mora Linn 1995 25 years M SDAPT Location Admission Date/Time Visit ID Attending ProviderCARSON ORONA 09/20/20 0518 --- Skinny Felton MD([id number]) EPI ID CSN Admitting Provider [id number] Skinny Felton MD([id number])H&P reviewed. The patient was examined and there are no changes to the H&P.Skinny Felton MD7:24 AM Name Value Range Interpretation Code Description Data Holly rce(s) Supporting Document(s) ID Date Data Source [id number] 09/15/2020 10:10:00 AM EDT [facility] Name Value Range Interpretation Code Description Data Holly rce(s) Supporting Document(s) SARS coronavirus 2 RNA [facility] This lab was ordered by [facility] [place] [facility] and reported by [employer]. ID Date Data Source [id number] 09/16/2020 08:09:17 AM EDT [facility] [place] [facility] Name Value Range Interpretation Code Description Data Holly rce(s) Supporting Document(s) SARS-COV-2 IMMANUEL Lab [facility] Not DetectedReference range: Not Detecte d This nucleic acid amplification test was developed and its performance characteristics determined by [employer]. Nucleic acid amplification tests include PCR and [...] result in this assay. Performed At: [facility] [address] [place] [address] [id number] Maurilio Urrutia MD Ph:[phone] ID Date Data Source [id number] 09/10/2020 02:35:24 PM EDT [facility] Name Value Range Interpretation Code Description Data Holly rce(s) Supporting Document(s) [facility] TTQSAl0eMeXFNqJmw8BeUkSlUQBsSS9jrzq6P9W6sFMrS3YqcMAre6okD8ZtE5QnCHRvMDALVL7CbIJp jb2 [file] 7wj96vRM5R0xyN23/Pzo+/Vy97ibI5GS7/69kZ696Hi4/uf5l+/ob23n8n68fZ388THu6/v7v/Y/rpn3 udzE/fTE+Qq9znlH8o802BAeoKIv4u/O2Xr/bun0zcE7/hrP8b5UbqBAie+NN7lC+fYWWUx/nt/1C4vo y7eaC3jv1AkshFNpE1gw9zpKVPkAYiL5HPkbWrI61f sqlWsdL+gt39r/jCv9tBIK0h8Sgk1s/Ih30Xyd7eEq2xqhNE+0YTf7e/sBmvOMvhm2Ak9oNGsRmYzwgG tTAQ4RThN7vNgl0//FA5er08ob6V+06H2B0T5L/6xD+9/u8oW2J/TPllzH8JT22p8b//c/bTC9vbmUfV vcXey+wPaw6bQ+5upl/+XGJ/kOu4Nc75nJZJ9PsLPv pq9Xeeym+foMrFZsGUs8wogLWe8Y5AeR0pKa/MO5TsXuxa6+yVuBBCQoMy61y7M2jF2D/sorter/assay tech/990GzPbZ raGd44m/vBfKcxx8q88/hts67v8D/Bnw4mK6+4CETj3W398r0dk11s7+/htdO32GNl5GBcS/c55bAHc2 aeUCGoz1216l3p189MC1p8t3wr8j8///Tc0oXsXAo+ /rL0mF/4t/PGRwbhq7K31U/8u6uUqb3Ad+PBi7cgxOtMWUFibr0R38+JcWzL5pk8VJjLCTpiBx2+FKEG 1xi99MQd7cOn1TQbCsv+jLm4lp5uyi2DLB6tb8UjLSPtUrOoOO1iebkoGFMhTT0pvac6J5CsiIljHByX JDNwIn5auNEgMW0SLEL2MCpxVPZpYINxJ1DdlN7dH4 5bnEMgDvJuVEZTAK2CtpC4ANF1TUV3JQUcEaQdHYUgTV38VKLaUUKAWu1bmpLzQbeGKdQuRW5cqtc1Z6 G8oMMxO731kGdcxpPqFF7Ik0QkzDHnRY1XhJHhrALfVYAhOYSeC6puo5TjZZnoUTBFAm1gonPgItoTTo RkWP4kgdm8S2Z1vOjkbfOiUECJIYlzMabzGQ1zfClk gbiqZ5XsyIFoVDUvZ6PvDUJza94HPORfDEcWOqGyHnGxQPChHYBpXKthXpQeRJWiMQNzJQIlDM2QeIAp PPDnXBUYOSjnHxecOXCmdT6vkSIZn1MjF9AVMceHFEmrE1RBFcoGOLC0TBG5KEB9UAfeP0N7GchoE6Tz GN7MI8YbVCHoZIFNPAHdhuOfWZ8JrhUpjB0wMBiIHZ OKVGvIPAlyVkS3s82vlzTQSKLxZJNfAFfwBDBrXCKwJGTvOLLaVVRrTZCzDPEbCL5RG3ZgVNJiOWLOUJ H8m5SnPQZyblemkarmYu6lgiEwHam+OngsABEyp7NcDNrzK1I4oOZqX5RnK5QhZI2YmEBfMSuaOPDsET LoKLSgF058wwTnBL8+IM8wu7YbWqmhZSECXLLuRETw NGJhIZU7AoJdJJIjCULyLXNuHtQ4ShQoTcMPAXUhKZR6IoY1FrNmCOWtLDBfNJrwOPCjTVHdVIG5DZWw YXJtQY5aEsQvIDNiKEApGGBrHDOhAQBhftKUIPHpRHFoICKdLVQ2GQPmRPZbTQmrBHFdNPXwHNR8NOIm LYIvRW3jZsSnJUNhNQNaWweeBBAnGYSzofVRJINxBQ LzAPW9YhPsOTEoHFCkMDrnDBVaUSYwVmy3VWGcDBKmVF3vPbEsJIVuBUZ3ITnlWMIoODZglrNBPJIaLX UyOKCpYxQmAWQaNHZeQTzsRTKbCNLfDdIkOFTtKLRjBH2zQkOpREZzDYX7OMReMFFzQMVshzUDGASbXM GzFMf8QAJaPNVuUNQeFGpgXSYhNZGgBGC3DEYwNAQm BW9sTwZkCASnXTAjTODwWAKsGMGendXPQZDrXIKoIEF8FLIcZJPxDUChOXrmPFKuUHReNur8SXKtVZJa BC9yTfOgORDfSXH0SPJoJZImHQJhtqWKEGXwGIS2NUudXIWpQQHqZYCzOYmmDAGeZWHuDzD5AZGnEUXt AC1qVsPvKLDgJER9VdBoXRXzRYVpqvYZMQNgTEUiNR W8PxHrSMZxUYNvRSmmUPDlLMPlPIAbWKO2ORP1BKXgCvVzMYagJGLEAKlZQ5NbsfUeOoMMT4stIj4jTa TuNCEWW2Asq2WmKZKiNRAGLn1+QbA8GMB9yUNsSiv6ZwSjAHgyDGNSYa== ID Date Data Source [id number] 09/10/2020 12:25:50 PM EDT [facility] NT INFORMATIONPatient MRN Name Date of Age Gend*PT [id number] Mora Linn 1995 25 years M OPPT Location Admission Date/Time Visit ID Attending Provider --- --- --- Skinny Felton MD([id number]) EPI ID CSN Admitting Provider [id number] ---HISTORY PHYSICALName: Mora Linn : 1995 Sex: [...] PANENDOSCOPY SKIN BIOPSYALLERGIES:AllergiesAllergen Reactions Benadryl [Diphenhydramine] Hives Moville Other (See Comments) Tongue Hinds Concerta [Methylphenidate [...] warm and dry.HEENT: He is normocephalic, atraumatic. [place] conjunctivae. Anicteric sclerae.Pupils are equal, round, reactive [...] hepatosplenomegaly. Negative CVAT.GENITAL/RECTAL: Deferred.MUSCLE/SKELETAL: Strength is 5/5. Client Services Representative are equal.NEUROLOGICALLY: Cranial nerves II through XII [...] may be prolonged greaterthan previously anticipated.ALLERGIES:Benadryl [diphenhydramine]; Moville; Concerta [methylphenidate hcl er(cd)]; and Depakote [divalproex sodium]09/10/2020 12:25 PMLylisa Martines, NPThis document or parts of this document, were dictated using [employer] speaking software. A reasonable attempt at proofreading has beenmade to minimize errors. Please call with any questions or corrections. Name Value Range Interpretation Code Description Data Holly e(s) Supporting Document(s) ID Date Data Source [id number] 09/10/2020 08:10:23 PM EDT [facility] [place] [facility] Name Value Range Interpretation Code Description Data Holly rce(s) Supporting Document(s) HEMOGLOBIN A1C @ 5.7 % (4.0-6.0) [facility] [place] [facility] Performed using Siemens Baxter immunoassa y.Care must be taken when interpreting RaU5zealyqav in patients with a hemoglobin variantor decreased erythrocyte lifespan. Values 5.7 - 6.4% suggest prediabetes.Values >=6.5% are diagnostic for diabetes.REFERENCE: DIABETES CARE 2018: 41(S13-S27). EST AVERAGE GLUCOSE 117 mg/dL [facility] ID Date Data Source [id number] 09/10/2020 08:04:21 PM EDT [facility] [place] [facility] Name Value Range Interpretation Code Description Data Holly rce(s) Supporting Document(s) TSH,ULTRASENSITIVE @ 2.540 mIU/L (0.360-4.170) [facility] [place] [facility] ID Date Data Source [id number] 09/10/2020 08:04:21 PM EDT [facility] [place] [facility] Name Value Range Interpretation Code Description Data Holly rce(s) Supporting Document(s) SODIUM 139 mmol/L (136-145) [facility] [place] [facility] POTASSIUM 4.8 mmol/L (3.6-5.2) [facility] [place] [facility] CHLORIDE 105 mmol/L (100-108) [facility] [place] [facility] CO2 28 mmol/L (22-31) [facility] [place] [facility] ANION GAP 6 mmol/L (7-16) L [facility] [place] [facility] UREA NITROGEN 10 mg/dL (7-24) [facility] [place] [facility] CREATININE 0.96 mg/dL (0.80-1.30) [facility] [place] [facility] BUN/CREAT RATIO 10.4 RATIO (10.0-20.0) [facility] GLUCOSE 99 mg/dL (70-99) [facility] [place] [facility] CALCIUM 9.0 mg/dL (8.4-10.2) [facility] [place] [facility] TOTAL PROTEIN 7.3 g/dL (6.4-8.2) [facility] [place] [facility] ALBUMIN 3.7 g/dL (3.5-4.6) [facility] [place] [facility] GLOBULIN 3.6 g/dL (2.7-4.3) [facility] [place] [facility] ALB/GLOB RATIO 1.0 RATIO [facility] [place] [facility] ALKALINE PHOSPHATASE 92 U/L (45-117) [facility] BILIRUBIN,TOTAL 0.3 mg/dL (0.0-1.0) [facility] [place] [facility] [place] PLEASE NOTE:Total bilirubin results may be falselyelevated in patients taking Eltrombopag. AST (SGOT) 19 U/L (11-39) [facility] [place] [facility] ALT (SGPT) 45 U/L (12-78) [facility] [place] [facility] GFR >60 ml/min/1.73m2 (>59) [facility] [place] [facility] GFR ( AMER) >60 ml/min/1.73m2 (>59) [facility] [place] [facility] GFR INTERPRETATION [facility] --NORMAL KIDNEY FUNCTION OR MILD DISEASE - GFR >OR= 60CHRONIC KIDNEY DISEASE - GFR 15 - 59RENAL FAILURE - GFR <15 Est. GFR calculation based on the MDRDstudy equation, which assumes a steadystate for creatinine. Est. GFR should notbe used for medication dosing. ID Date Data Source [id number] 09/10/2020 06:59:27 PM EDT [facility] [place] [facility] Name Value Range Interpretation Code Description Data Holly rce(s) Supporting Document(s) WBC 6.4 10*3/uL (4.1-11.0) [facility] [place] [facility] [place] RBC 4.96 10*6/uL (4.60-6.10) [facility] [place] [facility] HGB 13.8 g/dL (13.5-18.0) [facility] [place] [facility] HCT 42.0 % (41.0-53.0) [facility] [place] [facility] MCV 84.6 fL (80.0-95.0) [facility] [place] [facility] MCH 27.7 pg (27.0-32.0) [facility] [place] [facility] MCHC 32.8 g/dL (32.0-36.0) [facility] [place] [facility] RDW 14.9 % (10.5-14.5) H [facility] [place] [facility] PLT 319 10*3/uL (150-450) [facility] [place] [facility] MPV 8.1 fL (7.1-10.7) [facility] [place] ramsey SCHULTE ID Date Data Source [id number] 09/10/2020 03:26:34 PM EDT [facility] [place] [facility] SCHULTE SPEC EXP DATE 09/21/2020PATI ENT ABO/Rh A POSITIVEANTIBODY SCREEN NEGATIVETESTING SITE PERFORMED AT [address] [place] [address] Name Value Range Interpretation Code Description Data Holly rce(s) Supporting Document(s) TYPE AND SCREEN [facility] [place] [facility] [place] PATIENT ABO/Rh A POSITIVE ID Date Data Source [id number] 07/04/2020 12:00:00 AM EDT [facility] Name Value Range Interpretation Code Description Data Holly rce(s) Supporting Document(s) SARS coronavirus 2 RNA [Presence] in Res piratory specimen by IMMANUEL with probe detection [facility] This lab was ordered by Ramone Smith and reported by [employer]. ID Date Data Source [id number] 05/22/2020 12:53:00 PM EDT [facility] [address] [place] [address] PHONE: [phone] FAX: [phone] Name .................. : KAVEH Box Acct Number.................. : [id number] ROOM. ................. : TR-03 MR Number ................... : [id number] Stay type ............. : E/R Discharge Date......... ... : Admit Date ......... : 05/21/20 Admit Phys .................... : RAMSES STEVEN Date of ....... : 1995 Family Phys ................... : RUBA Phone .................. : [phone] Age ................................ : 25 Film# .................. .:[id number] Sex ................................. : M Unsigned transcriptions are preliminary reports and do not represent a medical or legal document CHEST PORTABLE [id number] COMPLETE:05/21/20 14:10 BE 78291 Reason(s): Chest Pain PORTABLE CHEST, 05/21/20: INDICATION: [...] By ZACHARY ARZOLA MD , 05/22/20 12:53, [facility] Transcribe Initials: [facility], Transcribe Date: 05/21/20 14:49, Dictation Date: Copy for: RAMSES Rodriguez via fax Copy for: EMERGENCY DEPT via [facility] Copy for: 710 MED REC DISCHARGED Page 1 of 1 Name Value Range Interpretation Code Description Data Holly rce(s) Supporting Document(s) ID Date Data Source [id number] 05/21/2020 08:45:00 PM EDT [facility] [address] [address] PHONE: [phone] FAX: [phone] Name ..............: KAVEH Box Acct Number ...........................: [id number] ROOM. ............: TR-03 MR Number ............................: [id number] Stay type.........: E/R Discharge Date...............:05/21/20 Admit Date .....: 05/21/20 Admit Phys .............................: RAMSES STEVEN Date of ..: 1995 Family Phys ...........................: Clout Phone..............: [phone] Age.................................:25 Film# ...............:[id number] Sex.................................:M Unsigned transcriptions are preliminary reports and do not represent a medical or legal document COUNTS INCLUDE 234 BEDS AT THE [facility] [address] COMPLETE:05/21/20 14:33 EWW [id number] Please See Scanned Results. Name Value Range Interpretation Code Description Data Holly rce(s) Supporting Document(s) ID Date Data Source [id number] 05/21/2020 01:27:00 PM EDT [facility] 1 OrderSheet [facility] Emergency Department [address] [place] [address] Phone #: ext- [phone] 05/21/2020 13:27 [id number] Sex: M : 1995 Age: 25yWEIGHT:122.0 kg (M) HEIGHT:62 inches (S) BMI:49.2ALLERGIES: Benadryl, Moville, Concerta, DepakoteCHIEF COMPLAINT: chest painDIAGNOSIS: Atypical chest [...] Description Priority Entered Acknowledged Initialed 2 OrderSheet [facility] Emergency Department [address] [place] [address] Phone #: xol- [phone] 05/21/2020 13:27 Patient: MORA LINN Sex: M [...] rce(s) Supporting Document(s) ID Date Data Source [id number] 05/21/2020 01:27:00 PM EDT [facility] 1 Medication Reconciliation Report [facility] Emergency Department [address] [place] [address] Phone #: ext- [phone] 05/21/2020 13:27 Patient: MORA LINN Sex: M : 1995 Age: 25yWeight: 122.0 kgHeight/Length: 62 in.BMI: 49.2ALLERGIES: Benadryl, Moville, Concerta, DepakoteThe patient's Home Medications are listed [...] Dispense 15tablet. Refills: 0. Substitution permitted.Pharmacy - [facility] - [address] [facility] ; [place] [address]. . -- JNENIFER Mccormick Name Value Range Interpretation Code Description Data Holly rce(s) Supporting Document(s) ID Date Data Source [id number] 05/21/2020 01:27:00 PM EDT [facility] 1 Medication Administration Record [facility] Emergency Department [address] [place] [address] Phone #: ext- [phone] 05/21/2020 13:27 Patient: MORA LINN Sex: M : 1995 Age: 25yWeight: 122.0 kgHeight/Length: 62 inBMI: 49.2ALLERGIES: Concerta, Benadryl, Moville, Depakote Date/Time Medication Administered Medication OrderedGiven ASPIRIN CHEWABLE 81 MG [PO] Aspirin PO Chewable 81 mg 36130:47 05/21/2020 Dose: 81 mg Tablets PO mg [...] rce(s) Supporting Document(s) ID Date Data Source [id number] 05/21/2020 01:27:00 PM EDT [facility] 1 General Instructions [facility] Emergency Department [address] [place] [address] Phone #: ext- [phone] 05/21/2020 13:27 Patient: MORA LINN Sex: M [...] Dispense 15tablet. Refills: 0. Substitution permitted.Pharmacy - [facility] - [address] [facility] ; [place] [address]. .Follow- up:Follow up with your healthcare provider [...] to plan of care. 2 General Instructions [facility] Emergency Department [address] [place] [address] Phone #: ext- [phone] 05/21/2020 13:27 Patient: [...] the large artery coming 3 General Instructions [facility] Emergency Department [address] [place] [address] Phone #: ext- [phone] 05/21/2020 13:27 Patient: MORA LINN Sex: Charu [...] better within 24 hours, or as advised.Call [phone] [phone] if any of these occur: A change [...] Swelling, pain or redness in one leg [phone] [employer]. [address] [place] [address]. All rights reserved. This information is not intended as asubstitute for professional medical care. Always follow your healthcare professional's instructions.Chest Wall Strain (Child)Injury can overstretch a muscle on the front or back of the chest wall. This is called a chest wallstrain. In children, the injury may occur during play or sports. It may also happen during repeated 4 General Instructions [facility] Emergency Department [address] [place] [address] Phone #: ext- [phone] 05/21/2020 13:27 Patient: MORA LNIN Sex: M : 1995 Age: 25ycoughing or when lifting a heavy object. Symptoms include sharp pain and soreness. However, noserious injury or permanent damage is present.Muscle strain can be treated with feyp-bqn-ipiwjmn or prescription medicine for pain andswelling. Pain [...] or pain gets worse and not better [phone] [employer] [place] [address]. All rights reserved. This information is not intended as asubstitute for professional medical care. Always follow your healthcare professional's instructions. 5 General Instructions [facility] Emergency Department [address] [place] [address] Phone #: ext- [phone] 05/21/2020 13:27 Patient: [...] rce(s) Supporting Document(s) ID Date Data Source [id number] 05/21/2020 01:27:00 PM EDT [facility] 1 Clinical Report - Nurses [facility] Emergency Department [address] [place] [address] Phone #: ext- [phone] 05/21/2020 13:27 Patient: [...] Headache.Sleep Apnea. 2 Clinical Report - Nurses [facility] Emergency Department [address] [place] [address] Phone #: ext- [phone] 05/21/2020 13:27 Patient: [...] Díaz R.N. 3 Clinical Report - Nurses [facility] Emergency Department [address] [place] [address] Phone #: ext- [phone] 05/21/2020 13:27 Patient: MORA LINN Sex: M [...] learning barriers present. Written instructions provided in Luxembourgish. The patient was discharged by the physician medical office assistant. He was discharged home and accompanied by temple marker. He left ambulatory and via private vehicle. Patient driving. --15:21 05/21/20 Sukh Díaz R.N. 15:20 05/21/20. BP: 122/72. MAP: 88. HR: 72. RR: 18. O2 saturation: deferred. Temp: deferred. Pain level now: 01/29. --15:21 05/21/20 Sukh Díaz R.N.Locked/Released at 05/21/2020 15:21 by Sukh Díaz R.N. Name Value Range Interpretation Code Description Data Holly rce(s) Supporting Document(s) ID Date Data Source [id number] 05/21/2020 01:27:00 PM EDT [facility] 1 Clinical Report - Physicians/Mid Levels [facility] Emergency Department [address] [place] [address] Phone #: ext- [phone] 05/21/2020 13:27 Patient: [...] surgery. 2 Clinical Report - Physicians/Mid Levels [facility] Emergency Department [address] [place] [address] Phone #: ext- [phone] 05/21/2020 13:27 Patient: MORA LINN Sex: M : 1995 Age: 25y Medications: Lexapro Oral. Famotidine Oral. traZODone HCl Oral. Allergies: Benadryl.(hives) Moville. Concerta.(rash) Depakote.(rash).SOCIAL HISTORYNever smoker. Occasional alcohol use. [...] 13:. 3 Clinical Report - Physicians/Mid Levels [facility] Emergency Department [address] [place] [address] Phone #: ext- [phone] 05/21/2020 13:27 Patient: [...] (6.3 - 8.2) 4 Clinical Report - Physicians/[facility] Emergency Department [address] [place] [address] Phone #: [phone]- [phone] 05/21/2020 13:27 Patient: [...] Male GFR Interprentation 20-49 yrs >60 mL/min Lukckr82-14 yrs >56 mL/min Normal 60-69 yrs >49 mL/min Normal 70-79yrs>42 mL/min Normal 80 and above >35 mL/min Normal Female GFRInterpretation 20-39 yrs >60 mL/min Normal 40-49 yrs >58 mL/minNormal 50-59 yrs >51 mL/min Normal 60-69 yrs >45 mL/min Jncwqe47-55 yrs >39 mL/min Normal 80 and above >32 mL/min NormalD-Dimer: (JAELYN: 05/21/2020 14:00) ( [facility] 14[facility]27[facility] Final results Test Result Flag Units (Reference) D-DIMER QUANT <0.27 ug/mL (0.27 - 0.50)Troponin-T: (JAELYN: 05/21/2020 14:00) ( [facility] 05/21/2020 14:31) Final results Test Result Flag Units (Reference) TROPONIN T <0.01 NG/ML (0.00 - 0.10) TROPONIN T0.1 ng/ml Recommended as the clinical threshold value forTroponin T.EKG: (JAELYN: 05/21/2020 13:44) ( [facility] 05/21/2020 14:36) [facility]: (JAELYN: 05/21/2020 13:44) ( [facility] 14:50[facility]): Chest PainTRANSPORTATION: P IV? O2? Oxygen?(No) Room: ED Exam CHEST PORTABLE [address] [address] PHONE: [phone] FAX: [phone] Name .................. : KAVEH Box Acct Number.................. : [id number] ROOM. ................. : TR-03 MR Number ................... : [id number] Stay type ............. : E/R Discharge Date......... ... : Admit Date ......... : 05/21/20 Admit Phys .................... : RAMSES STEVEN Date of ....... : 1995 Family Phys ................... : Clout Phone .................. : [phone] Age ................................ : 25 Film# .................. .:[id number] Sex ................................. : M Unsigned transcriptions are preliminary reports and do not represent a medical or legal document CHEST PORTABLE [id number] COMPLETE:05/21/20 14:10 [facility] [id number] Reason(s): Chest Pain 5 Clinical Report - Physicians/Mid Levels [facility] Emergency Department [address] [place] [address] Phone #: ext- [phone] 05/21/2020 13:27 Patient: MORA LINN Sex: M [...] Reviewed and Signed By DCTNAME , SIGNDATE, [facility] Transcribe Initials: SSR, Transcribe Date: 05/21/20 14:49, [...] pain 6 Clinical Report - Physicians/Mid Levels [facility] Emergency Department [address] [place] [address] Phone #: ext- [phone] 05/21/2020 13:27 Patient: MORA LINN Sex: M [...] tablet. Refills: 0. Substitution permitted. Pharmacy - [id number] [address] [place] [address]. . Follow-up: Follow up with your healthcare [...] rce(s) Supporting Document(s) ID Date Data Source [id number] 05/21/2020 02:45:00 PM EDT [facility] Name Value Range Interpretation Code Description Data Holly rce(s) Supporting Document(s) COMPREHENSIVE METABOLIC PANEL [facility] COMPREHENSIVE METABOLIC PANEL Sodium [Moles/volume] in Serum or Plasma 141 mEq/L 134 - 153 [facility] Potassium [Moles/volume] in Serum or Plasma 4.4 mEq/L 3.6 - 5.0 [facility] Chloride [Moles/volume] in Serum or Plasma 103 mEq/L 98 - 107 [facility] Carbon dioxide, total [Moles/volume] in Serum or Plasma 27 MEQ/L 22 - 30 [facility] Glucose [Mass/volume] in Serum or Plasma 121 MG/DL 65 - 110 H [facility] BUN 8 MG/DL 7 - 21 [facility] al Creatinine [Mass/volume] in Serum or Plasma 0.9 MG/DL 0.7 - 1.5 [facility] BUN/CREAT 9 8 - 27 [facility] Protein [Mass/volume] in Serum or Plasma 7.1 G/DL 6.3 - 8.2 [facility] Albumin [Mass/volume] in Serum or Plasma 4.3 G/DL 3.9 - 5.0 [facility] Globulin [Mass/volume] in Serum by calculation 2.8 GM/DL 2.4 - 3.2 [facility] A/G RATIO 1.5 0.8 - 2.0 [facility] Calcium [Mass/volume] in Serum or Plasma 9.5 MG/DL 8.4 - 10.2 [facility] Bilirubin.total [Mass/volume] in Serum or Plasma <0.7 MG/DL 0.2 - 1.3 [facility] Alkaline phosphatase [Enzymatic activity/volume] in Serum or Plasma 80 U/L 38 - 126 [facility] Aspartate aminotransferase [Enzymatic activity/volume] in Serum or Plasma 27 U/L 5 - 40 [facility] Alanine aminotransferase [Enzymatic activity/volume] in Seru m or Plasma 40 U/L 7 - 56 [facility] Anion gap 3 in Serum or Plasma 11.0 mmol/L 8.0 - 16.0 [facility] AGE 25 yrs [facility] al NON-AA GFR >60 mL/min [facility] ital AFR AMER GFR >60 mL/min [facility] Ho spital Male GFR In terprentation 20-49 [...] >32 mL/min Normal ID Date Data Source [id number] 05/21/2020 02:41:00 PM EDT [facility] Name Value Range Interpretation Code Description Data Holly rce(s) Supporting Document(s) CBC W/AUTOMATED DIFF [facility] COMPLETE BLOOD COUNT Leukocytes [#/volume] in Blood by Automated count 6.3 10^3/uL 4.2 - 1 1.0 [facility] Erythrocytes [#/volume] in Blood by Automated count 5.02 10^6/uL 4. 50 - 6.30 [facility] Hemoglobin [Mass/volume] in Blood 13.6 g/dL 14.0 - 16.0 L [facility] Hematocrit [Volume Fraction] of Blood by Automated count 42.0 % 4 1.0 - 51.0 [facility] Erythrocyte mean corpuscular volume [Entitic volume] by Auto mated count 83.7 fL 80.0 - 94.0 [facility] Erythrocyte mean corpuscular hemoglobin [Entitic mass] by Automated count 27.1 pg 27.0 - 34.0 [facility] Erythrocyte mean corpuscular hemoglobin concentration [Mass/volume] by Automated count 32.4 g/dL 31.0 - 36.0 [facility] Erythrocyte distribution width [Ratio] by Automated count 14.1 % 11.5 - 14.8 [facility] Platelets [#/volume] in Blood by Automated count 239 10^3/uL 150 - 45 0 [facility] Platelet mean volume [Entitic volume] in Blood by Automated count 10.6 fL 7.4 - 10.4 H [facility] Neutrophils/100 leukocytes in Blood by Automated count 63.0 % 37. 0 - 80.0 [facility] Lymphocytes/100 leukocytes in Blood by Manual count 27.5 % 25.0 - 40.0 [facility] Monocytes/100 leukocytes in Blood by Automated count 6.8 % 3.0 - 8.0 [facility] Eosinophils/100 leukocytes in Blood by Automated count 1.6 % 0.0 - 7.0 [facility] Basophils/100 leukocytes in Blood by Automated count 0.8 % 0.0 - 2.0 [facility] %IG 0.3 % 0.0 - 0.0 H [facility] al %NRBC 0.0 % 0.0 - 0.0 [facility] Neutrophils [#/volume] in Blood by Automated count 3.98 10^3/uL 2.00 - 6.90 [facility] Lymphocytes [#/volume] in Blood by Automated count 1.74 10^3/uL 0.60 - 3.40 [facility] Monocytes [#/volume] in Blood by Automated count 0.43 10^3/uL 0.00 - 0.90 [facility] Eosinophils [#/volume] in Blood by Automated count 0.10 10^3/uL 0.00 - 0.70 [facility] Basophils [#/volume] in Blood by Automated count 0.05 10^3/uL 0.00 - 0.20 [facility] #IG 0.02 10^3/uL 0.00 - 0.10 [facility] H ospital #NRBC 0.00 10^3/uL 0.00 - 0.00 [facility] H ospital MANUAL DIFF NOT INDICATED [facility] RBC MORPH MORPH IS NORMAL [facility] { SICKLE CELL (NORMAL: NONE SEEN ) Platelet adequacy [Presence] in Blood by Light microscopy CL UMPED NORMAL: NORMAL [facility] COMMENT: ID Date Data Source [id number] 05/21/2020 02:31:00 PM EDT [facility] Name Value Range Interpretation Code Description Data Holly rce(s) Supporting Document(s) TROPONIN T <0.01 NG/ML 0.00 - 0.10 [facility] ospital TROPONIN T0.1 ng/ml Recommended as the c linical threshold value forTroponin T. ID Date Data Source [id number] 05/21/2020 02:27:00 PM EDT [facility] Name Value Range Interpretation Code Description Data Holly rce(s) Supporting Document(s) Fibrin D-dimer FEU [Mass/volume] in Platelet poor plasma <0. 27 ug/mL 0.27 - 0.50 [facility] ID Date Data Source LIPID PANEL (CARDIAC RISK) 01/31/2020 12:00:00 AM EDT eCW1 ( [facility]) Name Value Range Interpretation Code Description Data Holly rce(s) Supporting Document(s) Cholesterol [Moles/volume] in Serum or Plasma 181 <200 CHOLESTEROL LEVEL eCW1 ([facility]) Cholesterol in LDL [Mass/volume] in Serum or Plasma by calculation 61 <100 LDL CHOLESTEROL eCW1 ([facility]) Triglyceride [Mass/volume] in Serum or Plasma by calculation 344 <150 TRIGLYCERIDES LEVEL eCW1 ([facility]) Cholesterol in HDL [Moles/volume] in Serum or Plasma 51 >40 HDL CHOLESTEROL eCW1 ([facility]) 130 NON-HDL-C eCW1 ([facility]) 3.549 <5 CHOLESTEROL RISK RATIO eCW1 ([facility]) ID Date Data Source FREE T4 & TSH PANEL 01/31/2020 12:00:00 AM EDT eCW1 ([facility]) Name Value Range Interpretation Code Description Data Holly rce(s) Supporting Document(s) 1.930 0.358-3.740 THYROID STIMULATING HORM ONE eCW1 ([facility]) 1.46 0.76-1.46 FREE T4 eCW1 ([facility]) ID Date Data Source Comprehensive Metabolic Profile (CMP) 01/31/2020 12:00:00 AM EDT eCW1 ([facility]) Name Value Range Interpretation Code Description Data Holly rce(s) Supporting Document(s) 115 70-100 GLUCOSE, FASTING eCW1 ([facility]) 0.81 0.70-1.30 CREATININE FOR GFR eCW1 ([facility]) 10 7-18 BLOOD UREA NITROGEN eCW1 ([facility]) 4.3 3.5-5.1 POTASSIUM SERUM eCW1 ([facility]) 139 136-145 SODIUM LEVEL eCW1 (Critical access hospital) > 60.0 >60 GLOMERULAR FILTRATION RATE eCW 1 ([facility]) 106 98-107 CHLORIDE LEVEL eCW1 ([facility]) 27 21-32 CARBON DIOXIDE LEVEL eCW1 (Critical access hospital) 25 7-37 AST/SGOT eCW1 ([facility]) 84 45-117 ALKALINE PHOSPHATASE eCW1 (Critical access hospital) 8.6 8.5-10.1 CALCIUM LEVEL eCW1 ([facility]) 53 12-78 ALT/SGPT eCW1 ([facility]) 3.5 3.2-5.2 ALBUMIN eCW1 ([facility]) 0.97 1.00-1.93 ALBUMIN/GLOBULIN RATIO eCW1 ([facility]) 7.1 6.4-8.2 TOTAL PROTEIN eCW1 ([facility]) 0.2 0.2-1.0 BILIRUBIN,TOTAL eCW1 ([facility]) Procedure Social History Code Duration Value Status Description Data Source(s ) Smoking 11/18/2020 12:00:00 AM EST Never Smoker completed Never S moker eCW1 ([facility]) Smoking 10/22/2020 12:00:00 AM EST Never Smoker completed Never S moker eCW1 ([facility]) Smoking 10/22/2020 12:00:00 AM EST Never Smoker completed Never S moker eCW1 ([facility]) Smoking 10/22/2020 12:00:00 AM EST Never Smoker completed Never S moker eCW1 ([facility]) Smoking 10/22/2020 12:00:00 AM EST Never Smoker completed Never S moker eCW1 ([facility]) Smoking 10/22/2020 12:00:00 AM EST Never Smoker completed Never S moker eCW1 ([facility]) Alcohol intake 09/20/2020 12:00:00 AM EDT Yes completed [facility] Smoking 09/20/2020 12:00:00 AM EDT Never smoker completed Never s moker [facility] Smoking 09/12/2020 12:00:00 AM EDT Never Smoker completed Never S moker eCW1 ([facility]) Smoking 09/12/2020 12:00:00 AM EDT Never Smoker completed Never S moker eCW1 ([facility]) Smoking 09/12/2020 12:00:00 AM EDT Never Smoker completed Never S moker eCW1 ([facility]) Smoking 09/12/2020 12:00:00 AM EDT Never Smoker completed Never S moker eCW1 ([facility]) Smoking 09/12/2020 12:00:00 AM EDT Never Smoker completed Never S moker eCW1 ([facility]) Alcohol intake 09/10/2020 12:00:00 AM EDT Yes completed [facility] Smoking 09/10/2020 12:00:00 AM EDT Never smoker completed Never s moker [facility] Smoking 04/30/2020 12:00:00 AM EDT Never Smoker completed Never S moker eCW1 ([facility]) Smoking 04/30/2020 12:00:00 AM EDT Never Smoker completed Never S moker eCW1 ([facility]) Smoking 04/30/2020 12:00:00 AM EDT Never Smoker completed Never S moker eCW1 ([facility]) Smoking 04/30/2020 12:00:00 AM EDT Never Smoker completed Never S moker eCW1 ([facility]) Smoking 04/30/2020 12:00:00 AM EDT Never Smoker completed Never S moker eCW1 ([facility]) Smoking 04/30/2020 12:00:00 AM EDT Never Smoker completed Never S moker eCW1 ([facility]) Smoking 04/30/2020 12:00:00 AM EDT Never Smoker completed Never S moker eCW1 ([facility]) Smoking 04/30/2020 12:00:00 AM EDT Never Smoker completed Never S moker eCW1 ([facility]) Vital Signs ID Date Data Source UNK Name Value Range Interpretation Code Description Data Source(s) Diastolic blood pressure 80 mm[Hg] 80 mm[Hg] eCW1 ([facility]) Systolic blood pressure 120 mm[Hg] 120 mm[Hg] e CW1 ([facility]) Body temperature 96.5 [degF] 96.5 [degF] eCW1 ( [facility]) Respiratory rate 18 /min 18 /min eCW1 ([facility]) Heart rate 120 /min 120 /min eCW1 ([facility]) Body mass index (BMI) [Ratio] 38.94 kg/m2 38.94 kg/m2 W1 ([facility]) Body height 65 [in_i] 65 [in_i] eCW1 ([facility]) Body weight 234 [lb_av] 234 [lb_av] eCW1 ([facility]) Diastolic blood pressure 78 mm[Hg] 78 mm[Hg] eCW1 ([facility]) Systolic blood pressure 122 mm[Hg] 122 mm[Hg] e CW1 ([facility]) Body temperature 97.4 [degF] 97.4 [degF] eCW1 ( [facility]) Respiratory rate 18 /min 18 /min eCW1 ([facility]) Heart rate 89 /min 89 /min eCW1 ([facility]) Body mass index (BMI) [Ratio] 40.37 kg/m2 40.37 kg/m2 eCW1 ([facility]) Body height 65 [in_i] 65 [in_i] eCW1 ([facility]) Body weight 242.6 [lb_av] 242.6 [lb_av] eCW1 ([facility]) Body weight 4020 [oz_av] 4020 [oz_av] YARA ([facility]) Systolic blood pressure 109 mm[Hg] 109 mm[Hg] A THENA ([facility]) Body mass index (BMI) [Ratio] 45.4 kg/m2 45.4 k g/m2 YARA ([facility]) Body height 62.4 [in_i] 62.4 [in_i] YARA ([facility]) Diastolic blood pressure 79 mm[Hg] 79 mm[Hg] YARA ([facility]) Respiratory rate 16 /min 16 /min [facility] Body temperature 36.67 Jaci 36.67 Jaci [facility] Heart rate 82 /min 82 /min Health system Diastolic blood pressure 83 mm[Hg] 83 mm[Hg] [facility] Systolic blood pressure 126 mm[Hg] 126 mm[Hg] [facility] Oxygen saturation in Arterial blood by Pulse oximetry 97 % 97 % [facility] Body mass index (BMI) [Ratio] 47.37 kg/m2 47.37 kg/m2 [facility] Body weight 117.482 kg 117.482 kg [facility] Body height 157.5 cm 157.5 cm [facility] Diastolic blood pressure 72 mm[Hg] 72 mm[Hg] eCW1 ([facility]) Systolic blood pressure 128 mm[Hg] 128 mm[Hg] e CW1 ([facility]) Body temperature 97.4 [degF] 97.4 [degF] [facility] ( [facility]) Respiratory rate 20 /min 20 /min eCW1 ([facility]) Heart rate 86 /min 86 /min eCW1 ([facility]) Body mass index (BMI) [Ratio] 44.16 kg/m2 44.16 kg/m2 eCW1 ([facility]) Body height 65 [in_i] 65 [in_i] eCW1 ([facility]) Body weight 265.4 [lb_av] 265.4 [lb_av] eCW1 ([facility]) Oxygen saturation in Arterial blood by Pulse oximetry 96 % 96 % [facility] Body mass index (BMI) [Ratio] 48.47 kg/m2 48.47 kg/m2 [facility] Body weight 120.203 kg 120.203 kg [facility] Body height 157.5 cm 157.5 cm [facility] Heart rate 77 /min 77 /min Health system Diastolic blood pressure 74 mm[Hg] 74 mm[Hg] [facility] Systolic blood pressure 138 mm[Hg] 138 mm[Hg] [facility] Diastolic blood pressure 89 mm[Hg] 89 mm[Hg] eCW1 ([facility]) Systolic blood pressure 129 mm[Hg] 129 mm[Hg] e CW1 ([facility]) Body temperature 97.9 [degF] 97.9 [degF] eCW1 ( [facility]) Respiratory rate 18 /min 18 /min eCW1 ([facility]) Heart rate 84 /min 84 /min eCW1 ([facility]) Body mass index (BMI) [Ratio] 44.26 kg/m2 44.26 kg/m2 eCW1 ([facility]) Body height 65 [in_i] 65 [in_i] eCW1 ([facility]) Body weight 266 [lb_av] 266 [lb_av] eCW1 ([facility]) Diastolic blood pressure 80 mm[Hg] 80 mm[Hg] eCW1 ([facility]) Systolic blood pressure 136 mm[Hg] 136 mm[Hg] e CW1 ([facility]) Body temperature 97.7 [degF] 97.7 [degF] eCW1 ( [facility]) Respiratory rate 18 /min 18 /min eCW1 ([facility]) Heart rate 110 /min 110 /min eCW1 ([facility]) Body mass index (BMI) [Ratio] 43.10 kg/m2 43.10 kg/m2 eCW1 ([facility]) Body height 65 [in_us] 65 [in_us] eCW1 ([facility]) Body weight Measured 259 [lb_av] 259 [lb_av] eC W1 ([facility]) Diastolic blood pressure 80 mm[Hg] 80 mm[Hg] eCW1 ([facility]) Systolic blood pressure 124 mm[Hg] 124 mm[Hg] e CW1 ([facility]) Body temperature 97.4 [degF] 97.4 [degF] eCW1 ( [facility]) Respiratory rate 17 /min 17 /min eCW1 ([facility]) Heart rate 94 /min 94 /min eCW1 ([facility]) Body mass index (BMI) [Ratio] 42.80 kg/m2 42.80 kg/m2 eCW1 ([facility]) Body height 65 [in_us] 65 [in_us] eCW1 ([facility]) Body weight Measured 257.2 [lb_av] 257.2 [lb_av ] eCW1 ([facility]) Diastolic blood pressure 80 mm[Hg] 80 mm[Hg] eCW1 ([facility]) Systolic blood pressure 118 mm[Hg] 118 mm[Hg] e CW1 ([facility]) Body temperature 96.8 [degF] 96.8 [degF] eCW1 ( [facility]) Respiratory rate 18 /min 18 /min eCW1 ([facility]) Heart rate 86 /min 86 /min eCW1 ([facility]) Body mass index (BMI) [Ratio] 42.60 kg/m2 42.60 kg/m2 eCW1 ([facility]) Body height 65 [in_us] 65 [in_us] eCW1 ([facility]) Body weight Measured 256 [lb_av] 256 [lb_av] eC W1 ([facility]) Patient Treatment Plan of Care Planned Activity Planned Date Details Description Data Source (s) Cholecalciferol 1000 UNT Oral Tablet 11/19/2020 12:00:00 AM EST eCW1 ([facility]) Sertraline 25 MG Oral Tablet [Zoloft] 10/22/2020 12:00:00 AM EST eCW1 ([facility]) Sertraline 25 MG Oral Tablet [Zoloft] 10/22/2020 12:00:00 AM EST eCW1 ([facility]) Sertraline 25 MG Oral Tablet [Zoloft] 10/22/2020 12:00:00 AM EST eCW1 ([facility]) Sertraline 25 MG Oral Tablet [Zoloft] 10/22/2020 12:00:00 AM EST eCW1 ([facility]) Sertraline 25 MG Oral Tablet [Zoloft] 10/22/2020 12:00:00 AM EST eCW1 ([facility]) Magnesium Hydroxide 80 MG/ML Oral Suspension 09/21/2020 12:00:00 AM EDT [facility] Ondansetron 4 MG Disintegrating Oral Tablet 09/20/2020 12:00:00 AM EDT [facility] Acetaminophen 325 MG Oral Tablet 09/20/2020 12:00:00 AM EDT [facility] Omeprazole 40 MG Delayed Release Oral Capsule 09/20/2020 12:00:00 A M EDT [facility] Ascorbic Acid 60 MG / Beta Carotene 5000 UNT / Copper Sulfate 40 MG / dl-alpha tocopheryl acetate 30 UNT / Sodium Selenite 0.04 MG / Zinc Oxide 40 MG Oral Tablet 09/20/2020 12:00:00 AM EDT [facility] 0.4 ML Enoxaparin sodium 100 MG/ML Prefilled Syringe 020 12:00:00 AM EDT [facility] Simethicone 80 MG Chewable Tablet 09/20/2020 12:00:00 AM EDT [facility] Vitamin B 12 0.5 MG Oral Tablet 09/20/2020 12:00:00 AM EDT [facility] Trazodone Hydrochloride 150 MG Oral Tablet 09/06/2020 12:00:00 AM E DT eCW1 ([facility]) Trazodone Hydrochloride 150 MG Oral Tablet 09/06/2020 12:00:00 AM E DT eCW1 ([facility]) Trazodone Hydrochloride 150 MG Oral Tablet 09/06/2020 12:00:00 AM E DT eCW1 ([facility]) Escitalopram 10 MG Oral Tablet 04/30/2020 12:00:00 AM EDT eCW1 ([facility]) Escitalopram 10 MG Oral Tablet 04/30/2020 12:00:00 AM EDT eCW1 ([facility]) Escitalopram 10 MG Oral Tablet 04/30/2020 12:00:00 AM EDT eCW1 ([facility]) Escitalopram 10 MG Oral Tablet 04/30/2020 12:00:00 AM EDT eCW1 ([facility]) Escitalopram 10 MG Oral Tablet 04/30/2020 12:00:00 AM EDT eCW1 ([facility]) Escitalopram 10 MG Oral Tablet 04/30/2020 12:00:00 AM EDT eCW1 ([facility]) Escitalopram 10 MG Oral Tablet 04/30/2020 12:00:00 AM EDT eCW1 ([facility]) Escitalopram 10 MG Oral Tablet 04/30/2020 12:00:00 AM EDT eCW1 ([facility]) Metformin hydrochloride 500 MG Oral Tablet 03/28/2020 12:00:00 AM E DT eCW1 ([facility]) ReliOn Blood Glucose Test - 03/28/2020 12:00:00 AM EDT eCW1 ([facility]) 200 ACTUAT Albuterol 0.09 MG/ACTUAT Metered Dose Inhal er [ProAir] 03/11/2020 12:00:00 AM EDT eCW1 ([facility]) Fluticasone Propionate 50 MCG/ACT 03/11/2020 12:00:00 AM EDT eCW1 ([facility]) Famotidine 40 MG Oral Tablet [Pepcid] 10/25/2019 12:00:00 AM EST eCW1 ([facility]) Paroxetine 10 MG Oral Tablet [Paxil] 10/25/2019 12:00:00 AM EST eCW1 ([facility]) Famotidine 40 MG Oral Tablet [Pepcid] 10/25/2019 12:00:00 AM EST eCW1 ([facility]) Famotidine 40 MG Oral Tablet [facility]
[2020-12-04] MEDS ORDERED: B-12100T2 PO (12:43)
== END 2020-12-03 05:11 | disposition left against medical advice (07) ==
LOC: M ED 03:19
DX: Z53.21 Procedure and treatment not carried out due to patient leaving prior to being seen by health care provider (principal)

== ENCOUNTER 2020-12-04 12:30 | Emergency (ER) | payer OTHER ==
[~2020-12-04] VITALS: Ht 157.5 cm; Wt 103.3 kg
[~2020-12-04 12:30] MED LIST changes: +SERT25TA21
[2020-12-04] MEDS ORDERED: B-12100T2 PO (12:43)
[2020-12-04] MEDS ORDERED: PANTOPRAZOLE 40MG VIAL (C9113 PER 1) IV ONE (12:45)
[2020-12-04] MEDS ORDERED: KETOROLAC 30 MG/ML 1ML VIAL IV ONE (12:45)
[2020-12-04] MEDS ORDERED: NS 1,000 ML IV ONE (12:45)
[2020-12-04 13:07] LABS: BASO % 0.7 % (0.0-1.0); EOS # 0.1 10^3/uL (0.0-0.5); EOS % 1.3 % (0.0-3.0); HEMATOCRIT 46.8 % (42.0-52.0); LYMPH # 1.6 10^3/uL (1.5-5.0); LYMPH % 26.8 % (24.0-44.0); MEAN CORPUSCULAR HEMOGLOBIN 27.9 pg (27.0-33.0); MEAN CORPUSCULAR HGB CONC 32.1 g/dl (32.0-36.5); MEAN CORPUSCULAR VOLUME 87.2 fl (80.0-96.0); MONO # 0.4 10^3/uL (0.0-0.8); MONO % 6.1 % (0.0-5.0); NEUTROPHILS % 64.6 % (36.0-66.0); PLATELET COUNT, AUTOMATED 307 10^3/uL (150-450); RED BLOOD COUNT 5.37 10^6/uL (4.30-6.10); WHITE BLOOD COUNT 6.1 10^3/uL (4.0-10.0)
--- NOTE | 2020-12-04 13:16 | REP ---
INDICATION: abd pain COMPARISON: None. TECHNIQUE: CT Scan of the abdomen and pelvis was performed without intravenous contrast. Sagittal and coronal reconstruction images performed. FINDINGS: Lung bases: Unremarkable. Liver: Grossly unremarkable. Gallbladder: Unremarkable. Spleen: Grossly unremarkable.. Adrenals: Normal. Pancreas: Grossly unremarkable.. Kidneys: No hydronephrosis or nephrolithiasis. Ureters demonstrate no dilatation or calculus. Small and large bowel: Grossly unremarkable.. There has been prior gastric surgery. Free fluid: None. Abdominal aorta: No aneurysm. Adenopathy: None. Appendix: Not inflamed. Osseous structures: Unremarkable. Pelvis: No mass. No bladder calculus seen. IMPRESSION: Negative non-contrast CT abdomen and pelvis. <Electronically signed by Alejandro Hicks > 12/04/20 [id number]
[2020-12-04 13:19] LABS: INR 1.04; PROTHROMBIN TIME 13.8 SECONDS (12.5-14.3)
--- OUTSIDE RECORDS SUMMARY | 2020-12-04 13:38 | CCD ---
Author Author [facility] Organization [facility] Address Unknown Phone Unavailable Support Name Relationship Address Phone PRICECHOP Next Of Kin [address] [place] [address] [employer] [place] [address] Cathy Torres Next Of Kin [address] [place] [address] [employer] Next Of Kin [address] [place] [address] [address] [place] [address] STEWARTS* Next Of Kin [address] [place] [address] KRAFT Next Of Kin FT[facility] [address] Danyelle PRESALES CONSULTANTRegina Next Of Kin [address] [place] [address] Madelin PRESALES CONSULTANT-C, Regina Next Of Kin [address] [place], [place] [id number] Lyudmila PNP-C, Ayala Garcias Next Of Kin [address] [place], [place] [id number] [employer] [place] [address] [employer] Next Of Kin [address] [place] [address] COUSINS, KAYCEE Next Of [facility] [address] [place] [address] STREAM Next Of [facility] [address] [place] [address] JUSTINE ELENA Next Of Kin [address] [place] [address] Madelin PRESALES CONSULTANT-C PRESALES CONSULTANT-C, Regina Next Of Kin [address] [facility] [place] [address] Lyudmila PNP-C, Reba Next Of Kin [address] [place] [address] Laquita Castaneda MD Next Of Kin [address] [place] [address] COUSINS, [place] [address] [employer] [place] [address] - COUSINS, ROBLES Next Of Kin [address] [place] [address] KIM, H ARRON Next Of Kin [address] [place] [address] UE Next Of Kin Unknown Unavailable ST Next Of Kin [address] [place] [address] ARRON ALVAREZ H Next Of Kin [address] [place] [address] COUSINS, MARIEL [place] Unavailable Rosangela Das Unknown Care Team Providers Care National Account Manager Name Role Phone Cathy Kaur Unavailable Unavailable [...] Unavailable Unavailable RamsesJennifer PA-C Unavailable Unavailable RamsesJennifer patton PA-C Unavailable Unavailable TONTARSKI, G DANDY PA Unavailable [...] Unavailable TONTARSKI, G DANDY PA Unavailable Unavailable ClintYelena MD Unavailable Unavailable ClintYelena MD Unavailable Unavailable ClintYelena MD Unavailable Unavailable ClintYelena MD Unavailable Unavailable Clint, Yelena Klein MD Unavailable Unavailable Clint, Yelena Klein MD Unavailable Unavailable ClintYelena MD Unavailable Unavailable ClintYelena MD Unavailable Unavailable ClintYelena MD Unavailable Unavailable ClintYelena MD Unavailable Unavailable Clint, Yelena Klein MD Unavailable Unavailable ClintYelena MD Unavailable Unavailable ClintYelena MD Unavailable Unavailable LcintYelena MD Unavailable Unavailable ClintYelena MD Unavailable Unavailable ClintYelena MD Unavailable Unavailable ClintYelena MD Unavailable Unavailable ClintYelena MD Unavailable Unavailable ClintYelena MD Unavailable Unavailable ClintYelena MD Unavailable Unavailable ClintYelena MD Unavailable Unavailable ClintYelena MD Unavailable Unavailable ClintYelena MD Unavailable Unavailable ClintYelena MD Unavailable Unavailable ClintYelena krueger MD Unavailable Unavailable ClintYelena MD Unavailable Unavailable ClintYelena MD Unavailable Unavailable ClintYelena MD Unavailable Unavailable ClintYelena MD Unavailable Unavailable ClintYelena MD Unavailable Unavailable ClintYelena MD Unavailable Unavailable ClintYelena MD Unavailable Unavailable ClintYelena krueger MD Unavailable Unavailable ClintYelena MD Unavailable Unavailable ClintYelena krueger MD Unavailable Unavailable ClintYelnea MD Unavailable Unavailable ClintYelena MD Unavailable Unavailable ClintYelena krueger MD Unavailable Unavailable ClintYelena MD Unavailable Unavailable ClintYelena MD Unavailable Unavailable ClintYelena krueger MD Unavailable Unavailable ClintYelena krueger MD Unavailable Unavailable ClintYelena krueger MD Unavailable Unavailable ClintYelena krueger MD Unavailable Unavailable ClintYelena krueger MD Unavailable Unavailable ClintYelena krueger MD Unavailable Unavailable ClintYelena krueger MD Unavailable Unavailable ClintYelena MD Unavailable Unavailable ClintYelena krueger MD Unavailable Unavailable ClintYelena krueger MD Unavailable Unavailable ClintYelena krueegr MD Unavailable Unavailable ClintYelena krueger MD Unavailable Unavailable ClintYelena krueger MD Unavailable Unavailable ClintYelena krueger MD Unavailable Unavailable ClintYelena krueger MD Unavailable Unavailable Clint, E Ernie MD Unavailable Unavailable Yelena Jaramillo MD Unavailable Unavailable SKINNY FELTON Unavailable Unavailable Re-disclosure [...] is protected by Article 27-F of the [facility] Public Health law. If you continue you may have access to information: Regarding HIV / AIDS; Provided by facilities licensed or operated by the [facility] Office of Mental Health; or Provided by the [facility] Office for People With Developmental Disabilities. If such information is present, then the following [facility] mandated warning applies: This information has been [...] law may result in a fine or prison sentence or both. A general authorization for the release of medical or other information is NOT sufficient authorization for further disc losure. Allergies and Adverse Reactions Type Description Substance Reaction Status Data Source(s ) Propensity to adverse reactions DIVALPROEX SODIUM Divalproex Sodium Rash Low Active [facility] Low Propensity to adverse reactions METHYLPHENIDATE HCL ER (CD) Methylphenidate Hcl Er (Cd) Palpitations Low Active [facility] Low Propensity to adverse reactions CITRUS CITRUS AURANTIUM FRUIT OIL Active [facility] Propensity to adverse reactions DIPHENHYDRAMINE Diphenhydramine Active [facility] Drug allergy Concerta Methylphenidate Unknown Active eCW1 ([facility]) Drug allergy Depakote Valproate Unknown Active eCW1 (Critical access hospital) Drug allergy DiphenhydrAMINE HCl Diphenhydramine Unknown Active eCW1 ([facility]) Family History Family Member Name Family Member Gender Family Member Status Date o f Status Description Data Source(s) Unknown Unknown Problem MEDENT ([facility]) Encounters Encounter Providers Location Date Indications Data Source(s ) Outpatient [address] [facility] [id number] 11/18/2020 12:00:00 AM EST eCW1 (Critical access hospital) Unknown [address] [facility] [address] 10/23/2020 12:00:00 AM EST eCW1 (Critical access hospital) Unknown [address] [facility] [address] 10/23/2020 12:00:00 AM EST eCW1 (Critical access hospital) Outpatient [address] [facility] [address] 10/22/2020 12:00:00 AM EST eCW1 (Critical access hospital) Unknown [address] [facility] [address] 10/22/2020 12:00:00 AM EST eCW1 (Critical access hospital) Unknown [address] [facility] [address] 10/22/2020 12:00:00 AM EST eCW1 (Critical access hospital) Rogelio Cadet MD: [address] [place] [phone], Ph. Attender: Rogelio Cadet MD [facility] Medical 09/25/2020 12:00:00 AM EST YARA ([facility]) Unknown [address] [facility] [address] 09/17/2020 12:00:00 AM EDT eCW1 (Critical access hospital) Outpatient Referrer: SKINNY GOETZ-MOB.PAT 2019 10:09:03 AM EDT - 09/15/2020 10:09:07 AM EDT [facility] Unknown [address] [facility] [place] [address] 09/12/2020 12:00:00 AM EDT eCW1 (Critical access hospital) [place]patient [address] [facility] [place] [address] 09/12/2020 12:00:00 AM EDT eCW1 (Critical access hospital) Outpatient Attender: SKINNY FELTONReferrer: SKINNY HOOVER MOB-MOB.PAT 09/10/2020 11:03:19 AM EDT - 09/10/2020 12:25:34 PM EDT [facility] Unknown [address] [facility] [place] [address] 09/06/2020 12:00:00 AM EDT eCW1 (Critical access hospital) Unknown [address] [facility] [place] [address] 09/06/2020 12:00:00 AM EDT eCW1 (Critical access hospital) Unknown [address] [facility] [place] [address] 09/06/2020 12:00:00 AM EDT eCW1 (Critical access hospital) Inpatient Attender: SKINNY Trinidad vincenzo: SKINNY FELTONAdmitter: SKINNY FELTON [id number] 09/03/2020 10:29:48 AM EDT - 09/21/2020 01:49:00 PM EDT [facility] Patient discharged. Outpatient Attender: JENNIFER JIANG 08/28/2020 11:18:01 AM EDT [facility] Outpatient Attender: LINDA MORALES APOLINAR 08/26/2020 12:25:00 PM EDT [facility] Outpatient Attender: LINDA MORALES APOLINAR 08/26/2020 12:22:00 PM EDT [facility] Unknown [address] [facility] [place] [address] 08/13/2020 12:00:00 AM EDT eCW1 (Critical access hospital) Unknown [address] [facility] [place] [address] 08/13/2020 12:00:00 AM EDT eCW1 ([facility]) Unknown [address] [facility] [place] [address] 06/05/2020 12:00:00 AM EDT eCW1 ([facility]) Unknown [address] [facility] [place] [address] 06/03/2020 12:00:00 AM EDT eCW1 ([facility]) Emergency Attender: Anjum RODRIGUEZ-CConsultant: ARMAAN RODRIGUEZ 05/21/2020 01:27:00 PM EDT - 05/21/2020 03:21:00 PM EDT [facility] Patient admitted. [facility] [address] [facility] [place] [address] 05/09/2020 12:00:00 AM EDT eCW1 ([facility]) Unknown [address] [facility] [place] [address] 05/04/2020 12:00:00 AM EDT eCW1 ([facility]) Outpatient Attender: LINDA MORALES APOLINAR 04/30/2020 07:38:04 PM EDT [facility] Outpatient [address] [facility] [place] [address] 04/30/2020 12:00:00 AM EDT eCW1 ([facility]) Unknown [address] [facility] [place] [address] 04/28/2020 12:00:00 AM EDT eCW1 ([facility]) [facility] [address] [facility] [place] [address] 04/23/2020 12:00:00 AM EDT eCW1 ([facility]) [facility] [address] [facility] [place] [address] 03/28/2020 12:00:00 AM EDT eCW1 ([facility]) [facility] [address] [facility] [place] [address] 03/26/2020 12:00:00 AM EDT eCW1 ([facility]) [address] [address] 03/10/2020 12:00:00 AM EDT [facility]1 [facility] [address] [address] 03/04/2020 12:00:00 AM EDT eCW1 [facility]) Outpatient 03/01/2020 06:00:00 AM EDT [facility] [address] [address] 02/13/2020 12:00:00 AM EDT eCW1 ([facility] [address] [address] 02/13/2020 12:00:00 AM EDT eCW1 ([facility] [address] [address] 02/01/2020 12:00:00 AM EDT eCW1 [facility] [address] [address] 01/22/2020 12:00:00 AM EST [facility] [address] [address] 11/23/2019 12:00:00 AM EST [facility] [address] [address] 11/17/2019 12:00:00 AM EST eCW1 [facility] Outpatient 11/07/2019 09:50:00 PM EST [facility] Outpatient Attender: LINDA [facility] 10/27/2019 08:01:02 PM EST [facility] Outpatient Attender: LINDA [facility] 10/27/2019 01:07:01 PM EST [address] [address] 10/27/2019 12:00:00 AM EST eCW1 (Critical access hospital) Recurring Patient Attender: Dandy Lane MDReferrer: Ernie umanzor MD 10/25/2019 02:47:20 PM EST [facility] [address] [address] 10/25/2019 12:00:00 AM EST eCW1 (Critical access hospital) [address] [address] 10/25/2019 12:00:00 AM EST eCW1 (Critical access hospital) [address] [address] 10/12/2019 12:00:00 AM EST eCW1 (Critical access hospital) Immunizations Vaccine Date Status Description Data Source(s) [...] Vitamin D3 25 MCG (1000 UT) eCW1 ([facility]) Sertraline 25 MG Oral Tablet [Zoloft] Zoloft 25 MG Zoloft 25 MG 10/22/2020 12:00:00 AM EST 1.0 {tablet_at_bedtime} active Zoloft 25 MG eCW1 ([facility]) Sertraline 25 MG Oral Tablet [Zoloft] Zoloft 25 MG Zoloft 25 MG 10/22/2020 12:00:00 AM EST 1.0 {tablet_at_bedtime} active Zoloft 25 MG eCW1 ([facility]) Sertraline 25 MG Oral Tablet [Zoloft] Zoloft 25 MG Zoloft 25 MG 10/22/2020 12:00:00 AM EST 1.0 {tablet_at_bedtime} active Zoloft 25 MG eCW1 ([facility]) Sertraline 25 MG Oral Tablet [Zoloft] Zoloft 25 MG Zoloft 25 MG 10/22/2020 12:00:00 AM EST 1.0 {tablet_at_bedtime} active Zoloft 25 MG eCW1 ([facility]) Sertraline 25 MG Oral Tablet [Zoloft] Zoloft 25 MG Zoloft 25 MG 10/22/2020 12:00:00 AM EST 1.0 {tablet_at_bedtime} active Zoloft 25 MG eCW1 ([facility]) ondansetron (ZOFRAN-ODT) disintegrating tablet 8 mg 09/21/2020 [...] 09/21/20 at 0600, Post-op [Order 2 End] [facility] Medication administered onsite lactated ringers bolus 1,000 mL [id number] 09/21/2020 06:00:00 AM EDT 1000 mL Intravenous completed 1,000 mL , Intravenous, Administer over 2 Hours, Once, 09/21/20 at 0600, For 1 dose, Post-op [facility] Medication administered onsite Acetaminophen 325 MG Oral Tablet acetaminophen (TYLENO L) 325 MG tablet 650 mg acetaminophen (TYLENOL) 325 MG tablet 650 mg 09/21/2020 12:00:00 AM EDT 650 mg Oral active 650 mg, Or al, Every 4 hours PRN, mild pain (1-3), for mild pain, headache, or temperature > 101, Starting 09/21/20 at 0000, Post- op
To begin after routine doses of tylenol.
[facility] Medication administered onsite Magnesium Hydroxide 80 MG/ML Oral Suspen reilly magnesium hydroxide (MILK OF MAGNESIA) 400 MG/5ML suspension magnesium hydroxide (MILK OF MAGNESIA) 4 00 MG/5ML suspension 09/21/2020 12:00:00 AM EDT 15 mL Oral active Take 15 mL by mouth daily as needed for constipation [facility] Metoprolol Tartrate 25 MG Oral Tablet me toprolol tartrate (LOPRESSOR) tablet 25 mg metoprolol tartrate (LOPRESSOR) tablet 25 mg 09/20/2020 09:00:00 PM EDT 25 mg Oral active 25 mg, Ora l, 2 times daily, First dose on Wed09/20/20 at 2100, Post-op
Hold Lopressor for SBP < 100 mmHg or HR < 60.
[facility] Medication administered onsite heparin (porcine) injection 5,000 Units [id number] 09/20/20 06:00:00 PM EDT 5000 U Subcutaneous active 5,000 Units , Subcutaneous, Every 8 hours (relative), First dose on Wed09/20/20 at 1800, Post-op
If platelet count is less than 100,000 or hematocrit is less than 25, or if there is a 5 point decrea se in hematocrit, do not give the dose and call physician/designee.
[facility] Medication administered onsite Insulin Lispro 100 UNT/ML Injectable Jennifer ution insulin lispro (HumaLOG) injection 4-16 Units insulin lispro (HumaLOG) injection 4-16 Units 09/20/20 06:00:00 PM EDT Subcutaneous active 4-1 6 Units, Subcutaneous, Q6HSS, First dose on Wed09/20/20 at 1800, Post-op
Blood Sugar Units of [id number] 4 -135 6 [id number] 8 [id number] 10 units 321-370 12 units 371-420 14 units>420 16 units, Call MD
[facility] Medication administered onsite 1 ML Ketorolac Tromethamine 30 MG/ML Car tridge ketorolac (TORADOL) injection 30 mg ketorolac (TORADOL) injection 30 mg 09/20/2020 06:00:00 PM EDT 30 mg Intravenous active 30 mg, Intrav enous, Every 6 hours PRN, severe pain (7-10), Starting Wed09/20/20 at 1800, For 4 doses, Post-op [facility] Medication administered onsite Acetaminophen 500 MG Oral Tablet acetaminophen (TYLENO L) tablet 1,000 mg acetaminophen (TYLENOL) tablet 1,000 mg 09/20/2020 03:00:00 PM EDT 1000 mg Oral active 1,000 mg, Oral , Every 8 hours, First dose on Wed09/20/20 at 1500, For 48 hours, Post-op [facility] Medication administered onsite normal saline flush 0.9 % injection 3 mL [id number] 09/20/2020 02:00:00 PM EDT 3 mL Intravenous active 3 mL , Intravenous, QSHIFT, First dose on Wed09/20/20 at 1400, Post-op
Convert to saline lock after discontinuing D5LR IV.
[facility] Medication administered onsite gabapentin 300 MG Oral Capsule gabapentin (NEURONTIN) capsule 300 mg gabapentin (NEURONTIN) capsule 300 mg 09/20/2020 02:00:00 PM EDT 300 mg Oral active 300 mg, Oral, 3 times daily, First dose on Wed09/20/20 at 1400, Post-op [facility] Medication administered onsite Ondansetron 4 MG Disintegrating Oral Tab let ondansetron (ZOFRAN-ODT) disintegrating tablet 8 mg ondansetron (ZOFRAN-ODT) disintegrating tablet 8 mg 09/20/2020 01:00:00 PM EDT 8 mg Oral completed 8 mg, Oral, Every 6 hours (scheduled), First dose on Wed09/20/20 at 1300, For 24 hours, Post-op [facility] Medication administered onsite Calcium Chloride 0.001 MEQ/ML [...] adequate PO & convert to saline lock
[facility] Medication administered onsite Simethicone 80 MG Chewable Tablet simethicone (MYLICON ) chewable tablet 80 mg simethicone (MYLICON) chewable tablet 80 mg 09/20/2020 01:00:00 PM EDT 80 mg Oral active 80 mg, Oral, E very 4 hours (scheduled), First dose on Wed09/20/20 at 1300, Post-op [facility] Medication administered onsite pantoprazole 40 MG Delayed Release Oral Tablet pantoprazole (PROTONIX) EC tablet 40 mg pantoprazole (PROTONIX) EC tablet 40 mg 09/20/2020 01:00:00 PM E DT 40 mg Oral active Stress Ulcer Prophylaxis 40 mg, Oral, Daily, Indications: Stress Ulcer Prophylaxis, First dose on Wed09/20/20 at 1300, Post-op [facility] Stress Ulcer Prophylaxis Medication administered onsite metoclopramide [...] hours PRN for nausea
[Order 2 End] [facility] Medication administered onsite Prochlorperazine 10 MG Oral Tablet prochlorperazine (C OMPAZINE) tablet 10 mg prochlorperazine (COMPAZINE) tablet 10 mg 09/20/2020 12:19:00 PM EDT 10 mg Oral active 10 mg, Oral, E very 6 hours PRN, nausea, not relieved by metoclopramide, Starting Wed09/20/20 at 1219, Post-op [facility] Medication administered onsite traZODone (DESYREL) tablet 150 mg 09/20/2020 12:19:00 PM EDT 150 mg Oral active 150 mg, Oral, Ni ghtly PRN, sleep, Starting Wed09/20/20 at 1219, Post-op [facility] Medication administered onsite Promethazine Hydrochloride 25 MG Oral Ta blet promethazine (PHENERGAN) tablet 12.5 mg promethazine (PHENERGAN) tablet 12.5 mg 09/20/2020 12:19:00 PM E DT 12.5 mg Oral active 12.5 mg, O ral, Every 4 hours PRN, nausea, not relieved by prochlorperazine, Starting Wed09/20/20 at 1219, Post-op [facility] Medication administered onsite Albuterol 0.83 MG/ML Inhalant Solution a lbuterol (PROVENTIL) nebulizer solution 2.5 mg albuterol (PROVENTIL) nebulizer solution 2.5 mg 2019 12:18:59 PM EDT 2.5 mg active 2.5 mg, Nebulization, RT every 4 hours as needed, wheezing, shortness of breath, Starting Wed09/20/20 at 1218, Post-op [facility] Medication administered onsite Clonidine Hydrochloride 0.1 MG Oral Tablet cloNIDine ( CATAPRES) tablet 0.1 mg cloNIDine (CATAPRES) tablet 0.1 mg 09/20/2020 12:18:59 PM EDT 0.1 mg Oral active 0.1 mg, Oral, Every 4 hours PRN, high blood pressure, for SBP > 140 mmHg and/or DBP > 90 mmHg, Starting Wed09/20/20 at 1218, Post-op [facility] Medication administered onsite enalaprilat (VASOTEC) injection 1.25 mg [id number] 09/20/20 12:18:59 PM EDT 1.25 mg Intravenous active 1.25 mg, Int ravenous, Every 6 hours PRN, for SBP > 140 mmHg and/or DBP > 90 mmHg, Starting Wed09/20/20 at 1218, Post- op
Mix in 50 mL NS, infuse over 30 minutes via infusion pump.For IVMB on NON-ICU units.
[facility] Medication administered onsite 0.4 ML Enoxaparin sodium 100 MG/ML Prefi lled Syringe enoxaparin (LOVENOX) syringe 40 mg enoxaparin (LOVENOX) syringe 40 mg 09/20/2020 12:18:59 PM EDT 40 mg Subcutaneous completed 40 mg, Subcutaneous, Before Discharge, for prophylaxis, Starting Wed09/20/20 at 1218, For 1 dose, Post-op
At discharge. To be administered by patient or significant other.
[facility] Medication administered onsite HYDROmorphone (DILAUDID) injection 0.5 mg [id number] 09/20/2020 10:16:41 AM EDT 0.5 mg Intravenous aborted 0.5 mg, Intravenous, Every 5 min PRN, severe pain (7-10), Starting Wed09/20/20 at 1016, For 5 doses, PACU (only) [facility] Medication administered onsite fentaNYL Citrate (PF) (SUBLIMAZE) injection 25 mcg [id number] 09/20/2020 10:16:41 AM EDT 25 ug Intravenous aborted 25 mcg, Intravenous, Every 5 min PRN, moderate pain (4-6), Starting Wed09/20/20 at 1016, For 12 doses, PACU (only) [facility] Medication administered onsite Clonidine Hydrochloride 0.1 MG Oral Tablet cloNIDine ( CATAPRES) tablet 0.1 mg cloNIDine (CATAPRES) tablet 0.1 mg 09/20/2020 07:00:00 AM EDT 0.1 mg Oral completed 0.1 mg, Oral, director call, 09/20 at 0700, For 1 dose, Pre-op [facility] Medication administered onsite Acetaminophen 325 MG Oral Tablet acetaminophen (TYLENO L) 325 MG tablet 975 mg acetaminophen (TYLENOL) 325 MG tablet 975 mg 09/20/2020 07:00:00 AM EDT 975 mg Oral completed 975 mg, Or al, director call, Wed09/20/20 at 0700, For 1 dose, Pre-op
"Maximum dose of acetaminophen is 4,000 mg from all sources in 24 hours."
[facility] Medication administered onsite Albuterol 0.83 MG/ML Inhalant Solution a lbuterol (PROVENTIL) nebulizer solution 2.5 mg albuterol (PROVENTIL) nebulizer solution 2.5 mg 2019 07:00:00 AM EDT 2.5 mg completed 2.5 mg , Nebulization, director call, Wed09/20/20 at 0700, For 1 dose, Pre-op
To be started by pre-op unit
[facility] Medication administered onsite Calcium Chloride 0.0014 MEQ/ML / Potassi um Chloride 0.004 MEQ/ML / Sodium Chloride 0.103 MEQ/ML / Sodium Lactate 0.028 MEQ/ML Injectable Solution lactated ringers infusion lactated ringers infusion 09/20/2020 07:00:00 AM EDT 100 mL/h Intravenous aborted at 100 m L/hr, 100 mL/hr, Intravenous, Continuous, Starting Wed09/20/20 at 0700, Pre-op
Please place IV on left side if able
[facility] Medication administered onsite heparin (porcine) injection 5,000 Units [id number] 09/20/20 07:00:00 AM EDT 5000 U Subcutaneous completed 5,000 Uni ts, Subcutaneous, director call, Wed09/20/20 at 0700, For 1 dose, Pre-op
If platelet count is less than 100,000 or hematocrit is less than 25, or if there is a 5 point decrease in hematocrit, do not give the dose and call physician/designee.
[facility] Medication administered onsite gabapentin 600 MG Oral Tablet gabapentin (NEURONTIN) t ablet 600 mg gabapentin (NEURONTIN) tablet 600 mg 09/20/2020 07:00:00 AM EDT 600 mg Oral completed 600 mg, Oral, On hai l, Wed09/20/20 at 0700, For 1 dose, Pre-op
Hold if age greater than 70 or chronic renal failure/insufficiency
[facility] Medication administered onsite Dexamethasone 4 MG Oral Tablet dexamethasone (DECADRON ) tablet 4 mg dexamethasone (DECADRON) tablet 4 mg 09/20/2020 07:00:00 AM EDT 4 mg Oral completed 4 mg, Oral, director call, Wed 0 at 0700, For 1 dose, Pre-op [facility] Medication administered onsite Alprazolam 0.25 MG Oral Tablet ALPRAZolam (XANAX) tabl et 0.25 mg ALPRAZolam (XANAX) tablet 0.25 mg 09/20/2020 07:00:00 AM EDT 0.25 mg Oral completed 0.25 mg, Oral, director call, Wed09/20/20 at 0700, For 1 dose, Pre-op [facility] Medication administered onsite celecoxib 100 MG Oral Capsule celecoxib (CeleBREX) cap raeann 200 mg celecoxib (CeleBREX) capsule 200 mg 09/20/2020 07:00:00 AM EDT 200 mg Oral completed 200 mg, Oral, director call, 09/20 at 0700, For 1 dose, Pre-op [facility] Medication administered onsite Tetrahydrocannabinol 2.5 MG Oral Capsule dronabinol (M ARINOL) capsule 5 mg dronabinol (MARINOL) capsule 5 mg 09/20/2020 07:00:00 AM EDT 5 mg Oral completed 5 mg, Oral, director call, Wed 0 at 0700, For 1 dose, Pre-op [facility] Medication administered onsite Prochlorperazine 10 MG Oral Tablet prochlorperazine (C OMPAZINE) tablet 10 mg prochlorperazine (COMPAZINE) tablet 10 mg 09/20/2020 07:00:00 AM EDT 10 mg Oral completed 10 mg, Oral, O n call, Wed09/20/20 at 0700, For 1 dose, Pre-op [facility] Medication administered onsite scopolamine (TRANSDERM-SCOP) 1.5 MG (Bariatric only) 1 patch [id number] 09/20/2020 05:46:17 AM EDT 1 {patch} Transdermal aborted 1 patch, Transdermal, Administer over 24 Hours, Every 24 hours (relative), First dose on Wed09/20/20 at 0700, For 1 dose, Pre-op
Scopolamine patch applied behind ear. Hold for any of the followin+ yrs old, hx of glaucoma, hx of vertigo, dementia.
[facility] Medication administered onsite Ondansetron 4 MG Disintegrating Oral Tab let ondansetron (ZOFRAN-ODT) 4 MG disintegrating tablet ondansetron (ZOFRAN-ODT) 4 MG disintegrating tablet 09/20/2020 12:00:00 AM EDT 4 mg Oral active Take 1 tablet (4 mg total) by mouth every 6 (six) hours as needed for nausea [facility] Simethicone 80 MG Chewable Tablet simethicone (MYLICON ) 80 MG chewable tablet simethicone (MYLICON) 80 MG chewable tablet 09/20/2020 12:00:00 AM EDT 80 mg Oral active Chew 1 tablet (80 mg total) every 6 (six) hours as needed for flatulence [facility] Vitamin B 12 0.5 MG Oral Tablet cyanocob alamin ([facility] VITAMIN B-12) 500 MCG tablet cyanocobalamin ([facility] VITAMIN B-12) 500 MCG tablet 09/20/2020 12:0 0:00 AM EDT 1000 ug Oral active Take 2 tablets (1,000 mc g total) by mouth daily [facility] Acetaminophen 325 MG Oral Tablet acetaminophen (TYLENO L) 325 MG tablet acetaminophen (TYLENOL) 325 MG tablet 09/20/2020 12:00:00 AM EDT 65 0 mg Oral active Take 2 tablets (650 mg total) by mouth every 6 (six) hours as needed for pain [facility] Omeprazole 40 MG Delayed Release Oral Ca psule omeprazole (PRILOSEC) 40 MG capsule omeprazole (PRILOSEC) 40 MG capsule 09/20/2020 12:00:00 AM EDT 40 mg Oral active Take 1 capsule (40 m g total) by mouth daily [facility] Ascorbic Acid 60 MG / Beta Carotene 5000 UNT / Copper Sulfate 40 MG / dl-alpha tocopheryl acetate 30 UNT / Sodium Selenite 0.04 MG / Zinc Oxide 40 MG Oral Tablet Multiple Vitamins-Minerals (MULTIVITAMIN WITH MINERALS) tablet Multiple Vitamins-Minerals (MULTIVITAMIN WITH MINERALS) tablet 09/20/2020 12:00:00 AM EDT 2 {tbl} Oral active Take 2 tablets b y mouth daily [facility] 0.4 ML Enoxaparin sodium 100 MG/ML Prefi lled Syringe enoxaparin (LOVENOX) 40 MG/0.4ML SOLN enoxaparin (LOVENOX) 40 MG/0.4ML SOLN 09/20/2020 12:00:00 AM EDT 40 mg Subcutaneous active Inject 0.4 mL (40 mg total) under the skin daily for 10 days [facility] Trazodone Hydrochloride 150 MG Oral Tablet Trazodone H Cl 150 MG Trazodone HCl 150 MG 09/06/2020 12:00:00 AM EDT 1.0 {tablet_at_bedtime} active Trazodone HCl 150 MG eCW1 ([facility]) Trazodone Hydrochloride 150 MG Oral Tablet Trazodone H Cl 150 MG Trazodone HCl 150 MG 09/06/2020 12:00:00 AM EDT 1.0 {tablet_at_bedtime} active Trazodone HCl 150 MG eCW1 ([facility]) Trazodone Hydrochloride 150 MG Oral Tablet Trazodone H Cl 150 MG Trazodone HCl 150 MG 09/06/2020 12:00:00 AM EDT 1.0 {tablet_at_bedtime} active Trazodone HCl 150 MG eCW1 ([facility]) Escitalopram 10 MG Oral Tablet Escitalopram Oxalate 10 MG Escitalopram Oxalate 10 MG 04/30/2020 12:00:00 AM EDT 1.0 {tablet} activ e Escitalopram Oxalate 10 MG eCW1 ([facility]) Escitalopram 10 MG Oral Tablet Escitalopram Oxalate 10 MG Escitalopram Oxalate 10 MG 04/30/2020 12:00:00 AM EDT 1.0 {tablet} activ e Escitalopram Oxalate 10 MG eCW1 ([facility]) Escitalopram 10 MG Oral Tablet Escitalopram Oxalate 10 MG Escitalopram Oxalate 10 MG 04/30/2020 12:00:00 AM EDT 1.0 {tablet} activ e Escitalopram Oxalate 10 MG eCW1 ([facility]) Escitalopram 10 MG Oral Tablet ESCITALOPRAM OXALATE 04/30/2020 1 2:00:00 AM EDT tablet 30 TAKE ONE TABLET BY MOUTH EVERY D AY TAKE ONE TABLET BY MOUTH EVERY DAY SOLD: 04/30/2020 [facility] Escitalopram 10 MG Oral Tablet Escitalopram Oxalate 10 MG Escitalopram Oxalate 10 MG 04/30/2020 12:00:00 AM EDT 1.0 {tablet} activ e Escitalopram Oxalate 10 MG eCW1 ([facility]) Escitalopram 10 MG Oral Tablet Escitalopram Oxalate 10 MG Escitalopram Oxalate 10 MG 04/30/2020 12:00:00 AM EDT 1.0 {tablet} activ e Escitalopram Oxalate 10 MG eCW1 ([facility]) Escitalopram 10 MG Oral Tablet Escitalopram Oxalate 10 MG Escitalopram Oxalate 10 MG 04/30/2020 12:00:00 AM EDT 1.0 {tablet} activ e Escitalopram Oxalate 10 MG eCW1 ([facility]) Escitalopram 10 MG Oral Tablet Escitalopram Oxalate 10 MG Escitalopram Oxalate 10 MG 04/30/2020 12:00:00 AM EDT 1.0 {tablet} activ e Escitalopram Oxalate 10 MG eCW1 ([facility]) Escitalopram 10 MG Oral Tablet Escitalopram Oxalate 10 MG Escitalopram Oxalate 10 MG 04/30/2020 12:00:00 AM EDT 1.0 {tablet} activ e Escitalopram Oxalate 10 MG eCW1 ([facility]) Metformin hydrochloride 500 MG Oral Tablet Metformin H Cl 500 MG Metformin HCl 500 MG 03/28/2020 12:00:00 AM EDT 1.0 {tablet_with_a_meal} active Metformin HCl 500 MG eCW1 ([facility]) ReliOn Blood Glucose Test - ReliOn Blood Glucose Test - 05/2020 12:00:00 AM EDT active ReliOn Blood Gluc ose Test - eCW1 ([facility]) Metformin hydrochloride 500 MG Oral Tablet Metformin H Cl 500 MG Metformin HCl 500 MG 03/28/2020 12:00:00 AM EDT 1.0 {tablet_with_a_meal} active Metformin HCl 500 MG eCW1 ([facility]) BLOOD SUGAR DIAGNOSTIC 03/28/2020 12:00:00 AM EDT strip 25 TEST DAILY DIRECTED TEST DAILY DIRECTED SOLD: 03/28/2020 [facility] ReliOn Blood Glucose Test - ReliOn Blood Glucose Test - 05/2020 12:00:00 AM EDT active ReliOn Blood Gluc ose Test - eCW1 ([facility]) ReliOn Blood Glucose Test - ReliOn Blood Glucose Test - 05/2020 12:00:00 AM EDT active ReliOn Blood Gluc ose Test - eCW1 ([facility]) Metformin hydrochloride 500 MG Oral Tablet Metformin H Cl 500 MG Metformin HCl 500 MG 03/28/2020 12:00:00 AM EDT active 1 tablet with a meal eCW1 ([facility]) Metformin hydrochloride 500 MG Oral Tablet Metformin H Cl 500 MG Metformin HCl 500 MG 03/28/2020 12:00:00 AM EDT 1.0 {tablet_with_a_meal} active Metformin HCl 500 MG eCW1 ([facility]) Metformin hydrochloride 500 MG Oral Tablet Metformin H Cl 500 MG Metformin HCl 500 MG 03/28/2020 12:00:00 AM EDT 1.0 {tablet_with_a_meal} active Metformin HCl 500 MG eCW1 ([facility]) ReliOn Blood Glucose Test - ReliOn Blood Glucose Test - 05/2020 12:00:00 AM EDT active ReliOn Blood Gluc ose Test - eCW1 ([facility]) ReliOn Blood Glucose Test - ReliOn Blood Glucose Test - 05/2020 12:00:00 AM EDT active ReliOn Blood Gluc ose Test - eCW1 ([facility]) ReliOn Blood Glucose Test - ReliOn Blood Glucose Test - 05/2020 12:00:00 AM EDT active ReliOn Blood Gluc ose Test - eCW1 ([facility]) ReliOn Blood Glucose Test - ReliOn Blood Glucose Test - 05/2020 12:00:00 AM EDT active ReliOn Blood Gluc ose Test - eCW1 ([facility]) Metformin hydrochloride 500 MG Oral Tablet Metformin H Cl 500 MG Metformin HCl 500 MG 03/28/2020 12:00:00 AM EDT 1.0 {tablet_with_a_meal} active Metformin HCl 500 MG eCW1 ([facility]) ReliOn Blood Glucose Test - ReliOn Blood Glucose Test - 05/2020 12:00:00 AM EDT active ReliOn Blood Gluc ose Test - eCW1 ([facility]) Metformin hydrochloride 500 MG Oral Tablet Metformin H Cl 500 MG Metformin HCl 500 MG 03/28/2020 12:00:00 AM EDT 1.0 {tablet_with_a_meal} active Metformin HCl 500 MG eCW1 ([facility]) ReliOn Blood Glucose Test - ReliOn Blood Glucose Test - 05/2020 12:00:00 AM EDT active as directed eCW1 ([facility]) ReliOn Blood Glucose Test - ReliOn Blood Glucose Test - 05/2020 12:00:00 AM EDT active ReliOn Blood Gluc ose Test - eCW1 ([facility]) 500 mg 03/28/2020 12:00:00 AM EDT tablet 60 TAKE ONE TABLET BY MOUTH TWICE A DAY WITH A MEAL TAKE ONE TABLET BY MOUTH TWICE A DAY WITH A MEAL SOLD: 03/28/2020 [facility] ReliOn Blood Glucose Test - ReliOn Blood Glucose Test - 05/2020 12:00:00 AM EDT active ReliOn Blood Gluc ose Test - eCW1 ([facility]) ReliOn Blood Glucose Test - ReliOn Blood Glucose Test - 05/2020 12:00:00 AM EDT active ReliOn Blood Gluc ose Test - eCW1 ([facility]) Metformin hydrochloride 500 MG Oral Tablet Metformin H Cl 500 MG Metformin HCl 500 MG 03/28/2020 12:00:00 AM EDT 1.0 {tablet_with_a_meal} active Metformin HCl 500 MG eCW1 ([facility]) Metformin hydrochloride 500 MG Oral Tablet Metformin H Cl 500 MG Metformin HCl 500 MG 03/28/2020 12:00:00 AM EDT 1.0 {tablet_with_a_meal} active Metformin HCl 500 MG eCW1 ([facility]) ReliOn Blood Glucose Test - ReliOn Blood Glucose Test - 05/2020 12:00:00 AM EDT active ReliOn Blood Gluc ose Test - eCW1 ([facility]) ReliOn Blood Glucose Test - ReliOn Blood Glucose Test - 05/0 05/2020 12:00:00 AM EDT active ReliOn Blood Gluc ose Test - eCW1 ([facility]) 90 mcg/actuation 03/12/2020 12:00:00 AM EDT HFA [...] EDT active 1 puff as needed eCW1 ([facility]) Fluticasone Propionate 50 MCG/ACT Fluticasone Propionate 50 MCG/ACT 03/11/2020 12:00:00 AM EDT active 1 spray in each nostril eCW1 ([facility]) 50 mg 03/06/2020 12:00:00 AM EDT tablet [...] TABLET BY MOUTH EVERY DAY SOLD: 02/14/2020 [facility] 40 mg 02/06/2020 12:00:00 AM EDT tablet [...] BY MOUTH TWICE A DAY SOLD: 06/02/2020 [facility] 40 mg 02/06/2020 12:00:00 AM EDT [...] BEFORE BEDTIME SOLD: 12/25/2019 [facility] 40 mg 11/20/2019 12:00:00 AM EST tablet 30 TAKE ONE TABLET BY MOUTH ONCE DAILY AT BEDTIME TAKE ONE TABLET BY MOUTH ONCE DAILY AT BEDTIME SOLD: 0 12/25/2019 [facility] 40 mg 11/20/2019 12:00:00 AM EST tablet 30 TAKE ONE TABLET BY MOUTH ONCE DAILY AT BEDTIME TAKE ONE TABLET BY MOUTH ONCE DAILY AT BEDTIME SOLD: 0 11/23/2019 [facility] 40 mg 11/20/2019 12:00:00 AM EST tablet 30 TAKE ONE TABLET BY MOUTH ONCE DAILY AT BEDTIME TAKE ONE TABLET BY MOUTH ONCE DAILY AT BEDTIME SOLD: 0 01/24/2020 [facility] Famot[facility] 40 MG Oral Tablet [Pepcid] Pepcid 40 MG Pepcid 40 MG 10/25/2019 12:00:00 AM EST active 1 tablet at bedtime eCW1 ([facility]) 40 mg 10/25/2019 12:00:00 AM EST tablet [...] active 1 tablet in the morning eCW1 ([facility]) Famotidine 40 MG Oral Tablet [Pepcid] Pepcid 40 MG Pepcid 40 MG 10/25/2019 12:00:00 AM EST active 1 tablet at bedtime eCW1 ([facility]) Famotidine 40 MG Oral Tablet famotidine (PEPCID) 40 MG tablet famotidine (PEPCID) 40 MG tablet 40 mg Oral aborted Take 40 mg by mouth 2 (two) times a day as needed for heartburn [facility] Insurance Providers Payer name Policy type / Coverage type Policy ID Covered alliance party ID Covered alliance party's relationship to [place] Policy [place] Plan Information [facility] COMMUNITY PLAN [facility] [id number] SP [id number] [facility] COMMUNITY PLAN [facility] [id number] SP [id number] [facility] O [id number] S [id number] [facility] MEDICAID [id number] [facility] MEDICAID [id number] Magi [id number] INSURANCE COVID-19 COVID Magi C OVID [facility] [id number] SP [id number] INSURANCE COVID-19 [id number] Managed Care - [facility] Community Plan P [id number] S [id number] Medicaid S [id number] S [id number] [facility] COMMUNITY PLAN XIX [id number] 18 [id number] [facility] Comm Plan Medicaid F [id number] SELF [id number] [facility]Med[facility] [id number] ANSI-Not a Secondary Insurance [id number] ANSI-Medicaid [id number] ANSI-Not a Secondary Insurance [id number] ANSI-Not a Secondary Insurance [id number] ANSI-Medicaid [id number] ANSI-Not a Secondary Insurance [id number] ANSI-Medicaid [id number] [facility] Comm Plan Medicaid F [id number] SELF [id number] [facility] Comm Plan Medicaid F [id number] SELF [id number] [facility] Comm Plan Medicaid F [id number] SELF [id number] ANSI-Medicaid [id number] ANSI-Not a Secondary Insurance [id number] ANSI-Not a Secondary Insurance [id number] ANSI-Medicaid [id number] ANSI-Medicaid [id number] ANSI-Not a Secondary Insurance [id number] [facility] Commercial [id number] Self [id number] ANSI-Not a Secondary Insurance [id number] ANSI-Medicaid [id number] ANSI-Not a Secondary Insurance [id number] ANSI-Medicaid [id number] ANSI-Medicaid [id number] ANSI-Not a Secondary Insurance [id number] ANSI-Medicaid [id number] ANSI-Not a Secondary Insurance [id number] ANSI-Not a Secondary Insurance [id number] ANSI-Medicaid [id number] [facility] Health Maintenance Organization (O) [id number] Self [id number] ANSI-Medicaid [id number] ANSI-Not a Secondary Insurance [id number] ANSI-Not a Secondary Insurance [id number] ANSI-Medicaid [id number] [facility] P [id number] S [id number] [facility] [id number] SP [id number] [facility] Commercial [id number] Self [id number] [facility] [place] [id number] [facility] Commercial [id number] Self [id number] UNHC COMMUNITY PLAN MCDHMO [id number] SP [id number] [facility]) O [id number] S [id number] [facility] COMMUNTY PLAN MC [id number] 18 [id number] [facility] Communty Plan Medicaid [id number] Self [id number] [facility] MCRO [id number] SP [id number] [facility] Communty Plan Medicaid [id number] Self [id number] UNHC COMMUNITY PLAN XIX MC [id number] 18 [id number] UNHC AMERICHOICE XIX -HMO [id number] 18 [id number] [facility] Communty Plan Medicaid [id number] Self [id number] [facility] Communty Plan Medicaid [id number] Self [id number] [facility] (HMO) [id number] Self [id number] [facility] (HMO) [id number] Self [id number] [facility] (HMO) [id number] Self [id number] [facility] (HMO) Self [employer] [facility] Hmo Commercial Self MEDICAID [id number] SP [id number] [facility] [id number] HU2 [id number] SELF PAY UNAVAILABLE SP UNAVAILA BLE [facility] Comm Plan Medicaid F [id number] SELF [id number] [place] F [id number] SPOUSE [id number] [place] F [id number] SPOUSE [id number] N REGIONAL CLAIMS [place] -O/P [id number] 01 [id number] [place] P [id number] S [id number] [place] P [id number] S [id number] [facility] [id number] SP [id number] Managed Care - Community Plan [facility] P [id number] S [id number] Sliding Fee Scale O none S no ne Medicaid S [id number] S [id number] Managed Care - Community Plan [facility] P [id number] S [id number] Managed Care - Community Plan [facility] P [id number] S [id number] Managed Care BCBS O [id number] S [id number] Medicaid S [id number] S [id number] Managed Care - Community Plan [facility] P [id number] S [id number] [facility] I [id number] Self [id number] [employer] P [id number] S [id number] BLUE CROSS VIRAMONTES PLAN [id number] SP [id number] [facility] COMM PLAN [id number] 18 [id number] [employer]BS P [id number] S [id number] BLUE CROSS VIRAMONTES PLAN [id number] SP [id number] Problems, Conditions, and Diagnoses Code Display Name Description Problem Type Effective Dates Data Source(s) E55.9 [id number] Vitamin D deficiency Problem 11/19/2020 12:0 0:00 AM EST eCW1 ([facility]) Z98.84 [id number] H/O gastric bypass Problem 10/22/2020 12:00: 00 AM EST eCW1 ([facility]) Z86.39 [id number] Personal history of other endocrine, nutritional and metabolic disease Problem 10/22/2020 12:00:00 AM EST eCW1 [facility] J30.2 [id number] Seasonal allergies Problem 10/22/2020 12:00: 00 AM EST eCW1 ([facility]) Z98.84 S/P gastric bypass S/P gastric bypass [id number] 12:00:00 AM EDT [facility] K21.9 GERD (gastroesophageal reflux disease) G ERD (gastroesophageal reflux disease) [id number] 09/20/2020 12:00:00 AM EDT [facility] J45.909 Asthma Asthma [id number] 09/20/2020 12:00:00 AM ED T [facility] E78.5 Hyperlipidemia Hyperlipidemia [id number] 09/20/2020 12:00: 00 AM EDT [facility] I10 Hypertension Hypertension 58878724 09/20/2020 12:00:00 A M EDT [facility] E66.01 Morbid obesity Morbid obesity 58873889 09/20/2020 12:00: 00 AM EDT [facility] G47.30 Sleep apnea Sleep apnea 42671135 09/20/2020 12:00:00 AM EDT [facility] [id number] SNOMED CT Concept SNOMED CT Concept Problem 09/05 04:40:55 PM EDT YARA ([facility]) F41.9 [id number] Anxiety Problem 04/30/2020 12:00:00 AM ED T eCW1 ([facility]) E66.01 Morbid (severe) obesity due to excess ca lories Morbid (severe) obesity due to excess ca Diagnosis 09/20/2020 05:18:00 AM EDT [facility] U07.1 COVID-19 COVID-19 Diagnosis 09/15/2020 10:09:03 AM ED T [facility] R0789 Other chest pain Other chest pain Diagnosis 05/21/2020 01 :27:00 PM EDT [facility] Surgeries/Procedures Procedure Description Date Indications Data Source(s) MAMMO, screening, digital, unilateral 09/25/2020 12:00 :00 AM EST YARA ([facility]) US, breast, unilateral 09/25/2020 12:00:00 AM EST [facility] ([facility]) GLUC BLD GLUC MNTR DEV CLEARED FDA SPEC HOME USE POCT GLUCOSE Routine 09/21/2020 1:27 PM EDT 09/21/2020 05:27:00 PM EDT [facility] GLUC BLD GLUC MNTR DEV CLEARED FDA SPEC HOME USE POCT GLUCOSE Routine 09/21/2020 6:49 AM EDT 09/21/2020 10:49:00 AM EDT [facility] GLUC BLD GLUC MNTR DEV CLEARED FDA SPEC HOME USE POCT GLUCOSE Routine 09/20/2020 11:52 PM EDT 09/21/2020 03:52:00 AM EDT [facility] BLOOD COUNT COMPLETE AUTOMATED CBC Routine 09/20/2020 6:33 P M EDT 09/20/2020 10:33:00 PM EDT [facility] GLUC BLD GLUC MNTR DEV CLEARED FDA SPEC HOME USE POCT GLUCOSE Routine 09/20/2020 5:51 PM EDT 09/20/2020 09:51:00 PM EDT [facility] GLUC BLD GLUC MNTR DEV CLEARED FDA SPEC HOME USE POCT GLUCOSE Routine 09/20/2020 10:37 AM EDT 09/20/2020 02:37:00 PM EDT [facility] GASTRIC RSTCV W/BYP W/SHORT LIMB 150 CM/< Gastric Bypass for Obesity 09/20/2020 12:00:00 AM EDT YARA ([facility]) ECG ROUTINE ECG W/LEAST 12 LDS TRCG ONLY W/O I&R ECG 12-LEAD Routine 09/10/2020 12:26 PM EDT Morbid obesity 09/10/2020 04:26:00 PM EDT Morbid obesity [facility] Morbid obesity BLOOD COUNT COMPLETE AUTOMATED CBC Routine 0 12:15 PM EDT Morbid obesity 09/10/2020 04:15:00 PM EDT Morbid obesity [facility] Morbid obesity BLOOD TYPING ABO TYPE AND SCREEN Routine 09/10/2020 12:15 PM EDT Morbid obesity 09/10/2020 04:15:00 PM EDT Morbid obesity [facility] Morbid obesity THYROID STIMULATING HORMONE TSH TSH Routine 09/10/20 12:15 PM EDT Morbid obesity 09/10/2020 04:15:00 PM EDT Morbid obesity [facility] Morbid obesity HEMOGLOBIN GLYCOSYLATED A1C HEMOGLOBIN A1C Routine 09/10/2020 12:15 PM EDT Morbid obesity 09/10/2020 04:15:00 PM EDT Morbid obesity [facility] Morbid obesity COMPREHENSIVE METABOLIC PANEL COMPREHENSIVE METABOLIC PANEL Rou liz 09/10/2020 12:15 PM EDT Morbid obesity 09/10/2020 04:15:00 PM EDT Morbid obesity [facility] Morbid obesity PHYSICIAN TELEPHONE EVALUATION 11-20 MIN 03/28/2020 12 :00:00 AM EDT eCW1 ([facility]) Results ID Date Data Source VITAMIN B12 LEVEL 11/18/2020 12:00:00 AM EST eCW1 ([facility] Name Value Range Interpretation Code Description Data Holly rce(s) Supporting Document(s) [id number] VITAMIN B12 LEVEL eCW1 ([facility]) ID Date Data Source MAGNESIUM LEVEL 11/18/2020 12:00:00 AM EST eCW1 ([facility]) Name Value Range Interpretation Code Description Data Holly rce(s) Supporting Document(s) 2.1 1.8-2.4 MAGNESIUM LEVEL eCW1 ([facility]) ID Date Data Source VITAMIN D 25-HYDROXY 11/18/2020 12:00:00 AM EST eCW1 ([facility]) Name Value Range Interpretation Code Description Data Holly rce(s) Supporting Document(s) 17.0 30.0-100.0 TOTAL 25(OH) VITAMIN D eC W1 ([facility]) ID Date Data Source [id number] 11/18/2020 12:00:00 AM EST eCW1 ([facility]) Name Value Range Interpretation Code Description Data Holly rce(s) Supporting Document(s) Hemoglobin A1c/Hemoglobin.total in Blood 5.4 HEMOGLOBIN A1c eCW1 ([facility]) ID Date Data Source FERRITIN 11/18/2020 12:00:00 AM EST eCW1 ([facility]) Name Value Range Interpretation Code Description Data Holly rce(s) Supporting Document(s) [id number] FERRITIN eCW1 ([facility]) ID Date Data Source IRON (FE) 11/18/2020 12:00:00 AM EST eCW1 ([facility]) Name Value Range Interpretation Code Description Data Holly rce(s) Supporting Document(s) 75 89-223 IRON (FE) eCW1 (Critical access hospital) ID Date Data Source CBC with Differential 11/18/2020 12:00:00 AM EST eCW1 ([facility]ly [facility]) Name Value Range Interpretation Code Description Data Holly rce(s) Supporting Document(s) 5.29 4.30-6.10 RED BLOOD COUNT eCW1 ([facility]) 6.7 4.0-10.0 WHITE BLOOD COUNT eCW1 (Critical access hospital) 14.5 13.5-17.5 HEMOGLOBIN eCW1 ([facility]) 46.2 42.0-52.0 HEMATOCRIT eCW1 ([facility]) 31.4 32.0-36.5 MEAN CORPUSCULAR HGB CONC eCW1 ([facility]) 87.3 80.0-96.0 MEAN CORPUSCULAR VOLUME e CW1 ([facility]) 27.4 27.0-33.0 MEAN CORPUSCULAR HEMOGLOB IN eCW1 ([facility]) 346 150-450 PLATELET COUNT, AUTOMATED eCW1 ([facility]) 14.6 11.5-14.5 RED CELL DISTRIBUTION WID TH eCW1 ([facility]) 54.5 36.0-66.0 NEUTROPHILS % eCW1 ([facility]) 33.3 24.0-44.0 LYMPH % eCW1 (Critical access hospital) 2.2 1.5-5.0 LYMPH # eCW1 (Critical access hospital) 0.6 0.0-1.0 BASO % eCW1 (Critical access hospital) 3.6 1.5-8.5 NEUTROPHILS # eCW1 ([facility]) 7.3 0.0-5.0 MONO % eCW1 (Critical access hospital) 4.0 0.0-3.0 EOS % eCW1 (Critical access hospital) 0.3 0.0-0.5 EOS # eCW1 (Critical access hospital) 0.5 0.0-0.8 MONO # eCW1 (Critical access hospital) 0.0 0.0-0.2 BASO # eCW1 (Critical access hospital) ID Date Data Source [id number] 09/21/2020 01:29:04 PM EDT [facility] Name Value Range Interpretation Code Description Data Holly rce(s) Supporting Document(s) POC NOVA GLU 91 mg/dL (70-99) [facility] [place] [place] [facility] CL[facility]ICAL STAFF ID Date Data Source [id number] 09/21/2020 07:01:57 AM EDT [facility] Name Value Range Interpretation Code Description Data Holly rce(s) Supporting Document(s) POC NOVA GLU 118 mg/dL (70-99) H [facility] [place] [facility] ID Date Data Source [id number] 09/21/2020 12:06:49 AM EDT [facility] Name Value Range Interpretation Code Description Data Holly rce(s) Supporting Document(s) POC NOVA GLU 115 mg/dL (70-99) H [facility] [place] [place] [facility] ID Date Data Source [id number] 09/20/2020 07:26:38 PM EDT [facility] Name Value Range Interpretation Code Description Data Holly rce(s) Supporting Document(s) WBC 11.1 10*3/uL (4.1-11.0) H [facility] RBC 4.61 10*6/uL (4.60-6.10) [facility] HGB 13.0 g/dL (13.5-18.0) L [facility] HCT 38.4 % (41.0-53.0) L [facility] MCV 83.3 fL (80.0-95.0) [facility] MCH 28.2 pg (27.0-32.0) [facility] MCHC 33.8 g/dL (32.0-36.0) [facility] RDW 14.7 % (10.5-14.5) H [facility] PLT 310 10*3/uL (150-450) [facility] MPV 7.8 fL (7.1-10.7) [facility] ID Date Data Source [id number] 09/20/2020 05:53:11 PM EDT [facility] Name Value Range Interpretation Code Description Data Holly rce(s) Supporting Document(s) POC NOVA GLU 166 mg/dL (70-99) H [facility] [place] [place] [facility] ID Date Data Source [id number] 09/20/2020 10:39:01 AM EDT [facility] Name Value Range Interpretation Code Description Data Holly rce(s) Supporting Document(s) POC NOVA GLU 130 mg/dL (70-99) H [facility] [place] [place] [facility] ID Date Data Source [id number] 09/23/2020 03:18:01 PM EST [facility] LABORATORY [address] [address]Mah# Surgical Pathology ReportAccession #:[id number](s) ReceivedA: Liver biopsyClinical Diagnosis and HistoryMorbid obesityDIAGNOSISLIVER, [...] 09/23/2020Electronically Signed Out By Ramez Bledsoe MD [facility] [place] [address] 61541qimLlxexkdse component performed at [facility] [employer] [facility], Histopathology, [address] [place] [address], [id number].Reported at [facility], [address] [place] [address], [id number]. This report may includeimmunohistochemical or in-situ hybridization results. Testing wasdeveloped and the performance characteristics determined by [employer] as required by CLIA '88. The FDA hasdetermined that approval for specific use is not necessary for clinicaluse. The quality of Hematoxylin and Eosin stains and as applicable, forall immunohistochemical and/or special stains, including positive andnegative controls, were reviewed and considered appropriate.ICD codes E66.01 K76.0CPT codesA: 93850Y, 14466U, 61363X, 39111A, 53112Z Name Value Range Interpretation Code Description Data Holly rce(s) Supporting Document(s) ID Date Data Source [id number] 09/20/2020 10:21:55 AM EDT [facility] INFORMATIONPatient MRN Name Date of Age Gend*PT [id number] Mora Linn 1995 25 years M SDAPT Location Admission Date/Time Visit ID [facility] 0518 --- Skinny Felton MD([id number]) EPI ID CSN Admitting Provider [id number] Skinny Felton MD([id number])CREATION, GASTRIC BYPASS, MADHURI-EN-Y, LAPAROSCOPIC, WITH LIVER BIOPSY ProcedureNotRory Linn CSN:[id number]/30/2020Surgeon(s):KIRSTEN Oneilurgical Assist: Erica Werner, PAStaff:OR Belt Turner: JUSTIN Felixurgical Assist: LEONARDO Chacon Relief Belt Turner: Yarely Kinsey RNOR Relief Scrub: Jennifer Motta [...] a fatty liver. We covered complicationsincluding: , [place], DVT, PE, leaks, sepsis, gallbladder disease, anastomoticulcers, [...] with a blue load on a power [place] stapler at the 50 cm point. Thebiliopancreatic limb and the Madhuri limb were positioned otgo-vc-lxsi. Theintermesenteric defect between the two limbs was closed with a running 3-0 V-Locsuture. Once this was closed, an enterotomy was made in the biliopancreatic limband then in the Madhuri limb. The 60-mm [place] stapler with a blue load wasinserted into [...] angle ofHis was dissected out with a [place] grasper behind the hiatus, exposing theleft laurent. [...] done, the anastomosis wastested for leaks. My employment assistant clamped across the Madhuri limb with the bowel clampwhile I passed the endoscope into the esophagus, into the pouch, and into theRoux limb. I insufflated with air and my employment assistant irrigated over theanastomosis with normal saline. [...] rce(s) Supporting Document(s) ID Date Data Source [id number] 09/20/2020 08:19:20 AM EDT [facility] NT INFORMATIONPatient MRN Name Date of Age Gend*PT [id number] Mora Linn M 1995 25 years M SDAPT Location Admission Date/Time Visit ID Attending Provider --- --- --- --- EPI ID CSN Admitting Provider [id number] ---AirwayPatient location during procedure: ORUrgency: electiveDifficult airway: [...] cmPlacement verified by: chest auscultation and + [id number]: equal breath sounds bilateralGrade view: grade IIa - partial view of glottis Name Value Range Interpretation Code Description Data Holly rce(s) Supporting Document(s) ID Date Data Source [id number] 09/20/2020 07:24:10 AM EDT [facility] NT INFORMATIONPatient MRN Name Date of Age Gend*PT [id number] Mora Linn 1995 25 years M SDAPT Location Admission Date/Time Visit ID [facility]18 --- Skinny Felton MD([id number]) EPI ID CSN Admitting Provider [id number] Skinny Felton MD([id number])H&P reviewed. The patient was examined and there are no changes to the H&P.Skinny Felton MD7:24 AM Name Value Range Interpretation Code Description Data Holly rce(s) Supporting Document(s) ID Date Data Source [id number] 09/15/2020 10:10:00 AM EDT [facility] Name Value Range Interpretation Code Description Data Holly rce(s) Supporting Document(s) SARS coronavirus 2 RNA [facility] This lab was ordered by [facility] and reported by [employer] ID Date Data Source [id number] 09/16/2020 08:09:17 AM EDT [facility] Name Value Range Interpretation Code Description Data Holly rce(s) Supporting Document(s) SARS-COV-2 IMMANUEL Lab [facility] Not DetectedReference range: Not Detecte d This nucleic acid amplification test was developed and its performance characteristics determined by [employer]. Nucleic acid amplification tests include PCR and [...] detected) result in this assay. Performed At: [address] [id number] Maurilio Urrutia MD Ph:[phone] ID Date Data Source [id number] 09/10/2020 02:35:24 PM EDT [facility] Name Value Range Interpretation Code Description Data Holly rce(s) Supporting Document(s) EKG [facility] VNTYUi8zYvLQNmGux8AtDyDvALXdPS0ykii4U2A7lJLyC3VdbBEjn5mbM3IuQ6ObSAVlNQEYXW3CgLSu jb2 [file] 8mi42tZK5H4jgN81/Pzo+/Gx19qzA6HD2/30wR405Wr8/uf5l+/vn77r7e52wW330QZx3/v7v/Y/rpn3 udzE/fTE+Ea3xccD8z361PKkeCHc6d/O2Xr/guh0dbW1/zqL0m8IfiCXko+NN7lC+fYWWUx/nt/1C4vo s8epT0ql7BhdgCUoC1gr5olGQCjCFzF5FTraVfS94i sqlWsdL+gt39r/vKa8mEBA1g9Fcn6s/Ec11Zko4pLg9sqfGA+0YTf7e/aVylIHpqf3Ur5yMMsVgDlvlE gKUL8AClO0rXxw9//JD4pc59ik1V+44Z0A1H3S/6xD+9/u8oW2J/SKrlzB5BK89n6o//c/sRE6dlzIwH vcXey+zLra2oF+5upl/+XGJ/pWr0Dh05pXWR3AgRSm hf0Fhkre+lvIgEEmUPr0qvsFVk1D7IkF9tTh/ZE4IfSmfg5+bCeGLXLfWg71j5L0qT1F/lab scientist/990GzPbZ [file] BuPXBJX3Ysi0ExZTDzBBNKJw1+GlG3JLZ8jDDxXrl8JkGlZVjySOIAFv== ID Date Data Source [id number] 09/10/2020 12:25:50 PM EDT [facility] NT INFORMATIONPatient MRN Name Date of Age Gend*PT [id number] Mora Linn 1995 25 years M OPPT Location Admission Date/Time Visit ID Attending Provider --- --- --- Skinny Felton MD([id number]) EPI ID CSN Admitting Provider [id number] ---HISTORY PHYSICALName: Mora Linn : 1995 Sex: male [facility] Physician: Dr. FeltonInformant: The patient who is [...] PANENDOSCOPY SKIN BIOPSYALLERGIES:AllergiesAllergen Reactions Benadryl [Diphenhydramine] Hives Stanislaus Other (See Comments) Tongue Hinds Concerta [Methylphenidate [...] warm and dry.HEENT: He is normocephalic, atraumatic. [place] conjunctivae. Anicteric sclerae.Pupils are equal, round, reactive [...] hepatosplenomegaly. Negative CVAT.GENITAL/RECTAL: Deferred.MUSCLE/SKELETAL: Strength is 5/5. Barrel Waterer are equal.NEUROLOGICALLY: Cranial nerves II through XII [...] may be prolonged greaterthan previously anticipated.ALLERGIES:Benadryl [diphenhydramine]; Stanislaus; Concerta [methylphenidate hcl er(cd)]; and Depakote [divalproex sodium]09/10/2020 12:25 PMLylisa Martines, NPThis document or parts of this document, were dictated using [employer] speaking software. A reasonable attempt at proofreading has beenmade to minimize errors. Please call with any questions or corrections. Name Value Range Interpretation Code Description Data [facility](s) Supporting Document(s) ID Date Data Source [id number] 09/10/2020 08:10:23 PM EDT [facility] Name Value Range Interpretation Code Description Data [facility] Supporting Document(s) HEMOGLOBIN A1C @ 5.7 % (4.0-6.0) [facility] Performed using [employer] OANDAassa y.Care must be taken when interpreting WvP6dwegpxvk in patients with a hemoglobin variantor decreased erythrocyte lifespan. Values 5.7 - 6.4% suggest prediabetes.Values >=6.5% are diagnostic for diabetes.REFERENCE: DIABETES CARE 2018: 41(S13-S27). EST AVERAGE GLUCOSE 117 mg/dL [facility] ID Date Data Source [id number] 09/10/2020 08:04:21 PM EDT [facility] Name Value Range Interpretation Code Description Data Holly rce(s) Supporting Document(s) TSH,ULTRASENSITIVE @ 2.540 mIU/L (0.360-4.170) [facility] ID Date Data Source [id number] 09/10/2020 08:04:21 PM EDT [facility] Name Value Range Interpretation Code Description Data Holly rce(s) Supporting Document(s) SODIUM 139 mmol/L (136-145) [facility] POTASSIUM 4.8 mmol/L (3.6-5.2) [facility] CHLORIDE 105 mmol/L (100-108) [facility] CO2 28 mmol/L (22-31) [facility] ANION GAP 6 mmol/L (7-16) L [facility] UREA NITROGEN 10 mg/dL (7-24) [facility] CREATININE 0.96 mg/dL (0.80-1.30) [facility] BUN/CREAT RATIO 10.4 RATIO (10.0-20.0) [facility] GLUCOSE 99 mg/dL (70-99) [facility] CALCIUM 9.0 mg/dL (8.4-10.2) [facility] TOTAL PROTEIN 7.3 g/dL (6.4-8.2) [facility] ALBUMIN 3.7 g/dL (3.5-4.6) [facility] GLOBULIN 3.6 g/dL (2.7-4.3) [facility] ALB/GLOB RATIO 1.0 RATIO [facility] ALKALINE PHOSPHATASE 92 U/L (45-117) [facility] BILIRUBIN,TOTAL 0.3 mg/dL (0.0-1.0) [facility] PLEASE NOTE:Total bilirubin results may be falselyelevated in patients taking Eltrombopag. AST (SGOT) 19 U/L (11-39) [facility] ALT (SGPT) 45 U/L (12-78) [facility] GFR >60 ml/min/1.73m2 (>59) [facility] GFR ( AMER) >60 ml/min/1.73m2 (>59) [facility] GFR INTERPRETATION [facility] --NORMAL KIDNEY FUNCTION OR MILD DISEASE - GFR >OR= 60CHRONIC KIDNEY DISEASE - GFR 15 - 59RENAL FAILURE - GFR <15 Est. GFR calculation based on the MDRDstudy equation, which assumes a steadystate for creatinine. Est. GFR should notbe used for medication dosing. ID Date Data Source [id number] 09/10/2020 06:59:27 PM EDT [facility] Name Value Range Interpretation Code Description Data Holly rce(s) Supporting Document(s) WBC 6.4 10*3/uL (4.1-11.0) [facility] RBC 4.96 10*6/uL (4.60-6.10) [facility] HGB 13.8 g/dL (13.5-18.0) [facility] HCT 42.0 % (41.0-53.0) [facility] MCV 84.6 fL (80.0-95.0) [facility] MCH 27.7 pg (27.0-32.0) [facility] MCHC 32.8 g/dL (32.0-36.0) [facility] RDW 14.9 % (10.5-14.5) H [facility] PLT 319 10*3/uL (150-450) [facility] MPV 8.1 fL (7.1-10.7) [facility] ID Date Data Source [id number] 09/10/2020 03:26:34 PM EDT [facility] SPEC EXP DATE 09/21/2020PATI ENT ABO/Rh A POSITIVEANTIBODY SCREEN NEGATIVETESTING SITE PERFORMED AT [address] [place] [address] Name Value Range Interpretation Code Description Data Holly rce(s) Supporting Document(s) TYPE AND SCREEN [facility] PATIENT ABO/Rh A POSITIVE ID Date Data Source [id number] 07/04/2020 12:00:00 AM EDT [facility] Name Value Range Interpretation Code Description Data Holly rce(s) Supporting Document(s) SARS coronavirus 2 RNA [Presence] in Res piratory specimen by IMMANUEL with probe detection [facility] This lab was ordered by Ramone Smith and reported by [employer]. ID Date Data Source [id number] 05/22/2020 12:53:00 PM EDT [facility] [address] [place] [address] PHONE: [phone] FAX: [phone] Name .................. : KAVEH Box Acct Number.................. : [id number] ROOM. ................. : TR-03 MR Number ................... : [id number] Stay type ............. : E/R Discharge Date......... ... : Admit Date ......... : 05/21/20 Admit Phys .................... : RAMSES STEVEN Date of ....... : 1995 Family Phys ................... : [employer] Phone .................. : [phone] Age ................................ : 25 Film# .................. .:[id number] Sex ................................. : M Unsigned transcriptions are preliminary reports and do not represent a medical or legal document CHEST PORTABLE [id number] COMPLETE:05/21/20 14:10 [facility] [id number] Reason(s): Chest Pain PORTABLE CHEST, 05/21/20: INDICATION: [...] By ZACHARY ARZOLA MD , 05/22/20 12:53, [facility] Transcribe Initials: [facility], Transcribe Date: 05/21/20 14:49, Dictation Date: Copy for: RAMSES Rodriguez via fax Copy for: [place] [facility] [place] for: 710 MED REC DISCHARGED Page 1 of 1 Name Value Range Interpretation Code Description Data Holly rce(s) Supporting Document(s) ID Date Data Source [id number] 05/21/2020 08:45:00 [place] [address] PHONE: [phone] FAX: [phone] Name ..............: KAVEH Box Acct Number ...........................: [id number] ROOM. ............: TR-03 MR Number ............................: [id number] Stay type.........: E/R Discharge Date...............:05/21/20 Admit Date .....: 05/21/20 Admit Phys .............................: RAMSES STEVEN Date of ..: 1995 Family Phys ...........................: [employer] Phone..............: [phone] Age.................................:25 Film# ...............:[id number] Sex.................................:M Unsigned transcriptions are preliminary reports and do [place] [id number] COMPLETE:05/21/20 14:33 [place] [address] Please See Scanned Results. Name Value Range Interpretation Code Description Data Holly rce(s) Supporting Document(s) ID Date Data Source [id number] 05/21/2020 01:27:00 PM EDT [facility] 1 OrderSheet [facility] Emergency Department [address] [place] [address] Phone #: ext- [phone] 05/21/2020 13:27 Patient: MORA LINN Sex: M : 1995 Age: 25yWEIGHT:122.0 kg (M) HEIGHT:62 inches (S) BMI:49.2ALLERGIES: Benadryl, Stanislaus, Concerta, DepakoteCHIEF COMPLAINT: chest painDIAGNOSIS: Atypical chest [...] 13:44 05/21/2020 13:47 ArjunChewable 81 mg Anjum Luz R.N.324 mg (NOW x1)Acetaminophen 1 g 14:20 05/21/2020 14:23 ArjunPO X1 dose: 1000 Anjum Luz R.N.mg (NOW x1)Toradol IVP 30 mg 15:01 05/21/2020 15:19 Arjun(NOW x1) Anjum RODRIGUEZ; Sukh AntoineGENERAL ORDERSOrder Description Priority Entered Acknowledged Initialed 2 OrderSheet [facility] Emergency Department [address] [place] [address] Phone #: [phone] ext- [phone] 05/21/2020 13:27 Patient: MORA LINN Sex: M : 1995 Age: 25yCardiac Monitor 13:44 05/21/2020 13:46 Arjun(continuous) Anjum RODRIGUEZ; Sukh AntoineBlood Pressure 13:44 05/21/2020 13:46 Arjun,Monitor Anjum RODRIGUEZ; Sukh AtnoineEKG 13:44 05/21/2020 13:46 Anjum Díaz; Sukh AntoinePulse Oximetry 13:44 05/21/2020 13:46 ArjunContinuous Anjum RODRIGUEZ; Sukh AntoineSaline Lock 13:44 05/21/2020 13:46 Anjum Díaz; Sukh Antoine[Electronically signed by Sukh Díaz R.N. (15:05/21/2020)][Electronically signed by Anjum Pearce (15:36 05/21/2020)][Electronically locked by Sukh Díaz R.N. (15:05/21/2020)] Name Value Range Interpretation Code Description Data Holly rce(s) Supporting Document(s) ID Date Data Source [id number] 05/21/2020 01:27:00 PM EDT [facility] 1 Medication Reconciliation Report [facility] Emergency Department [address] [place] [address] Phone #: ext- [phone] 05/21/2020 13:27 Patient: MORA LINN Sex: M : 1995 Age: 25yWeight: 122.0 kgHeight/Length: 62 in.BMI: 49.2ALLERGIES: Benadryl, Stanislaus, Concerta, DepakoteThe patient's Home Medications are listed [...] Dispense 15tablet. Refills: 0. Substitution permitted.Pharmacy - [facility] - [id number] [facility] ; [place] [address]. . -- JENNIFER Mccormick Name Value Range Interpretation Code Description Data Holly rce(s) Supporting Document(s) ID Date Data Source [id number] 05/21/2020 01:27:00 PM EDT [facility] 1 Medication Administration Record [facility] Emergency Department [address] [place] [address] Phone #: ext- [phone] 05/21/2020 13:27 Patient: MORA LINN Sex: M : 1995 Age: 25yWeight: 122.0 kgHeight/Length: 62 inBMI: 49.2ALLERGIES: Concerta, Benadryl, Stanislaus, Depakote Date/Time Medication Administered Medication OrderedGiven ASPIRIN CHEWABLE 81 MG [PO] Aspirin PO Chewable 81 mg 25469:47 05/21/2020 Dose: 81 mg Tablets PO mg [...] rce(s) Supporting Document(s) ID Date Data Source [id number] 05/21/2020 01:27:00 PM EDT [facility] 1 General Instructions [facility] Emergency Department [address] [place] [address] Phone #: ext- [phone] 05/21/2020 13:27 Patient: MORA LINN Sex: M [...] Dispense 15tablet. Refills: 0. Substitution permitted.Pharmacy - [facility] - [address] [facility] ; [place] [address]. .Follow- up:Follow up with your healthcare provider [...] to plan of care. 2 General Instructions [facility] Emergency Department [address] [place] [address] Phone #: ext- [phone] 05/21/2020 13:27 Patient: [...] the large artery coming 3 General Instructions [facility] Emergency Department [address] [place] [address] Phone #: ext- [phone] 05/21/2020 13:27 Patient: MORA LINN Sex: M : 1995 Age: 25y out of the [...] better within 24 hours, or as advised.Call [phone] if any of these occur: A change [...] Swelling, pain or redness in one leg [phone] [employer] [place] [address]. All rights reserved. This information is not intended as asubstitute for professional medical care. Always follow your healthcare professional's instructions.Chest Wall Strain (Child)Injury can overstretch a muscle on the front or back of the chest wall. This is called a chest wallstrain. In children, the injury may occur during play or sports. It may also happen during repeated 4 General Instructions [facility] Emergency Department [address] [place] [address] Phone #: ext- [phone] 05/21/2020 13:27 Patient: MORA LINN Sex: M : 1995 Age: 25ycoughing or when lifting a heavy object. Symptoms include sharp pain and soreness. However, noserious injury or permanent damage is present.Muscle strain can be treated with kooe-ypq-dbmnfqe or prescription medicine for pain andswelling. Pain [...] or pain gets worse and not better 2098-[address] [employer] [place] [address]. All rights reserved. This information is not intended as asubstitute for professional medical care. Always follow your healthcare professional's instructions. 5 General Instructions [facility] Emergency Department [address] [place] [address] Phone #: ext- [phone] 05/21/2020 13:27 Patient: MORA LINN Sex: M : 1995 Age: 25yYou have been given the following additional information:Chest Pain, Uncertain CauseChest Wall Strain (Child)No strenuous activity until better. Rest at home f or one days. Do not work for two days.(Electronically signed by JENNIFER Mccormick 05/21/2020 15:36) Name Value Range Interpretation Code Description Data Holly rce(s) Supporting Document(s) ID Date Data Source [id number] 05/21/2020 01:27:00 PM EDT [facility] 1 Clinical Report - Nurses [facility] Emergency Department [address] [place] [address] Phone #: ext- [phone] 05/21/2020 13:27 Patient: [...] or confirmed signs of infection present. --13: HammadFebruary, R.N.13:29 05/21/20. BP: 144/91. MAP: 108. HR: 88. RR: 20. O2 saturation: 97%. Temp: 98.5 F (oral). Painlevel now: 05/31. --13:34 05/21/20 Hammad Nicolette R.N.Weight: 122 kg measured. Height/Length: 62 inches Per Patient. BMI: 49.2. --13:29 05/21/20 Hammad FebruaryR.N.MedicationstraZODone HCl Oral. --13:30 05/21/20, February, R.N. Famotidine Oral. --13:05/21/20February, R.N. Lexapro Oral. --13:05/21/20February, R.N.AllergiesCitrus. --13:05/21/20February, R.N.Benadryl.(hives) --13:05/21/20February, R.N.Concerta.(rash) --13:05/21/20, February, R.N.Depakote.(rash) --13:05/21/20February, R.N.The following entry was struck and corrected by Nicolette Cueva RCarlos, 13:32 (05/21/20) Reason for correction -other(correction). Depakote. --13:05/21/20 Mirandafebruary, R.N. .PROBLEMS:Chronic Headache.Back Pain.Anxiety Reaction.ADD - Attention Deficit Disorder.Migraine Headache.Sleep Apnea. 2 Clinical Report - Nurses [facility] Emergency Department [address] [place] [address] Phone #: ext- [phone] 05/21/2020 13:27 Patient: MORA LINN Sex: Charu : 1995 Age: 25y Depression. --13:31 05/21/20 Hammad, Nicolette, R.N. ADDITIONAL SURGERIES: Left ankle. Right ankle surgery. --13:32 05/21/20, February, R.N. Left eye. --13:32 05/21/20 Miranda, February, R.N. History SOCIAL HX: Never smoker. [...] Díaz R.N. 3 Clinical Report - Nurses [facility] Emergency Department [address] [place] [address] Phone #: [phone] 05/21/2020 13:27 Patient: MORA LINN Sex: M : 1995 Age: 25yNURSING PROGRESS NOTESCardiac monitor, NIBP monitor and pulse oximeter placed on patient; monitor alarms on. Patient gowned.Head of bed elevated. Two patient identifiers checked. Bed placed in lowest position. Brakes of bed on.Patient ready for evaluation- PA notified. --13:34 05/21/20 Hammad NicoletteArash EKG time: (13:32 05/21/2020). EKG was performed [...] learning barriers present. Written instructions provided in Lao. The patient was discharged by the physician employment assistant. He was discharged home and accompanied by chief of vital statistics. He left ambulatory and via private vehicle. Patient driving. --15:21 05/21/20 Sukh Díaz R.N. 15:20 05/21/20. BP: 122/72. MAP: 88. HR: 72. RR: 18. O2 saturation: deferred. Temp: deferred. Pain level now: 01/29. --15:21 05/21/20 Sukh Díaz R.N.Locked/Released at 05/21/2020 15:21 by Sukh Díaz R.N. Name Value Range Interpretation Code Description Data Holly rce(s) Supporting Document(s) ID Date Data Source [id number] 05/21/2020 01:27:00 PM EDT [facility] 1 Clinical Report - Physicians/Mid Levels [facility] Emergency Department [address] [place] [address] Phone #: [phone]- [phone] 05/21/2020 13:27 Patient: [...] ankle surgery. 2 Clinical Report - Physicians/Mid [facility] Emergency Department [address] [place] [address] Phone #: ext- [phone] 05/21/2020 13:27 Patient: MORA LINN Sex: M : 1995 Age: 25y Medications: Lexapro Oral. Famotidine Oral. traZODone HCl Oral. Allergies: Benadryl.(hives) [place]. Concerta.(rash) Depakote.(rash).SOCIAL HISTORYNever smoker. Occasional alcohol use. [...] computer reading of the EKG. Interpretation time: 13:38005/21/2020. 3 Clinical Report - Physicians/Mid Levels [facility] Emergency Department [address] [place] [address] Phone #: ext- [phone] 05/21/2020 13:27 Patient: [...] (6.3 - 8.2) 4 Clinical Report - Physicians/[facility] Emergency Department [address] [place] [address] Phone #: [phone]- [phone] 05/21/2020 13:27 Patient: [...] Male GFR Interprentation 20-49 yrs >60 mL/min [id number] yrs >56 mL/min Normal 60-69 yrs >49 mL/min Normal 70-79yrs>42 mL/min Normal 80 and above >35 mL/min Normal Female GFRInterpretation 20-39 yrs >60 mL/min Normal 40-49 yrs >58 mL/minNormal 50-59 yrs >51 mL/min Normal 60-69 yrs >45 mL/min [id number] yrs >39 mL/min Normal 80 and above >32 mL/min NormalD-Dimer: (JAELYN: 05/21/2020 14:00) ( [facility] 05/21/[place] 14:27) Final results Test Result Flag Units (Reference) D-DIMER QUANT <0.27 ug/mL (0.27 - 0.50)Troponin-T: (JAELYN: 05/21/2020 14:00) ( [facility] 05/21/2020 14:31) Final results Test Result Flag Units (Reference) TROPONIN T <0.01 NG/ML (0.00 - 0.10) TROPONIN T0.1 ng/ml Recommended as the clinical threshold value forTroponin T.EKG: (JAELYN: 05/21/2020 13:44) ( [facility] 05/21/2020 14:36) In [facility] Portable 1 View: (JAELYN: 05/21/2020 13:44) ( [facility] 05/21/2020 14:50) [facility] PORTABLEReason(s): Chest PainTRANSPORTATION: P IV? O2? Oxygen?(No) Room: ED Exam CHEST PORTABLE [facility] [address] [place] [address] PHONE: [phone] FAX: [phone] Name .................. : KAVEH Box Acct Number.................. : [id number] ROOM. ................. : TR-03 MR Number ................... : [id number] Stay type ............. : E/R Discharge Date......... ... : Admit Date ......... : 05/21/20 Admit Phys .................... : RAMSES STEVEN Date of ....... : 1995 Family Phys ................... : [employer] Phone .................. : [phone] Age ................................ : 25 Film# .................. .:[id number] Sex ................................. : M Unsigned transcriptions are preliminary reports and do not represent a medical or legal document CHEST PORTABLE [id number] COMPLETE:05/21/20 14:10 BE [id number] Reason(s): Chest Pain 5 Clinical Report - Physicians/Mid Levels [facility] Emergency Department [address] [place] [address] Phone #: ext- [phone] 05/21/2020 13:27 Patient: [...] Reviewed and Signed By DCTNAME , SIGNDATE, [facility] Transcribe Initials: SSR, Transcribe Date: 05/21/20 [...] pain 6 Clinical Report - Physicians/Mid Levels [facility] Emergency Department [address] [place] [address] Phone #: ext- [phone] 05/21/2020 13:27 Patient: [...] tablet. Refills: 0. Substitution permitted. Pharmacy - [id number] [id number] ; [place] [address]. . Follow-up: Follow up with your healthcare [...] rce(s) Supporting Document(s) ID Date Data Source [id number] 05/21/2020 02:45:00 PM EDT [facility] Name Value Range Interpretation Code Description Data Holly rce(s) Supporting Document(s) COMPREHENSIVE METABOLIC PANEL [facility] COMPREHENSIVE METABOLIC PANEL Sodium [Moles/volume] in Serum or Plasma 141 mEq/L 134 - 153 [facility] Potassium [Moles/volume] in Serum or Plasma 4.4 mEq/L 3.6 - 5.0 [facility] Chloride [Moles/volume] in Serum or Plasma 103 mEq/L 98 - 107 [facility] Carbon dioxide, total [Moles/volume] in Serum or Plasma 27 MEQ/L 22 - 30 [facility] Glucose [Mass/volume] in Serum or Plasma 121 MG/DL 65 - 110 H [facility] BUN 8 MG/DL 7 - 21 [facility] al Creatinine [Mass/volume] in Serum or Plasma 0.9 MG/DL 0.7 - 1.5 [facility] BUN/CREAT 9 8 - 27 [facility] Protein [Mass/volume] in Serum or Plasma 7.1 G/DL 6.3 - 8.2 [facility] Albumin [Mass/volume] in Serum or Plasma 4.3 G/DL 3.9 - 5.0 [facility] Globulin [Mass/volume] in Serum by calculation 2.8 GM/DL 2.4 - 3.2 [facility] A/G RATIO 1.5 0.8 - 2.0 [facility] Calcium [Mass/volume] in Serum or Plasma 9.5 MG/DL 8.4 - 10.2 [facility] Bilirubin.total [Mass/volume] in Serum or Plasma <0.7 MG/DL 0.2 - 1.3 [facility] Alkaline phosphatase [Enzymatic activity/volume] in Serum or Plasma 80 U/L 38 - 126 [facility] Aspartate aminotransferase [Enzymatic activity/volume] in Serum or Plasma 27 U/L 5 - 40 [facility] Alanine aminotransferase [Enzymatic activity/volume] in Seru m or Plasma 40 U/L 7 - 56 [facility] Anion gap 3 in Serum or Plasma 11.0 mmol/L 8.0 - 16.0 [facility] AGE 25 yrs [facility] al NON-AA GFR >60 mL/min [facility] ital AFR AMER GFR >60 mL/min [facility] Ho spital Male GFR In terprentation [...] >32 mL/min Normal ID Date Data Source [id number] 05/21/2020 02:41:00 PM EDT [facility] Name Value Range Interpretation Code Description Data Holly rce(s) Supporting Document(s) CBC W/AUTOMATED DIFF [facility] COMPLETE BLOOD COUNT Leukocytes [#/volume] in Blood by Automated count 6.3 10^3/uL 4.2 - 1 1.0 [facility] Erythrocytes [#/volume] in Blood by Automated count 5.02 10^6/uL 4. 50 - 6.30 [facility] Hemoglobin [Mass/volume] in Blood 13.6 g/dL 14.0 - 16.0 L [facility] Hematocrit [Volume Fraction] of Blood by Automated count 42.0 % 4 1.0 - 51.0 [facility] Erythrocyte mean corpuscular volume [Entitic volume] by Auto mated count 83.7 fL 80.0 - 94.0 [facility] Erythrocyte mean corpuscular hemoglobin [Entitic mass] by Automated count 27.1 pg 27.0 - 34.0 [facility] Erythrocyte mean corpuscular hemoglobin concentration [Mass/volume] by Automated count 32.4 g/dL 31.0 - 36.0 [facility] Erythrocyte distribution width [Ratio] by Automated count 14.1 % 11.5 - 14.8 [facility] Platelets [#/volume] in Blood by Automated count 239 10^3/uL 150 - 45 0 [facility] Platelet mean volume [Entitic volume] in Blood by Automated count 10.6 fL 7.4 - 10.4 H [facility] Neutrophils/100 leukocytes in Blood by Automated count 63.0 % 37. 0 - 80.0 [facility] Lymphocytes/100 leukocytes in Blood by Manual count 27.5 % 25.0 - 40.0 [facility] Monocytes/100 leukocytes in Blood by Automated count 6.8 % 3.0 - 8.0 [facility] Eosinophils/100 leukocytes in Blood by Automated count 1.6 % 0.0 - 7.0 [facility] Basophils/100 leukocytes in Blood by Automated count 0.8 % 0.0 - 2.0 [facility] %IG 0.3 % 0.0 - 0.0 H [facility] al %NRBC 0.0 % 0.0 - 0.0 [facility] Neutrophils [#/volume] in Blood by Automated count 3.98 10^3/uL 2.00 - 6.90 [facility] Lymphocytes [#/volume] in Blood by Automated count 1.74 10^3/uL 0.60 - 3.40 [facility] Monocytes [#/volume] in Blood by Automated count 0.43 10^3/uL 0.00 - 0.90 [facility] Eosinophils [#/volume] in Blood by Automated count 0.10 10^3/uL 0.00 - 0.70 [facility] Basophils [#/volume] in Blood by Automated count 0.05 10^3/uL 0.00 - 0.20 [facility] #IG 0.02 10^3/uL 0.00 - 0.10 [facility] H ospital #NRBC 0.00 10^3/uL 0.00 - 0.00 [facility] H ospital MANUAL DIFF NOT INDICATED [facility] RBC MORPH MORPH IS NORMAL [facility] { SICKLE CELL (NORMAL: NONE SEEN ) Platelet adequacy [Presence] in Blood by Light microscopy CL UMPED NORMAL: NORMAL [facility] COMMENT: ID Date Data Source [id number] 05/21/2020 02:31:00 PM EDT [facility] Name Value Range Interpretation Code Description Data Holly rce(s) Supporting Document(s) TROPONIN T <0.01 NG/ML 0.00 - 0.10 [facility] ospital TROPONIN T0.1 ng/ml Recommended as the c linical threshold value forTroponin T. ID Date Data Source [id number] 05/21/2020 02:27:00 PM EDT [facility] Name Value Range Interpretation Code Description Data Holly rce(s) Supporting Document(s) Fibrin D-dimer FEU [Mass/volume] in Platelet poor plasma <0. 27 ug/mL 0.27 - 0.50 [facility] ID Date Data Source LIPID PANEL (CARDIAC RISK) 01/31/2020 12:00:00 AM EDT [facility] ( [facility]) Name Value Range Interpretation Code Description Data Holly rce(s) Supporting Document(s) Cholesterol [Moles/volume] in Serum or Plasma 181 <200 CHOLESTEROL LEVEL W ([facility]) Cholesterol in LDL [Mass/volume] in Serum or Plasma by calculation 61 <100 LDL CHOLESTEROL eCW1 ([facility]) Triglyceride [Mass/volume] in Serum or Plasma by calculation 344 <150 TRIGLYCERIDES LEVEL eCW1 ([facility]) Cholesterol in HDL [Moles/volume] in Serum or Plasma 51 >40 HDL CHOLESTEROL eCW1 ([facility]) 130 NON-HDL-C eCW1 (Critical [facility] hospital) 3.549 <5 CHOLESTEROL RISK RATIO eCW1 ([facility]) ID Date Data Source FREE T4 & TSH PANEL 01/31/2020 12:00:00 AM EDT eCW1 ([facility]) Name Value Range Interpretation Code Description Data Holly rce(s) Supporting Document(s) 1.930 0.358-3.740 THYROID STIMULATING HORM ONE eCW1 ([facility]) 1.46 0.76-1.46 FREE T4 eCW1 ([facility]) ID Date Data Source Comprehensive Metabolic Profile (CMP) 01/31/2020 12:00:00 AM EDT eCW1 ([facility]) Name Value Range Interpretation Code Description Data Holly rce(s) Supporting Document(s) 115 70-100 GLUCOSE, FASTING eCW1 (Critical access hospital) 0.81 0.70-1.30 CREATININE FOR GFR eCW1 ([facility]) 10 7-18 BLOOD UREA NITROGEN eCW1 ([facility]) 4.3 3.5-5.1 POTASSIUM SERUM eCW1 ([facility]) 139 136-145 SODIUM LEVEL eCW1 ([facility]) > 60.0 >60 GLOMERULAR FILTRATION RATE eCW 1 ([facility]) 106 98-107 CHLORIDE LEVEL eCW1 ([facility]) 27 21-32 CARBON DIOXIDE LEVEL eCW1 (Critical [facility] hospital) 25 7-37 AST/SGOT eCW1 ([facility]) 84 45-117 ALKALINE PHOSPHATASE eCW1 (Critical access hospital) 8.6 8.5-10.1 CALCIUM LEVEL eCW1 ([facility]) 53 12-78 ALT/SGPT eCW1 (Critical access hospital) 3.5 3.2-5.2 ALBUMIN eCW1 (Critical access hospital) 0.97 1.00-1.93 ALBUMIN/GLOBULIN RATIO eCW1 ([facility]) 7.1 6.4-8.2 TOTAL PROTEIN eCW1 ([facility]) 0.2 0.2-1.0 BILIRUBIN,TOTAL eCW1 ([facility]) Procedure Social History Code Duration Value Status Description Data Source(s ) Smoking 11/18/2020 12:00:00 AM EST Never Smoker completed Never S moker eCW1 ([facility]) Smoking 10/22/2020 12:00:00 AM EST Never Smoker completed Never S moker eCW1 ([facility]) Smoking 10/22/2020 12:00:00 AM EST Never Smoker completed Never S moker eCW1 ([facility]) Smoking 10/22/2020 12:00:00 AM EST Never Smoker completed Never S moker eCW1 ([facility]) Smoking 10/22/2020 12:00:00 AM EST Never Smoker completed Never S moker eCW1 ([facility]) Smoking 10/22/2020 12:00:00 AM EST Never Smoker completed Never S moker eCW1 ([facility]) Alcohol intake 09/20/2020 12:00:00 AM EDT Yes completed [facility] Smoking 09/20/2020 12:00:00 AM EDT Never smoker completed Never s moker [facility] Smoking 09/12/2020 12:00:00 AM EDT Never Smoker completed Never S moker eCW1 ([facility]) Smoking 09/12/2020 12:00:00 AM EDT Never Smoker completed Never S moker eCW1 ([facility]) Smoking 09/12/2020 12:00:00 AM EDT Never Smoker completed Never S moker eCW1 ([facility]) Smoking 09/12/2020 12:00:00 AM EDT Never Smoker completed Never S moker eCW1 ([facility]) Smoking 09/12/2020 12:00:00 AM EDT Never Smoker completed Never S moker eCW1 ([facility]) Alcohol intake 09/10/2020 12:00:00 AM EDT Yes completed [facility] Smoking 09/10/2020 12:00:00 AM EDT Never smoker completed Never s moker [facility] Smoking 04/30/2020 12:00:00 AM EDT Never Smoker completed Never S moker eCW1 ([facility]) Smoking 04/30/2020 12:00:00 AM EDT Never Smoker completed Never S moker eCW1 ([facility]) Smoking 04/30/2020 12:00:00 AM EDT Never Smoker completed Never S moker eCW1 ([facility]) Smoking 04/30/2020 12:00:00 AM EDT Never Smoker completed Never S moker eCW1 ([facility]) Smoking 04/30/2020 12:00:00 AM EDT Never Smoker completed Never S moker eCW1 ([facility]) Smoking 04/30/2020 12:00:00 AM EDT Never Smoker completed Never S moker eCW1 ([facility]) Smoking 04/30/2020 12:00:00 AM EDT Never Smoker completed Never S moker eCW1 ([facility]) Smoking 04/30/2020 12:00:00 AM EDT Never Smoker completed Never S moker eCW1 ([facility]) Vital Signs ID Date Data Source UNK Name Value Range Interpretation Code Description Data Source(s) Diastolic blood pressure 80 mm[Hg] 80 mm[Hg] eCW1 ([facility]) Systolic blood pressure 120 mm[Hg] 120 mm[Hg] e CW1 ([facility]) Body temperature 96.5 [degF] 96.5 [degF] eCW1 ( [facility]) Respiratory rate 18 /min 18 /min eCW1 ([facility]) Heart rate 120 /min 120 /min eCW1 ([facility]) Body mass index (BMI) [Ratio] 38.94 kg/m2 38.94 kg/m2 W1 ([facility]) Body height 65 [in_i] 65 [in_i] W1 ([facility]) Body weight 234 [lb_av] 234 [lb_av] eCW1 ([facility]) Diastolic blood pressure 78 mm[Hg] 78 mm[Hg] eCW1 ([facility]) Systolic blood pressure 122 mm[Hg] 122 mm[Hg] e CW1 ([facility]) Body temperature 97.4 [degF] 97.4 [degF] eCW1 ( [facility]) Respiratory rate 18 /min 18 /min eCW1 ([facility]) Heart rate 89 /min 89 /min eCW1 ([facility]) Body mass index (BMI) [Ratio] 40.37 kg/m2 40.37 kg/m2 W1 ([facility]) Body height 65 [in_i] 65 [in_i] eCW1 ([facility]) Body weight 242.6 [lb_av] 242.6 [lb_av] eCW1 ([facility]) Body weight 4020 [oz_av] 4020 [oz_av] YARA ([facility]) Systolic blood pressure 109 mm[Hg] 109 mm[Hg] A THENA ([facility]) Body mass index (BMI) [Ratio] 45.4 kg/m2 45.4 k g/m2 YARA ([facility]) Body height 62.4 [in_i] 62.4 [in_i] YARA ([facility]) Diastolic blood pressure 79 mm[Hg] 79 mm[Hg] YARA ([facility]) Respiratory rate 16 /min 16 /min [facility] Body temperature 36.67 Jaci 36.67 Jaci [facility] Heart rate 82 /min 82 /min [facility] Diastolic blood pressure 83 mm[Hg] 83 mm[Hg] [facility] Systolic blood pressure 126 mm[Hg] 126 mm[Hg] [facility] Oxygen saturation in Arterial blood by Pulse oximetry 97 % 97 % [facility] Body mass index (BMI) [Ratio] 47.37 kg/m2 47.37 kg/m2 [facility] Body weight 117.482 kg 117.482 kg [facility] Body height 157.5 cm 157.5 cm [facility] Diastolic blood pressure 72 mm[Hg] 72 mm[Hg] eCW1 ([facility]) Systolic blood pressure 128 mm[Hg] 128 mm[Hg] e CW1 ([facility]) Body temperature 97.4 [degF] 97.4 [degF] eC1 ( [facility]) Respiratory rate 20 /min 20 /min eCW1 ([facility]) Heart rate 86 /min 86 /min eCW1 ([facility]) Body mass index (BMI) [Ratio] 44.16 kg/m2 44.16 kg/m2 eCW1 ([facility]) Body height 65 [in_i] 65 [in_i] eCW1 ([facility]) Body weight 265.4 [lb_av] 265.4 [lb_av] eCW1 ([facility]) Oxygen saturation in Arterial blood by Pulse oximetry 96 % 96 % [facility] Body mass index (BMI) [Ratio] 48.47 kg/m2 48.47 kg/m2 [facility] Body weight 120.203 kg 120.203 kg [facility] Body height 157.5 cm 157.5 cm [facility] Heart rate 77 /min 77 /min [facility] Diastolic blood pressure 74 mm[Hg] 74 mm[Hg] [facility] Systolic blood pressure 138 mm[Hg] 138 mm[Hg] [facility] Diastolic blood pressure 89 mm[Hg] 89 mm[Hg] eCW1 ([facility]) Systolic blood pressure 129 mm[Hg] 129 mm[Hg] e CW1 ([facility]) Body temperature 97.9 [degF] 97.9 [degF] eCW1 ( [facility]) Respiratory rate 18 /min 18 /min eCW1 ([facility]) Heart rate 84 /min 84 /min eCW1 ([facility]) Body mass index (BMI) [Ratio] 44.26 kg/m2 44.26 kg/m2 eCW1 ([facility]) Body height 65 [in_i] 65 [in_i] eCW1 ([facility]) Body weight 266 [lb_av] 266 [lb_av] eCW1 ([facility]) Diastolic blood pressure 80 mm[Hg] 80 mm[Hg] eCW1 ([facility]) Systolic blood pressure 136 mm[Hg] 136 mm[Hg] e CW1 ([facility]) Body temperature 97.7 [degF] 97.7 [degF] eCW1 ( [facility]) Respiratory rate 18 /min 18 /min eCW1 ([facility]) Heart rate 110 /min 110 /min eCW1 ([facility]) Body mass index (BMI) [Ratio] 43.10 kg/m2 43.10 kg/m2 W1 ([facility]) Body height 65 [in_us] 65 [in_us] eCW1 ([facility]) Body weight Measured 259 [lb_av] 259 [lb_av] eC W1 ([facility]) Diastolic blood pressure 80 mm[Hg] 80 mm[Hg] eCW1 ([facility]) Systolic blood pressure 124 mm[Hg] 124 mm[Hg] e CW1 ([facility]) Body temperature 97.4 [degF] 97.4 [degF] eCW1 ( [facility]) Respiratory rate 17 /min 17 /min eCW1 ([facility]) Heart rate 94 /min 94 /min eCW1 ([facility]) Body mass index (BMI) [Ratio] 42.80 kg/m2 42.80 kg/m2 eCW1 ([facility]) Body height 65 [in_us] 65 [in_us] eCW1 ([facility]) Body weight Measured 257.2 [lb_av] 257.2 [lb_av ] eCW1 ([facility]) Diastolic blood pressure 80 mm[Hg] 80 mm[Hg] eCW1 ([facility]) Systolic blood pressure 118 mm[Hg] 118 mm[Hg] e CW1 ([facility]) Body temperature 96.8 [degF] 96.8 [degF] eCW1 ( [facility]) Respiratory rate 18 /min 18 /min eCW1 ([facility]) Heart rate 86 /min 86 /min eCW1 ([facility]) Body mass index (BMI) [Ratio] 42.60 kg/m2 42.60 kg/m2 eCW1 ([facility]) Body height 65 [in_us] 65 [in_us] eCW1 ([facility]) Body weight Measured 256 [lb_av] 256 [lb_av] eC W1 ([facility]) Patient Treatment Plan of Care Planned Activity Planned Date Details Description Data Source (s) Cholecalciferol 1000 UNT Oral Tablet 11/19/2020 12:00:00 AM EST eCW1 ([facility]) Sertraline 25 MG Oral Tablet [Zoloft] 10/22/2020 12:00:00 AM EST eCW1 ([facility]) Sertraline 25 MG Oral Tablet [Zoloft] 10/22/2020 12:00:00 AM EST eCW1 ([facility]) Sertraline 25 MG Oral Tablet [Zoloft] 10/22/2020 12:00:00 AM EST eCW1 ([facility]) Sertraline 25 MG Oral Tablet [Zoloft] 10/22/2020 12:00:00 AM EST eCW1 ([facility]) Sertraline 25 MG Oral Tablet [Zoloft] 10/22/2020 12:00:00 AM EST eCW1 ([facility]) Magnesium Hydroxide 80 MG/ML Oral Suspension 09/21/2020 12:00:00 AM EDT [facility] Ondansetron 4 MG Disintegrating Oral Tablet 09/20/2020 12:00:00 AM EDT [facility] Acetaminophen 325 MG Oral Tablet 09/20/2020 12:00:00 AM EDT [facility] Omeprazole 40 MG Delayed Release Oral Capsule 09/20/2020 12:00:00 A M EDT [facility] Ascorbic Acid 60 MG / Beta Carotene 5000 UNT / Copper Sulfate 40 MG / dl-alpha tocopheryl acetate 30 UNT / Sodium Selenite 0.04 MG / Zinc Oxide 40 MG Oral Tablet 09/20/2020 12:00:00 AM EDT [facility] 0.4 ML Enoxaparin sodium 100 MG/ML Prefilled Syringe 020 12:00:00 AM EDT [facility] Simethicone 80 MG Chewable Tablet 09/20/2020 12:00:00 AM EDT [facility] Vitamin B 12 0.5 MG Oral Tablet 09/20/2020 12:00:00 AM EDT [facility] Trazodone Hydrochloride 150 MG Oral Tablet 09/06/2020 12:00:00 AM E DT eCW1 ([facility]) Trazodone Hydrochloride 150 MG Oral Tablet 09/06/2020 12:00:00 AM E DT eCW1 ([facility]) Trazodone Hydrochloride 150 MG Oral Tablet 09/06/2020 12:00:00 AM E DT eCW1 ([facility]) Escitalopram 10 MG Oral Tablet 04/30/2020 12:00:00 AM EDT eCW1 ([facility]) Escitalopram 10 MG Oral Tablet 04/30/2020 12:00:00 AM EDT eCW1 ([facility]) Escitalopram 10 MG Oral Tablet 04/30/2020 12:00:00 AM EDT eCW1 ([facility]) Escitalopram 10 MG Oral Tablet 04/30/2020 12:00:00 AM EDT eCW1 ([facility]) Escitalopram 10 MG Oral Tablet 04/30/2020 12:00:00 AM EDT eCW1 ([facility]) Escitalopram 10 MG Oral Tablet 04/30/2020 12:00:00 AM EDT eCW1 ([facility]) Escitalopram 10 MG Oral Tablet 04/30/2020 12:00:00 AM EDT eCW1 ([facility]) Escitalopram 10 MG Oral Tablet 04/30/2020 12:00:00 AM EDT [email or web address] ([facility]) Metformin hydrochloride 500 MG Oral Tablet 03/28/2020 12:00:00 AM E DT [email or web address] ([facility]) ReliOn Blood Glucose Test - 03/28/2020 12:00:00 AM EDT eCW1 ([facility]) 200 ACTUAT Albuterol 0.09 MG/ACTUAT Metered Dose Inhal er [ProAir] 03/11/2020 12:00:00 AM EDT eCW1 ([facility]) Fluticasone Propionate 50 MCG/ACT 03/11/2020 12:00:00 AM EDT [email or web address] ([facility]) Famotidine 40 MG Oral Tablet [Pepcid] 10/25/2019 12:00:00 AM EST eCW1 ([facility]) Paroxetine 10 MG Oral Tablet [Paxil] 10/25/2019 12:00:00 AM EST eCW1 ([facility]) Famotidine 40 MG Oral Tablet [Pepcid] 10/25/2019 12:00:00 AM EST eCW1 ([facility]) Famotidine 40 MG Oral Tablet [facility]
[2020-12-04 13:48] LABS: BLOOD UREA NITROGEN 8 MG/DL (7-18); CARBON DIOXIDE LEVEL 27 MEQ/L (21-32); CHLORIDE LEVEL 107 MEQ/L (98-107); CREATININE FOR GFR 0.91 MG/DL (0.70-1.30); GLOMERULAR FILTRATION RATE > 60.0 (>60); GLUCOSE, FASTING 101 MG/DL (70-100); POTASSIUM SERUM 3.9 MEQ/L (3.5-5.1); SODIUM LEVEL 139 MEQ/L (136-145)
[2020-12-04 13:49] LABS: ALBUMIN 3.9 GM/DL (3.2-5.2); ALT/SGPT 80 U/L (12-78); BILIRUBIN,DIRECT 0.2 MG/DL (0.0-0.2); BILIRUBIN,TOTAL 0.8 MG/DL (0.2-1.0); CALCIUM LEVEL 9.3 MG/DL (8.5-10.1); LIPASE 111 U/L (73-393); TOTAL PROTEIN 7.4 GM/DL (6.4-8.2)
[2020-12-04 14:36] VITALS: BP 124/67
== END 2020-12-04 14:38 | disposition home or self-care (01) ==
LOC: EDBD 12:30 → M ED 12:30
DX: E86.0 Dehydration (principal); R19.7 Diarrhea, unspecified; R10.9 Unspecified abdominal pain; I10 Essential (primary) hypertension; R06.02 Shortness of breath; Z88.8 Allergy status to other drugs, medicaments and biological substances; Z79.899 Other long term (current) drug therapy
CPT/HCPCS: 36415; 74176; 80048; 80076; 81001; 83690; 85025; 85610; 96361; 96374; 96375; 99284; C9113; J1885

== ENCOUNTER 2020-12-04 16:02 | Emergency (ER) | payer OTHER ==
[~2020-12-04] VITALS: Ht 157.5 cm; Wt 104.7 kg
[~2020-12-04 16:02] MED LIST changes: +B-12100T2 PO
--- OUTSIDE RECORDS SUMMARY | 2020-12-04 16:10 | CCD ---
Author Author [facility] Organization [facility] Address Unknown Phone Unavailable Support Name Relationship Address Phone PRICECHOP Next Of Kin [address] [place] [address] [employer] [place] [address] Cathy Torres Next Of Kin [address] [place] [address] [employer] Next Of Kin [address] [place] [address] [address] [place] [address] STEWARTS* Next Of Kin [address] [place] [address] KRAFT Next Of Kin FT. [facility] [place] [address] Danyelle SLITTING MACHINE FEEDERRegina Next Of Kin [address] [place] [address] Madelin SLITTING MACHINE FEEDER-C, Regina Next Of Kin [address] [place], [place] [id number] Lyudmila PNP-C, Ayala Garcias Next Of Kin [address] [place], [place] [id number] [employer] [place] [address] [employer] Next Of Kin [address] [place] [address] COUSINS, KAYCEE Next Of [facility] [address] [place] [address] [employer]REAM Next Of [facility] [address] [place] [address] JUSTINE ELENA Next Of Kin [address] [address] [place] [address] Madelin SLITTING MACHINE FEEDER-C SLITTING MACHINE FEEDER-C, Regina Next Of Kin [address] [facility] [place] [address] Lyudmila PNP-C, Reba Next Of Kin [address] [place] [address] Laquita Castaneda MD Next Of Kin [address] [place] [address] COUSINS, [place] [address] [employer] [place] [address] - COUSINS, ROBLES Next Of Kin [address] [place] [address] KIM, H ARRON Next Of Kin [address] [place] [address] UE Next Of Kin Unknown Unavailable ST Next Of Kin [address] [place] [address] ARRON ALVAREZ H Next Of Kin [address] [place] [address] COUSINS, MARIEL [place] Unavailable Rosangela Das Unknown [phone] Care Team Providers Care Service Station Helper Name Role Phone Cathy Kaur Unavailable Unavailable [...] Unavailable Unavailable Mehran Lane MD Unavailable Unavailable Merhan Lane MD Unavailable Unavailable Mehran Lane MD [...] G DANDY PA Unavailable Unavailable TONTARSKI, G DNADY PA Unavailable Unavailable TONTARSKI, G DANDY PA [...] is protected by Article 27-F of the [place] Public Health law. If you continue you may have access to information: Regarding HIV / AIDS; Provided by facilities licensed or operated by the [place] Office of Mental Health; or Provided by the [place] Office for People With Developmental Disabilities. If such information is present, then the following [place] mandated warning applies: This information has been [...] may result in a fine or senior care sentence or both. A general authorization for the release of medical or other information is NOT sufficient authorization for further disc losure. Allergies and Adverse Reactions Type Description Substance Reaction Status Data Source(s ) Propensity to adverse reactions DIVALPROEX SODIUM Divalproex Sodium Rash Low Active [facility] Low Propensity to adverse reactions METHYLPHENIDATE HCL ER (CD) Methylphenidate Hcl Er (Cd) Palpitations Low Active [facility] Low Propensity to adverse reactions CITRUS CITRUS AURANTIUM FRUIT OIL Active [facility] Propensity to adverse reactions DIPHENHYDRAMINE Diphenhydramine Active [facility] Drug allergy Concerta Methylphenidate Unknown Active eCW1 ([facility]) Drug allergy Depakote Valproate Unknown Active eCW1 ([facility]) Drug allergy DiphenhydrAMINE HCl Diphenhydramine Unknown Active eCW1 ([facility]) Family History Family Member Name Family Member Gender Family Member Status Date o f Status Description Data Source(s) Unknown Unknown Problem MEDENT ([facility]) Encounters Encounter Providers Location Date Indications Data Source(s ) Outpatient [address] [facility] [id number] 11/18/2020 12:00:00 AM EST eCW1 ([facility]) Unknown [address] [facility] [id number] 10/23/2020 12:00:00 AM EST eCW1 ([facility]) Unknown [address] [facility] [id number] 10/23/2020 12:00:00 AM EST eCW1 ([facility]) Outpatient [address] [facility] [id number] 10/22/2020 12:00:00 AM EST eCW1 ([facility]) Unknown [address] [facility] [id number] 10/22/2020 12:00:00 AM EST eCW1 ([facility]) Unknown [address] [facility] [id number] 10/22/2020 12:00:00 AM EST eCW1 ([facility]) Rogelio Cadet MD: [address] [place] [phone], Ph. Attender: Rogelio Cadet MD [facility] Medical 09/25/2020 12:00:00 AM EST YARA ([facility]) Unknown [address] [facility] [id number] 09/17/2020 12:00:00 AM EDT eCW1 ([facility]) Outpatient Referrer: SKINNY GOETZ-MOB.PAT 2019 10:09:03 AM EDT - 09/15/2020 10:09:07 AM EDT [facility] Unknown [address] [facility] [address] 09/12/2020 12:00:00 AM EDT eCW1 ([facility]) Outpatient [address] [facility] [address] 09/12/2020 12:00:00 AM EDT eCW1 ([facility]) Outpatient Attender: SKINNY FELTONReferrer: SKINNY HOOVER MOB-MOB.PAT 09/10/2020 11:03:19 AM EDT - 09/10/2020 12:25:34 PM EDT [facility] Unknown [address] [facility] [address] 09/06/2020 12:00:00 AM EDT eCW1 ([facility]) Unknown [address] [facility] [address] 09/06/2020 12:00:00 AM EDT eCW1 ([facility]) Unknown [address] [facility] [address] 09/06/2020 12:00:00 AM EDT eCW1 ([facility]) Inpatient Attender: SKINNY Trinidad vincenzo: SKINNY FELTONAdmitter: SKINNY FELTON [id number] 09/03/2020 10:29:48 AM EDT - 09/21/2020 01:49:00 PM EDT [facility] Patient discharged. Outpatient Attender: JENNIFER JIANG 08/28/2020 11:18:01 AM EDT [facility] Outpatient Attender: LINDA MORALES APOLINAR 08/26/2020 12:25:00 PM EDT [facility] Outpatient Attender: LINDA MORALES APOLINAR 08/26/2020 12:22:00 PM EDT [facility] Unknown [address] [facility] [address] 08/13/2020 12:00:00 AM EDT eCW1 ([facility]) [place] [address] [facility] [address] 08/13/2020 12:00:00 AM EDT eCW1 ([facility]) Unknown [address] [facility] [address] 06/05/2020 12:00:00 AM EDT eCW1 ([facility]) [place] [address] [facility] [address] 06/03/2020 12:00:00 AM EDT eCW1 ([facility]) Emergency Attender: Anjum RODRIGUEZ-CConsultant: ARMAAN RODRIGUEZ 05/21/2020 01:27:00 PM EDT - 05/21/2020 03:21:00 PM EDT [facility] Patient admitted. [facility] [address] [facility] [address] 05/09/2020 12:00:00 AM EDT eCW1 ([facility]) Unknown [address] [facility] [address] 05/04/2020 12:00:00 AM EDT eCW1 ([facility]) Outpatient Attender: LINDA MORALES APOLINAR 04/30/2020 07:38:04 PM EDT [facility] Outpatient [address] [facility] [address] 04/30/2020 12:00:00 AM EDT eCW1 ([facility]) Unknown [address] [facility] [address] 04/28/2020 12:00:00 AM EDT eCW1 ([facility]) [facility] [address] [facility] [address] 04/23/2020 12:00:00 AM EDT eCW1 ([facility]) [facility] [address] [facility] [address] 03/28/2020 12:00:00 AM EDT eCW1 ([facility]) [facility] [address] [facility] [address] 03/26/2020 12:00:00 AM EDT eCW1 ([facility]) [address] [address] 03/10/2020 12:00:00 AM EDT [facility] [address] [address] 03/04/2020 12:00:00 AM EDT [facility]CW1 [facility] Outpatient 03/01/2020 06:00:00 AM EDT [facility] [address] [address] 02/13/2020 12:00:00 AM EDT eCW1 [facility] [address] [address] 02/13/2020 12:00:00 AM EDT [facility]CW1 [facility] [address] [address] 02/01/2020 12:00:00 AM EDT [facility]CW1 [facility] [address] [address] 01/22/2020 12:00:00 AM EST [facility] [address] [address] 11/23/2019 12:00:00 AM EST [facility]CW[facility] [address] [address] 11/17/2019 12:00:00 AM EST [facility]CW1 [facility] Outpatient 11/07/2019 09:50:00 PM EST [facility] Outpatient Attender: LINDA [facility] 10/27/2019 08:01:02 PM EST [facility] Outpatient Attender: LINDA [facility] 10/27/2019 01:07:01 PM EST [address] [address] 10/27/2019 12:00:00 AM EST eCW1 ([facility]) Recurring Patient Attender: Dandy Lane MDReferrer: Ernie umanzor MD 10/25/2019 02:47:20 PM EST [facility] [address] [address] 10/25/2019 12:00:00 AM EST eCW1 ([facility]) [address] [address] 10/25/2019 12:00:00 AM EST eCW1 ([facility]) [address] [address] 10/12/2019 12:00:00 AM EST eCW1 ([facility]) Immunizations Vaccine Date Status Description Data Source(s) INFLUENZA VIRUS VACCINE QUADRIVALENT 2019-21 (6 MOS AN D UP) 08/08/2020 12:00:00 AM EDT completed [facility] Flu Vaccine Historical 08/07/2020 12:00:00 AM EDT completed Flu Vaccine Historical 08/07/2020 [facility] Medications Medication Brand Name Start Date Product Form Dose Route Admi nistrative Instructions Pharmacy Instructions Status Indications Reaction Description Data Source(s) Cholecalciferol 1000 UNT Oral Tablet Vitamin D3 25 MCG (1000 UT) Vitamin D3 25 MCG (1000 UT) 11/19/2020 12:00:00 AM EST 1.0 {tablet} active Vitamin D3 25 MCG (1000 UT) eCW1 ([facility]) Sertraline 25 MG Oral Tablet [Zoloft] Zoloft 25 MG Zoloft 25 MG 10/22/2020 12:00:00 AM EST 1.0 {tablet_at_bedtime} active Zoloft 25 MG eCW1 ([facility]) Sertraline 25 MG Oral Tablet [Zoloft] Zoloft 25 MG Zoloft 25 MG 10/22/2020 12:00:00 AM EST 1.0 {tablet_at_bedtime} active Zoloft 25 MG eCW1 ([facility]) Sertraline 25 MG Oral Tablet [Zoloft] Zoloft 25 MG Zoloft 25 MG 10/22/2020 12:00:00 AM EST 1.0 {tablet_at_bedtime} active Zoloft 25 MG eCW1 ([facility]) Sertraline 25 MG Oral Tablet [Zoloft] Zoloft 25 MG Zoloft 25 MG 10/22/2020 12:00:00 AM EST 1.0 {tablet_at_bedtime} active Zoloft 25 MG eCW1 ([facility]) Sertraline 25 MG Oral Tablet [Zoloft] Zoloft 25 MG Zoloft 25 MG 10/22/2020 12:00:00 AM EST 1.0 {tablet_at_bedtime} active Zoloft 25 MG eCW1 ([facility]) ondansetron (ZOFRAN-ODT) disintegrating tablet 8 mg 09/21/2020 [...] 09/21/20 at 0600, Post-op [Order 2 End] [facility] Medication administered onsite lactated ringers bolus 1,000 mL [id number] 09/21/2020 06:00:00 AM EDT 1000 mL Intravenous completed 1,000 mL , Intravenous, Administer over 2 Hours, Once, 09/21/20 at 0600, For 1 dose, Post-op [facility] Medication administered onsite Acetaminophen 325 MG [...]
To begin after routine doses of tylenol.
[facility] Medication administered onsite Magnesium Hydroxide 80 MG/ML Oral Suspen reilly magnesium hydroxide (MILK OF MAGNESIA) 400 MG/5ML suspension magnesium hydroxide (MILK OF MAGNESIA) 4 00 MG/5ML suspension 09/21/2020 12:00:00 AM EDT 15 mL Oral active Take 15 mL by mouth daily as needed for constipation [facility] Metoprolol Tartrate 25 MG Oral Tablet me toprolol tartrate (LOPRESSOR) tablet 25 mg metoprolol tartrate (LOPRESSOR) tablet 25 mg 09/20/2020 09:00:00 PM EDT 25 mg Oral active 25 mg, Ora l, 2 times daily, First dose on Wed09/20/20 at 2100, Post-op
Hold Lopressor for SBP < 100 mmHg or HR < 60.
[facility] Medication administered onsite heparin (porcine) injection 5,000 Units [id number] 09/20/20 06:00:00 PM EDT 5000 U Subcutaneous active 5,000 Units , Subcutaneous, Every 8 hours (relative), First dose on Wed09/20/20 at 1800, Post-op
If platelet count is less than 100,000 or hematocrit is less than 25, or if there is a 5 point decrea se in hematocrit, do not give the dose and call physician/designee.
[facility] Medication administered onsite Insulin Lispro 100 UNT/ML Injectable Jennifer ution insulin lispro (HumaLOG) injection 4-16 Units insulin lispro (HumaLOG) injection 4-16 Units 09/20/20 06:00:00 PM EDT Subcutaneous active 4-1 6 Units, Subcutaneous, Q6HSS, First dose on Wed09/20/20 at 1800, Post-op
Blood Sugar Units of [id number] 4 [id number] 6 -574 8 -630 10 units 321-370 12 units 371-420 14 units>420 16 units, Call MD
[facility] Medication administered onsite 1 ML Ketorolac Tromethamine 30 MG/ML Car tridge ketorolac (TORADOL) injection 30 mg ketorolac (TORADOL) injection 30 mg 09/20/2020 06:00:00 PM EDT 30 mg Intravenous active 30 mg, Intrav enous, Every 6 hours PRN, severe pain (7-10), Starting Wed09/20/20 at 1800, For 4 doses, Post-op [facility] Medication administered onsite Acetaminophen 500 MG Oral Tablet acetaminophen (TYLENO L) tablet 1,000 mg acetaminophen (TYLENOL) tablet 1,000 mg 09/20/2020 03:00:00 PM EDT 1000 mg Oral active 1,000 mg, Oral , Every 8 hours, First dose on Wed09/20/20 at 1500, For 48 hours, Post-op [facility] Medication administered onsite normal saline flush 0.9 % injection 3 mL [id number] 09/20/2020 02:00:00 PM EDT 3 mL Intravenous active 3 mL , Intravenous, QSHIFT, First dose on Wed09/20/20 at 1400, Post-op
Convert to saline lock after discontinuing D5LR IV.
[facility] Medication administered onsite gabapentin 300 MG Oral Capsule gabapentin (NEURONTIN) capsule 300 mg gabapentin (NEURONTIN) capsule 300 mg 09/20/2020 02:00:00 PM EDT 300 mg Oral active 300 mg, Oral, 3 times daily, First dose on Wed09/20/20 at 1400, Post-op [facility] Medication administered onsite Ondansetron 4 MG Disintegrating Oral Tab let ondansetron (ZOFRAN-ODT) disintegrating tablet 8 mg ondansetron (ZOFRAN-ODT) disintegrating tablet 8 mg 09/20/2020 01:00:00 PM EDT 8 mg Oral completed 8 mg, Oral, Every 6 hours (scheduled), First dose on Wed09/20/20 at 1300, For 24 hours, Post-op [facility] Medication administered onsite Calcium Chloride 0.001 [...] adequate PO & convert to saline lock
[facility] Medication administered onsite Simethicone 80 MG Chewable Tablet simethicone (MYLICON ) chewable tablet 80 mg simethicone (MYLICON) chewable tablet 80 mg 09/20/2020 01:00:00 PM EDT 80 mg Oral active 80 mg, Oral, E very 4 hours (scheduled), First dose on Wed09/20/20 at 1300, Post-op [facility] Medication administered onsite pantoprazole 40 MG Delayed Release Oral Tablet pantoprazole (PROTONIX) EC tablet 40 mg pantoprazole (PROTONIX) EC tablet 40 mg 09/20/2020 01:00:00 PM E DT 40 mg Oral active Stress Ulcer Prophylaxis 40 mg, Oral, Daily, Indications: Stress Ulcer Prophylaxis, First dose on Wed09/20/20 at 1300, Post-op [facility] Stress Ulcer Prophylaxis Medication administered onsite [...] hours PRN for nausea
[Order 2 End] [facility] Medication administered onsite Prochlorperazine 10 MG Oral Tablet prochlorperazine (C OMPAZINE) tablet 10 mg prochlorperazine (COMPAZINE) tablet 10 mg 09/20/2020 12:19:00 PM EDT 10 mg Oral active 10 mg, Oral, E very 6 hours PRN, nausea, not relieved by metoclopramide, Starting Wed09/20/20 at 1219, Post-op [facility] Medication administered onsite traZODone (DESYREL) tablet 150 mg 09/20/2020 12:19:00 PM EDT 150 mg Oral active 150 mg, Oral, Ni ghtly PRN, sleep, Starting Wed09/20/20 at 1219, Post-op [facility] Medication administered onsite Promethazine Hydrochloride 25 MG Oral Ta blet promethazine (PHENERGAN) tablet 12.5 mg promethazine (PHENERGAN) tablet 12.5 mg 09/20/2020 12:19:00 PM E DT 12.5 mg Oral active 12.5 mg, O ral, Every 4 hours PRN, nausea, not relieved by prochlorperazine, Starting Wed09/20/20 at 1219, Post-op [facility] Medication administered onsite Albuterol 0.83 MG/ML Inhalant Solution a lbuterol (PROVENTIL) nebulizer solution 2.5 mg albuterol (PROVENTIL) nebulizer solution 2.5 mg 2019 12:18:59 PM EDT 2.5 mg active 2.5 mg, Nebulization, RT every 4 hours as needed, wheezing, shortness of breath, Starting Wed09/20/20 at 1218, Post-op [facility] Medication administered onsite Clonidine Hydrochloride 0.1 MG Oral Tablet cloNIDine ( CATAPRES) tablet 0.1 mg cloNIDine (CATAPRES) tablet 0.1 mg 09/20/2020 12:18:59 PM EDT 0.1 mg Oral active 0.1 mg, Oral, Every 4 hours PRN, high blood pressure, for SBP > 140 mmHg and/or DBP > 90 mmHg, Starting Wed09/20/20 at 1218, Post-op [facility] Medication administered onsite enalaprilat (VASOTEC) injection 1.25 mg [id number] 09/20/20 12:18:59 PM EDT 1.25 mg Intravenous active 1.25 mg, Int ravenous, Every 6 hours PRN, for SBP > 140 mmHg and/or DBP > 90 mmHg, Starting Wed09/20/20 at 1218, Post- op
Mix in 50 mL NS, infuse over 30 minutes via infusion pump.For IVMB on NON-ICU units.
[facility] Medication administered onsite 0.4 ML Enoxaparin sodium 100 MG/ML Prefi lled Syringe enoxaparin (LOVENOX) syringe 40 mg enoxaparin (LOVENOX) syringe 40 mg 09/20/2020 12:18:59 PM EDT 40 mg Subcutaneous completed 40 mg, Subcutaneous, Before Discharge, for prophylaxis, Starting Wed09/20/20 at 1218, For 1 dose, Post-op
At discharge. To be administered by patient or significant other.
[facility] Medication administered onsite HYDROmorphone (DILAUDID) injection 0.5 mg [id number] 09/20/2020 10:16:41 AM EDT 0.5 mg Intravenous aborted 0.5 mg, Intravenous, Every 5 min PRN, severe pain (7-10), Starting Wed09/20/20 at 1016, For 5 doses, PACU (only) [facility] Medication administered onsite fentaNYL Citrate (PF) (SUBLIMAZE) injection 25 mcg [id number] 09/20/2020 10:16:41 AM EDT 25 ug Intravenous aborted 25 mcg, Intravenous, Every 5 min PRN, moderate pain (4-6), Starting Wed09/20/20 at 1016, For 12 doses, PACU (only) [facility] Medication administered onsite Clonidine Hydrochloride 0.1 MG Oral Tablet cloNIDine ( CATAPRES) tablet 0.1 mg cloNIDine (CATAPRES) tablet 0.1 mg 09/20/2020 07:00:00 AM EDT 0.1 mg Oral completed 0.1 mg, Oral, manual qa tester, 09/20 at 0700, For 1 dose, Pre-op [facility] Medication administered onsite Acetaminophen 325 MG Oral Tablet acetaminophen (TYLENO L) 325 MG tablet 975 mg acetaminophen (TYLENOL) 325 MG tablet 975 mg 09/20/2020 07:00:00 AM EDT 975 mg Oral completed 975 mg, Or al, manual qa tester, Wed09/20/20 at 0700, For 1 dose, Pre-op
"Maximum dose of acetaminophen is 4,000 mg from all sources in 24 hours."
[facility] Medication administered onsite Albuterol 0.83 MG/ML Inhalant Solution a lbuterol (PROVENTIL) nebulizer solution 2.5 mg albuterol (PROVENTIL) nebulizer solution 2.5 mg 2019 07:00:00 AM EDT 2.5 mg completed 2.5 mg , Nebulization, manual qa tester, Wed09/20/20 at 0700, For 1 dose, Pre-op
To be started by pre-op unit
[facility] Medication administered onsite Calcium Chloride 0.0014 MEQ/ML / Potassi um Chloride 0.004 MEQ/ML / Sodium Chloride 0.103 MEQ/ML / Sodium Lactate 0.028 MEQ/ML Injectable Solution lactated ringers infusion lactated ringers infusion 09/20/2020 07:00:00 AM EDT 100 mL/h Intravenous aborted at 100 m L/hr, 100 mL/hr, Intravenous, Continuous, Starting Wed09/20/20 at 0700, Pre-op
Please place IV on left side if able
[facility] Medication administered onsite heparin (porcine) injection 5,000 Units [id number] 09/20/20 07:00:00 AM EDT 5000 U Subcutaneous completed 5,000 Uni ts, Subcutaneous, manual qa tester, Wed09/20/20 at 0700, For 1 dose, Pre-op
If platelet count is less than 100,000 or hematocrit is less than 25, or if there is a 5 point decrease in hematocrit, do not give the dose and call physician/designee.
[facility] Medication administered onsite gabapentin 600 MG Oral Tablet gabapentin (NEURONTIN) t ablet 600 mg gabapentin (NEURONTIN) tablet 600 mg 09/20/2020 07:00:00 AM EDT 600 mg Oral completed 600 mg, Oral, On hai l, Wed09/20/20 at 0700, For 1 dose, Pre-op
Hold if age greater than 70 or chronic renal failure/insufficiency
[facility] Medication administered onsite Dexamethasone 4 MG Oral Tablet dexamethasone (DECADRON ) tablet 4 mg dexamethasone (DECADRON) tablet 4 mg 09/20/2020 07:00:00 AM EDT 4 mg Oral completed 4 mg, Oral, manual qa tester, Wed 0 at 0700, For 1 dose, Pre-op [facility] Medication administered onsite Alprazolam 0.25 MG Oral Tablet ALPRAZolam (XANAX) tabl et 0.25 mg ALPRAZolam (XANAX) tablet 0.25 mg 09/20/2020 07:00:00 AM EDT 0.25 mg Oral completed 0.25 mg, Oral, manual qa tester, Wed09/20/20 at 0700, For 1 dose, Pre-op [facility] Medication administered onsite celecoxib 100 MG Oral Capsule celecoxib (CeleBREX) cap raeann 200 mg celecoxib (CeleBREX) capsule 200 mg 09/20/2020 07:00:00 AM EDT 200 mg Oral completed 200 mg, Oral, manual qa tester, 09/20 at 0700, For 1 dose, Pre-op [facility] Medication administered onsite Tetrahydrocannabinol 2.5 MG Oral Capsule dronabinol (M ARINOL) capsule 5 mg dronabinol (MARINOL) capsule 5 mg 09/20/2020 07:00:00 AM EDT 5 mg Oral completed 5 mg, Oral, manual qa tester, Wed 0 at 0700, For 1 dose, Pre-op [facility] Medication administered onsite Prochlorperazine 10 MG Oral Tablet prochlorperazine (C OMPAZINE) tablet 10 mg prochlorperazine (COMPAZINE) tablet 10 mg 09/20/2020 07:00:00 AM EDT 10 mg Oral completed 10 mg, Oral, O n call, Wed09/20/20 at 0700, For 1 dose, Pre-op [facility] Medication administered onsite scopolamine (TRANSDERM-SCOP) 1.5 MG (Bariatric only) 1 patch [id number] 09/20/2020 05:46:17 AM EDT 1 {patch} Transdermal aborted 1 patch, Transdermal, Administer over 24 Hours, Every 24 hours (relative), First dose on Wed09/20/20 at 0700, For 1 dose, Pre-op
Scopolamine patch applied behind ear. Hold for any of the followin+ yrs old, hx of glaucoma, hx of vertigo, dementia.
[facility] Medication administered onsite Ondansetron 4 MG Disintegrating Oral Tab let ondansetron (ZOFRAN-ODT) 4 MG disintegrating tablet ondansetron (ZOFRAN-ODT) 4 MG disintegrating tablet 09/20/2020 12:00:00 AM EDT 4 mg Oral active Take 1 tablet (4 mg total) by mouth every 6 (six) hours as needed for nausea [facility] Simethicone 80 MG Chewable Tablet simethicone (MYLICON ) 80 MG chewable tablet simethicone (MYLICON) 80 MG chewable tablet 09/20/2020 12:00:00 AM EDT 80 mg Oral active Chew 1 tablet (80 mg total) every 6 (six) hours as needed for flatulence [facility] Vitamin B 12 0.5 MG Oral Tablet cyanocob alamin ([facility] VITAMIN B-12) 500 MCG tablet cyanocobalamin ([facility] VITAMIN B-12) 500 MCG tablet 09/20/2020 12:0 0:00 AM EDT 1000 ug Oral active Take 2 tablets (1,000 mc g total) by mouth daily [facility] Acetaminophen 325 MG Oral Tablet acetaminophen (TYLENO L) 325 MG tablet acetaminophen (TYLENOL) 325 MG tablet 09/20/2020 12:00:00 AM EDT 65 0 mg Oral active Take 2 tablets (650 mg total) by mouth every 6 (six) hours as needed for pain [facility] Omeprazole 40 MG Delayed Release Oral Ca psule omeprazole (PRILOSEC) 40 MG capsule omeprazole (PRILOSEC) 40 MG capsule 09/20/2020 12:00:00 AM EDT 40 mg Oral active Take 1 capsule (40 m g total) by mouth daily [facility] Ascorbic Acid 60 MG / Beta Carotene 5000 UNT / Copper Sulfate 40 MG / dl-alpha tocopheryl acetate 30 UNT / Sodium Selenite 0.04 MG / Zinc Oxide 40 MG Oral Tablet Multiple Vitamins-Minerals (MULTIVITAMIN WITH MINERALS) tablet Multiple Vitamins-Minerals (MULTIVITAMIN WITH MINERALS) tablet 09/20/2020 12:00:00 AM EDT 2 {tbl} Oral active Take 2 tablets b y mouth daily [facility] 0.4 ML Enoxaparin sodium 100 MG/ML Prefi lled Syringe enoxaparin (LOVENOX) 40 MG/0.4ML SOLN enoxaparin (LOVENOX) 40 MG/0.4ML SOLN 09/20/2020 12:00:00 AM EDT 40 mg Subcutaneous active Inject 0.4 mL (40 mg total) under the skin daily for 10 days [facility] Trazodone Hydrochloride 150 MG Oral Tablet Trazodone H Cl 150 MG Trazodone HCl 150 MG 09/06/2020 12:00:00 AM EDT 1.0 {tablet_at_bedtime} active Trazodone HCl 150 MG eCW1 ([facility]) Trazodone Hydrochloride 150 MG Oral Tablet Trazodone H Cl 150 MG Trazodone HCl 150 MG 09/06/2020 12:00:00 AM EDT 1.0 {tablet_at_bedtime} active Trazodone HCl 150 MG eCW1 ([facility]) Trazodone Hydrochloride 150 MG Oral Tablet Trazodone H Cl 150 MG Trazodone HCl 150 MG 09/06/2020 12:00:00 AM EDT 1.0 {tablet_at_bedtime} active Trazodone HCl 150 MG eCW1 ([facility]) Escitalopram 10 MG Oral Tablet Escitalopram Oxalate 10 MG Escitalopram Oxalate 10 MG 04/30/2020 12:00:00 AM EDT 1.0 {tablet} activ e Escitalopram Oxalate 10 MG eCW1 ([facility]) Escitalopram 10 MG Oral Tablet Escitalopram Oxalate 10 MG Escitalopram Oxalate 10 MG 04/30/2020 12:00:00 AM EDT 1.0 {tablet} activ e Escitalopram Oxalate 10 MG eCW1 ([facility]) Escitalopram 10 MG Oral Tablet Escitalopram Oxalate 10 MG Escitalopram Oxalate 10 MG 04/30/2020 12:00:00 AM EDT 1.0 {tablet} activ e Escitalopram Oxalate 10 MG eCW1 ([facility]) Escitalopram 10 MG Oral Tablet ESCITALOPRAM OXALATE 04/30/2020 1 2:00:00 AM EDT tablet 30 TAKE ONE TABLET BY MOUTH EVERY D AY TAKE ONE TABLET BY MOUTH EVERY DAY SOLD: 04/30/2020 [facility] Escitalopram 10 MG Oral Tablet Escitalopram Oxalate 10 MG Escitalopram Oxalate 10 MG 04/30/2020 12:00:00 AM EDT 1.0 {tablet} activ e Escitalopram Oxalate 10 MG eCW1 ([facility]) Escitalopram 10 MG Oral Tablet Escitalopram Oxalate 10 MG Escitalopram Oxalate 10 MG 04/30/2020 12:00:00 AM EDT 1.0 {tablet} activ e Escitalopram Oxalate 10 MG eCW1 ([facility]) Escitalopram 10 MG Oral Tablet Escitalopram Oxalate 10 MG Escitalopram Oxalate 10 MG 04/30/2020 12:00:00 AM EDT 1.0 {tablet} activ e Escitalopram Oxalate 10 MG eCW1 ([facility]) Escitalopram 10 MG Oral Tablet Escitalopram Oxalate 10 MG Escitalopram Oxalate 10 MG 04/30/2020 12:00:00 AM EDT 1.0 {tablet} activ e Escitalopram Oxalate 10 MG eCW1 ([facility]) Escitalopram 10 MG Oral Tablet Escitalopram Oxalate 10 MG Escitalopram Oxalate 10 MG 04/30/2020 12:00:00 AM EDT 1.0 {tablet} activ e Escitalopram Oxalate 10 MG eCW1 ([facility]) Metformin hydrochloride 500 MG Oral Tablet Metformin H Cl 500 MG Metformin HCl 500 MG 03/28/2020 12:00:00 AM EDT 1.0 {tablet_with_a_meal} active Metformin HCl 500 MG eCW1 ([facility]) ReliOn Blood Glucose Test - ReliOn Blood Glucose Test - 05/2020 12:00:00 AM EDT active ReliOn Blood Gluc ose Test - eCW1 ([facility]) Metformin hydrochloride 500 MG Oral Tablet Metformin H Cl 500 MG Metformin HCl 500 MG 03/28/2020 12:00:00 AM EDT 1.0 {tablet_with_a_meal} active Metformin HCl 500 MG eCW1 ([facility]) BLOOD SUGAR DIAGNOSTIC 03/28/2020 12:00:00 AM EDT strip 25 TEST DAILY DIRECTED TEST DAILY DIRECTED SOLD: 03/28/2020 [facility] ReliOn Blood Glucose Test - ReliOn Blood Glucose Test - 05/2020 12:00:00 AM EDT active ReliOn Blood Gluc ose Test - eCW1 ([facility]) ReliOn Blood Glucose Test - ReliOn Blood Glucose Test - 05/2020 12:00:00 AM EDT active ReliOn Blood Gluc ose Test - eCW1 ([facility]) Metformin hydrochloride 500 MG Oral Tablet Metformin H Cl 500 MG Metformin HCl 500 MG 03/28/2020 12:00:00 AM EDT active 1 tablet with a meal eCW1 ([facility]) Metformin hydrochloride 500 MG Oral Tablet Metformin H Cl 500 MG Metformin HCl 500 MG 03/28/2020 12:00:00 AM EDT 1.0 {tablet_with_a_meal} active Metformin HCl 500 MG eCW1 ([facility]) Metformin hydrochloride 500 MG Oral Tablet Metformin H Cl 500 MG Metformin HCl 500 MG 03/28/2020 12:00:00 AM EDT 1.0 {tablet_with_a_meal} active Metformin HCl 500 MG eCW1 ([facility]) ReliOn Blood Glucose Test - ReliOn Blood Glucose Test - 05/2020 12:00:00 AM EDT active ReliOn Blood Gluc ose Test - eCW1 ([facility]) ReliOn Blood Glucose Test - ReliOn Blood Glucose Test - 05/2020 12:00:00 AM EDT active ReliOn Blood Gluc ose Test - eCW1 ([facility]) ReliOn Blood Glucose Test - ReliOn Blood Glucose Test - 05/2020 12:00:00 AM EDT active ReliOn Blood Gluc ose Test - eCW1 ([facility]) ReliOn Blood Glucose Test - ReliOn Blood Glucose Test - 05/2020 12:00:00 AM EDT active ReliOn Blood Gluc ose Test - eCW1 ([facility]) Metformin hydrochloride 500 MG Oral Tablet Metformin H Cl 500 MG Metformin HCl 500 MG 03/28/2020 12:00:00 AM EDT 1.0 {tablet_with_a_meal} active Metformin HCl 500 MG eCW1 ([facility]) ReliOn Blood Glucose Test - ReliOn Blood Glucose Test - 05/2020 12:00:00 AM EDT active ReliOn Blood Gluc ose Test - eCW1 ([facility]) Metformin hydrochloride 500 MG Oral Tablet Metformin H Cl 500 MG Metformin HCl 500 MG 03/28/2020 12:00:00 AM EDT 1.0 {tablet_with_a_meal} active Metformin HCl 500 MG eCW1 ([facility]) ReliOn Blood Glucose Test - ReliOn Blood Glucose Test - 05/2020 12:00:00 AM EDT active as directed eCW1 ([facility]) ReliOn Blood Glucose Test - ReliOn Blood Glucose Test - 05/2020 12:00:00 AM EDT active ReliOn Blood Gluc ose Test - eCW1 ([facility]) 500 mg 03/28/2020 12:00:00 AM EDT tablet 60 TAKE ONE TABLET BY MOUTH TWICE A DAY WITH A MEAL TAKE ONE TABLET BY MOUTH TWICE A DAY WITH A MEAL SOLD: 03/28/2020 [facility] ReliOn Blood Glucose Test - ReliOn Blood Glucose Test - 05/2020 12:00:00 AM EDT active ReliOn Blood Gluc ose Test - eCW1 ([facility]) ReliOn Blood Glucose Test - ReliOn Blood Glucose Test - 05/2020 12:00:00 AM EDT active ReliOn Blood Gluc ose Test - eCW1 ([facility]) Metformin hydrochloride 500 MG Oral Tablet Metformin H Cl 500 MG Metformin HCl 500 MG 03/28/2020 12:00:00 AM EDT 1.0 {tablet_with_a_meal} active Metformin HCl 500 MG eCW1 ([facility]) Metformin hydrochloride 500 MG Oral Tablet Metformin H Cl 500 MG Metformin HCl 500 MG 03/28/2020 12:00:00 AM EDT 1.0 {tablet_with_a_meal} active Metformin HCl 500 MG eCW1 ([facility]) ReliOn Blood Glucose Test - ReliOn Blood Glucose Test - 05/2020 12:00:00 AM EDT active ReliOn Blood Gluc ose Test - eCW1 ([facility]) ReliOn Blood Glucose Test - ReliOn Blood Glucose Test - 05/0 05/2020 12:00:00 AM EDT active ReliOn Blood Gluc ose Test - eCW1 ([facility]) 90 mcg/actuation 03/12/2020 12:00:00 AM EDT HFA [...] EDT active 1 puff as needed eCW1 ([facility]) Fluticasone Propionate 50 MCG/ACT Fluticasone Propionate 50 MCG/ACT 03/11/2020 12:00:00 AM EDT active 1 spray in each nostril eCW1 ([facility]) 50 mg 03/06/2020 12:00:00 AM EDT tablet [...] TABLET BY MOUTH EVERY DAY SOLD: 02/14/2020 [facility] 40 mg 02/06/2020 12:00:00 AM EDT tablet [...] EST active 1 tablet at bedtime eCW1 ([facility]) 40 mg 10/25/2019 12:00:00 AM EST tablet [...] active 1 tablet in the morning eCW1 ([facility]) Famotidine 40 MG Oral Tablet [Pepcid] Pepcid 40 MG Pepcid 40 MG 10/25/2019 12:00:00 AM EST active 1 tablet at bedtime eCW1 ([facility]) Famotidine 40 MG Oral Tablet famotidine (PEPCID) 40 MG tablet famotidine (PEPCID) 40 MG tablet 40 mg Oral aborted Take 40 mg by mouth 2 (two) times a day as needed for heartburn [facility] Insurance Providers Payer name Policy type / Coverage type Policy ID Covered alliance party ID Covered alliance party's relationship to [place] Policy [place] Plan Information [id number] SP [id number] [facility] COMMUNITY PLAN [facility] [id number] SP [id number] [facility] O [id number] S [id number] [facility] [id number] [facility] [id number] Magi [id number] INSURANCE COVID-19 COVID Magi C OVID [facility] [id number] SP [id number] INSURANCE COVID-19 [id number] 2 [id number] Managed Care - [facility] Community Plan P [id number] S [id number] Medicaid S [id number] S [id number] [facility] COMMUNITY PLAN XIX [id number] 18 [id number] [facility] Comm Plan Medicaid F [id number] SELF [id number] [facility]-Medicaid [id number] ANSI-Not a Secondary Insurance [id number] ANSI-Medicaid [id number] ANSI-Not a Secondary Insurance [id number] ANSI-Not a Secondary Insurance [id number] ANSI-Medicaid [id number] ANSI-Not a Secondary Insurance [id number] ANSI-Medicaid [id number] [facility] Comm [facility] Medicaid F [id number] SELF [id number] [facility] Medicaid F [id number] SELF [id number] [facility] Comm [facility] Medicaid F [id number] SELF [id number] ANSI-Medicaid [id number] ANSI-Not a Secondary Insurance [id number] ANSI-Not a Secondary Insurance [id number] ANSI-Medicaid [id number] ANSI-Medicaid [id number] ANSI-Not a Secondary Insurance [id number] [facility] Commercial [id number] Self [id number] ANSI-Not a Secondary Insurance [id number] ANSI-Medicaid [id number] ANSI-Not a Secondary Insurance [id number] ANSI-Medicaid [id number] ANSI-Medicaid [id number] ANSI-Not a Secondary Insurance [id number] ANSI-Medicaid [id number] ANSI-Not a Secondary Insurance [id number] ANSI-Not a Secondary Insurance [id number] ANSI-Medicaid [id number] [facility] (O) [id number] Self [id number] ANSI-Medicaid [id number] ANSI-Not a Secondary Insurance [id number] ANSI-Not a Secondary Insurance [id number] ANSI-Medicaid [id number] [facility] P [id number] S [id number] [facility] [id number] SP [id number] [facility] Commercial [id number] Self [id number] [place] [id number] [facility] Health Commercial [id number] Self [id number] [facility] COMMUNITY PLAN MCDHMO [id number] SP [id number] [facility](MCAID) O [id number] S [id number] [facility] COMMUNTY PLAN MC [id number] 18 [id number] [facility] Communty Plan Medicaid [id number] Self [id number] [facility] MCRO [id number] SP [id number] [facility] Communty Plan Medicaid [id number] Self [id number] UNHC COMMUNITY PLAN XIX MC [id number] 18 [id number] UNHC AMERICHOICE XIX -HMO [id number] 18 [id number] [facility] Communty Plan Medicaid [id number] Self [id number] [facility] Communty Plan Medicaid [id number] Self [id number] [facility] (HMO) [id number] Self [id number] [facility] (HMO) [id number] Self [id number] [facility] (HMO) [id number] Self [id number] [facility] (HMO) Self [facility] [facility] Hmo Commercial Self MEDICAID [id number] SP [id number] [facility] [place] [id number] HU2 [id number] SELF PAY UNAVAILABLE SP UNAVAILA BLE [facility] Comm Plan Medicaid F [id number] SELF [id number] [place] F [id number] SPOUSE [id number] [place] F [id number] SPOUSE [id number] N REGIONAL CLAIMS [place] -O/P [id number] 01 [id number] [place] P [id number] S [id number] [place] P [id number] S [id number] [facility] [place] [id number] SP [id number] Managed Care - Community Plan [facility] P [id number] S [id number] Sliding Fee Scale O none S no ne Medicaid S [id number] S [id number] Managed Care - Community Plan [facility] P [id number] S [id number] Managed Care - Community Plan [facility] P [id number] S [id number] Managed Care BCBS O [id number] S [id number] Medicaid S [id number] S [id number] Managed Care - Community Plan [facility] P [id number] S [id number] [facility] I [id number] Self [id number] [employer]CE[employer] BCBS P [id number] S [id number] BLUE CROSS VIRAMONTES PLAN [id number] SP [id number] [facility] COMM PLAN [id number] 18 [id number] [employer] BCBS P [id number] S [id number] BLUE CROSS VIRAMONTES PLAN [id number] SP [id number] Problems, Conditions, and Diagnoses Code Display Name Description Problem Type Effective Dates Data Source(s) E55.9 [id number] Vitamin D deficiency Problem 11/19/2020 12:0 0:00 AM EST eCW1 ([facility]) Z98.84 [id number] H/O gastric bypass Problem 10/22/2020 12:00: 00 AM EST eCW1 ([facility]) Z86.39 [id number] Personal history of other endocrine, nutritional and metabolic disease Problem 10/22/2020 12:00:00 AM EST eCW1 ([facility]) J30.2 [id number] Seasonal allergies Problem 10/22/2020 12:00: 00 AM EST eCW1 ([facility]) Z98.84 S/P gastric bypass S/P gastric bypass [id number] 12:00:00 AM EDT [facility] K21.9 GERD (gastroesophageal reflux disease) G ERD (gastroesophageal reflux disease) [id number] 09/20/2020 12:00:00 AM EDT [facility] J45.909 Asthma Asthma [id number] 09/20/2020 12:00:00 AM ED T [facility] E78.5 Hyperlipidemia Hyperlipidemia [id number] 09/20/2020 12:00: 00 AM EDT [facility] I10 Hypertension Hypertension [id number] 09/20/2020 12:00:00 A M EDT [facility] E66.01 Morbid obesity Morbid obesity [id number] 09/20/2020 12:00: 00 AM EDT [facility] G47.30 Sleep apnea Sleep apnea [id number] 09/20/2020 12:00:00 AM EDT [facility] [id number] SNOMED CT Concept SNOMED CT Concept Problem 09/05 04:40:55 PM EDT [facility] F41.9 [id number] Anxiety Problem 04/30/2020 12:00:00 AM ED T eCW1 ([facility]) E66.01 Morbid (severe) obesity due to excess ca lories Morbid (severe) obesity due to excess ca Diagnosis 09/20/2020 05:18:00 AM EDT [facility] U07.1 COVID-19 COVID-19 Diagnosis 09/15/2020 10:09:03 AM ED T [facility] R0789 Other chest pain Other chest pain Diagnosis 05/21/2020 01 :27:00 PM EDT [facility] Surgeries/Procedures Procedure Description Date Indications Data Source(s) MAMMO, screening, digital, unilateral 09/25/2020 12:00 :00 AM EST YARA ([facility]) US, breast, unilateral 09/25/2020 12:00:00 AM EST YARA ([facility]) GLUC BLD GLUC MNTR DEV CLEARED FDA SPEC HOME USE POCT GLUCOSE Routine 09/21/2020 1:27 PM EDT 09/21/2020 05:27:00 PM EDT [facility] GLUC BLD GLUC MNTR DEV CLEARED FDA SPEC HOME USE POCT GLUCOSE Routine 09/21/2020 6:49 AM EDT 09/21/2020 10:49:00 AM EDT [facility] GLUC BLD GLUC MNTR DEV CLEARED FDA SPEC HOME USE POCT GLUCOSE Routine 09/20/2020 11:52 PM EDT 09/21/2020 03:52:00 AM EDT [facility] BLOOD COUNT COMPLETE AUTOMATED CBC Routine 09/20/2020 6:33 P M EDT 09/20/2020 10:33:00 PM EDT [facility] GLUC BLD GLUC MNTR DEV CLEARED FDA SPEC HOME USE POCT GLUCOSE Routine 09/20/2020 5:51 PM EDT 09/20/2020 09:51:00 PM EDT [facility] GLUC BLD GLUC MNTR DEV CLEARED FDA SPEC HOME USE POCT GLUCOSE Routine 09/20/2020 10:37 AM EDT 09/20/2020 02:37:00 PM EDT [facility] GASTRIC RSTCV W/BYP W/SHORT LIMB 150 CM/< Gastric Bypass for Obesity 09/20/2020 12:00:00 AM EDT YARA ([facility]) ECG ROUTINE ECG W/LEAST 12 LDS TRCG ONLY W/O I&R ECG 12-LEAD Routine 09/10/2020 12:26 PM EDT Morbid obesity 09/10/2020 04:26:00 PM EDT Morbid obesity [facility] Morbid obesity BLOOD COUNT COMPLETE AUTOMATED CBC Routine 0 12:15 PM EDT Morbid obesity 09/10/2020 04:15:00 PM EDT Morbid obesity [facility] Morbid obesity BLOOD TYPING ABO TYPE AND SCREEN Routine 09/10/2020 12:15 PM EDT Morbid obesity 09/10/2020 04:15:00 PM EDT Morbid obesity [facility] Morbid obesity THYROID STIMULATING HORMONE TSH TSH Routine 09/10/20 12:15 PM EDT Morbid obesity 09/10/2020 04:15:00 PM EDT Morbid obesity [facility] Morbid obesity HEMOGLOBIN GLYCOSYLATED A1C HEMOGLOBIN A1C Routine 09/10/2020 12:15 PM EDT Morbid obesity 09/10/2020 04:15:00 PM EDT Morbid obesity [facility] Morbid obesity COMPREHENSIVE METABOLIC PANEL COMPREHENSIVE METABOLIC PANEL Rou liz 09/10/2020 12:15 PM EDT Morbid obesity 09/10/2020 04:15:00 PM EDT Morbid obesity [facility] Morbid obesity PHYSICIAN TELEPHONE EVALUATION 11-20 MIN 03/28/2020 12 :00:00 AM EDT eCW1 ([facility]) Results ID Date Data Source VITAMIN B12 LEVEL 11/18/2020 12:00:00 AM EST eCW1 ([facility]) Name Value Range Interpretation Code Description Data Holly rce(s) Supporting Document(s) [id number] VITAMIN B12 LEVEL eCW1 ([facility]) ID Date Data Source MAGNESIUM LEVEL 11/18/2020 12:00:00 AM EST eCW1 ([facility]) Name Value Range Interpretation Code Description Data Holly rce(s) Supporting Document(s) 2.1 1.8-2.4 MAGNESIUM LEVEL eCW1 ([facility]) ID Date Data Source VITAMIN D 25-HYDROXY 11/18/2020 12:00:00 AM EST eCW1 ([facility]) Name Value Range Interpretation Code Description Data Holly rce(s) Supporting Document(s) 17.0 30.0-100.0 TOTAL 25(OH) VITAMIN D eC W1 ([facility]) ID Date Data Source [id number] 11/18/2020 12:00:00 AM EST eCW1 ([facility]) Name Value Range Interpretation Code Description Data Holly rce(s) Supporting Document(s) Hemoglobin A1c/Hemoglobin.total in Blood 5.4 HEMOGLOBIN A1c eCW1 ([facility]) ID Date Data Source FERRITIN 11/18/2020 12:00:00 AM EST eCW1 ([facility]) Name Value Range Interpretation Code Description Data Holly rce(s) Supporting Document(s) [id number] FERRITIN eCW1 ([facility]) ID Date Data Source IRON (FE) 11/18/2020 12:00:00 AM EST eCW1 ([facility]) Name Value Range Interpretation Code Description Data Holly rce(s) Supporting Document(s) [id number] IRON (FE) eCW1 ([facility]) ID Date Data Source CBC with Differential 11/18/2020 12:00:00 AM EST eCW1 ([facility]) Name Value Range Interpretation Code Description Data Holly rce(s) Supporting Document(s) 5.29 4.30-6.10 RED BLOOD COUNT eCW1 ([facility]) 6.7 4.0-10.0 WHITE BLOOD COUNT eCW1 ([facility]) 14.5 13.5-17.5 HEMOGLOBIN eCW1 ([facility]) 46.2 42.0-52.0 HEMATOCRIT eCW1 ([facility]) 31.4 32.0-36.5 MEAN CORPUSCULAR HGB CONC eCW1 ([facility]) 87.3 80.0-96.0 MEAN CORPUSCULAR VOLUME e CW1 ([facility]) 27.4 27.0-33.0 MEAN CORPUSCULAR HEMOGLOB IN eCW1 ([facility]) [id number] PLATELET COUNT, AUTOMATED eCW1 ([facility]) 14.6 11.5-14.5 RED CELL DISTRIBUTION WID TH eCW1 ([facility]) 54.5 36.0-66.0 NEUTROPHILS % eCW1 ([facility]) 33.3 24.0-44.0 LYMPH % eCW1 ([facility]) 2.2 1.5-5.0 LYMPH # eCW1 ([facility]) 0.6 0.0-1.0 BASO % eCW1 ([facility]) 3.6 1.5-8.5 NEUTROPHILS # eCW1 ([facility]) 7.3 0.0-5.0 MONO % eCW1 ([facility]) 4.0 0.0-3.0 EOS % eCW1 ([facility]) 0.3 0.0-0.5 EOS # eCW1 ([facility]) 0.5 0.0-0.8 MONO # eCW1 ([facility]) 0.0 0.0-0.2 BASO # eCW1 ([facility]) ID Date Data Source [id number] 09/21/2020 01:29:04 PM EDT [facility] Name Value Range Interpretation Code Description Data Holly rce(s) Supporting Document(s) POC NOVA GLU 91 mg/dL (70-99) [facility] [place] [facility] [place] [facility] CLINICAL STAFF ID Date Data Source [id number] 09/21/2020 07:01:57 AM EDT [facility] [place] [facility] Name Value Range Interpretation Code Description Data Holly rce(s) Supporting Document(s) POC NOVA GLU 118 mg/dL (70-99) H [facility] [place] [facility] [place] [facility] CLINICAL STAFF ID Date Data Source [id number] 09/21/2020 12:06:49 AM EDT [facility] [place] [facility] Name Value Range Interpretation Code Description Data Holly rce(s) Supporting Document(s) POC NOVA GLU 115 mg/dL (70-99) H [facility] [place] [facility] [place] [facility] [facility] ID Date Data Source [id number] 09/20/2020 07:26:38 PM EDT [facility] Name Value Range Interpretation Code Description Data Holly rce(s) Supporting Document(s) WBC 11.1 10*3/uL (4.1-11.0) H [facility] RBC 4.61 10*6/uL (4.60-6.10) [facility] HGB 13.0 g/dL (13.5-18.0) L [facility] HCT 38.4 % (41.0-53.0) L [facility] MCV 83.3 fL (80.0-95.0) [facility] MCH 28.2 pg (27.0-32.0) [facility] MCHC 33.8 g/dL (32.0-36.0) [facility] RDW 14.7 % (10.5-14.5) H [facility] PLT 310 10*3/uL (150-450) [facility] MPV 7.8 fL (7.1-10.7) [facility] ID Date Data Source [id number] 09/20/2020 05:53:11 PM EDT [facility] Name Value Range Interpretation Code Description Data Holly rce(s) Supporting Document(s) POC NOVA GLU 166 mg/dL (70-99) H [facility] CLINICAL STAFF ID Date Data Source [id number] 09/20/2020 10:39:01 AM EDT [facility] Name Value Range Interpretation Code Description Data Holly rce(s) Supporting Document(s) POC NOVA GLU 130 mg/dL (70-99) H [facility] CLINICAL STAFF ID Date Data Source [id number] 09/23/2020 03:18:01 PM EST [facility] LABORATORY [address] [address]Vme# Surgical Pathology ReportAccession #:[id number](s) ReceivedA: Liver biopsyClinical Diagnosis and HistoryMorbid obesityDIAGNOSISLIVER, [...] 09/23/2020Electronically Signed Out By Ramez Bledsoe MD [facility] [place] [address]39xhyAdqejtsok component performed at [facility] CURRENT [facility], Histopathology, [address] [place] [address], [address].Reported at [facility], [address] [place] [address], [address]. This report may includeimmunohistochemical or in-situ hybridization results. Testing wasdeveloped and the performance characteristics determined by [employer] as required by CLIA '88. The FDA hasdetermined that approval for specific use is not necessary for clinicaluse. The quality of Hematoxylin and Eosin stains and as applicable, forall immunohistochemical and/or special stains, including positive andnegative controls, were reviewed and considered appropriate.ICD codes E66.01 K76.0CPT codesA: 14872F, 51795S, 90917A, 51274G, 91471B Name Value Range Interpretation Code Description Data Holly rce(s) Supporting Document(s) ID Date Data Source [id number] 09/20/2020 10:21:55 AM EDT [facility] NT INFORMATIONPatient MRN Name Date of Age Gend*PT [id number] Mora Linn 1995 25 years M SDAPT Location Admission Date/Time Visit ID [facility]18 --- Skinny Felton MD([id number]) EPI ID CSN Admitting Provider [id number] Skinny Felton MD([id number])CREATION, GASTRIC BYPASS, MADHURI-EN-Y, LAPAROSCOPIC, WITH LIVER BIOPSY ProcedureNotRory Linn CSN:[id number]/30/2020Surgeon(s):KIRSTEN Oneilurgical Assist: Erica Werner, PAStaff:OR Property Portfolio Officer: JUSTIN Felixurgical Assist: LEONARDO Chacon Relief Property Portfolio Officer: Yarely Kinsey RNOR Relief Scrub: Jennifer Motta [...] a fatty liver. We covered complicationsincluding: , HI, DVT, PE, leaks, sepsis, gallbladder disease, anastomoticulcers, [...] with a blue load on a power Nocona stapler at the 50 cm point. Thebiliopancreatic limb and the Madhuri limb were positioned [id number]. Theintermesenteric defect between the two limbs was closed with a running 3-0 V-Locsuture. Once this was closed, an enterotomy was made in the biliopancreatic limband then in the Madhuri limb. The 60-mm Nocona stapler with a blue load wasinserted into [...] Forest grasper behind the hiatus, exposing theleft lauernt. There was no significant hiatal hernia appreciatedThe [...] of the pouch.The silk suture anchoring the Maduhri to the stomach was removed. An enterotomywas [...] done, the anastomosis wastested for leaks. My application assistant clamped across the Madhuri limb with the bowel clampwhile I passed the endoscope into the esophagus, into the pouch, and into theRoux limb. I insufflated with air and my application assistant irrigated over theanastomosis with normal saline. [...] rce(s) Supporting Document(s) ID Date Data Source [id number] 09/20/2020 08:19:20 AM EDT [facility] NT INFORMATIONPatient MRN Name Date of Age Gend*PT [id number] Mora Linn M 1995 25 years M SDAPT Location Admission Date/Time Visit ID Attending Provider --- --- --- --- EPI ID CSN Admitting Provider [id number] ---AirwayPatient location during procedure: ORUrgency: electiveDifficult airway: [...] cmPlacement verified by: chest auscultation and + [id number]: equal breath sounds bilateralGrade view: grade IIa - partial view of glottis Name Value Range Interpretation Code Description Data Holly rce(s) Supporting Document(s) ID Date Data Source [id number] 09/20/2020 07:24:10 AM EDT [facility] NT INFORMATIONPatient MRN Name Date of Age Gend*PT [id number] Mora Linn 1995 25 years M SDAPT Location Admission Date/Time Visit ID Attending ProviderCAS[facility] 09[facility]20/20 0518 --- Skinny Felton MD([id number]) EPI ID CSN Admitting Provider [id number] Skinny Felton MD([id number])H&P reviewed. The patient was examined and there are no changes to the H&P.Skinny Felton MD7:24 AM Name Value Range Interpretation Code Description Data Holly rce(s) Supporting Document(s) ID Date Data Source [id number] 09/15/2020 10:10:00 AM EDT [facility] Name Value Range Interpretation Code Description Data Holly rce(s) Supporting Document(s) SARS coronavirus 2 RNA [facility] This lab was ordered by [facility] and reported by [employer]. ID Date Data Source [id number] 09/16/2020 08:09:17 AM EDT [facility] Name Value Range Interpretation Code Description Data Holly rce(s) Supporting Document(s) SARS-COV-2 IMMANUEL [facility] Not DetectedReference range: Not Detecte d This nucleic acid amplification test was developed and its performance characteristics determined by [employer]. Nucleic acid amplification tests include PCR and [...] detected) result in this assay. Performed At: [address] [id number] Maurilio Urrutia MD Ph:[phone] ID Date Data Source [id number] 09/10/2020 02:35:24 PM EDT [facility] Name Value Range Interpretation Code Description Data Holly rce(s) Supporting Document(s) EKG [facility] DMCGTa8iClEZIsEem5GkSrLdXHWqIU1zhfo4S0P7yHPxC4ZtpZEwk3hmL1DgR2NfSWXlWTZBTS4MhUXt jb2 [file] 5jd13zXW0H2ouI23/Pzo+/Yd20utO4UI6/04tM802Gn2/uf5l+/fj38l7x31tC040DTq6/v7v/Y/rpn3 udzE/fTE+Ca8pugS7d396XNvdKBp1j/O2Xr/gog4izO3/ebK8r0NuzQCds+NN7lC+fYWWUx/nt/1C4vo f3wsK1so8ExmkYIuG0aj9qmATYcJQxD5TOneRuW65v sqlWsdL+gt39r/lPu5cAHJ0k6Cka1n/Id78Fmz6kFx1nulSQ+0YTf7e/vRsgCKkyk4Fq5lRSrSsAwxkL lOVD1AUrY0sQxk4//IV4wk59pz2B+52S3D6I4P/6xD+9/u8oW2J/RRuqqV2XV81l0a//c/mGL8jsdCjR vcXey+vDed7qB+5upl/+XGJ/qBw2Hy84xMDX3SoOZl za9Zrodi+ttWqUEdRGe7tqbSJw2B8YlV5pRg/PY8VlTdxx1+tIcKXCIlUy47w9T8wG1G/internal medicine nurse/990GzPbZ dpMb94q/wIvMukb7t57/wrd36u8A/Zjf1dD0+2NOOi9S061y5ru52y9+/hplT69KWg5EPyZ/v33aFCm0 pcUUQwf8046q4b962XR8y8r7ty8c4///Wb5aIyOOx+ /rL0mF/4t/BBQqbak2U65B/1l2gZuy9My+EAx1tpkHnPKPUnkf7X57+MsNfX5tp3QHtMVKbtBk5+FKEG 7tq02TNq6fSb4ADaWkf+gFd0qe7pbw1ZDD3qr1EtSHOfSaAkFL6naisuQWWhAH6rkch6Y0WixGlkCKaR WUEkLv9mnPQrBP5KWSI7OPzuYSJfTUNaH5XpnS9zU5 3zyPOfHjXkNXUVFO1TcnL7HDJ8TQG9RNTtDqQrGQVhPO58JSKcRWFHLu5bugNxTtfZDcGsZC2okdd0F2 I9tTCoH842tOtcdlZyYY7Hj5KtsJZiIL7EnBUcfQRsXXAxWWHsA1nui9RfQKoaUQDDAc2ortMeCctFEp ZrYW9elen3S2J3aMmdzbJdPRANTGfeBpllLW3wmKxq cbylX3AyvKXeBGYiB5MuWTXmq88UBTReGLfXUcHgWlQzVMBvDLMnHWgkTjXiNQGvRAQlWCKyED7XgINa HWMwXVQVZOxqFxvaPYYdaY9zoWYTu0KtR5PQXkaMQNsrM9GJWasGOSD2ZQB3ZPV4AWryX1I8FnsiT3Al YP4TP9TgBFQiDXRDULHlvpOrOE4FpbMuuB1qUFnMIW XVLBcSDKnvPaB4a34nvvKVXSWqAPMwIJskPNLeXLNeTSGmGOKgHBQaFHEaBDJvIV2KX6ViWWBqSFLEQY Z9a9QbKDUmcayenchfIt4gqcThOuv+YxvmNOWvs7NiGZpwY9W7qKPxR2NsU6DgAZ3WmKIfGHbyRJYnFO BeBJWtY831laYzNA2+JC3jf1LbYjalZYMOBYIzREXx ECFvPPF0WlFxNRMpEQShSOCeKtW3VkMgFbIBONYzVGV0VuG8XtPnQSQnWYIeVInrXBYfNCHwJUG7EGRj PQVlCF0wArFtCJCzGLHdIOVgJHTrCLRndaUURLVtPLEmGEObGKE5OMViXFFiNOmnRDVtCDTtKLR4JBOg THZgLW4lLrImMSGeSHAsIjafXFRfRSWksnAXEQBoXH VlLFN9GfGaZTKlKVRuRWfaXEAvACXlQdp2PVMeXNPeQD0nXxHnOABhUTF0WQxkNQXjFDCrypBAOPBmWC SbUNQbIcHlDCGgULYeSZdzQENnRBZvKgWaLNHzXLDuUX1tPjLxLKGqLBM0WEJsXPPoNJMntwYAVUMjFF VnSFt0GGJyEQEzEVOnIStqLYMmCOJxFCS9RBAzWTLu KF9jGzCoULWkFUStIZXuUXOtVBKiobMIGBKdYMUkODA8MSDmPWRlDFVeNDloSENyDTGkQow4UGBbANBs TJ2fBrJuCFLgKCL6EGRhDWTyNOSlzeYLLEMnYBQ1VBqtPJBvGIWxUOPkLBtoAUYmPCHyQgK5AHOhZMOc GD0uGdEmXNKgWNF8GqHeZXFwQJEsbdAXGXCcIBQlBR T5CqQpXKHgAANvCHbbAMOwPZUwFOZzDJF9TEL6JUGrPnZkMBvqBUQIUMqAC1PcuyUuWyNGW8udXj0nHl BeEHPBS2Jdp7WpDXDoHJJYNu4+AzA2ZKB3wVOtKcb2DbUeIBifXJPZZp== ID Date Data Source [id number] 09/10/2020 12:25:50 PM EDT [facility] NT INFORMATIONPatient MRN Name Date of Age Gend*PT [id number] Mora Linn 1995 25 years M OPPT Location Admission Date/Time Visit ID Attending Provider --- --- --- Skinny Felton MD([id number]) EPI ID CSN Admitting Provider [id number] ---HISTORY PHYSICALName: Mora Linn : 1995 Sex: male [facility] Physician: Dr. FeltonInformant: The patient who is [...] PANENDOSCOPY SKIN BIOPSYALLERGIES:AllergiesAllergen Reactions Benadryl [Diphenhydramine] Hives Ponce Other (See Comments) Tongue Hinds Concerta [Methylphenidate [...] warm and dry.HEENT: He is normocephalic, atraumatic. [place] conjunctivae. Anicteric sclerae.Pupils are equal, round, reactive [...] hepatosplenomegaly. Negative CVAT.GENITAL/RECTAL: Deferred.MUSCLE/SKELETAL: Strength is 5/5. Industrial Maintenance Repairer are equal.NEUROLOGICALLY: Cranial nerves II through XII [...] may be prolonged greaterthan previously anticipated.ALLERGIES:Benadryl [diphenhydramine]; Ponce; Concerta [methylphenidate hcl er(cd)]; and Depakote [divalproex sodium]09/10/2020 12:25 PMLylisa Martines, NPThis document or parts of this document, were dictated using [employer] speaking software. A reasonable attempt at proofreading has beenmade to minimize errors. Please call with any questions or corrections. Name Value Range Interpretation Code Description Data [facility](s) Supporting Document(s) ID Date Data Source [id number] 09/10/2020 08:10:23 PM EDT [facility] Name Value Range Interpretation Code Description Data [facility] Supporting Document(s) HEMOGLOBIN A1C @ 5.7 % (4.0-6.0) [facility] Performed using [employer] y.Care must be taken when interpreting HoJ6ohpsmlfd in patients with a hemoglobin variantor decreased erythrocyte lifespan. Values 5.7 - 6.4% suggest prediabetes.Values >=6.5% are diagnostic for diabetes.REFERENCE: DIABETES CARE 2018: 41(S13-S27). EST AVERAGE GLUCOSE 117 mg/dL [facility] ID Date Data Source [id number] 09/10/2020 08:04:21 PM EDT [facility] Name Value Range Interpretation Code Description Data Holly rce(s) Supporting Document(s) TSH,ULTRASENSITIVE @ 2.540 mIU/L (0.360-4.170) [facility] ID Date Data Source [id number] 09/10/2020 08:04:21 PM EDT [facility] Name Value Range Interpretation Code Description Data Holly rce(s) Supporting Document(s) SODIUM 139 mmol/L (136-145) [facility] POTASSIUM 4.8 mmol/L (3.6-5.2) [facility] CHLORIDE 105 mmol/L (100-108) [facility] CO2 28 mmol/L (22-31) [facility] ANION GAP 6 mmol/L (7-16) L [facility] UREA NITROGEN 10 mg/dL (7-24) [facility] CREATININE 0.96 mg/dL (0.80-1.30) [facility] BUN/CREAT RATIO 10.4 RATIO (10.0-20.0) [facility] GLUCOSE 99 mg/dL (70-99) [facility] CALCIUM 9.0 mg/dL (8.4-10.2) [facility] TOTAL PROTEIN 7.3 g/dL (6.4-8.2) [facility] ALBUMIN 3.7 g/dL (3.5-4.6) [facility] GLOBULIN 3.6 g/dL (2.7-4.3) [facility] ALB/GLOB RATIO 1.0 RATIO [facility] ALKALINE PHOSPHATASE 92 U/L (45-117) [facility] BILIRUBIN,TOTAL 0.3 mg/dL (0.0-1.0) [facility] PLEASE NOTE:Total bilirubin results may be falselyelevated in patients taking Eltrombopag. AST (SGOT) 19 U/L (11-39) [facility] ALT (SGPT) 45 U/L (12-78) [facility] GFR >60 ml/min/1.73m2 (>59) [facility] GFR ( AMER) >60 ml/min/1.73m2 (>59) [facility] GFR INTERPRETATION [facility] --NORMAL KIDNEY FUNCTION OR MILD DISEASE - GFR >OR= 60CHRONIC KIDNEY DISEASE - GFR 15 - 59RENAL FAILURE - GFR <15 Est. GFR calculation based on the MDRDstudy equation, which assumes a steadystate for creatinine. Est. GFR should notbe used for medication dosing. ID Date Data Source [id number] 09/10/2020 06:59:27 PM EDT [facility] Name Value Range Interpretation Code Description Data Holly rce(s) Supporting Document(s) WBC 6.4 10*3/uL (4.1-11.0) [facility] RBC 4.96 10*6/uL (4.60-6.10) [facility] HGB 13.8 g/dL (13.5-18.0) [facility] HCT 42.0 % (41.0-53.0) [facility] MCV 84.6 fL (80.0-95.0) [facility] MCH 27.7 pg (27.0-32.0) [facility] MCHC 32.8 g/dL (32.0-36.0) [facility] RDW 14.9 % (10.5-14.5) H [facility] PLT 319 10*3/uL (150-450) [facility] MPV 8.1 fL (7.1-10.7) [facility] ID Date Data Source [id number] 09/10/2020 03:26:34 PM EDT [facility] SPEC EXP DATE 09/21/2020PATI ENT ABO/Rh A POSITIVEANTIBODY SCREEN NEGATIVETESTING SITE PERFORMED AT [address] [place] [address] Name Value Range Interpretation Code Description Data Holly rce(s) Supporting Document(s) TYPE AND SCREEN [facility] PATIENT ABO/Rh A POSITIVE ID Date Data Source [id number] 07/04/2020 12:00:00 AM EDT [facility] Name Value Range Interpretation Code Description Data Holly rce(s) Supporting Document(s) SARS coronavirus 2 RNA [Presence] in Res piratory specimen by IMMANUEL with probe detection [facility] This lab was ordered by Ramone Smith and reported by [employer]. ID Date Data Source [id number] 05/22/2020 12:53:00 PM EDT [facility] [address] [place] [address] PHONE: [phone] FAX: [phone] Name .................. : KAVEH Box Acct Number.................. : [id number] ROOM. ................. : TR-03 MR Number ................... : [id number] Stay type ............. : E/R Discharge Date......... ... : Admit Date ......... : 05/21/20 Admit Phys .................... : RAMSES STEVEN Date of ....... : 1995 Family Phys ................... : Home-Account Phone .................. : [phone] Age ................................ : 25 Film# .................. .:[id number] Sex ................................. : M Unsigned transcriptions are preliminary reports and do not represent a medical or legal document CHEST PORTABLE [id number] COMPLETE:05/21/20 14:10 [facility] [address] Reason(s): Chest Pain PORTABLE CHEST, 05/21/20: INDICATION: [...] By ZACHARY ARZOLA MD , 05/22/20 12:53, [facility] Transcribe Initials: [facility], Transcribe Date: 05/21/20 14:49, Dictation Date: Copy for: RAMSES Rodriguez via fax Copy for: EMERGENCY DEPT via [facility] Copy for: 710 MED REC DISCHARGED Page 1 of 1 Name Value Range Interpretation Code Description Data Holly rce(s) Supporting Document(s) ID Date Data Source [id number] 05/21/2020 08:45:00 [place] [address] PHONE: [phone] FAX: [phone] Name ..............: KAVEH Box Acct Number ...........................: [id number] ROOM. ............: TR-03 MR Number ............................: [id number] Stay type.........: E/R Discharge Date...............:05/21/20 Admit Date .....: 05/21/20 Admit Phys .............................: RAMSES STEVEN Date of ..: 1995 Family Phys ...........................: Home-Account Phone..............: [phone] Age.................................:25 Film# ...............:[id number] Sex.................................:M Unsigned transcriptions are preliminary reports and [place] [id number] COMPLETE:05/21/20 14:33 [place] [address] Please See Scanned Results. Name Value Range Interpretation Code Description Data Holly rce(s) Supporting Document(s) ID Date Data Source [id number] 05/21/2020 01:27:00 PM EDT [facility] 1 OrderSheet [facility] [address] [place] [address] Phone #: ext- [phone] 05/21/2020 13:27 Patient: MORA LINN Sex: M : 1995 Age: 25yWEIGHT:122.0 kg (M) HEIGHT:62 inches (S) BMI:49.2ALLERGIES: Benadryl, Ponce, Concerta, DepakoteCHIEF COMPLAINT: chest painDIAGNOSIS: Atypical chest pain, Chest wall painLAB ORDERSOrder Description Priority Entered Acknowledged InitialedCBC w Diff STAT 13:44 05/21/2020 13:46 Anjum Díaz; Sukh AntoineCMP STAT 13:44 05/21/2020 13:46 Anjum Díaz; Sukh AntoineD-Dimer STAT 13:44 05/21/2020 13:46 nAjum Díaz; Sukh AntoineTroponin-T STAT 13:44 05/21/2020 13:46 [...] Description Priority Entered Acknowledged Initialed 2 OrderSheet [facility] [address] [place] [address] Phone #: ext- [phone] 05/21/2020 13:27 Patient: MORA LINN Sex: M : 1995 Age: 25yCardiac Monitor 13:44 05/21/2020 13:46 Arjun(continuous) Anjum RODRIGUEZ; Sukh AntoineBlood Pressure 13:44 05/21/2020 13:46 Arjun,Monitor Anjum RODRIGUEZ; Sukh AntoineEKG 13:44 05/21/2020 13:46 Anjum Díaz; Sukh AntoinePulse Oximetry 13:44 05/21/2020 13:46 ArjunContinuous Anjum RODRIGUEZ; Sukh AntoineSaline Lock 13:44 05/21/2020 13:46 Anjum Díaz; Sukh Antoine[Electronically signed by Sukh Díaz R.N. (15:05/21/2020)][Electronically signed by Anjum Pearce (15:36 05/21/2020)][Electronically locked by Sukh Díaz R.N. (15:05/21/2020)] Name Value Range Interpretation Code Description Data Holly rce(s) Supporting Document(s) ID Date Data Source [id number] 05/21/2020 01:27:00 PM EDT [facility] 1 Medication Reconciliation Report [facility] [address] [place] [address] Phone #: ext- [phone] 05/21/2020 13:27 Patient: MORA LINN Sex: M : 1995 Age: 25yWeight: 122.0 kgHeight/Length: 62 in.BMI: 49.2ALLERGIES: Benadryl, Ponce, Concerta, DepakoteThe patient's Home Medications are listed [...] Dispense 15tablet. Refills: 0. Substitution permitted.Pharmacy - [facility] [address] [facility] ; [place] [address]. . -- JENNIFER Mccormick Name Value Range Interpretation Code Description Data Holly rce(s) Supporting Document(s) ID Date Data Source [id number] 05/21/2020 01:27:00 PM EDT [facility] 1 Medication Administration Record [facility] [address] [place] [address] Phone #: ext- [phone] 05/21/2020 13:27 Patient: MORA LINN Sex: M : 1995 Age: 25yWeight: 122.0 kgHeight/Length: 62 inBMI: 49.2ALLERGIES: Concerta, Benadryl, Ponce, Depakote Date/Time Medication Administered Medication OrderedGiven ASPIRIN CHEWABLE 81 MG [PO] Aspirin PO Chewable 81 mg 65934:47 05/21/2020 Dose: 81 mg Tablets PO mg [...] rce(s) Supporting Document(s) ID Date Data Source [id number] 05/21/2020 01:27:00 PM EDT [facility] 1 General Instructions [facility] [address] [place] [address] Phone #: ext- [phone] 05/21/2020 13:27 Patient: MORA LINN Sex: M [...] Dispense 15tablet. Refills: 0. Substitution permitted.Pharmacy - [facility] [address] [facility] ; [place] [address]. .Follow- up:Follow up with your healthcare provider [...] to plan of care. 2 General Instructions [facility] [address] [place] [address] Phone #: ext- [phone] 05/21/2020 13:27 Patient: [...] the large artery coming 3 General Instructions [facility] [address] [place] [address] Phone #: ext- [phone] 05/21/2020 13:27 Patient: [...] better within 24 hours, or as advised.Call [phone] if any of these occur: A change [...] Swelling, pain or redness in one leg [phone] [employer] [address] [place] [address]. All rights reserved. This information is not intended as asubstitute for professional medical care. Always follow your healthcare professional's instructions.Chest Wall Strain (Child)Injury can overstretch a muscle on the front or back of the chest wall. This is called a chest wallstrain. In children, the injury may occur during play or sports. It may also happen during repeated 4 General Instructions [facility] [address] [place] [address] Phone #: ext- [phone] 05/21/2020 13:27 Patient: MORA LINN Sex: M : 1995 Age: 25ycoughing or when lifting a heavy object. Symptoms include sharp pain and soreness. However, noserious injury or permanent damage is present.Muscle strain can be treated with [id number] or prescription medicine for pain andswelling. Pain [...] or pain gets worse and not better [phone] [employer] [address] [place] [address]. All rights reserved. This information is not intended as asubstitute for professional medical care. Always follow your healthcare professional's instructions. 5 General Instructions [facility] [address] [place] [address] Phone #: ext- [phone] 05/21/2020 13:27 Patient: MORA LINN Sex: M : 1995 Age: 25yYou have been given the following additional information:Chest Pain, Uncertain CauseChest Wall Strain (Child)No strenuous activity until better. Rest at home f or one days. Do not work for two days.(Electronically signed by JENNIFER Mccormick 05/21/2020 15:36) Name Value Range Interpretation Code Description Data Holly rce(s) Supporting Document(s) ID Date Data Source [id number] 05/21/2020 01:27:00 PM EDT [facility] 1 Clinical Report - Nurses [facility] [address] [place] [address] Phone #: ext- [phone] 05/21/2020 13:27 Patient: [...] Headache.Sleep Apnea. 2 Clinical Report - Nurses [facility] [address] [place] [address] Phone #: ext- [phone] 05/21/2020 13:27 Patient: [...] Díaz R.N. 3 Clinical Report - Nurses [facility] [address] [place] [address] Phone #: zgp- [phone] 05/21/2020 13:27 Patient: MORA LINN Sex: M [...] learning barriers present. Written instructions provided in Irish. The patient was discharged by the physician application assistant. He was discharged home and accompanied by director of rehabilitation. He left ambulatory and via private vehicle. Patient driving. --15:21 05/21/20 Sukh Díaz R.N. 15:20 05/21/20. BP: 122/72. MAP: 88. HR: 72. RR: 18. O2 saturation: deferred. Temp: deferred. Pain level now: 01/29. --15:21 05/21/20 Sukh Díaz R.N.Locked/Released at 05/21/2020 15:21 by Sukh Díaz R.N. Name Value Range Interpretation Code Description Data Holly rce(s) Supporting Document(s) ID Date Data Source [id number] 05/21/2020 01:27:00 PM EDT [facility] 1 Clinical Report - Physicians/Mid Levels [facility] [address] [place] [address] Phone #: ext- [phone] 05/21/2020 13:27 Patient: [...] ankle surgery. 2 Clinical Report - Physicians/Mid [facility] [address] [place] [address] Phone #: ext- [phone] 05/21/2020 13:27 Patient: MORA LINN Sex: M : 1995 Age: 25y Medications: Lexapro Oral. Famotidine Oral. traZODone HCl Oral. Allergies: Benadryl.(hives) Ponce. Concerta.(rash) Depakote.(rash).SOCIAL HISTORYNever smoker. Occasional alcohol use. [...] 13:38005/21/2020. 3 Clinical Report - Physicians/Mid Levels [facility] [address] [place] [address] Phone #: ext- [id number] 05/21/2020 13:27 Patient: [...] (6.3 - 8.2) 4 Clinical Report - Physicians/[facility] Emergency Department [address] [place] [address] Phone #: ext- [phone] 05/21/2020 13:27 Patient: [...] Male GFR Interprentation 20-49 yrs >60 mL/min [id number] yrs >56 mL/min Normal 60-69 yrs >49 mL/min Normal 70-79yrs>42 mL/min Normal 80 and above >35 mL/min Normal Female GFRInterpretation 20-39 yrs >60 mL/min Normal 40-49 yrs >58 mL/minNormal 50-59 yrs >51 mL/min Normal 60-69 yrs >45 mL/min [id number] yrs >39 mL/min Normal 80 and above >32 mL/min NormalD-Dimer: (JAELYN: 05/21/2020 14:00) ( [facility] [place] [place] 14:27) Final results Test Result Flag Units (Reference) D-DIMER QUANT <0.27 ug/mL (0.27 - 0.50)Troponin-T: (JAELYN: 05/21/2020 14:00) ( [facility] [place] 05/21/2020 14:31) Final results Test Result Flag Units (Reference) TROPONIN T <0.01 NG/ML (0.00 - 0.10) TROPONIN T0.1 ng/ml Recommended as the clinical threshold value forTroponin T.EKG: (JAELYN: 05/21/2020 13:44) ( [facility] [place] 05/21/2020 14:36) [facility]: (JAELYN: 05/21/2020 13:44) ( [facility] [place] 05/21/2020 14:50) [facility]ER[facility](s): Chest PainTRANSPORTATION: P IV? O2? Oxygen?(No) Room: ED Exam CHEST PORTABLE [facility] [address] [place] [address] PHONE: [phone] FAX: [phone] Name .................. : KAVEH Box Acct Number.................. : [id number] ROOM. ................. : TR-03 MR Number ................... : [id number] Stay type ............. : E/R Discharge Date......... ... : Admit Date ......... : 05/21/20 Admit Phys .................... : RAMSES STEVEN Date of ....... : 1995 Family Phys ................... : Home-Account Phone .................. : [phone] Age ................................ : 25 Film# .................. .:[id number] Sex ................................. : M Unsigned transcriptions are preliminary reports and do not represent a medical or legal document CHEST PORTABLE [id number] COMPLETE:05/21/20 14:10 [place] [id number] Reason(s): Chest Pain 5 Clinical Report - Physicians/Mid Levels [facility] Emergency Department [address] [place] [address] Phone #: ext- [phone] 05/21/2020 13:27 Patient: [...] Reviewed and Signed By DCTNAME , SIGNDATE, [facility] Transcribe Initials: SSR, Transcribe Date: 05/21/20 [...] pain 6 Clinical Report - Physicians/Mid Levels [facility] Emergency Department [address] [place] [address] Phone #: ext- [phone] 05/21/2020 13:27 Patient: [...] tablet. Refills: 0. Substitution permitted. Pharmacy - [facility] [address] [facility] ; [place] [address]. . Follow-up: Follow up with your healthcare [...] rce(s) Supporting Document(s) ID Date Data Source [id number] 05/21/2020 02:45:00 PM EDT [facility] Name Value Range Interpretation Code Description Data Holly rce(s) Supporting Document(s) COMPREHENSIVE METABOLIC PANEL [facility] COMPREHENSIVE METABOLIC PANEL Sodium [Moles/volume] in Serum or Plasma 141 mEq/L 134 - 153 [facility] Potassium [Moles/volume] in Serum or Plasma 4.4 mEq/L 3.6 - 5.0 [facility] Chloride [Moles/volume] in Serum or Plasma 103 mEq/L 98 - 107 [facility] Carbon dioxide, total [Moles/volume] in Serum or Plasma 27 MEQ/L 22 - 30 [facility] Glucose [Mass/volume] in Serum or Plasma 121 MG/DL 65 - 110 H [facility] BUN 8 MG/DL 7 - 21 [facility] al Creatinine [Mass/volume] in Serum or Plasma 0.9 MG/DL 0.7 - 1.5 [facility] BUN/CREAT 9 8 - 27 [facility] Protein [Mass/volume] in Serum or Plasma 7.1 G/DL 6.3 - 8.2 [facility] Albumin [Mass/volume] in Serum or Plasma 4.3 G/DL 3.9 - 5.0 [facility] Globulin [Mass/volume] in Serum by calculation 2.8 GM/DL 2.4 - 3.2 [facility] A/G RATIO 1.5 0.8 - 2.0 [facility] Calcium [Mass/volume] in Serum or Plasma 9.5 MG/DL 8.4 - 10.2 [facility] Bilirubin.total [Mass/volume] in Serum or Plasma <0.7 MG/DL 0.2 - 1.3 [facility] Alkaline phosphatase [Enzymatic activity/volume] in Serum or Plasma 80 U/L 38 - 126 [facility] Aspartate aminotransferase [Enzymatic activity/volume] in Serum or Plasma 27 U/L 5 - 40 [facility] Alanine aminotransferase [Enzymatic activity/volume] in Seru m or Plasma 40 U/L 7 - 56 [facility] Anion gap 3 in Serum or Plasma 11.0 mmol/L 8.0 - 16.0 [facility] AGE 25 yrs [facility] al NON-AA GFR >60 mL/min [facility] ital AFR AMER GFR >60 mL/min [facility] Ho spital Male GFR In terprentation [...] >32 mL/min Normal ID Date Data Source [id number] 05/21/2020 02:41:00 PM EDT [facility] Name Value Range Interpretation Code Description Data Holly rce(s) Supporting Document(s) CBC W/AUTOMATED DIFF [facility] COMPLETE BLOOD COUNT Leukocytes [#/volume] in Blood by Automated count 6.3 10^3/uL 4.2 - 1 1.0 [facility] Erythrocytes [#/volume] in Blood by Automated count 5.02 10^6/uL 4. 50 - 6.30 [facility] Hemoglobin [Mass/volume] in Blood 13.6 g/dL 14.0 - 16.0 L [facility] Hematocrit [Volume Fraction] of Blood by Automated count 42.0 % 4 1.0 - 51.0 [facility] Erythrocyte mean corpuscular volume [Entitic volume] by Auto mated count 83.7 fL 80.0 - 94.0 [facility] Erythrocyte mean corpuscular hemoglobin [Entitic mass] by Automated count 27.1 pg 27.0 - 34.0 [facility] Erythrocyte mean corpuscular hemoglobin concentration [Mass/volume] by Automated count 32.4 g/dL 31.0 - 36.0 [facility] Erythrocyte distribution width [Ratio] by Automated count 14.1 % 11.5 - 14.8 [facility] Platelets [#/volume] in Blood by Automated count 239 10^3/uL 150 - 45 0 [facility] Platelet mean volume [Entitic volume] in Blood by Automated count 10.6 fL 7.4 - 10.4 H [facility] Neutrophils/100 leukocytes in Blood by Automated count 63.0 % 37. 0 - 80.0 [facility] Lymphocytes/100 leukocytes in Blood by Manual count 27.5 % 25.0 - 40.0 [facility] Monocytes/100 leukocytes in Blood by Automated count 6.8 % 3.0 - 8.0 [facility] Eosinophils/100 leukocytes in Blood by Automated count 1.6 % 0.0 - 7.0 [facility] Basophils/100 leukocytes in Blood by Automated count 0.8 % 0.0 - 2.0 [facility] %IG 0.3 % 0.0 - 0.0 H [facility] al %NRBC 0.0 % 0.0 - 0.0 [facility] Neut[facility]ils [#/volume] in Blood by Automated count 3.98 10^3/uL 2.00 - 6.90 [facility] Lymphocytes [#/volume] in Blood by Automated count 1.74 10^3/uL 0.60 - 3.40 [facility] Monocytes [#/volume] in Blood by Automated count 0.43 10^3/uL 0.00 - 0.90 [facility] Eosinophils [#/volume] in Blood by Automated count 0.10 10^3/uL 0.00 - 0.70 [facility] Basophils [#/volume] in Blood by Automated count 0.05 10^3/uL 0.00 - 0.20 [facility] #IG 0.02 10^3/uL 0.00 - 0.10 [facility] H ospital #NRBC 0.00 10^3/uL 0.00 - 0.00 [facility] H [facility]spital MANUAL DIFF NOT INDICATED [facility] RBC MORPH MORPH IS NORMAL [facility] { SICKLE CELL (NORMAL: NONE SEEN ) Platelet adequacy [Presence] in Blood by Light microscopy CL UMPED NORMAL: NORMAL [facility] COMMENT: ID Date Data Source [id number] 05/21/2020 02:31:00 PM EDT [facility] Name Value Range Interpretation Code Description Data Holly rce(s) Supporting Document(s) TROPONIN T <0.01 NG/ML 0.00 - 0.10 [facility] ospital TROPONIN T0.1 ng/ml Recommended as the c linical threshold value forTroponin T. ID Date Data Source [id number] 05/21/2020 02:27:00 PM EDT [facility] Name Value Range Interpretation Code Description Data Holly rce(s) Supporting Document(s) Fibrin D-dimer FEU [Mass/volume] in Platelet poor plasma <0. 27 ug/mL 0.27 - 0.50 [facility] ID Date Data Source LIPID PANEL (CARDIAC RISK) 01/31/2020 12:00:00 AM EDT [facility] ( [facility]) Name Value Range Interpretation Code Description Data Holly rce(s) Supporting Document(s) Cholesterol [Moles/volume] in Serum or Plasma 181 <200 CHOLESTEROL LEVEL W ([facility]) Cholesterol in LDL [Mass/volume] in Serum or Plasma by calculation 61 <100 LDL CHOLESTEROL eCW1 ([facility]) Triglyceride [Mass/volume] in Serum or Plasma by calculation 344 <150 TRIGLYCERIDES LEVEL eCW1 ([facility]) Cholesterol in HDL [Moles/volume] in Serum or Plasma 51 >40 HDL CHOLESTEROL eCW1 ([facility]) 130 NON-HDL-C eCW1 ([facility]) 3.549 <5 CHOLESTEROL RISK RATIO eCW1 ([facility]) ID Date Data Source FREE T4 & TSH PANEL 01/31/2020 12:00:00 AM EDT eCW1 ([facility]) Name Value Range Interpretation Code Description Data Holly rce(s) Supporting Document(s) 1.930 0.358-3.740 THYROID STIMULATING HORM ONE eCW1 ([facility]) 1.46 0.76-1.46 FREE T4 eCW1 ([facility]) ID Date Data Source Comprehensive Metabolic Profile (CMP) 01/31/2020 12:00:00 AM EDT eCW1 ([facility]) Name Value Range Interpretation Code Description Data Holly rce(s) Supporting Document(s) 115 70-100 GLUCOSE, FASTING eCW1 ([facility]) 0.81 0.70-1.30 CREATININE FOR GFR eCW1 ([facility]) 10 7-18 BLOOD UREA NITROGEN eCW1 ([facility]) 4.3 3.5-5.1 POTASSIUM SERUM eCW1 ([facility]) 139 136-145 SODIUM LEVEL eCW1 ([facility]) > 60.0 >60 GLOMERULAR FILTRATION RATE eCW 1 ([facility]) 106 98-107 CHLORIDE LEVEL eCW1 ([facility]) 27 21-32 CARBON DIOXIDE LEVEL eCW1 ([facility]) 25 7-37 AST/SGOT eCW1 ([facility]) 84 45-117 ALKALINE PHOSPHATASE eCW1 ([facility]) 8.6 8.5-10.1 CALCIUM LEVEL eCW1 ([facility]) 53 12-78 ALT/SGPT eCW1 ([facility]) 3.5 3.2-5.2 ALBUMIN eCW1 ([facility]) 0.97 1.00-1.93 ALBUMIN/GLOBULIN RATIO eCW1 ([facility]) 7.1 6.4-8.2 TOTAL PROTEIN eCW1 ([facility]) 0.2 0.2-1.0 BILIRUBIN,TOTAL eCW1 ([facility]) Procedure Social History Code Duration Value Status Description Data Source(s ) Smoking 11/18/2020 12:00:00 AM EST Never Smoker completed Never S moker eCW1 ([facility]) Smoking 10/22/2020 12:00:00 AM EST Never Smoker completed Never S moker eCW1 ([facility]) Smoking 10/22/2020 12:00:00 AM EST Never Smoker completed Never S moker eCW1 ([facility]) Smoking 10/22/2020 12:00:00 AM EST Never Smoker completed Never S moker eCW1 ([facility]) Smoking 10/22/2020 12:00:00 AM EST Never Smoker completed Never S moker eCW1 ([facility]) Smoking 10/22/2020 12:00:00 AM EST Never Smoker completed Never S moker eCW1 ([facility]) Alcohol intake 09/20/2020 12:00:00 AM EDT Yes completed [facility] Smoking 09/20/2020 12:00:00 AM EDT Never smoker completed Never s moker [facility] Smoking 09/12/2020 12:00:00 AM EDT Never Smoker completed Never S moker eCW1 ([facility]) Smoking 09/12/2020 12:00:00 AM EDT Never Smoker completed Never S moker eCW1 ([facility]) Smoking 09/12/2020 12:00:00 AM EDT Never Smoker completed Never S moker eCW1 ([facility]) Smoking 09/12/2020 12:00:00 AM EDT Never Smoker completed Never S moker eCW1 ([facility]) Smoking 09/12/2020 12:00:00 AM EDT Never Smoker completed Never S moker eCW1 ([facility]) Alcohol intake 09/10/2020 12:00:00 AM EDT Yes completed [facility] Smoking 09/10/2020 12:00:00 AM EDT Never smoker completed Never s moker [facility] Smoking 04/30/2020 12:00:00 AM EDT Never Smoker completed Never S moker eCW1 ([facility]) Smoking 04/30/2020 12:00:00 AM EDT Never Smoker completed Never S moker eCW1 ([facility]) Smoking 04/30/2020 12:00:00 AM EDT Never Smoker completed Never S moker eCW1 ([facility]) Smoking 04/30/2020 12:00:00 AM EDT Never Smoker completed Never S moker eCW1 ([facility]) Smoking 04/30/2020 12:00:00 AM EDT Never Smoker completed Never S moker eCW1 ([facility]) Smoking 04/30/2020 12:00:00 AM EDT Never Smoker completed Never S moker eCW1 ([facility]) Smoking 04/30/2020 12:00:00 AM EDT Never Smoker completed Never S moker eCW1 ([facility]) Smoking 04/30/2020 12:00:00 AM EDT Never Smoker completed Never S moker eCW1 ([facility]) Vital Signs ID Date Data Source UNK Name Value Range Interpretation Code Description Data Source(s) Diastolic blood pressure 80 mm[Hg] 80 mm[Hg] eCW1 ([facility]) Systolic blood pressure 120 mm[Hg] 120 mm[Hg] e CW1 ([facility]) Body temperature 96.5 [degF] 96.5 [degF] eCW1 ( [facility]) Respiratory rate 18 /min 18 /min eCW1 ([facility]) Heart rate 120 /min 120 /min eCW1 ([facility]) Body mass index (BMI) [Ratio] 38.94 kg/m2 38.94 kg/m2 W1 ([facility]) Body height 65 [in_i] 65 [in_i] W1 ([facility]) Body weight 234 [lb_av] 234 [lb_av] eCW1 ([facility]) Diastolic blood pressure 78 mm[Hg] 78 mm[Hg] eCW1 ([facility]) Systolic blood pressure 122 mm[Hg] 122 mm[Hg] e CW1 ([facility]) Body temperature 97.4 [degF] 97.4 [degF] eCW1 ( [facility]) Respiratory rate 18 /min 18 /min eCW1 ([facility]) Heart rate 89 /min 89 /min eCW1 ([facility]) Body mass index (BMI) [Ratio] 40.37 kg/m2 40.37 kg/m2 W1 ([facility]) Body height 65 [in_i] 65 [in_i] eCW1 ([facility]) Body weight 242.6 [lb_av] 242.6 [lb_av] eCW1 ([facility]) Body weight 4020 [oz_av] 4020 [oz_av] YARA ([facility]) Systolic blood pressure 109 mm[Hg] 109 mm[Hg] A THENA ([facility]) Body mass index (BMI) [Ratio] 45.4 kg/m2 45.4 k g/m2 YARA ([facility]) Body height 62.4 [in_i] 62.4 [in_i] YARA ([facility]) Diastolic blood pressure 79 mm[Hg] 79 mm[Hg] YARA ([facility]) Respiratory rate 16 /min 16 /min [facility] Body temperature 36.[address] [facility] Heart rate 82 /min 82 /min [facility] Diastolic blood pressure 83 mm[Hg] 83 mm[Hg] [facility] Systolic blood pressure 126 mm[Hg] 126 mm[Hg] [facility] Oxygen saturation in Arterial blood by Pulse oximetry 97 % 97 % [facility] Body mass index (BMI) [Ratio] 47.37 kg/m2 47.37 kg/m2 [facility] Body weight 117.482 kg 117.482 kg [facility] Body height 157.5 cm 157.5 cm [facility] Diastolic blood pressure 72 mm[Hg] 72 mm[Hg] eCW1 ([facility]) Systolic blood pressure 128 mm[Hg] 128 mm[Hg] e CW1 ([facility]) Body temperature 97.4 [degF] 97.4 [degF] eC1 ( [facility]) Respiratory rate 20 /min 20 /min eCW1 ([facility]) Heart rate 86 /min 86 /min eCW1 ([facility]) Body mass index (BMI) [Ratio] 44.16 kg/m2 44.16 kg/m2 eCW1 ([facility]) Body height 65 [in_i] 65 [in_i] eCW1 ([facility]) Body weight 265.4 [lb_av] 265.4 [lb_av] eCW1 ([facility]) Oxygen saturation in Arterial blood by Pulse oximetry 96 % 96 % [facility] Body mass index (BMI) [Ratio] 48.47 kg/m2 48.47 kg/m2 [facility] Body weight 120.203 kg 120.203 kg [facility] Body height 157.5 cm 157.5 cm [facility] Heart rate 77 /min 77 /min [facility] Diastolic blood pressure 74 mm[Hg] 74 mm[Hg] [facility] Systolic blood pressure 138 mm[Hg] 138 mm[Hg] [facility] Diastolic blood pressure 89 mm[Hg] 89 mm[Hg] eCW1 ([facility]) Systolic blood pressure 129 mm[Hg] 129 mm[Hg] e CW1 ([facility]) Body temperature 97.9 [degF] 97.9 [degF] eCW1 ( [facility]) Respiratory rate 18 /min 18 /min eCW1 ([facility]) Heart rate 84 /min 84 /min eCW1 ([facility]) Body mass index (BMI) [Ratio] 44.26 kg/m2 44.26 kg/m2 eCW1 ([facility]) Body height 65 [in_i] 65 [in_i] eCW1 ([facility]) Body weight 266 [lb_av] 266 [lb_av] eCW1 ([facility]) Diastolic blood pressure 80 mm[Hg] 80 mm[Hg] eCW1 ([facility]) Systolic blood pressure 136 mm[Hg] 136 mm[Hg] e CW1 ([facility]) Body temperature 97.7 [degF] 97.7 [degF] eCW1 ( [facility]) Respiratory rate 18 /min 18 /min eCW1 ([facility]) Heart rate 110 /min 110 /min eCW1 ([facility]) Body mass index (BMI) [Ratio] 43.10 kg/m2 43.10 kg/m2 W1 ([facility]) Body height 65 [in_us] 65 [in_us] eCW1 ([facility]) Body weight Measured 259 [lb_av] 259 [lb_av] eC W1 ([facility]) Diastolic blood pressure 80 mm[Hg] 80 mm[Hg] eCW1 ([facility]) Systolic blood pressure 124 mm[Hg] 124 mm[Hg] e CW1 ([facility]) Body temperature 97.4 [degF] 97.4 [degF] eCW1 ( [facility]) Respiratory rate 17 /min 17 /min eCW1 ([facility]) Heart rate 94 /min 94 /min eCW1 ([facility]) Body mass index (BMI) [Ratio] 42.80 kg/m2 42.80 kg/m2 eCW1 ([facility]) Body height 65 [in_us] 65 [in_us] eCW1 ([facility]) Body weight Measured 257.2 [lb_av] 257.2 [lb_av ] eCW1 ([facility]) Diastolic blood pressure 80 mm[Hg] 80 mm[Hg] eCW1 ([facility]) Systolic blood pressure 118 mm[Hg] 118 mm[Hg] e CW1 ([facility]) Body temperature 96.8 [degF] 96.8 [degF] eCW1 ( [facility]) Respiratory rate 18 /min 18 /min eCW1 ([facility]) Heart rate 86 /min 86 /min eCW1 ([facility]) Body mass index (BMI) [Ratio] 42.60 kg/m2 42.60 kg/m2 eCW1 ([facility]) Body height 65 [in_us] 65 [in_us] eCW1 ([facility]) Body weight Measured 256 [lb_av] 256 [lb_av] eC W1 ([facility]) Patient Treatment Plan of Care Planned Activity Planned Date Details Description Data Source (s) Cholecalciferol 1000 UNT Oral Tablet 11/19/2020 12:00:00 AM EST eCW1 ([facility]) Sertraline 25 MG Oral Tablet [Zoloft] 10/22/2020 12:00:00 AM EST eCW1 ([facility]) Sertraline 25 MG Oral Tablet [Zoloft] 10/22/2020 12:00:00 AM EST eCW1 ([facility]) Sertraline 25 MG Oral Tablet [Zoloft] 10/22/2020 12:00:00 AM EST eCW1 ([facility]) Sertraline 25 MG Oral Tablet [Zoloft] 10/22/2020 12:00:00 AM EST eCW1 ([facility]) Sertraline 25 MG Oral Tablet [Zoloft] 10/22/2020 12:00:00 AM EST eCW1 ([facility]) Magnesium Hydroxide 80 MG/ML Oral Suspension 09/21/2020 12:00:00 AM EDT [facility] Ondansetron 4 MG Disintegrating Oral Tablet 09/20/2020 12:00:00 AM EDT [facility] Acetaminophen 325 MG Oral Tablet 09/20/2020 12:00:00 AM EDT [facility] Omeprazole 40 MG Delayed Release Oral Capsule 09/20/2020 12:00:00 A M EDT [facility] Ascorbic Acid 60 MG / Beta Carotene 5000 UNT / Copper Sulfate 40 MG / dl-alpha tocopheryl acetate 30 UNT / Sodium Selenite 0.04 MG / Zinc Oxide 40 MG Oral Tablet 09/20/2020 12:00:00 AM EDT [facility] 0.4 ML Enoxaparin sodium 100 MG/ML Prefilled Syringe 020 12:00:00 AM EDT [facility] Simethicone 80 MG Chewable Tablet 09/20/2020 12:00:00 AM EDT [facility] Vitamin B 12 0.5 MG Oral Tablet 09/20/2020 12:00:00 AM EDT [facility] Trazodone Hydrochloride 150 MG Oral Tablet 09/06/2020 12:00:00 AM E DT eCW1 ([facility]) Trazodone Hydrochloride 150 MG Oral Tablet 09/06/2020 12:00:00 AM E DT eCW1 ([facility]) Trazodone Hydrochloride 150 MG Oral Tablet 09/06/2020 12:00:00 AM E DT eCW1 ([facility]) Escitalopram 10 MG Oral Tablet 04/30/2020 12:00:00 AM EDT eCW1 ([facility]) Escitalopram 10 MG Oral Tablet 04/30/2020 12:00:00 AM EDT eCW1 ([facility]) Escitalopram 10 MG Oral Tablet 04/30/2020 12:00:00 AM EDT eCW1 ([facility]) Escitalopram 10 MG Oral Tablet 04/30/2020 12:00:00 AM EDT eCW1 ([facility]) Escitalopram 10 MG Oral Tablet 04/30/2020 12:00:00 AM EDT eCW1 ([facility]) Escitalopram 10 MG Oral Tablet 04/30/2020 12:00:00 AM EDT eCW1 ([facility]) Escitalopram 10 MG Oral Tablet 04/30/2020 12:00:00 AM EDT eCW1 ([facility]) Escitalopram 10 MG Oral Tablet 04/30/2020 12:00:00 AM EDT eCW1 ([facility]) Metformin hydrochloride 500 MG Oral Tablet 03/28/2020 12:00:00 AM E DT eCW1 ([facility]) ReliOn Blood Glucose Test - 03/28/2020 12:00:00 AM EDT eCW1 ([facility]) 200 ACTUAT Albuterol 0.09 MG/ACTUAT Metered Dose Inhal er [ProAir] 03/11/2020 12:00:00 AM EDT eCW1 ([facility]) Fluticasone Propionate 50 MCG/ACT 03/11/2020 12:00:00 AM EDT eCW1 ([facility]) Famotidine 40 MG Oral Tablet [Pepcid] 10/25/2019 12:00:00 AM EST eCW1 ([facility]) Paroxetine 10 MG Oral Tablet [Paxil] 10/25/2019 12:00:00 AM EST eCW1 ([facility]) Famotidine 40 MG Oral Tablet [Pepcid] 10/25/2019 12:00:00 AM EST eCW1 ([facility]) Famotidine 40 MG Oral Tablet [facility]
--- OUTSIDE RECORDS SUMMARY | 2020-12-04 17:56 | CCD ---
Author Author [facility] Organization [facility] Address Unknown Phone Unavailable Support Name Relationship Address Phone PRICECHOP Next Of Kin [address] [place] [address] [employer] [place] [address] Cathy Torres Next Of Kin [address] [place] [address] [employer] Next Of Kin [address] [place] [address] [address] [place] [address] STEWARTS* Next Of Kin [address] [place] [address] KRAFT Next Of Kin FT. [facility] [place] [address] Danyelle DIRECTOR TRADERegina Next Of Kin [address] [place] [address] Madelin DIRECTOR TRADE-C, Regina Next Of Kin [address] [place], [place] [id number] Lyudmila PNP-C, Ayala Garcias Next Of Kin [address] [place], [place] [id number] [employer] [place] [address] [employer] Next Of Kin [address] [place] [address] COUSINS, KAYCEE Next Of [facility] [address] [place] [address] STREAM Next Of [facility] [address] [place] [address] JUSTINE ELENA Next Of Kin [address] [place] [address] Madelin DIRECTOR TRADE-C DIRECTOR TRADE-C, Regina Next Of Kin [address] [facility] [place] [address] Lyudmila PNP-C, Reba Next Of Kin [address] [place] [address] Laquita Castaneda MD Next Of Kin [address] [place] [address] COUSINS, [place] [address] [employer] [place] [address] - COUSINS, ROBLES Next Of Kin [address] [place] [address] KIM, H ARRON Next Of Kin [address] [place] [address] UE Next Of Kin Unknown Unavailable ST Next Of Kin [address] [place] [address] ARRON ALVAREZ H Next Of Kin [address] [place] [address] COUSINS, MARIEL [place] Unavailable Rosangela Das Unknown Care Team Providers Care Lidar Analyst Name Role Phone Cathy Kaur Unavailable Unavailable [...] Unavailable Chino Cadet MD Unavailable Unavailable Chino Caedt MD Unavailable Unavailable Chino Cadet MD Unavailable [...] is protected by Article 27-F of the [facility] Public Health law. If you continue you may have access to information: Regarding HIV / AIDS; Provided by facilities licensed or operated by the [facility] Office of Mental Health; or Provided by the [facility] Office for People With Developmental Disabilities. If such information is present, then the following [facility] mandated warning applies: This information [...] law may result in a fine or shelter sentence or both. A general authorization for [...] Methylphenidate Hcl Er (Cd) Palpitations Low Active [facility] Low Propensity to adverse reactions CITRUS CITRUS AURANTIUM FRUIT OIL Active [facility] Propensity to adverse reactions DIPHENHYDRAMINE Diphenhydramine Active [facility] Drug allergy Concerta Methylphenidate Unknown Active eCW1 ([facility]) Drug allergy Depakote Valproate Unknown Active eCW1 ([facility]) Drug allergy DiphenhydrAMINE HCl Diphenhydramine Unknown Active eCW1 ([facility]) Family History Family Member Name Family Member Gender Family Member Status Date o f Status Description Data Source(s) Unknown Unknown Problem MEDENT ([facility]) Encounters Encounter Providers Location Date Indications Data Source(s ) Outpatient [address] [facility] [id number] 11/18/2020 12:00:00 AM EST eCW1 ([facility]) Unknown [address] [facility] [address] 10/23/2020 12:00:00 AM EST eCW1 ([facility]) Unknown [address] [facility] [address] 10/23/2020 12:00:00 AM EST eCW1 ([facility]) Outpatient [address] [facility] [address] 10/22/2020 12:00:00 AM EST eCW1 ([facility]) Unknown [address] [facility] [address] 10/22/2020 12:00:00 AM EST eCW1 ([facility]) Unknown [address] [facility] [address] 10/22/2020 12:00:00 AM EST eCW1 ([facility]) Rogelio Cadet MD: [address] [place] [phone], Ph. Attender: Rogelio Cadet MD [facility] Medical 09/25/2020 12:00:00 AM EST YARA ([facility]) Unknown [address] [facility] [id number] 09/17/2020 12:00:00 AM EDT eCW1 ([facility]) Outpatient Referrer: SKINNY GOETZ-MOB.PAT 2019 10:09:03 AM EDT - 09/15/2020 10:09:07 AM EDT [facility] [place] [address] [facility] [address] 09/12/2020 12:00:00 AM EDT eCW1 ([facility]) [place] [address] [facility] [address] 09/12/2020 12:00:00 AM EDT eCW1 ([facility]) Outpatient Attender: SKINNY FELTONReferrer: SKINNY HOOVER MOB-MOB.PAT 09/10/2020 11:03:19 AM EDT - 09/10/2020 12:25:34 PM EDT [facility] [place] [address] [facility] [address] 09/06/2020 12:00:00 AM EDT eCW1 ([facility]) Unknown [address] [facility] [address] 09/06/2020 12:00:00 AM EDT eCW1 ([facility]) [place] [address] [facility] [address] 09/06/2020 12:00:00 AM EDT eCW1 ([facility]) Inpatient Attender: SKINNY Trinidad vincenzo: SKINNY FELTONAdmitter: SKINNY FELTON [id number] 09/03/2020 10:29:48 AM EDT - 09/21/2020 01:49:00 PM EDT [facility] Patient discharged. Outpatient Attender: JENNIFER JIANG 08/28/2020 11:18:01 AM EDT [facility] Outpatient Attender: LINDA MORALES APOLINAR 08/26/2020 12:25:00 PM EDT [facility] Outpatient Attender: LINDA MORALES APOLINAR 08/26/2020 12:22:00 PM EDT [facility] Unknown [address] [facility] [address] 08/13/2020 12:00:00 AM EDT eCW1 ([facility]) [place] [address] [facility] [address] 08/13/2020 12:00:00 AM EDT eCW1 ([facility]) [place] [address] [facility] [address] 06/05/2020 12:00:00 AM EDT eCW1 ([facility]) [place] [address] [facility] [address] 06/03/2020 12:00:00 AM EDT eCW1 ([facility]) Emergency Attender: Anjum RODRIGUEZ-CConsultant: ARMAAN RODRIGUEZ 05/21/2020 01:27:00 PM EDT - 05/21/2020 03:21:00 PM EDT [facility] Patient admitted. [facility] [address] [facility] [address] 05/09/2020 12:00:00 AM EDT eCW1 ([facility]) [place] [address] [facility] [address] 05/04/2020 12:00:00 AM EDT eCW1 ([facility]) Outpatient Attender: LINDA MORALES APOLINAR 04/30/2020 07:38:04 PM EDT [facility] Outpatient [address] [facility] [address] 04/30/2020 12:00:00 AM EDT eCW1 ([facility]) [place] [address] [facility] [address] 04/28/2020 12:00:00 AM EDT eCW1 ([facility]) [facility] [address] [facility] [address] 04/23/2020 12:00:00 AM EDT eCW1 ([facility]) [facility] [address] [facility] [address] 03/28/2020 12:00:00 AM EDT eCW1 ([facility]) [facility] [address] [facility] [address] 03/26/2020 12:00:00 AM EDT eCW1 ([facility]) [address] [address] 03/10/2020 12:00:00 AM EDT [facility] [address] [address] 03/04/2020 12:00:00 AM EDT [facility]CW1 [facility] Outpatient 03/01/2020 06:00:00 AM EDT [facility] [address] [address] 02/13/2020 12:00:00 AM EDT [facility]CW1 [facility] [address] [address] 02/13/2020 12:00:00 AM EDT [facility]CW1 [facility] [address] [address] 02/01/2020 12:00:00 AM EDT [facility] [address] [address] 01/22/2020 12:00:00 AM EST [facility] [address] [address] 11/23/2019 12:00:00 AM EST [facility]CW1 [facility] [address] [address] 11/17/2019 12:00:00 AM EST [facility]CW1 [facility] Outpatient 11/07/2019 09:50:00 PM EST [facility] Outpatient Attender: LINDA [facility] 10/27/2019 08:01:02 PM EST [facility] Outpatient Att[facility]: [facility] 10/27/2019 01:07:01 PM EST [address] [address] 10/27/2019 12:00:00 AM EST eCW1 ([facility]) Recurring Patient Attender: Dandy Lane MDReferrer: Ernie umanzor MD 10/25/2019 02:47:20 PM EST [facility] [address] [address] 10/25/2019 12:00:00 AM EST eCW1 ([facility]) [address] [address] 10/25/2019 12:00:00 AM EST eCW1 ([facility]) [address] [address] 10/12/2019 12:00:00 AM EST eCW1 ([facility]) Immunizations Vaccine Date Status Description Data Source(s) INFLUENZA VIRUS VACCINE QUADRIVALENT 2019-21 (6 MOS AN D UP) 08/08/2020 12:00:00 AM EDT completed [facility] Flu Vaccine Historical 08/07/2020 12:00:00 AM EDT completed Flu Vaccine Historical 08/07/2020 [facility] Medications Medication Brand Name Start Date Product Form Dose Route Admi nistrative Instructions Pharmacy Instructions Status Indications Reaction Description Data Source(s) Cholecalciferol 1000 UNT Oral Tablet Vitamin D3 25 MCG (1000 UT) Vitamin D3 25 MCG (1000 UT) 11/19/2020 12:00:00 AM EST 1.0 {tablet} active Vitamin D3 25 MCG (1000 UT) eCW1 ([facility]) Sertraline 25 MG Oral Tablet [Zoloft] Zoloft 25 MG Zoloft 25 MG 10/22/2020 12:00:00 AM EST 1.0 {tablet_at_bedtime} active Zoloft 25 MG eCW1 ([facility]) Sertraline 25 MG Oral Tablet [Zoloft] Zoloft 25 MG Zoloft 25 MG 10/22/2020 12:00:00 AM EST 1.0 {tablet_at_bedtime} active Zoloft 25 MG eCW1 ([facility]) Sertraline 25 MG Oral Tablet [Zoloft] Zoloft 25 MG Zoloft 25 MG 10/22/2020 12:00:00 AM EST 1.0 {tablet_at_bedtime} active Zoloft 25 MG eCW1 ([facility]) Sertraline 25 MG Oral Tablet [Zoloft] Zoloft 25 MG Zoloft 25 MG 10/22/2020 12:00:00 AM EST 1.0 {tablet_at_bedtime} active Zoloft 25 MG eCW1 ([facility]) Sertraline 25 MG Oral Tablet [Zoloft] Zoloft 25 MG Zoloft 25 MG 10/22/2020 12:00:00 AM EST 1.0 {tablet_at_bedtime} active Zoloft 25 MG eCW1 ([facility]) ondansetron (ZOFRAN-ODT) disintegrating tablet 8 mg 09/21/2020 [...] administered onsite lactated ringers bolus 1,000 mL [id number] 09/21/2020 06:00:00 AM EDT 1000 mL Intravenous [...] administered onsite heparin (porcine) injection 5,000 Units [id number] 09/20/20 06:00:00 PM EDT 5000 U Subcutaneous [...] at 1800, Post-op
Blood Sugar Units of [id number] 4 [id number] 6 [id number] 8 [id number] 10 units 321-370 12 units 371-420 14 [...] saline flush 0.9 % injection 3 mL [id number] 09/20/2020 02:00:00 PM EDT 3 mL Intravenous [...] administered onsite enalaprilat (VASOTEC) injection 1.25 mg [id number] 09/20/20 12:18:59 PM EDT 1.25 mg Intravenous [...] administered onsite HYDROmorphone (DILAUDID) injection 0.5 mg [id number] 09/20/2020 10:16:41 AM EDT 0.5 mg Intravenous aborted 0.5 mg, Intravenous, Every 5 min PRN, severe pain (7-10), Starting Wed09/20/20 at 1016, For 5 doses, PACU (only) [facility] Medication administered onsite fentaNYL Citrate (PF) (SUBLIMAZE) injection 25 mcg [id number] 09/20/2020 10:16:41 AM EDT 25 ug Intravenous aborted 25 mcg, Intravenous, Every 5 min PRN, moderate pain (4-6), Starting Wed09/20/20 at 1016, For 12 doses, PACU (only) [facility] Medication administered onsite Clonidine Hydrochloride 0.1 MG Oral Tablet cloNIDine ( CATAPRES) tablet 0.1 mg cloNIDine (CATAPRES) tablet 0.1 mg 09/20/2020 07:00:00 AM EDT 0.1 mg Oral completed 0.1 mg, Oral, rn call center, 09/20 at 0700, For 1 dose, Pre-op [facility] Medication administered onsite Acetaminophen 325 MG Oral Tablet acetaminophen (TYLENO L) 325 MG tablet 975 mg acetaminophen (TYLENOL) 325 MG tablet 975 mg 09/20/2020 07:00:00 AM EDT 975 mg Oral completed 975 mg, Or al, rn call center, Wed09/20/20 at 0700, For 1 dose, Pre-op
"Maximum dose of acetaminophen is 4,000 mg from all sources in 24 hours."
[facility] Medication administered onsite Albuterol 0.83 MG/ML Inhalant Solution a lbuterol (PROVENTIL) nebulizer solution 2.5 mg albuterol (PROVENTIL) nebulizer solution 2.5 mg 2019 07:00:00 AM EDT 2.5 mg completed 2.5 mg , Nebulization, rn call center, Wed09/20/20 at 0700, For 1 dose, Pre-op
[...] administered onsite heparin (porcine) injection 5,000 Units [id number] 09/20/20 07:00:00 AM EDT 5000 U Subcutaneous completed 5,000 Uni ts, Subcutaneous, rn call center, Wed09/20/20 at 0700, For 1 dose, Pre-op
[...] mg Oral completed 600 mg, Oral, On ahi l, Wed09/20/20 at 0700, For 1 dose, Pre-op
Hold if age greater than 70 or chronic renal failure/insufficiency
[facility] Medication administered onsite Dexamethasone 4 MG Oral Tablet dexamethasone (DECADRON ) tablet 4 mg dexamethasone (DECADRON) tablet 4 mg 09/20/2020 07:00:00 AM EDT 4 mg Oral completed 4 mg, Oral, rn call center, Wed 0 at 0700, For 1 dose, Pre-op [facility] Medication administered onsite Alprazolam 0.25 MG Oral Tablet ALPRAZolam (XANAX) tabl et 0.25 mg ALPRAZolam (XANAX) tablet 0.25 mg 09/20/2020 07:00:00 AM EDT 0.25 mg Oral completed 0.25 mg, Oral, rn call center, Wed09/20/20 at 0700, For 1 dose, Pre-op [facility] Medication administered onsite celecoxib 100 MG Oral Capsule celecoxib (CeleBREX) cap raeann 200 mg celecoxib (CeleBREX) capsule 200 mg 09/20/2020 07:00:00 AM EDT 200 mg Oral completed 200 mg, Oral, rn call center, 09/20 at 0700, For 1 dose, Pre-op [facility] Medication administered onsite Tetrahydrocannabinol 2.5 MG Oral Capsule dronabinol (M ARINOL) capsule 5 mg dronabinol (MARINOL) capsule 5 mg 09/20/2020 07:00:00 AM EDT 5 mg Oral completed 5 mg, Oral, rn call center, Wed 0 at 0700, For 1 dose, [...] (TRANSDERM-SCOP) 1.5 MG (Bariatric only) 1 patch [id number] 09/20/2020 05:46:17 AM EDT 1 {patch} Transdermal [...] 12 0.5 MG Oral Tablet cyanocob alamin ([facility] VITAMIN B-12) 500 MCG tablet cyanocobalamin ([facility] VITAMIN B-12) 500 MCG tablet 09/20/2020 12:0 [...] {tablet_at_bedtime} active Trazodone HCl 150 MG eCW1 ([facility]) Trazodone Hydrochloride 150 MG Oral Tablet Trazodone H Cl 150 MG Trazodone HCl 150 MG 09/06/2020 12:00:00 AM EDT 1.0 {tablet_at_bedtime} active Trazodone HCl 150 MG eCW1 ([facility]) Trazodone Hydrochloride 150 MG Oral Tablet Trazodone H Cl 150 MG Trazodone HCl 150 MG 09/06/2020 12:00:00 AM EDT 1.0 {tablet_at_bedtime} active Trazodone HCl 150 MG eCW1 ([facility]) Escitalopram 10 MG Oral Tablet Escitalopram Oxalate 10 MG Escitalopram Oxalate 10 MG 04/30/2020 12:00:00 AM EDT 1.0 {tablet} activ e Escitalopram Oxalate 10 MG eCW1 ([facility]) Escitalopram 10 MG Oral Tablet Escitalopram Oxalate 10 MG Escitalopram Oxalate 10 MG 04/30/2020 12:00:00 AM EDT 1.0 {tablet} activ e Escitalopram Oxalate 10 MG eCW1 ([facility]) Escitalopram 10 MG Oral Tablet Escitalopram Oxalate 10 MG Escitalopram Oxalate 10 MG 04/30/2020 12:00:00 AM EDT 1.0 {tablet} activ e Escitalopram Oxalate 10 MG eCW1 ([facility]) Escitalopram 10 MG Oral Tablet ESCITALOPRAM OXALATE 04/30/2020 1 2:00:00 AM EDT tablet 30 TAKE ONE TABLET BY MOUTH EVERY D AY TAKE ONE TABLET BY MOUTH EVERY DAY SOLD: 04/30/2020 [facility] Escitalopram 10 MG Oral Tablet Escitalopram Oxalate 10 MG Escitalopram Oxalate 10 MG 04/30/2020 12:00:00 AM EDT 1.0 {tablet} activ e Escitalopram Oxalate 10 MG eCW1 ([facility]) Escitalopram 10 MG Oral Tablet Escitalopram Oxalate 10 MG Escitalopram Oxalate 10 MG 04/30/2020 12:00:00 AM EDT 1.0 {tablet} activ e Escitalopram Oxalate 10 MG eCW1 ([facility]) Escitalopram 10 MG Oral Tablet Escitalopram Oxalate 10 MG Escitalopram Oxalate 10 MG 04/30/2020 12:00:00 AM EDT 1.0 {tablet} activ e Escitalopram Oxalate 10 MG eCW1 ([facility]) Escitalopram 10 MG Oral Tablet Escitalopram Oxalate 10 MG Escitalopram Oxalate 10 MG 04/30/2020 12:00:00 AM EDT 1.0 {tablet} activ e Escitalopram Oxalate 10 MG eCW1 ([facility]) Escitalopram 10 MG Oral Tablet Escitalopram Oxalate 10 MG Escitalopram Oxalate 10 MG 04/30/2020 12:00:00 AM EDT 1.0 {tablet} activ e Escitalopram Oxalate 10 MG eCW1 ([facility]) Metformin hydrochloride 500 MG Oral Tablet Metformin H Cl 500 MG Metformin HCl 500 MG 03/28/2020 12:00:00 AM EDT 1.0 {tablet_with_a_meal} active Metformin HCl 500 MG eCW1 ([facility]) ReliOn Blood Glucose Test - ReliOn Blood Glucose Test - 05/2020 12:00:00 AM EDT active ReliOn Blood Gluc ose Test - eCW1 ([facility]) Metformin hydrochloride 500 MG Oral Tablet Metformin H Cl 500 MG Metformin HCl 500 MG 03/28/2020 12:00:00 AM EDT 1.0 {tablet_with_a_meal} active Metformin HCl 500 MG eCW1 ([facility]) BLOOD SUGAR DIAGNOSTIC 03/28/2020 12:00:00 AM EDT strip 25 TEST DAILY DIRECTED TEST DAILY DIRECTED SOLD: 03/28/2020 [facility] ReliOn Blood Glucose Test - ReliOn Blood Glucose Test - 05/2020 12:00:00 AM EDT active ReliOn Blood Gluc ose Test - eCW1 ([facility]) ReliOn Blood Glucose Test - [facility] Blood Glucose Test - 05/2020 12:00:00 AM EDT active ReliOn Blood Gluc ose Test - eCW1 ([facility]) Metformin hydrochloride 500 MG Oral Tablet Metformin H Cl 500 MG Metformin HCl 500 MG 03/28/2020 12:00:00 AM EDT active 1 tablet with a meal eCW1 ([facility]) Metformin hydrochloride 500 MG Oral Tablet Metformin H Cl 500 MG Metformin HCl 500 MG 03/28/2020 12:00:00 AM EDT 1.0 {tablet_with_a_meal} active Metformin HCl 500 MG eCW1 ([facility]) Metformin hydrochloride 500 MG Oral Tablet Metformin H Cl 500 MG Metformin HCl 500 MG 03/28/2020 12:00:00 AM EDT 1.0 {tablet_with_a_meal} active Metformin HCl 500 MG eCW1 ([facility]) ReliOn Blood Glucose Test - ReliOn Blood Glucose Test - 05/2020 12:00:00 AM EDT active ReliOn Blood Gluc ose Test - eCW1 ([facility]) ReliOn Blood Glucose Test - ReliOn Blood Glucose Test - 05/2020 12:00:00 AM EDT active ReliOn Blood Gluc ose Test - eCW1 ([facility]) ReliOn Blood Glucose Test - ReliOn Blood Glucose Test - 05/2020 12:00:00 AM EDT active ReliOn Blood Gluc ose Test - eCW1 ([facility]) ReliOn Blood Glucose Test - [facility]On Blood Glucose Test - 05/2020 12:00:00 AM EDT active ReliOn Blood Gluc ose Test - eCW1 ([facility]) Metformin hydrochloride 500 MG Oral Tablet Metformin H Cl 500 MG Metformin HCl 500 MG 03/28/2020 12:00:00 AM EDT 1.0 {tablet_with_a_meal} active Metformin HCl 500 MG eCW1 ([facility]) ReliOn Blood Glucose Test - ReliOn Blood Glucose Test - 05/2020 12:00:00 AM EDT active ReliOn Blood Gluc ose Test - eCW1 ([facility]) Metformin hydrochloride 500 MG Oral Tablet Metformin H Cl 500 MG Metformin HCl 500 MG 03/28/2020 12:00:00 AM EDT 1.0 {tablet_with_a_meal} active Metformin HCl 500 MG eCW1 ([facility]) ReliOn Blood Glucose Test - ReliOn Blood Glucose Test - 05/2020 12:00:00 AM EDT active as directed eCW1 ([facility]) ReliOn Blood Glucose Test - [facility]On Blood Glucose Test - 05/2020 12:00:00 AM EDT active ReliOn Blood Gluc ose Test - eCW1 ([facility]) 500 mg 03/28/2020 12:00:00 AM EDT tablet 60 TAKE ONE TABLET BY MOUTH TWICE A DAY WITH A MEAL TAKE ONE TABLET BY MOUTH TWICE A DAY WITH A MEAL SOLD: 03/28/2020 [facility] ReliOn Blood Glucose Test - ReliOn Blood Glucose Test - 05/2020 12:00:00 AM EDT active ReliOn Blood Gluc ose Test - eCW1 ([facility]) ReliOn Blood Glucose Test - [facility]iOn Blood Glucose Test - 05/2020 12:00:00 AM EDT active ReliOn Blood Gluc ose Test - eCW1 ([facility]) Metformin hydrochloride 500 MG Oral Tablet Metformin H Cl 500 MG Metformin HCl 500 MG 03/28/2020 12:00:00 AM EDT 1.0 {tablet_with_a_meal} active Metformin HCl 500 MG eCW1 ([facility]) Metformin hydrochloride 500 MG Oral Tablet Metformin H Cl 500 MG Metformin HCl 500 MG 03/28/2020 12:00:00 AM EDT 1.0 {tablet_with_a_meal} active Metformin HCl 500 MG eCW1 ([facility]) ReliOn Blood Glucose Test - ReliOn Blood Glucose Test - 05/2020 12:00:00 AM EDT active ReliOn Blood Gluc ose Test - eCW1 ([facility]) ReliOn Blood Glucose Test - [facility]On Blood Glucose Test - 05/0 05/2020 12:00:00 AM EDT active ReliOn Blood Gluc ose Test - eCW1 ([facility]) 90 mcg/actuation 03/12/2020 12:00:00 AM EDT HFA [...] EDT active 1 puff as needed eCW1 ([facility]) Fluticasone Propionate 50 MCG/ACT Fluticasone Propionate 50 MCG/ACT 03/11/2020 12:00:00 AM EDT active 1 spray in each nostril eCW1 ([facility]) 50 mg 03/06/2020 12:00:00 AM EDT tablet [...] TABLET BY MOUTH EVERY DAY SOLD: 02/14/2020 [facility] 40 mg 02/06/2020 12:00:00 AM EDT tablet [...] EST active 1 tablet at bedtime eCW1 ([facility]) 40 mg 10/25/2019 12:00:00 AM EST tablet [...] active 1 tablet in the morning eCW1 ([facility]) Famotidine 40 MG Oral Tablet [Pepcid] Pepcid 40 MG Pepcid 40 MG 10/25/2019 12:00:00 AM EST active 1 tablet at bedtime eCW1 ([facility]) Famotidine 40 MG Oral Tablet famotidine (PEPCID) 40 MG tablet famotidine (PEPCID) 40 MG tablet 40 mg Oral aborted Take 40 mg by mouth 2 (two) times a day as needed for heartburn [facility] Insurance Providers Payer name Policy type / Coverage type Policy ID Covered democrat ID Covered democrat's relationship to layton Policy [place] Plan Information [facility] [id number] SP [id number] [facility] [id number] SP [id number] [facility] O [id number] S [id number] [facility] MEDICAID [id number] [facility] MEDICAID [id number] Magi [id number] INSURANCE COVID-19 COVID Magi C OV[facility] [id number] SP [id number] INSURANCE COVID-19 [id number] Managed Care - [facility] Community Plan P [id number] S [id number] Medicaid S [id number] [facility] PLAN XIX [id number] [facility] Comm Plan Medicaid F [id number] SELF [id number] [facility] [id number] ANSI-Not a Secondary Insurance [id number] ANSI-Medicaid [id number] ANSI-Not a Secondary Insurance [id number] ANSI-Not a Secondary Insurance [id number] ANSI-Medicaid [id number] ANSI-Not a Secondary Insurance [id number] ANSI-Medicaid [id number] [facility] Comm Plan Medicaid F [id number] SELF [id number] [facility] Comm Plan Medicaid F [id number] SELF [id number] [facility] Comm Plan Medicaid F [id number] SELF [id number] ANSI-Medicaid [id number] ANSI-Not a Secondary Insurance [id number] ANSI-Not a Secondary Insurance [id number] ANSI-Medicaid [id number] ANSI-Medicaid [id number] ANSI-Not a Secondary Insurance [id number] [facility] Commercial [id number] Self [id number] ANSI-Not a Secondary Insurance [id number] ANSI-Medicaid [id number] ANSI-Not a Secondary Insurance [id number] ANSI-Medicaid [id number] ANSI-Medicaid [id number] ANSI-Not a Secondary Insurance [id number] ANSI-Medicaid [id number] ANSI-Not a Secondary Insurance [id number] ANSI-Not a Secondary Insurance [id number] ANSI-Medicaid [id number] [facility] Health Maintenance Organization (O) [id number] Self [id number] ANSI-Medicaid [id number] ANSI-Not a Secondary Insurance [id number] ANSI-Not a Secondary Insurance [id number] ANSI-Medicaid [id number] [facility] P [id number] S [id number] [facility] [id number] SP [id number] 000 [facility] Commercial [id number] Self [id number] [facility] [id number] 18 [id number] [facility] Health Commercial [id number] Self [id number] UNHC COMMUNITY PLAN MCDHMO [id number] SP [id number] [facility](MCAID) O [id number] S [id number] [facility] COMMUNTY PLAN MC [id number] 18 [id number] [facility] Communty Plan Medicaid [id number] Self [id number] [facility] MCRO [id number] SP [id number] [facility] Communty Plan Medicaid [id number] Self [id number] UNHC COMMUNITY PLAN XIX [place] [id number] 18 [id number] UNHC AMERICHOICE XIX -HMO [id number] 18 [id number] [facility] Communty Plan Medicaid [id number] Self [id number] [facility] Communty Plan Medicaid [id number] Self [id number] [facility] (HMO) [id number] Self [id number] [facility] (HMO) [id number] Self [id number] [facility] (HMO) [id number] Self [id number] [facility] Organization (HMO) Self [employer] Hmo Commercial Self MEDICAID [id number] SP [id number] [facility] [place] [id number] HU2 [id number] SELF PAY UNAVAILABLE SP UNAVAILA BLE [facility] Comm Plan Medicaid F [id number] SELF [id number] [facility] F [id number] SPOUSE [id number] [facility] F [id number] SPOUSE [id number] N REGIONAL CLAIMS [place] -O/P [id number] 01 [id number] [facility] P [id number] S [id number] [facility] P [id number] S [id number] PGBA [facility] [id number] SP [id number] Managed Care - Community Plan [facility] P [id number] S [id number] Sliding Fee Scale O none S no ne Medicaid S [id number] S [id number] Managed Care - Community Plan [facility] P [id number] S [id number] Managed Care - Community Plan [facility] P [id number] S [id number] Managed Care BCBS O [id number] S [id number] Medicaid S [id number] S [id number] Managed Care - Community Plan [facility] P [id number] S [id number] [facility] I [id number] Self [id number] EXCELLUS BCBS P [id number] S [id number] BLUE CROSS VIRAMONTES PLAN [id number] SP [id number] [facility] COMM PLAN [id number] 18 [id number] EXCELLUS BCBS P [id number] S [id number] BLUE CROSS VIRAMONTES PLAN [id number] SP [id number] Problems, Conditions, and Diagnoses Code Display Name Description Problem Type Effective Dates Data Source(s) E55.9 [id number] Vitamin D deficiency Problem 11/19/2020 12:0 0:00 AM EST eCW1 ([facility]) Z98.84 [id number] H/O gastric bypass Problem 10/22/2020 12:00: 00 AM EST eCW1 ([facility]) Z86.39 [id number] Personal history of other endocrine, nutritional and metabolic disease Problem 10/22/2020 12:00:00 AM EST eCW1 ([facility]) J30.2 [id number] Seasonal allergies Problem 10/22/2020 12:00: 00 AM EST eCW1 ([facility]) Z98.84 S/P gastric bypass S/P gastric bypass [id number] 12:00:00 AM EDT [facility] K21.9 GERD (gastroesophageal reflux disease) G ERD (gastroesophageal reflux disease) 47250621 09/20/2020 12:00:00 AM EDT [facility] J45.909 Asthma Asthma [id number] 09/20/2020 12:00:00 AM ED T [facility] E78.5 Hyperlipidemia Hyperlipidemia 34109366 09/20/2020 12:00: 00 AM EDT [facility] I10 Hypertension Hypertension [id number] 09/20/2020 12:00:00 A M EDT [facility] E66.01 Morbid obesity Morbid obesity [id number] 09/20/2020 12:00: 00 AM EDT [facility] G47.30 Sleep apnea Sleep apnea 75699444 09/20/2020 12:00:00 AM EDT [facility] [id number] SNOMED CT Concept SNOMED CT Concept Problem 09/05 04:40:55 PM EDT YARA ([facility]) F41.9 [id number] Anxiety Problem 04/30/2020 12:00:00 AM ED T eCW1 ([facility]) E66.01 Morbid (severe) obesity due to excess ca lories Morbid (severe) obesity due to excess ca Diagnosis 09/20/2020 05:18:00 AM EDT [facility] U07.1 COVID-19 COVID-19 Diagnosis 09/15/2020 10:09:03 AM ED T [facility] R0789 Other chest pain Other chest pain Diagnosis 05/21/2020 01 :27:00 PM EDT [facility] Surgeries/Procedures Procedure Description Date Indications Data Source(s) MAMMO, screening, digital, unilateral 09/25/2020 12:00 :00 AM EST YARA ([facility]) US, breast, unilateral 09/25/2020 12:00:00 AM EST YARA ([facility]) GLUC BLD GLUC MNTR DEV CLEARED FDA [...] P M EDT 09/20/2020 10:33:00 PM EDT [facility] GLUC BLD GLUC MNTR DEV CLEARED [...] Obesity 09/20/2020 12:00:00 AM EDT YARA ([facility]) ECG ROUTINE ECG W/LEAST 12 LDS TRCG ONLY W/O I&R ECG 12-LEAD Routine 09/10/2020 12:26 PM EDT Morbid obesity 09/10/2020 04:26:00 PM EDT Morbid obesity [facility] Morbid obesity BLOOD COUNT COMPLETE AUTOMATED CBC Routine 0 12:15 PM EDT Morbid obesity 09/10/2020 04:15:00 PM EDT Morbid obesity [facility] Morbid obesity BLOOD TYPING ABO TYPE AND SCREEN Routine 09/10/2020 12:15 PM EDT Morbid obesity 09/10/2020 04:15:00 PM EDT Morbid obesity [facility] Morbid obesity THYROID STIMULATING HORMONE TSH TSH Routine 09/10/20 12:15 PM EDT Morbid obesity 09/10/2020 04:15:00 PM EDT Morbid obesity [facility] Morbid obesity HEMOGLOBIN GLYCOSYLATED A1C HEMOGLOBIN A1C Routine 09/10/2020 12:15 PM EDT Morbid obesity 09/10/2020 04:15:00 PM EDT Morbid obesity [facility] Morbid obesity COMPREHENSIVE METABOLIC PANEL COMPREHENSIVE METABOLIC PANEL Rou liz 09/10/2020 12:15 PM EDT Morbid obesity 09/10/2020 04:15:00 PM EDT Morbid obesity [facility] Morbid obesity PHYSICIAN TELEPHONE EVALUATION 11-20 MIN 03/28/2020 12 :00:00 AM EDT eCW1 ([facility]) Results ID Date Data Source VITAMIN B12 LEVEL 11/18/2020 12:00:00 AM EST eCW1 ([facility]) Name Value Range Interpretation Code Description Data Holly rce(s) Supporting Document(s) [id number] VITAMIN B12 LEVEL eCW1 ([facility]) ID Date Data Source MAGNESIUM LEVEL 11/18/2020 12:00:00 AM EST eCW1 ([facility]) Name Value Range Interpretation Code Description Data Holly rce(s) Supporting Document(s) 2.1 1.8-2.4 MAGNESIUM LEVEL eCW1 ([facility]) ID Date Data Source VITAMIN D 25-HYDROXY 11/18/2020 12:00:00 AM EST eCW1 ([facility]) Name Value Range Interpretation Code Description Data Holly rce(s) Supporting Document(s) 17.0 30.0-100.0 TOTAL 25(OH) VITAMIN D eC W1 ([facility]) ID Date Data Source [id number] 11/18/2020 12:00:00 AM EST eCW1 ([facility]) Name Value Range Interpretation Code Description Data Holly rce(s) Supporting Document(s) Hemoglobin A1c/Hemoglobin.total in Blood 5.4 HEMOGLOBIN A1c eCW1 ([facility]) ID Date Data Source FERRITIN 11/18/2020 12:00:00 AM EST eCW1 ([facility]) Name Value Range Interpretation Code Description Data Holly rce(s) Supporting Document(s) [id number] FERRITIN eCW1 ([facility]) ID Date Data Source IRON (FE) 11/18/2020 12:00:00 AM EST eCW1 ([facility]) Name Value Range Interpretation Code Description Data Holly rce(s) Supporting Document(s) [id number] IRON (FE) eCW1 ([facility]) ID Date Data Source CBC with Differential 11/18/2020 12:00:00 AM EST eCW1 ([facility]) Name Value Range Interpretation Code Description Data Holly rce(s) Supporting Document(s) 5.29 4.30-6.10 RED BLOOD COUNT eCW1 ([facility]) 6.7 4.0-10.0 WHITE BLOOD COUNT eCW1 ([facility]) 14.5 13.5-17.5 HEMOGLOBIN eCW1 ([facility]) 46.2 42.0-52.0 HEMATOCRIT eCW1 ([facility]) 31.4 32.0-36.5 MEAN CORPUSCULAR HGB CONC eCW1 ([facility]) 87.3 80.0-96.0 MEAN CORPUSCULAR VOLUME e CW1 ([facility]) 27.4 27.0-33.0 MEAN CORPUSCULAR HEMOGLOB IN eCW1 ([facility]) 346 150-450 PLATELET COUNT, AUTOMATED eCW1 ([facility]) 14.6 11.5-14.5 RED CELL DISTRIBUTION WID TH eCW1 ([facility]) 54.5 36.0-66.0 NEUTROPHILS % eCW1 ([facility]) 33.3 24.0-44.0 LYMPH % eCW1 ([facility]) 2.2 1.5-5.0 LYMPH # eCW1 ([facility]) 0.6 0.0-1.0 BASO % eCW1 ([facility]) 3.6 1.5-8.5 NEUTROPHILS # eCW1 ([facility]) 7.3 0.0-5.0 MONO % eCW1 ([facility]) 4.0 0.0-3.0 EOS % eCW1 ([facility]) 0.3 0.0-0.5 EOS # eCW1 ([facility]) 0.5 0.0-0.8 MONO # eCW1 ([facility]) 0.0 0.0-0.2 BASO # eCW1 ([facility]) ID Date Data Source [id number] 09/21/2020 01:29:04 PM EDT [facility] Name Value Range Interpretation Code Description Data Holly rce(s) Supporting Document(s) POC NOVA GLU 91 mg/dL (70-99) [facility] [place] [facility] CLINICAL STAFF ID Date Data Source [id number] 09/21/2020 07:01:57 AM EDT [facility] Name Value Range Interpretation Code Description Data Holly rce(s) Supporting Document(s) POC NOVA GLU 118 mg/dL (70-99) H [facility] [place] [facility] CLINICAL STAFF ID Date Data Source [id number] 09/21/2020 12:06:49 AM EDT [facility] Name Value Range Interpretation Code Description Data Holly rce(s) Supporting Document(s) POC NOVA GLU 115 mg/dL (70-99) H [facility] [place] [facility] CLINICAL STAFF ID Date Data Source [id number] 09/20/2020 07:26:38 PM EDT [facility] Name Value Range Interpretation Code Description Data Holly rce(s) Supporting Document(s) WBC 11.1 10*3/uL (4.1-11.0) H [facility] RBC 4.61 10*6/uL (4.60-6.10) [facility] HGB 13.0 g/dL (13.5-18.0) L [facility] HCT 38.4 % (41.0-53.0) L [facility] MCV 83.3 fL (80.0-95.0) [facility] MCH 28.2 pg (27.0-32.0) [facility] MCHC 33.8 g/dL (32.0-36.0) [facility] RDW 14.7 % (10.5-14.5) H [facility] PLT 310 10*3/uL (150-450) [facility] MPV 7.8 fL (7.1-10.7) [facility] ID Date Data Source [id number] 09/20/2020 05:53:11 PM EDT [facility] Name Value Range Interpretation Code Description Data Holly rce(s) Supporting Document(s) POC NOVA GLU 166 mg/dL (70-99) H [facility] [place] [facility] CLINICAL STAFF ID Date Data Source [id number] 09/20/2020 10:39:01 AM EDT [facility] Name Value Range Interpretation Code Description Data Holly rce(s) Supporting Document(s) POC NOVA GLU 130 mg/dL (70-99) H [facility] [place] [facility] CLINICAL STAFF ID Date Data Source [id number] 09/23/2020 03:18:01 PM EST [facility] LABORATORY [address] [address]Uey# Surgical Pathology ReportAccession #:[id number](s) ReceivedA: Liver biopsyClinical Diagnosis and HistoryMorbid obesityDIAGNOSISLIVER, [...] 09/23/2020Electronically Signed Out By Ramez Bledsoe MD [facility] [place] [address] 77322ukjQvnxthppp component performed at [facility] [facility], Histopathology, [address] [place] [address], [address].Reported at [facility], [address] [place] [address], [address]. This report may includeimmunohistochemical or in-situ hybridization results. Testing wasdeveloped and the performance characteristics determined by [facility] as required by CLIA '88. The FDA hasdetermined that approval for specific use is not necessary for clinicaluse. The quality of Hematoxylin and Eosin stains and as applicable, forall immunohistochemical and/or special stains, including positive andnegative controls, were reviewed and considered appropriate.ICD codes E66.01 K76.0CPT codesA: 76894O, 20715X, 87750Y, 04759Y, 80872L Name Value Range Interpretation Code Description Data Holly rce(s) Supporting Document(s) ID Date Data Source [id number] 09/20/2020 10:21:55 AM EDT [facility] INFORMATIONPatient MRN Name Date of Age Gend*PT [id number] Mora Linn 1995 25 years M SDAPT Location Admission Date/Time Visit ID [facility]20 0518 --- Skinny Felton MD([id number]) EPI ID CSN Admitting Provider [id number] Skinny Felton MD([id number])CREATION, GASTRIC BYPASS, MADHURI-EN-Y, LAPAROSCOPIC, WITH LIVER BIOPSY ProcedureNotRory Linn CSN:[id number]/30/2020Surgeon(s):KIRSTEN Oneilurgical Assist: Erica Werner, PAStaff:OR Afternoon Babysitter: JUSTIN Felixurgical Assist: LEONARDO Chacon Relief Afternoon Babysitter: Yarely Kinsey RNOR Relief Scrub: Jennifer Motta [...] a fatty liver. We covered complicationsincluding: , [place], DVT, PE, leaks, sepsis, gallbladder disease, anastomoticulcers, [...] with a blue load on a power [place] stapler at the 50 cm point. Thebiliopancreatic limb and the Madhuri limb were positioned rxbe-lw-jfqm. Theintermesenteric defect between the two limbs was closed with a running 3-0 V-Locsuture. Once this was closed, an enterotomy was made in the biliopancreatic limband then in the Madhuri limb. The 60-mm [place] stapler with a blue load wasinserted into [...] done, the anastomosis wastested for leaks. My assistant toddler teacher clamped across the Madhuri limb with the bowel clampwhile I passed the endoscope into the esophagus, into the pouch, and into theRoux limb. I insufflated with air and my assistant toddler teacher irrigated over theanastomosis with normal saline. There [...] rce(s) Supporting Document(s) ID Date Data Source [id number] 09/20/2020 08:19:20 AM EDT [facility] [place] NT INFORMATIONPatient MRN Name Date of Age Gend*PT [id number] Mora Linn M 1995 25 years M SDAPT Location Admission Date/Time Visit ID Attending Provider --- --- --- --- EPI ID CSN Admitting Provider [id number] ---AirwayPatient location during procedure: ORUrgency: electiveDifficult airway: [...] cmPlacement verified by: chest auscultation and + DCIZ3Kjuooxkngjix: equal breath sounds bilateralGrade view: grade IIa - partial view of glottis Name Value Range Interpretation Code Description Data Holly rce(s) Supporting Document(s) ID Date Data Source [id number] 09/20/2020 07:24:10 AM EDT [facility] [place] NT INFORMATIONPatient MRN Name Date of Age Gend*PT [id number] Mora Linn 1995 25 years M SDAPT Location Admission Date/Time Visit ID Attending Provider[facility] 09/20/20 0518 --- Skinny Felton MD([id number]) EPI ID CSN Admitting Provider [id number] Skinny Felton MD([id number])H&P reviewed. The patient was examined and there are no changes to the H&P.Skinny Felton MD7:24 AM Name Value Range Interpretation Code Description Data Holly rce(s) Supporting Document(s) ID Date Data Source [id number] 09/15/2020 10:10:00 AM EDT [facility] Name Value Range Interpretation Code Description Data Holly rce(s) Supporting Document(s) SARS coronavirus 2 RNA [facility] This lab was ordered by [facility] and reported by [employer]. ID Date Data Source [id number] 09/16/2020 08:09:17 AM EDT [facility] Name Value Range Interpretation Code Description Data Holly rce(s) Supporting Document(s) SARS-COV-2 IMMANUEL Lab [facility] Not DetectedReference range: Not Detecte d This nucleic acid amplification test was developed and its performance characteristics determined by [employer] Nucleic acid amplification tests include PCR and [...] detected) result in this assay. Performed At: [address] [id number] Maurilio Urrutia MD Ph:[id number] ID Date Data Source [id number] 09/10/2020 02:35:24 PM EDT [facility] Name Value Range Interpretation Code Description Data Holly rce(s) Supporting Document(s) EKG [facility] PBDIOd9nPgGINtUps2XvYiKpOSZbRI7bpbn7F4S9yQEpO6YipWUik5ssA6HlG2ZpFXZjMFUPCM9PgYBc jb2 [file] 8du68eZI6H5bnV38/Pzo+/Im88tvA3FU6/01lA209Hw6/uf5l+/wg93o1r23hE334OQn6/v7v/Y/rpn3 udzE/fTE+Ue8evoF5w490TMvxFUv1b/O2Xr/ura4atW2/woM7r9SikQJlc+NN7lC+fYWWUx/nt/1C4vo c9nmR5ov3FuopCXiJ9mm5dfFXRvQKpO9GNskBkP11s sqlWsdL+gt39r/jGe5dWPB6l4Cvh6z/Tf37Xye6rRu6uqmOR+0YTf7e/nRpbZRsqu8Qw7fGYoHcVkbqJ uFXQ2XEqW0uBjp2//DQ9da35sj2M+94W6L1J7S/6xD+9/u8oW2J/CJcknK9SW92g6w//c/tQI6ytbXlJ vcXey+bMxy1uV+5upl/+XGJ/hUb8Fj81cDJD2YuYTp nd3Zrqeb+xvRoJIeJCz5kmnUOp1C4JpO0iZl/RO6ElXamf8+zTxORXDuVr89x1T6eT8P/test data developer/990GzPbZ bqZh47g/qOyUpyh0d07/sap27l4P/Ann7bE4+2JPRw0W038d7tr63u3+/wvvX68PEv1VMfH/d63oNBh0 ogWMJqq8172h7g385DK9k2y9eb1r0///Dp7eYsAZf+ /rL0mF/4t/VALzrvn0F85H/4y7rDzh2Yc+LPi1tgcZoMUBEikn3Z47+YbQuO0rm8AZeBQTwqHz2+FKEG 2te31QZf9gFk9FIxKif+nQz1dd6hzk5RRD8ao7WjVRHcBmQlAV4euplcKRUfMZ1ylnl7I5DrxSncSRsF HDIfIb1rqHMpMY8ULMY5CFglFTUlBWMgT1UjaZ2xW8 3exPQdWlGuMNGQEL9VmpF3GCY7UVK9NMUyNcXhIHItFU38TVSlMSXEIk3dolBsGopPJtQiHS1focq8J6 T4rTEfI281wFklbvWdIQ0Kk2KryQFwIA4EdVFwfXTmCAIbZDEjY2ljw3IoGAbgTEDBMx8fhbYkBquHHe OlNA9jiuu6W4W4cIxjgrDrZXOBALweTagnNM5iyWqz nxruU7ExpXQfNKRwF4FyKQOht81ICWPrFWwORnEdTkSqBALkUZUfKTzpGmHaFQMyCALhUUPaTJ3AtTLu HVHsPOXFAYanLcrhESAlkG3ntLNLa9SwF2RAMbxFKAqzI2YBHjmJQOU7TIK0LLM3JIeqV4X2ZfpcJ4Se HZ5BM8GbCFNuXPTYAHYedeBdVK8WliYhhT1iSUhVIJ XPTNlYRDquPgS9u58cefVEMADaJQCgOFksQAJvHLLiWMGsAQQmYCIdDVNmRXBtAQ2AI9VjWLSaMOZHYD P0t9ReSKLhkhbiwfasGd9cafKjGka+AmkgUNImr0TcARjrD0D3oBOfO2EwE3UvLA0EgRVdLNmfSPXrWK DaHWIgR734ulZdFJ6+TU2wg9ZwSftlPPYLGBAkDYMh LYHkADT3ZdEpTSFmUUHlYAJnPbG6GrUsHkPKVXBcHWZ7WtZ9DpZxWEWrLOEqXUbkULTrTGQeGPM3CPHs PRBpLD6mSkTaOLAfZKWhFWTqJSUoIKPcytUVGGNxFCExXEPdPRE9BSNyIIXzNYpsQANaOZJgYMI5IWPl QOZkUQ7nFiBsDPQgMCImNqgbYTVjYGRipyVMFRVjUW PkDNM8ZqUdSOTqKJVtSKkiDJRjQVXdEwy9VDYsKYCgGT4iRdVyRBTuPPO9LSryGSLgJJHbplNBRTVgCG RtKLPaUqXpUJGyFQJrNWkbTMXpWZBdHeUoYWWgOKSlMF5hWeVwYQEyAKL5REMoXGBwTVGwdtLKUUBmNQ UvQDk2OGHwRWStMXLeZMvbNPWkCOCpWND9YJUcJIPe BM6lFhUyNCTzDXKcXKAyIKZyQQUmmpYXCLNvPXBrYAT7ZABtNWWaHSZiVLwvIUArFZThKmq2PXAxCFSm DD8pFyJmZUYpACB4UIJoLRKiTNKwgcKQHGQcRTZ0IYnoGREeMPAyMARoVRdzHHFmPYVnFvA0LNSsHRYk EM1qCcQqMZLtINT0ZiSsYGXqMUBxrqESKMPyJJZeCP H1HxQeJPRwFBItYCgtNCLsKELfNFDjAQX7WTW6LWMpOcXkATgtIPPKJZzND4TmjfVsHjJHZ6byBy0dJg FkXSMFP7Wfg7RsMDGzERATXk6+TiP9JIA7jJCjMzh1NzRfJPksBIBZGe== ID Date Data Source [id number] 09/10/2020 12:25:50 PM EDT [facility] NT INFORMATIONPatient MRN Name Date of Age Gend*PT [id number] Mora Linn 1995 25 years M OPPT Location Admission Date/Time Visit ID Attending Provider --- --- --- Skinny Felton MD([id number]) EPI ID CSN Admitting Provider [id number] ---HISTORY PHYSICALName: Mora Linn : 1995 Sex: male Care [facility] Phys[facility]: Dr. FeltonInformant: The patient who is [...] have elected tounder go CREATION, GASTRIC BYPASS, MADHUIR-EN-Y, LAPAROSCOPIC, WITH SLEEVEGASTRECTOMY IF INDICATED, WITH LIVER BIOPSY IF INDICATED, WITH HIATAL HERNIAREPAIR IF INDICATED, WITH LAPAROTOMY IF INDICATED 09/20/2020.PAST MEDICAL HISTORY:Past Medical History:Diagnosis Date Anxiety Asthma Depression GERD (gastroesophageal reflux disease) Hyperlipidemia Hypertension Morbid obesity Osteoarthritis in ankles Panic disorder Prediabetes Sleep apnea CPAPPAST SURGICAL HISTORY:Past Surgical History:Procedure Laterality Date ANKLE SURGERY Bilateral PANENDOSCOPY SKIN BIOPSYALLERGIES:AllergiesAllergen Reactions Benadryl [Diphenhydramine] Hives Hidalgo Other (See Comments) Tongue Hinds Concerta [Methylphenidate [...] warm and dry.HEENT: He is normocephalic, atraumatic. [place] conjunctivae. Anicteric sclerae.Pupils are equal, round, reactive [...] hepatosplenomegaly. Negative CVAT.GENITAL/RECTAL: Deferred.MUSCLE/SKELETAL: Strength is 5/5. Site Engineer are equal.NEUROLOGICALLY: Cranial nerves II through XII [...] may be prolonged greaterthan previously anticipated.ALLERGIES:Benadryl [diphenhydramine]; Hidalgo; Concerta [methylphenidate hcl er(cd)]; and Depakote [divalproex sodium]09/10/2020 12:25 PMLylisa Martines, NPThis document or parts of this document, were dictated using [email or web address] speaking software. A reasonable attempt at proofreading has beenmade to minimize errors. Please call with any questions or corrections. Name Value Range Interpretation Code Description Data [facility](s) Supporting Document(s) ID Date Data Source [id number] 09/10/2020 08:10:23 PM EDT [facility] Name Value Range Interpretation Code Description [facility]) HEMOGLOBIN A1C @ 5.7 % (4.0-6.0) [facility] Performed using Siemens [id number] y.Care must be taken when interpreting [id number] in patients with a hemoglobin variantor decreased erythrocyte lifespan. Values 5.7 - 6.4% suggest prediabetes.Values >=6.5% are diagnostic for diabetes.REFERENCE: DIABETES CARE 2018: 41(S13-S27). EST AVERAGE GLUCOSE 117 mg/dL [facility] ID Date Data Source [id number] 09/10/2020 08:04:21 PM EDT [facility] Name Value Range Interpretation Code Description Data [facility](s) Supporting Document(s) TSH,ULTRASENSITIVE @ 2.540 mIU/L (0.360-4.170) [facility] ID Date Data Source [id number] 09/10/2020 08:04:21 PM EDT [facility] Name Value Range Interpretation Code Description Data [facility](s) Supporting Document(s) SODIUM 139 mmol/L (136-145) [facility] POTASSIUM 4.8 mmol/L (3.6-5.2) [facility] CHLORIDE 105 mmol/L (100-108) [facility] CO2 28 mmol/L (22-31) [facility] ANION GAP 6 mmol/L (7-16) L [facility] UREA NITROGEN 10 mg/dL (7-24) [facility] CREATININE 0.96 mg/dL (0.80-1.30) [facility] BUN/CREAT RATIO 10.4 RATIO (10.0-20.0) [facility] GLUCOSE 99 mg/dL (70-99) [facility] CALCIUM 9.0 mg/dL (8.4-10.2) [facility] TOTAL PROTEIN 7.3 g/dL (6.4-8.2) [facility] ALBUMIN 3.7 g/dL (3.5-4.6) [facility] GLOBULIN 3.6 g/dL (2.7-4.3) [facility] ALB/GLOB RATIO 1.0 RATIO [facility] ALKALINE PHOSPHATASE 92 U/L (45-117) [facility] BILIRUBIN,TOTAL 0.3 mg/dL (0.0-1.0) [facility] PLEASE NOTE:Total bilirubin results may be falselyelevated in patients taking Eltrombopag. AST (SGOT) 19 U/L (11-39) [facility] ALT (SGPT) 45 U/L (12-78) [facility] GFR >60 ml/min/1.73m2 (>59) [facility] GFR ( AMER) >60 ml/min/1.73m2 (>59) [facility] GFR INTERPRETATION [facility] --NORMAL KIDNEY FUNCTION OR MILD DISEASE - GFR >OR= 60CHRONIC KIDNEY DISEASE - GFR 15 - 59RENAL FAILURE - GFR <15 Est. GFR calculation based on the MDRDstudy equation, which assumes a steadystate for creatinine. Est. GFR should notbe used for medication dosing. ID Date Data Source [id number] 09/10/2020 06:59:27 PM EDT [facility] Name Value Range Interpretation Code Description Data Holly rce(s) Supporting Document(s) WBC 6.4 10*3/uL (4.1-11.0) [facility] RBC 4.96 10*6/uL (4.60-6.10) [facility] HGB 13.8 g/dL (13.5-18.0) [facility] HCT 42.0 % (41.0-53.0) [facility] MCV 84.6 fL (80.0-95.0) [facility] MCH 27.7 pg (27.0-32.0) [facility] MCHC 32.8 g/dL (32.0-36.0) [facility] RDW 14.9 % (10.5-14.5) H [facility] PLT 319 10*3/uL (150-450) [facility] MPV 8.1 fL (7.1-10.7) [facility] ID Date Data Source [id number] 09/10/2020 03:26:34 PM EDT [facility] SPEC EXP DATE 09/21/2020PATI ENT ABO/Rh A POSITIVEANTIBODY SCREEN NEGATIVETESTING SITE PERFORMED AT [address] [place] [address] Name Value Range Interpretation Code Description Data Holly rce(s) Supporting Document(s) TYPE AND SCREEN [facility] PATIENT ABO/Rh A POSITIVE ID Date Data Source [id number] 07/04/2020 12:00:00 AM EDT [facility] Name Value Range Interpretation Code Description Data Holly rce(s) Supporting Document(s) SARS coronavirus 2 RNA [Presence] in Res piratory specimen by IMMANUEL with probe detection [facility] This lab was ordered by Ramone Smith and reported by [facility]. ID Date Data Source [id number] 05/22/2020 12:53:00 PM EDT [facility] [address] [place] [address] PHONE: [phone] FAX: [phone] Name .................. : KAVEH Box Acct Number.................. : [id number] ROOM. ................. : TR-03 MR Number ................... : [id number] Stay type ............. : E/R Discharge Date......... ... : Admit Date ......... : 05/21/20 Admit Phys .................... : RAMSES STEVEN Date of ....... : 1995 Family Phys ................... : PHRQL Phone .................. : [phone] Age ................................ : 25 Film# .................. .:[id number] Sex ................................. : M Unsigned transcriptions are preliminary reports and do not represent a medical or legal document CHEST PORTABLE [id number] COMPLETE:05/21/20 14:[address] [facility] [id number] Reason(s): Chest Pain PORTABLE CHEST, 05/21/20: INDICATION: [...] By ZACHARY ARZOLA MD , 05/22/20 12:53, [facility] Transcribe Initials: [facility], Transcribe Date: 05/21/20 14:49, Dictation Date: Copy for: RAMSES Rodriguez via fax Copy for: EMERGENCY DEPT via [facility] Copy for: 710 MED REC DISCHARGED Page 1 of 1 Name Value Range Interpretation Code Description Data Holly rce(s) Supporting Document(s) ID Date Data Source [id number] 05/21/2020 08:45:00 [place] [address] PHONE: [phone] FAX: [phone] Name ..............: KAVEH Box Acct Number ...........................: [id number] ROOM. ............: TR-03 MR Number ............................: [id number] Stay type.........: E/R Discharge Date...............:05/21/20 Admit Date .....: 05/21/20 Admit Phys .............................: RAMSES STEVEN Date of ..: 1995 Family Phys ...........................: PHRQL Phone..............: [phone] Age.................................:25 Film# ...............:[id number] Sex.................................:M Unsigned transcriptions are preliminary reports and [place] [id number] COMPLETE:05/21/20 14:33 [place] [id number] Please See Scanned Results. Name Value Range Interpretation Code Description Data Holly rce(s) Supporting Document(s) ID Date Data Source [id number] 05/21/2020 01:27:00 PM EDT [facility] 1 OrderSheet [facility] Emergency Department [address] [place] [address] Phone #: ext- [phone] 05/21/2020 13:27 Patient: MORA LINN Sex: M : 1995 Age: 25yWEIGHT:122.0 kg (M) HEIGHT:62 inches (S) BMI:49.2ALLERGIES: Benadryl, Hidalgo, Concerta, DepakoteCHIEF COMPLAINT: chest painDIAGNOSIS: Atypical chest [...] Description Priority Entered Acknowledged Initialed 2 OrderSheet [facility] Emergency Department [address] [place] [address] Phone #: ext- [phone] 05/21/2020 13:27 Patient: MORA LINN Sex: M [...] rce(s) Supporting Document(s) ID Date Data Source [id number] 05/21/2020 01:27:00 PM EDT [facility] 1 Medication Reconciliation Report [facility] Emergency Department [address] [place] [address] Phone #: ext- [phone] 05/21/2020 13:27 Patient: MORA LINN Sex: M : 1995 Age: 25yWeight: 122.0 kgHeight/Length: 62 in.BMI: 49.2ALLERGIES: Benadryl, Hidalgo, Concerta, DepakoteThe patient's Home Medications are listed [...] Dispense 15tablet. Refills: 0. Substitution permitted.Pharmacy - [facility] - [address] [facility] ; [place] [address]. . -- JENNIFER Mccormick Name Value Range Interpretation Code Description Data Holly rce(s) Supporting Document(s) ID Date Data Source [id number] 05/21/2020 01:27:00 PM EDT [facility] 1 Medication Administration Record [facility] Emergency Department [address] [place] [address] Phone #: ext- [phone] 05/21/2020 13:27 Patient: MORA LINN Sex: M : 1995 Age: 25yWeight: 122.0 kgHeight/Length: 62 inBMI: 49.2ALLERGIES: Concerta, Benadryl, Hidalgo, Depakote Date/Time Medication Administered Medication OrderedGiven ASPIRIN CHEWABLE 81 MG [PO] Aspirin PO Chewable 81 mg 50809:47 05/21/2020 Dose: 81 mg Tablets PO mg [...] rce(s) Supporting Document(s) ID Date Data Source [id number] 05/21/2020 01:27:00 PM EDT [facility] 1 General Instructions [facility] Emergency Department [address] [place] [address] Phone #: ext- [phone] 05/21/2020 13:27 Patient: MORA LINN Sex: M [...] Dispense 15tablet. Refills: 0. Substitution permitted.Pharmacy - [facility] - [phone] [facility] ; [place] [address]. .Follow- up:Follow up with your healthcare provider [...] to plan of care. 2 General Instructions [facility] Department [address] [place] [address] Phone #: ext- [phone] 05/21/2020 13:27 Patient: [...] the large artery coming 3 General Instructions [facility] Department [address] [place] [address] Phone #: ext- [phone] 05/21/2020 13:27 Patient: [...] better within 24 hours, or as advised.Call [phone] if any of these occur: A [...] Swelling, pain or redness in one leg [id number] [employer]. [address] [place] [address]. All rights reserved. This information is not intended as asubstitute for professional medical care. Always follow your healthcare professional's instructions.Chest Wall Strain (Child)Injury can overstretch a muscle on the front or back of the chest wall. This is called a chest wallstrain. In children, the injury may occur during play or sports. It may also happen during repeated 4 General Instructions [facility] Emergency Department [address] [place] [address] Phone #: ext- [phone] 05/21/2020 13:27 Patient: MORA LINN Sex: M : 1995 Age: 25ycoughing or when lifting a heavy object. Symptoms include sharp pain and soreness. However, noserious injury or permanent damage is present.Muscle strain can be treated with [id number]-qqoskyu or prescription medicine for pain andswelling. Pain [...] or pain gets worse and not better [id number] [employer]. [address] [place] [address]. All rights reserved. This information is not intended as asubstitute for professional medical care. Always follow your healthcare professional's instructions. 5 General Instructions [facility] Emergency Department [address] [place] [address] Phone #: ext- [phone] 05/21/2020 13:27 Patient: MORA LINN Sex: M : 1995 Age: 25yYou have been given the following additional information:Chest Pain, Uncertain CauseChest Wall Strain (Child)No strenuous activity until better. Rest at home f or one days. Do not work for two days.(Electronically signed by JENNIFER Mccormick 05/21/2020 15:36) Name Value Range Interpretation Code Description Data Holly rce(s) Supporting Document(s) ID Date Data Source [id number] 05/21/2020 01:27:00 PM EDT [facility] 1 Clinical Report - Nurses [facility] Emergency Department [address] [place] [address] Phone #: ext- [phone] 05/21/2020 13:27 Patient: [...] Headache.Sleep Apnea. 2 Clinical Report - Nurses [facility] Emergency Department [address] [place] [address] Phone #: ext- [phone] 05/21/2020 13:27 Patient: [...] Díaz R.N. 3 Clinical Report - Nurses [facility] Emergency Department [address] [place] [address] Phone #: [phone]- [phone] 05/21/2020 13:27 Patient: MORA LINN Sex: M [...] learning barriers present. Written instructions provided in Turkmen. The patient was discharged by the physician assistant toddler teacher. He was discharged home and accompanied by machine setup operator. He left ambulatory and via private vehicle. Patient driving. --15:21 05/21/20 Sukh Díaz R.N. 15:20 05/21/20. BP: 122/72. MAP: 88. HR: 72. RR: 18. O2 saturation: deferred. Temp: deferred. Pain level now: 01/29. --15:21 05/21/20 Sukh Díaz R.N.Locked/Released at 05/21/2020 15:21 by Sukh Díaz R.N. Name Value Range Interpretation Code Description Data Holly rce(s) Supporting Document(s) ID Date Data Source [id number] 05/21/2020 01:27:00 PM EDT [facility] 1 Clinical Report - Physicians/Mid Levels [facility] Emergency Department [address] [place] [address] Phone #: ext- [phone] 05/21/2020 13:27 Patient: [...] ankle surgery. 2 Clinical Report - Physicians/Mid [facility] Emergency Department [address] [place] [address] Phone #: ext- [phone] 05/21/2020 13:27 Patient: MORA LINN Sex: M : 1995 Age: 25y Medications: Lexapro Oral. Famotidine Oral. traZODone HCl Oral. Allergies: Benadryl.(hives) Hidalgo. Concerta.(rash) Depakote.(rash).SOCIAL HISTORYNever smoker. Occasional alcohol use. [...] 13:38005/21/2020. 3 Clinical Report - Physicians/Mid Levels [facility] Emergency Department [address] [place] [address] Phone #: ext- [phone] 05/21/2020 13:27 Patient: [...] (6.3 - 8.2) 4 Clinical Report - Physicians/[facility] Emergency Department [address] [place] [address] Phone #: ext- [phone] 05/21/2020 13:27 Patient: [...] Male GFR Interprentation 20-49 yrs >60 mL/min Vjjavg93-79 yrs >56 mL/min Normal 60-69 yrs >49 mL/min Normal 70-79yrs>42 mL/min Normal 80 and above >35 mL/min Normal Female GFRInterpretation 20-39 yrs >60 mL/min Normal 40-49 yrs >58 mL/minNormal 50-59 yrs >51 mL/min Normal 60-69 yrs >45 mL/min Pqogai56-19 yrs >39 mL/min Normal 80 and above >32 mL/min NormalD-Dimer: (JAELYN: 05/21/2020 14:00) ( [facility] 05/21/2020 14:27) Final results Test Result Flag Units (Reference) D-DIMER QUANT <0.27 ug/mL (0.27 - 0.50)Troponin-T: (JAELYN: 05/21/2020 14:00) ( [facility] 05/21/2020 14:31) Final results Test Result Flag Units (Reference) TROPONIN T <0.01 NG/ML (0.00 - 0.10) TROPONIN T0.1 ng/ml Recommended as the clinical threshold value forTroponin T.EKG: (JAELYN: 05/21/2020 13:44) ( [facility] 05/21/2020 14:36) [facility]: (JAELYN: 05/21/2020 13:44) ( [facility] 05/21/2020 14:50) [facility] PORTABLEReason(s): Chest PainTRANSPORTATION: P IV? O2? Oxygen?(No) Room: ED Exam CHEST PORTABLE [facility] [address] [place] [address] PHONE: [phone] FAX: [phone] Name .................. : KAVEH Box Acct Number.................. : [id number] ROOM. ................. : TR-03 MR Number ................... : [id number] Stay type ............. : E/R Discharge Date......... ... : Admit Date ......... : 05/21/20 Admit Phys .................... : RAMSES STEVEN Date of ....... : 1995 Family Phys ................... : PHRQL Phone .................. : [phone] Age ................................ : 25 Film# .................. .:[id number] Sex ................................. : M Unsigned transcriptions are preliminary reports and do not represent a medical or legal document CHEST PORTABLE [id number] COMPLETE:05/21/20 14:10 BE [id number] Reason(s): Chest Pain 5 Clinical Report - Physicians/Mid Levels [facility] Emergency Department [address] [place] [address] Phone #: ext- [phone] 05/21/2020 13:27 Patient: [...] Reviewed and Signed By DCTNAME , SIGNDATE, [facility] Transcribe Initials: SSR, Transcribe Date: 05/21/20 14:49, [...] pain 6 Clinical Report - Physicians/Mid Levels [facility] Emergency Department [address] [place] [address] Phone #: ext- [phone] 05/21/2020 13:27 Patient: [...] tablet. Refills: 0. Substitution permitted. Pharmacy - [facility] - [address] [facility] ; [place] [address]. . Follow-up: Follow up with your healthcare [...] rce(s) Supporting Document(s) ID Date Data Source [id number] 05/21/2020 02:45:00 PM EDT [facility] Name Value Range Interpretation Code Description Data Holly rce(s) Supporting Document(s) COMPREHENSIVE METABOLIC PANEL [facility] COMPREHENSIVE METABOLIC PANEL Sodium [Moles/volume] in Serum or Plasma 141 mEq/L 134 - 153 [facility] Potassium [Moles/volume] in Serum or Plasma 4.4 mEq/L 3.6 - 5.0 [facility] Chloride [Moles/volume] in Serum or Plasma 103 mEq/L 98 - 107 [facility] Carbon dioxide, total [Moles/volume] in Serum or Plasma 27 MEQ/L 22 - 30 [facility] Glucose [Mass/volume] in Serum or Plasma 121 MG/DL 65 - 110 H [facility] BUN 8 MG/DL 7 - 21 [facility] al Creatinine [Mass/volume] in Serum or Plasma 0.9 MG/DL 0.7 - 1.5 [facility] BUN/CREAT 9 8 - 27 [facility] Protein [Mass/volume] in Serum or Plasma 7.1 G/DL 6.3 - 8.2 [facility] Albumin [Mass/volume] in Serum or Plasma 4.3 G/DL 3.9 - 5.0 [facility] Globulin [Mass/volume] in Serum by calculation 2.8 GM/DL 2.4 - 3.2 [facility] A/G RATIO 1.5 0.8 - 2.0 [facility] Calcium [Mass/volume] in Serum or Plasma 9.5 MG/DL 8.4 - 10.2 [facility] Bilirubin.total [Mass/volume] in Serum or Plasma <0.7 MG/DL 0.2 - 1.3 [facility] Alkaline phosphatase [Enzymatic activity/volume] in Serum or Plasma 80 U/L 38 - 126 [facility] Aspartate aminotransferase [Enzymatic activity/volume] in Serum or Plasma 27 U/L 5 - 40 [facility] Alanine aminotransferase [Enzymatic activity/volume] in Seru m or Plasma 40 U/L 7 - 56 [facility] Anion gap 3 in Serum or Plasma 11.0 mmol/L 8.0 - 16.0 [facility] AGE 25 yrs [facility] al NON-AA GFR >60 mL/min [facility] ital AFR AMER GFR >60 mL/min [facility] spital Male GFR In terprentation [...] >32 mL/min Normal ID Date Data Source [id number] 05/21/2020 02:41:00 PM EDT [facility] Name Value Range Interpretation Code Description Data Holly rce(s) Supporting Document(s) CBC W/AUTOMATED DIFF [facility] COMPLETE BLOOD COUNT Leukocytes [#/volume] in Blood by Automated count 6.3 10^3/uL 4.2 - 1 1.0 [facility] Erythrocytes [#/volume] in Blood by Automated count 5.02 10^6/uL 4. 50 - 6.30 [facility] Hemoglobin [Mass/volume] in Blood 13.6 g/dL 14.0 - 16.0 L [facility] Hematocrit [Volume Fraction] of Blood by Automated count 42.0 % 4 1.0 - 51.0 [facility] Erythrocyte mean corpuscular volume [Entitic volume] by Auto mated count 83.7 fL 80.0 - 94.0 [facility] Erythrocyte mean corpuscular hemoglobin [Entitic mass] by Automated count 27.1 pg 27.0 - 34.0 [facility] Erythrocyte mean corpuscular hemoglobin concentration [Mass/volume] by Automated count 32.4 g/dL 31.0 - 36.0 [facility] Erythrocyte distribution width [Ratio] by Automated count 14.1 % 11.5 - 14.8 [facility] Platelets [#/volume] in Blood by Automated count 239 10^3/uL 150 - 45 0 [facility] Platelet mean volume [Entitic volume] in Blood by Automated count 10.6 fL 7.4 - 10.4 H [facility] Neutrophils/100 leukocytes in Blood by Automated count 63.0 % 37. 0 - 80.0 [facility] Lymphocytes/100 leukocytes in Blood by Manual count 27.5 % 25.0 - 40.0 [facility] Monocytes/100 leukocytes in Blood by Automated count 6.8 % 3.0 - 8.0 [facility] Eosinophils/100 leukocytes in Blood by Automated count 1.6 % 0.0 - 7.0 [facility] Basophils/100 leukocytes in Blood by Automated count 0.8 % 0.0 - 2.0 [facility] %IG 0.3 % 0.0 - 0.0 H [facility] %NRBC 0.0 % 0.0 - 0.0 [facility] Neutrophils [#/volume] in Blood by Automated count 3.98 10^3/uL 2.00 - 6.90 [facility] Lymphocytes [#/volume] in Blood by Automated count 1.74 10^3/uL 0.60 - 3.40 [facility] Monocytes [#/volume] in Blood by Automated count 0.43 10^3/uL 0.00 - 0.90 [facility] Eosinophils [#/volume] in Blood by Automated count 0.10 10^3/uL 0.00 - 0.70 [facility] Basophils [#/volume] in Blood by Automated count 0.05 10^3/uL 0.00 - 0.20 [facility] #IG 0.02 10^3/uL 0.00 - 0.10 [facility] #NRBC 0.00 10^3/uL 0.00 - 0.00 [facility] MANUAL DIFF NOT INDICATED [facility] RBC MORPH MORPH IS NORMAL [facility] { SICKLE CELL (NORMAL: NONE SEEN ) Platelet adequacy [Presence] in Blood by Light microscopy CL UMPED NORMAL: NORMAL [facility] COMMENT: ID Date Data Source [id number] 05/21/2020 02:31:00 PM EDT [facility] Name Value Range Interpretation Code Description Data Holly rce(s) Supporting Document(s) TROPONIN T <0.01 NG/ML 0.00 - 0.10 [facility] ospital TROPONIN T0.1 ng/ml Recommended as the c linical threshold value forTroponin T. ID Date Data Source [id number] 05/21/2020 02:27:00 PM EDT [facility] Name Value Range Interpretation Code Description Data Holly rce(s) Supporting Document(s) Fibrin D-dimer FEU [Mass/volume] in Platelet poor plasma <0. 27 ug/mL 0.27 - 0.50 [facility] ID Date Data Source LIPID PANEL (CARDIAC RISK) 01/31/2020 12:00:00 AM EDT [facility] ( [facility]) Name Value Range Interpretation Code Description Data Holly rce(s) Supporting Document(s) Cholesterol [Moles/volume] in Serum or Plasma 181 <200 CHOLESTEROL LEVEL W ([facility]) Cholesterol in LDL [Mass/volume] in Serum or Plasma by calculation 61 <100 LDL CHOLESTEROL eCW1 ([facility]) Triglyceride [Mass/volume] in Serum or Plasma by calculation 344 <150 TRIGLYCERIDES LEVEL eCW1 ([facility]) Cholesterol in HDL [Moles/volume] in Serum or Plasma 51 >40 HDL CHOLESTEROL eCW1 ([facility]) 130 NON-HDL-C eCW1 ([facility]) 3.549 <5 CHOLESTEROL RISK RATIO eCW1 ([facility]) ID Date Data Source FREE T4 & TSH PANEL 01/31/2020 12:00:00 AM EDT eCW1 ([facility]) Name Value Range Interpretation Code Description Data Holly rce(s) Supporting Document(s) 1.930 0.358-3.740 THYROID STIMULATING HORM ONE eCW1 ([facility]) 1.46 0.76-1.46 FREE T4 eCW1 ([facility]) ID Date Data Source Comprehensive Metabolic Profile (CMP) 01/31/2020 12:00:00 AM EDT eCW1 ([facility]) Name Value Range Interpretation Code Description Data Holly rce(s) Supporting Document(s) 115 70-100 GLUCOSE, FASTING eCW1 ([facility]) 0.81 0.70-1.30 CREATININE FOR GFR eCW1 ([facility]) 10 7-18 BLOOD UREA NITROGEN eCW1 ([facility]) 4.3 3.5-5.1 POTASSIUM SERUM eCW1 ([facility]) 139 136-145 SODIUM LEVEL eCW1 ([facility]) > 60.0 >60 GLOMERULAR FILTRATION RATE eCW 1 ([facility]) 106 98-107 CHLORIDE LEVEL eCW1 ([facility]) 27 21-32 CARBON DIOXIDE LEVEL eCW1 ([facility]) 25 7-37 AST/SGOT eCW1 ([facility]) 84 45-117 ALKALINE PHOSPHATASE eCW1 ([facility]) 8.6 8.5-10.1 CALCIUM LEVEL eCW1 ([facility]) 53 12-78 ALT/SGPT eCW1 ([facility]) 3.5 3.2-5.2 ALBUMIN eCW1 ([facility]) 0.97 1.00-1.93 ALBUMIN/GLOBULIN RATIO eCW1 ([facility]) 7.1 6.4-8.2 TOTAL PROTEIN eCW1 ([facility]) 0.2 0.2-1.0 BILIRUBIN,TOTAL eCW1 ([facility]) Procedure Social History Code Duration Value Status Description Data Source(s ) Smoking 11/18/2020 12:00:00 AM EST Never Smoker completed Never S moker eCW1 ([facility]) Smoking 10/22/2020 12:00:00 AM EST Never Smoker completed Never S moker eCW1 ([facility]) Smoking 10/22/2020 12:00:00 AM EST Never Smoker completed Never S moker eCW1 ([facility]) Smoking 10/22/2020 12:00:00 AM EST Never Smoker completed Never S moker eCW1 ([facility]) Smoking 10/22/2020 12:00:00 AM EST Never Smoker completed Never S moker eCW1 ([facility]) Smoking 10/22/2020 12:00:00 AM EST Never Smoker completed Never S moker eCW1 ([facility]) Alcohol intake 09/20/2020 12:00:00 AM EDT Yes completed [facility] Smoking 09/20/2020 12:00:00 AM EDT Never smoker completed Never s moker [facility] Smoking 09/12/2020 12:00:00 AM EDT Never Smoker completed Never S moker eCW1 ([facility]) Smoking 09/12/2020 12:00:00 AM EDT Never Smoker completed Never S moker eCW1 ([facility]) Smoking 09/12/2020 12:00:00 AM EDT Never Smoker completed Never S moker eCW1 ([facility]) Smoking 09/12/2020 12:00:00 AM EDT Never Smoker completed Never S moker eCW1 ([facility]) Smoking 09/12/2020 12:00:00 AM EDT Never Smoker completed Never S moker eCW1 ([facility]) Alcohol intake 09/10/2020 12:00:00 AM EDT Yes completed [facility] Smoking 09/10/2020 12:00:00 AM EDT Never smoker completed Never s moker [facility] Smoking 04/30/2020 12:00:00 AM EDT Never Smoker completed Never S moker eCW1 ([facility]) Smoking 04/30/2020 12:00:00 AM EDT Never Smoker completed Never S moker eCW1 ([facility]) Smoking 04/30/2020 12:00:00 AM EDT Never Smoker completed Never S moker eCW1 ([facility]) Smoking 04/30/2020 12:00:00 AM EDT Never Smoker completed Never S moker eCW1 ([facility]) Smoking 04/30/2020 12:00:00 AM EDT Never Smoker completed Never S moker eCW1 ([facility]) Smoking 04/30/2020 12:00:00 AM EDT Never Smoker completed Never S moker eCW1 ([facility]) Smoking 04/30/2020 12:00:00 AM EDT Never Smoker completed Never S moker eCW1 ([facility]) Smoking 04/30/2020 12:00:00 AM EDT Never Smoker completed Never S moker eCW1 ([facility]) Vital Signs ID Date Data Source UNK Name Value Range Interpretation Code Description Data Source(s) Diastolic blood pressure 80 mm[Hg] 80 mm[Hg] eCW1 ([facility]) Systolic blood pressure 120 mm[Hg] 120 mm[Hg] e CW1 ([facility]) Body temperature 96.5 [degF] 96.5 [degF] eCW1 ( [facility]) Respiratory rate 18 /min 18 /min eCW1 ([facility]) Heart rate 120 /min 120 /min eCW1 ([facility]) Body mass index (BMI) [Ratio] 38.94 kg/m2 38.94 kg/m2 W1 ([facility]) Body height 65 [in_i] 65 [in_i] W1 ([facility]) Body weight 234 [lb_av] 234 [lb_av] eCW1 ([facility]) Diastolic blood pressure 78 mm[Hg] 78 mm[Hg] eCW1 ([facility]) Systolic blood pressure 122 mm[Hg] 122 mm[Hg] e CW1 ([facility]) Body temperature 97.4 [degF] 97.4 [degF] eCW1 ( [facility]) Respiratory rate 18 /min 18 /min eCW1 ([facility]) Heart rate 89 /min 89 /min eCW1 ([facility]) Body mass index (BMI) [Ratio] 40.37 kg/m2 40.37 kg/m2 W1 ([facility]) Body height 65 [in_i] 65 [in_i] eCW1 ([facility]) Body weight 242.6 [lb_av] 242.6 [lb_av] eCW1 ([facility]) Body weight 4020 [oz_av] 4020 [oz_av] YARA ([facility]) Systolic blood pressure 109 mm[Hg] 109 mm[Hg] A THENA ([facility]) Body mass index (BMI) [Ratio] 45.4 kg/m2 45.4 k g/m2 YARA ([facility]) Body height 62.4 [in_i] 62.4 [in_i] YARA ([facility]) Diastolic blood pressure 79 mm[Hg] 79 mm[Hg] YARA ([facility]) Respiratory rate 16 /min 16 /min [facility] Body temperature 36.67 Jaci 36.67 Jaci [facility] Heart rate 82 /min 82 /min [facility] Diastolic blood pressure 83 mm[Hg] 83 mm[Hg] [facility] Systolic blood pressure 126 mm[Hg] 126 mm[Hg] [facility] Oxygen saturation in Arterial blood by Pulse oximetry 97 % 97 % [facility] Body mass index (BMI) [Ratio] 47.37 kg/m2 47.37 kg/m2 [facility] Body weight 117.482 kg 117.482 kg [facility] Body height 157.5 cm 157.5 cm [facility] Diastolic blood pressure 72 mm[Hg] 72 mm[Hg] eCW1 ([facility]) Systolic blood pressure 128 mm[Hg] 128 mm[Hg] e CW1 ([facility]) Body temperature 97.4 [degF] 97.4 [degF] eC1 ( [facility]) Respiratory rate 20 /min 20 /min eCW1 ([facility]) Heart rate 86 /min 86 /min eCW1 ([facility]) Body mass index (BMI) [Ratio] 44.16 kg/m2 44.16 kg/m2 eCW1 ([facility]) Body height 65 [in_i] 65 [in_i] eCW1 ([facility]) Body weight 265.4 [lb_av] 265.4 [lb_av] eCW1 ([facility]) Oxygen saturation in Arterial blood by Pulse oximetry 96 % 96 % [facility] Body mass index (BMI) [Ratio] 48.47 kg/m2 48.47 kg/m2 [facility] Body weight 120.203 kg 120.203 kg [facility] Body height 157.5 cm 157.5 cm [facility] Heart rate 77 /min 77 /min [facility] Diastolic blood pressure 74 mm[Hg] 74 mm[Hg] [facility] Systolic blood pressure 138 mm[Hg] 138 mm[Hg] [facility] Diastolic blood pressure 89 mm[Hg] 89 mm[Hg] eCW1 ([facility]) Systolic blood pressure 129 mm[Hg] 129 mm[Hg] e CW1 ([facility]) Body temperature 97.9 [degF] 97.9 [degF] eCW1 ( [facility]) Respiratory rate 18 /min 18 /min eCW1 ([facility]) Heart rate 84 /min 84 /min eCW1 ([facility]) Body mass index (BMI) [Ratio] 44.26 kg/m2 44.26 kg/m2 eCW1 ([facility]) Body height 65 [in_i] 65 [in_i] eCW1 ([facility]) Body weight 266 [lb_av] 266 [lb_av] eCW1 ([facility]) Diastolic blood pressure 80 mm[Hg] 80 mm[Hg] eCW1 ([facility]) Systolic blood pressure 136 mm[Hg] 136 mm[Hg] e CW1 ([facility]) Body temperature 97.7 [degF] 97.7 [degF] eCW1 ( [facility]) Respiratory rate 18 /min 18 /min eCW1 ([facility]) Heart rate 110 /min 110 /min eCW1 ([facility]) Body mass index (BMI) [Ratio] 43.10 kg/m2 43.10 kg/m2 W1 ([facility]) Body height 65 [in_us] 65 [in_us] eCW1 ([facility]) Body weight Measured 259 [lb_av] 259 [lb_av] eC W1 ([facility]) Diastolic blood pressure 80 mm[Hg] 80 mm[Hg] eCW1 ([facility]) Systolic blood pressure 124 mm[Hg] 124 mm[Hg] e CW1 ([facility]) Body temperature 97.4 [degF] 97.4 [degF] eCW1 ( [facility]) Respiratory rate 17 /min 17 /min eCW1 ([facility]) Heart rate 94 /min 94 /min eCW1 ([facility]) Body mass index (BMI) [Ratio] 42.80 kg/m2 42.80 kg/m2 eCW1 ([facility]) Body height 65 [in_us] 65 [in_us] eCW1 ([facility]) Body weight Measured 257.2 [lb_av] 257.2 [lb_av ] eCW1 ([facility]) Diastolic blood pressure 80 mm[Hg] 80 mm[Hg] eCW1 ([facility]) Systolic blood pressure 118 mm[Hg] 118 mm[Hg] e CW1 ([facility]) Body temperature 96.8 [degF] 96.8 [degF] eCW1 ( [facility]) Respiratory rate 18 /min 18 /min eCW1 ([facility]) Heart rate 86 /min 86 /min eCW1 ([facility]) Body mass index (BMI) [Ratio] 42.60 kg/m2 42.60 kg/m2 eCW1 ([facility]) Body height 65 [in_us] 65 [in_us] eCW1 ([facility]) Body weight Measured 256 [lb_av] 256 [lb_av] eC W1 ([facility]) Patient Treatment Plan of Care Planned Activity Planned Date Details Description Data Source (s) Cholecalciferol 1000 UNT Oral Tablet 11/19/2020 12:00:00 AM EST eCW1 ([facility]) Sertraline 25 MG Oral Tablet [Zoloft] 10/22/2020 12:00:00 AM EST eCW1 ([facility]) Sertraline 25 MG Oral Tablet [Zoloft] 10/22/2020 12:00:00 AM EST eCW1 ([facility]) Sertraline 25 MG Oral Tablet [Zoloft] 10/22/2020 12:00:00 AM EST eCW1 ([facility]) Sertraline 25 MG Oral Tablet [Zoloft] 10/22/2020 12:00:00 AM EST eCW1 ([facility]) Sertraline 25 MG Oral Tablet [Zoloft] 10/22/2020 12:00:00 AM EST eCW1 ([facility]) Magnesium Hydroxide 80 MG/ML Oral Suspension 09/21/2020 [...] MG Oral Tablet 09/20/2020 12:00:00 AM EDT [facility] 0.4 ML Enoxaparin sodium 100 MG/ML Prefilled Syringe 020 12:00:00 AM EDT [facility] Simethicone 80 MG Chewable Tablet 09/20/2020 12:00:00 AM EDT [facility] Vitamin B 12 0.5 MG Oral Tablet 09/20/2020 12:00:00 AM EDT [facility] Trazodone Hydrochloride 150 MG Oral Tablet 09/06/2020 12:00:00 AM E DT eCW1 ([facility]) Trazodone Hydrochloride 150 MG Oral Tablet 09/06/2020 12:00:00 AM E DT eCW1 ([facility]) Trazodone Hydrochloride 150 MG Oral Tablet 09/06/2020 12:00:00 AM E DT eCW1 ([facility]) Escitalopram 10 MG Oral Tablet 04/30/2020 12:00:00 AM EDT eCW1 ([facility]) Escitalopram 10 MG Oral Tablet 04/30/2020 12:00:00 AM EDT eCW1 ([facility]) Escitalopram 10 MG Oral Tablet 04/30/2020 12:00:00 AM EDT eCW1 ([facility]) Escitalopram 10 MG Oral Tablet 04/30/2020 12:00:00 AM EDT eCW1 ([facility]) Escitalopram 10 MG Oral Tablet 04/30/2020 12:00:00 AM EDT eCW1 ([facility]) Escitalopram 10 MG Oral Tablet 04/30/2020 12:00:00 AM EDT eCW1 ([facility]) Escitalopram 10 MG Oral Tablet 04/30/2020 12:00:00 AM EDT eCW1 ([facility]) Escitalopram 10 MG Oral Tablet 04/30/2020 12:00:00 AM EDT eCW1 ([facility]) Metformin hydrochloride 500 MG Oral Tablet 03/28/2020 12:00:00 AM E DT eCW1 ([facility]) ReliOn Blood Glucose Test - 03/28/2020 12:00:00 AM EDT eCW1 ([facility]) 200 ACTUAT Albuterol 0.09 MG/ACTUAT Metered Dose Inhal er [ProAir] 03/11/2020 12:00:00 AM EDT eCW1 ([facility]) Fluticasone Propionate 50 MCG/ACT 03/11/2020 12:00:00 AM EDT eCW1 ([facility]) Famotidine 40 MG Oral Tablet [Pepcid] 10/25/2019 12:00:00 AM EST eCW1 ([facility]) Paroxetine 10 MG Oral Tablet [Paxil] 10/25/2019 12:00:00 AM EST eCW1 ([facility]) Famotidine 40 MG Oral Tablet [Pepcid] 10/25/2019 12:00:00 AM EST eCW1 ([facility]) Famotidine 40 MG Oral Tablet [facility]
[2020-12-04 18:29] VITALS: BP 136/81
== END 2020-12-04 18:30 | disposition home or self-care (01) ==
LOC: M ED 16:02
DX: B34.9 Viral infection, unspecified (principal); Z88.8 Allergy status to other drugs, medicaments and biological substances
CPT/HCPCS: 99283; U0003

== ENCOUNTER → 2020-12-25 | Outpatient (REF) | payer OTHER ==
[2020-12-25 13:47] LABS: BASO # 0.1 10^3/uL (0.0-0.2); BASO % 0.7 % (0.0-1.0); EOS # 0.1 10^3/uL (0.0-0.5); EOS % 0.8 % (0.0-3.0); HEMATOCRIT 47.3 % (42.0-52.0); HEMOGLOBIN 15.3 g/dl (13.5-17.5); LYMPH # 1.7 10^3/uL (1.5-5.0); LYMPH % 23.1 % (24.0-44.0); MEAN CORPUSCULAR HEMOGLOBIN 28.2 pg (27.0-33.0); MEAN CORPUSCULAR HGB CONC 32.3 g/dl (32.0-36.5); MEAN CORPUSCULAR VOLUME 87.3 fl (80.0-96.0); MONO # 0.5 10^3/uL (0.0-0.8); MONO % 7.3 % (0.0-5.0); NEUTROPHILS # 4.9 10^3/uL (1.5-8.5); NEUTROPHILS % 67.8 % (36.0-66.0); PLATELET COUNT, AUTOMATED 374 10^3/uL (150-450); RED BLOOD COUNT 5.42 10^6/uL (4.30-6.10); WHITE BLOOD COUNT 7.2 10^3/uL (4.0-10.0)
[2020-12-25 13:53] LABS: APPEARANCE, URINE CLOUDY (CLEAR); BACTERIA, URINE AUTO 1+ (NEGATIVE); BILIRUBIN, URINE AUTO 2+ (NEGATIVE); BLOOD, URINE BLOOD NEGATIVE (NEGATIVE); COLOR, URINE AMBER (YELLOW); GLUCOSE, URINE (UA) AUTO NEGATIVE (NEGATIVE); KETONE, URINE AUTO 1+ mg/dL (NEGATIVE); LEUKOCYTE ESTERASE, URINE AUTO NEGATIVE (NEGATIVE); MUCUS, URINE LARGE (NEGATIVE); NITRITE, URINE AUTO NEGATIVE (NEGATIVE); PROTEIN, URINE AUTO 2+ mg/dL (NEGATIVE); RBC, URINE AUTO 6 /HPF (0-3); SPECIFIC GRAVITY URINE AUTO 1.031 (1.002-1.035); SQUAMOUS EPITHELIAL CELL UR AU 6 /HPF (0-6); WBC, URINE AUTO 9 /HPF (0-3)
[2020-12-25 14:10] LABS: ALBUMIN 4.4 GM/DL (3.2-5.2); ALT/SGPT 73 U/L (12-78); BILIRUBIN,TOTAL 0.5 MG/DL (0.2-1.0); BLOOD UREA NITROGEN 11 MG/DL (7-18); CALCIUM LEVEL 10.1 MG/DL (8.5-10.1); CARBON DIOXIDE LEVEL 29 MEQ/L (21-32); CHLORIDE LEVEL 104 MEQ/L (98-107); CPK CREATINE PHOSPHOKINASE 111 U/L (39-308); CREATININE FOR GFR 1.34 MG/DL (0.70-1.30); GLOMERULAR FILTRATION RATE > 60.0 (>60); GLUCOSE, FASTING 78 MG/DL (70-100); SODIUM LEVEL 141 MEQ/L (136-145); TOTAL PROTEIN 7.6 GM/DL (6.4-8.2)
== END ==
LOC: M SFHCPLAZ 12:17
PROVIDERS: ATTEND Physician Assistant Medical
DX: F41.9 Anxiety disorder, unspecified (principal)

== ENCOUNTER → 2020-12-31 | Outpatient (REF) | payer OTHER ==
[2020-12-31 18:42] LABS: ALBUMIN 3.9 GM/DL (3.2-5.2); ALT/SGPT 67 U/L (12-78); BILIRUBIN,TOTAL 0.4 MG/DL (0.2-1.0); BLOOD UREA NITROGEN 8 MG/DL (7-18); CALCIUM LEVEL 9.3 MG/DL (8.5-10.1); CARBON DIOXIDE LEVEL 29 MEQ/L (21-32); CHLORIDE LEVEL 106 MEQ/L (98-107); GLOMERULAR FILTRATION RATE > 60.0 (>60); GLUCOSE, FASTING 100 MG/DL (70-100); SODIUM LEVEL 142 MEQ/L (136-145); TOTAL PROTEIN 7.2 GM/DL (6.4-8.2)
== END ==
LOC: M PLALAB 15:00
PROVIDERS: ATTEND Physician Assistant Medical
DX: N17.9 Acute kidney failure, unspecified (principal); R80.9 Proteinuria, unspecified

== ENCOUNTER → 2021-03-06 | Outpatient (CLI) | payer OTHER ==
[2021-03-06 18:02] LABS: BASO % 0.6 % (0.0-1.0); EOS # 0.1 10^3/uL (0.0-0.5); EOS % 1.7 % (0.0-3.0); HEMATOCRIT 47.5 % (42.0-52.0); LYMPH # 2.1 10^3/uL (1.5-5.0); MEAN CORPUSCULAR HEMOGLOBIN 28.4 pg (27.0-33.0); MEAN CORPUSCULAR HGB CONC 31.6 g/dl (32.0-36.5); MEAN CORPUSCULAR VOLUME 89.8 fl (80.0-96.0); MONO # 0.4 10^3/uL (0.0-0.8); MONO % 6.5 % (2.0-8.0); NEUTROPHILS # 3.8 10^3/uL (1.5-8.5); PLATELET COUNT, AUTOMATED 381 10^3/uL (150-450); RED BLOOD COUNT 5.29 10^6/uL (4.30-6.10); WHITE BLOOD COUNT 6.5 10^3/uL (4.0-10.0)
[2021-03-06 18:10] LABS: HEMATOCRIT 47.5 % (42.0-52.0)
[2021-03-06 19:34] LABS: HEMOGLOBIN A1c 5.5 %
[2021-03-06 21:10] LABS: ALT/SGPT 40 U/L (12-78); BILIRUBIN,TOTAL 0.4 MG/DL (0.2-1.0); BLOOD UREA NITROGEN 9 MG/DL (7-18); CALCIUM LEVEL 9.8 MG/DL (8.5-10.1); CARBON DIOXIDE LEVEL 28 MEQ/L (21-32); CHLORIDE LEVEL 105 MEQ/L (98-107); CREATININE FOR GFR 0.84 MG/DL (0.70-1.30); FERRITIN 33 NG/ML (26-388); GLOMERULAR FILTRATION RATE > 60.0 (>60); GLUCOSE, FASTING 94 MG/DL (70-100); IRON (FE) 74 UG/DL (65-175); MAGNESIUM LEVEL 2.2 MG/DL (1.8-2.4); PERCENT SATURATION 20.4 % (19.7-50.0); PHOSPHORUS LEVEL 3.4 MG/DL (2.5-4.9); POTASSIUM SERUM 4.7 MEQ/L (3.5-5.1); SODIUM LEVEL 139 MEQ/L (136-145); TOTAL IRON BINDING CAPACITY 362 UG/DL (250-450); TOTAL PROTEIN 7.4 GM/DL (6.4-8.2)
[2021-03-07 10:03] LABS: TOTAL 25(OH) VITAMIN D 13.3 NG/ML (30.0-100.0); VITAMIN B12 LEVEL 1214 PG/ML (247-911)
== END ==
LOC: M PLALAB 14:32
PROVIDERS: ATTEND Physician Assistant Surgical
DX: K91.2 Postsurgical malabsorption, not elsewhere classified (principal); Z98.84 Bariatric surgery status; E55.9 Vitamin D deficiency, unspecified; Z86.39 Personal history of other endocrine, nutritional and metabolic disease

== ENCOUNTER → 2021-03-21 | Outpatient (REF) | payer OTHER ==
[2021-03-21 14:33] LABS: TOTAL PROTEIN,RANDOM URINE 16.3 MG/DL (0.0-12.0)
== END ==
LOC: M SFHCPLAZ 13:54
PROVIDERS: ATTEND Physician Assistant Medical
DX: R31.0 Gross hematuria (principal)

== ENCOUNTER → 2021-07-29 | Outpatient (CLI) | payer OTHER ==
[~2021-07-29] MED LIST changes: +OMEP40CA4 PO; -OMEP40CA97 PO
[2021-07-29 15:15] LABS: HEMATOCRIT 49.3 % (42.0-52.0)
[2021-07-29 15:20] LABS: BASO # 0.1 10^3/uL (0.0-0.2); BASO % 0.7 % (0.0-1.0); EOS # 0.1 10^3/uL (0.0-0.5); EOS % 1.4 % (0.0-3.0); HEMATOCRIT 48.9 % (42.0-52.0); HEMOGLOBIN 15.9 g/dl (13.5-17.5); LYMPH # 2.3 10^3/uL (1.5-5.0); LYMPH % 30.4 % (24.0-44.0); MEAN CORPUSCULAR HEMOGLOBIN 28.4 pg (27.0-33.0); MEAN CORPUSCULAR HGB CONC 32.5 g/dl (32.0-36.5); MEAN CORPUSCULAR VOLUME 87.3 fl (80.0-96.0); MONO # 0.5 10^3/uL (0.0-0.8); MONO % 6.2 % (2.0-8.0); NEUTROPHILS # 4.5 10^3/uL (1.5-8.5); NEUTROPHILS % 61.2 % (36.0-66.0); PLATELET COUNT, AUTOMATED 337 10^3/uL (150-450); WHITE BLOOD COUNT 7.4 10^3/uL (4.0-10.0)
[2021-07-29 15:32] LABS: HEMOGLOBIN A1c 5.5 %
[2021-07-29 15:46] LABS: ALBUMIN 3.9 GM/DL (3.2-5.2); ALT/SGPT 38 U/L (12-78); BILIRUBIN,TOTAL 0.5 MG/DL (0.2-1.0); BLOOD UREA NITROGEN 10 MG/DL (7-18); CALCIUM LEVEL 9.5 MG/DL (8.5-10.1); CARBON DIOXIDE LEVEL 29 MEQ/L (21-32); CHLORIDE LEVEL 105 MEQ/L (98-107); CREATININE FOR GFR 0.95 MG/DL (0.70-1.30); FERRITIN 27 NG/ML (26-388); GLOMERULAR FILTRATION RATE > 60.0 (>60); GLUCOSE, FASTING 95 MG/DL (70-100); IRON (FE) 92 UG/DL (65-175); MAGNESIUM LEVEL 2.2 MG/DL (1.8-2.4); PERCENT SATURATION 26.3 % (19.7-50.0); PHOSPHORUS LEVEL 2.9 MG/DL (2.5-4.9); POTASSIUM SERUM 4.9 MEQ/L (3.5-5.1); SODIUM LEVEL 138 MEQ/L (136-145); TOTAL 25(OH) VITAMIN D 16.4 NG/ML (30.0-100.0); TOTAL IRON BINDING CAPACITY 350 UG/DL (250-450); TOTAL PROTEIN 7.4 GM/DL (6.4-8.2); VITAMIN B12 LEVEL > 2000 PG/ML (247-911)
== END ==
LOC: M PLALAB 13:08
PROVIDERS: ATTEND Physician Assistant Surgical
DX: K91.2 Postsurgical malabsorption, not elsewhere classified (principal); E55.9 Vitamin D deficiency, unspecified; Z98.84 Bariatric surgery status; Z86.39 Personal history of other endocrine, nutritional and metabolic disease

== ENCOUNTER → 2021-09-30 | Outpatient (CLI) | payer OTHER ==
[2021-09-30 13:36] LABS: CALCIUM LEVEL 9.8 MG/DL (8.5-10.1)
[2021-09-30 13:49] LABS: PTH INTACT 80.1 PG/ML (18.5-88.0); TOTAL 25(OH) VITAMIN D 19.8 NG/ML (30.0-100.0)
--- NOTE | 2021-09-30 15:23 | REP ---
INDICATION: CONSTIPATION LABS AFTER XRAY. COMPARISON: None. FINDINGS: KUB shows the intestinal gas pattern to be nonspecific. The organ silhouettes insofar as delineated are unremarkable. There is no evidence of free intraperitoneal air. The stool pattern is within normal limits IMPRESSION: Nonspecific. <Electronically signed by Louis Eisenberg > 09/30/21 [id number]
== END ==
LOC: M LAB 12:27
PROVIDERS: ATTEND Physician Assistant Medical
DX: E55.9 Vitamin D deficiency, unspecified (principal); K59.00 Constipation, unspecified

== ENCOUNTER → 2021-10-08 | Outpatient (CLI) | payer OTHER ==
--- NOTE | 2021-10-08 13:10 | REP ---
INDICATION: PROTEINURIA COMPARISON: None TECHNIQUE: Real time miller scale ultrasound examination using curved array transducer. FINDINGS: Bilateral kidneys are normal in contour, size, echogenicity, and reniform shape. No hydronephrosis, nephrolithiasis, cystic or renal mass lesion. No perinephric fluid collection. Bladder is grossly unremarkable. Right kidney measures 10.0 x 4.6 x 5.6 cm. Left kidney measures 11.3 x 4.7 x 6.1 cm. Prostate gland is heterogeneous and measures 3.0 x 2.8 x 2.9 cm (12.7 cc). IMPRESSION: 1. Findings consistent with chronic medical renal disease as described above. 2. Bilateral renal vascular calcifications versus small nonobstructing calculi cannot be differentiated. 3. No hydronephrosis or significant renal abnormality. 4. Prostatomegaly. <Electronically signed by Claude Gusman > 10/08/21 [id number]
== END ==
LOC: M RAD 12:34
PROVIDERS: ATTEND Physician Assistant Medical
DX: R80.1 Persistent proteinuria, unspecified (principal)

== ENCOUNTER → 2021-10-21 | Outpatient (REF) | payer OTHER ==
[~2021-10-21] MED LIST changes: -MOME50SP NARES; +NASO50SP3 NARES
[2021-10-22 11:03] LABS: MALB URINE SIEMENS 11.7 MG/L; MAU/CREAT RATIO 4.9 MCG/MG (0.0-30.0)
== END ==
LOC: M SFHCPLAZ 09:57
PROVIDERS: ATTEND Physician Assistant Medical
DX: I15.0 Renovascular hypertension (principal)

== ENCOUNTER → 2021-11-18 | Outpatient (CLI) | payer OTHER | LOC: M RAD 07:36 | PROVIDERS: ATTEND Physician Assistant Medical | DX: I15.0 Renovascular hypertension (principal) ==

== ENCOUNTER 2021-12-22 17:24 | Emergency (ER) | payer OTHER ==
[~2021-12-22] VITALS: Ht 157.5 cm; Wt 85.9 kg
[2021-12-22 21:24] VITALS: BP 123/85
== END 2021-12-22 21:23 | disposition home or self-care (01) ==
LOC: M ED 17:24
DX: U07.1 COVID-19 (principal); N18.9 Chronic kidney disease, unspecified; Z98.84 Bariatric surgery status; Z88.8 Allergy status to other drugs, medicaments and biological substances; Z88.9 Allergy status to unspecified drugs, medicaments and biological substances

== ENCOUNTER 2022-02-18 10:44 | Emergency (ER) | payer OTHER ==
[~2022-02-18] VITALS: Ht 157.5 cm; Wt 81.5 kg
[2022-02-18] MEDS ORDERED: ZINC1TAB2 PO (11:09)
[2022-02-18 11:43] LABS: BASO % 0.4 % (0.0-1.0); EOS # 0.1 10^3/uL (0.0-0.5); EOS % 1.2 % (0.0-3.0); HEMOGLOBIN 15.7 g/dl (13.5-17.5); LYMPH # 1.6 10^3/uL (1.5-5.0); LYMPH % 23.2 % (24.0-44.0); MEAN CORPUSCULAR HEMOGLOBIN 28.5 pg (27.0-33.0); MEAN CORPUSCULAR HGB CONC 32.7 g/dl (32.0-36.5); MEAN CORPUSCULAR VOLUME 87.3 fl (80.0-96.0); MONO # 0.5 10^3/uL (0.0-0.8); MONO % 6.5 % (2.0-8.0); NEUTROPHILS # 4.8 10^3/uL (1.5-8.5); NEUTROPHILS % 68.6 % (36.0-66.0); PLATELET COUNT, AUTOMATED 312 10^3/uL (150-450); WHITE BLOOD COUNT 6.9 10^3/uL (4.0-10.0)
[2022-02-18 12:25] LABS: ALBUMIN 3.7 GM/DL (3.2-5.2); BILIRUBIN,DIRECT 0.1 MG/DL (0.0-0.2); BILIRUBIN,TOTAL 0.5 MG/DL (0.2-1.0); TOTAL PROTEIN 7.1 GM/DL (6.4-8.2)
[2022-02-18] MEDS ORDERED: LIDOCAINE 5% (LIDODERM) PATCH TD ONE (13:40)
[2022-02-18] MEDS ORDERED: diazePAM 10MG/2ML SYRINGE (J3360 PER 5MG) IV ONE (13:40)
[2022-02-18] MEDS ORDERED: NS 1,000 ML IV ONE (13:40)
[2022-02-18] MEDS ORDERED: KETOROLAC 30 MG/ML 1ML VIAL IV ONE (13:40)
[2022-02-18] MEDS: GASTROGRAFIN SOLUTION 30ML PO SCH ×2 (14:16→14:18)
[2022-02-18] MEDS ORDERED: ISOVUE-370 76% 100ML VIAL As Ordered ONE (16:01)
[2022-02-18] MEDS ORDERED: METH-1165 PO (17:08)
[2022-02-18] MEDS ORDERED: ASPE4PAD TOP (17:08)
[2022-02-18 17:19] VITALS: BP 131/90
[2022-02-19] MEDS ORDERED: **NOTE PATIENT COMMENT** MISC XX ONE (02:00)
== END 2022-02-18 17:20 | disposition home or self-care (01) ==
LOC: M ED 10:44
DX: R10.9 Unspecified abdominal pain (principal); M54.50 Low back pain, unspecified; I10 Essential (primary) hypertension; J45.909 Unspecified asthma, uncomplicated; Z98.84 Bariatric surgery status; Z88.8 Allergy status to other drugs, medicaments and biological substances
CPT/HCPCS: 74177; 80047; 80076; 83690; 85025; 96361; 96374; 96375; 99284; J1885; J3360; Q9963; Q9967

== ENCOUNTER → 2022-05-18 | Outpatient (CLI) | payer OTHER ==
[~2022-05-18] MED LIST changes: +ASPE4PAD TOP; +METH-1165 PO; +ZINC1TAB2 PO
[2022-05-18 13:47] LABS: BASO % 0.6 % (0.0-1.0); EOS # 0.1 10^3/uL (0.0-0.5); EOS % 1.4 % (0.0-3.0); HEMATOCRIT 45.1 % (42.0-52.0); HEMOGLOBIN 14.6 g/dl (13.5-17.5); LYMPH # 1.5 10^3/uL (1.5-5.0); LYMPH % 29.9 % (24.0-44.0); MEAN CORPUSCULAR HGB CONC 32.4 g/dl (32.0-36.5); MEAN CORPUSCULAR VOLUME 86.6 fl (80.0-96.0); MONO # 0.4 10^3/uL (0.0-0.8); MONO % 7.1 % (2.0-8.0); NEUTROPHILS # 3.1 10^3/uL (1.5-8.5); NEUTROPHILS % 60.8 % (36.0-66.0); PLATELET COUNT, AUTOMATED 289 10^3/uL (150-450); RED BLOOD COUNT 5.21 10^6/uL (4.30-6.10); WHITE BLOOD COUNT 5.1 10^3/uL (4.0-10.0)
[2022-05-18 16:01] LABS: ALBUMIN 3.8 GM/DL (3.2-5.2); ALT/SGPT 21 U/L (12-78); BILIRUBIN,TOTAL 0.7 MG/DL (0.2-1.0); BLOOD UREA NITROGEN 8 MG/DL (7-18); CALCIUM LEVEL 9.4 MG/DL (8.5-10.1); CARBON DIOXIDE LEVEL 27 MEQ/L (21-32); CHLORIDE LEVEL 109 MEQ/L (98-107); CREATININE FOR GFR 0.94 MG/DL (0.70-1.30); FREE T4 1.08 NG/DL (0.76-1.46); GLOMERULAR FILTRATION RATE > 60.0 (>60); GLUCOSE, FASTING 109 MG/DL (70-100); IRON (FE) 79 UG/DL (65-175); POTASSIUM SERUM 4.1 MEQ/L (3.5-5.1); SODIUM LEVEL 141 MEQ/L (136-145); TOTAL PROTEIN 6.7 GM/DL (6.4-8.2)
[2022-05-18 16:49] LABS: TOTAL 25(OH) VITAMIN D 17.6 NG/ML (30.0-100.0)
[2022-05-18 16:50] LABS: VITAMIN B12 LEVEL 536 PG/ML (247-911)
[2022-05-19 13:52] LABS: APPEARANCE, URINE TURBID (CLEAR); BACTERIA, URINE AUTO NEGATIVE (NEGATIVE); BILIRUBIN, URINE AUTO NEGATIVE (NEGATIVE); BLOOD, URINE BLOOD NEGATIVE (NEGATIVE); CALCIUM OXALATE CRYSTALS SMALL; COLOR, URINE AMBER (YELLOW); GLUCOSE, URINE (UA) AUTO NEGATIVE (NEGATIVE); KETONE, URINE AUTO TRACE mg/dL (NEGATIVE); LEUKOCYTE ESTERASE, URINE AUTO NEGATIVE (NEGATIVE); MUCUS, URINE LARGE (NEGATIVE); NITRITE, URINE AUTO NEGATIVE (NEGATIVE); PROTEIN, URINE AUTO NEGATIVE (NEGATIVE); RBC, URINE AUTO 0 /HPF (0-3); SPECIFIC GRAVITY URINE AUTO 1.029 (1.002-1.035); SQUAMOUS EPITHELIAL CELL UR AU 2 /HPF (0-6); WBC, URINE AUTO 2 /HPF (0-3)
== END ==
LOC: M PLALAB 10:34
PROVIDERS: ATTEND Physician Assistant
DX: Z98.84 Bariatric surgery status (principal)

== ENCOUNTER → 2022-12-10 | Outpatient (CLI) | payer OTHER ==
[~2022-12-10] MED LIST changes: +ACET-840 PO; +MULT-90 PO
== END ==
LOC: M LABSMTC 09:23
PROVIDERS: ATTEND Anesthesiology
DX: Z01.812 Encounter for preprocedural laboratory examination (principal); Z11.52 Encounter for screening for COVID-19

== ENCOUNTER → 2022-12-11 | Outpatient (CLI) | payer OTHER ==
[~2022-12-11] MED LIST changes: +OXYC1TAB23 PO; +PERCOCET PO
[2022-12-11 18:21] LABS: BASO % 0.7 % (0.0-1.0); EOS # 0.1 10^3/uL (0.0-0.5); EOS % 2.3 % (0.0-3.0); HEMATOCRIT 45.9 % (42.0-52.0); HEMOGLOBIN 14.8 g/dl (13.5-17.5); LYMPH % 33.5 % (24.0-44.0); MEAN CORPUSCULAR HEMOGLOBIN 28.6 pg (27.0-33.0); MEAN CORPUSCULAR HGB CONC 32.2 g/dl (32.0-36.5); MEAN CORPUSCULAR VOLUME 88.6 fl (80.0-96.0); MONO # 0.5 10^3/uL (0.0-0.8); MONO % 8.6 % (2.0-8.0); NEUTROPHILS # 3.3 10^3/uL (1.5-8.5); NEUTROPHILS % 54.7 % (36.0-66.0); PLATELET COUNT, AUTOMATED 296 10^3/uL (150-450); RED BLOOD COUNT 5.18 10^6/uL (4.30-6.10)
[2022-12-11 18:43] LABS: INR 0.94; PROTHROMBIN TIME 12.8 SECONDS (12.5-14.5)
[2022-12-11 18:44] LABS: PARTIAL THROMBOPLASTIN TIME 25.9 SECONDS (24.8-34.2)
[2022-12-11 18:48] LABS: ALBUMIN 3.8 G/DL (3.2-5.2); ALKALINE PHOSPHATASE 82 U/L (46-116); ALT/SGPT 36 U/L (7.0-40); AST/SGOT 22 U/L (<34); BILIRUBIN,TOTAL 0.4 MG/DL (0.3-1.2); BLOOD UREA NITROGEN 11 MG/DL (9-23); CALCIUM LEVEL 9.3 MG/DL (8.5-10.1); CARBON DIOXIDE LEVEL 29 MMOL/L (20-31); CHLORIDE LEVEL 104 MMOL/L (98-107); CREATININE FOR GFR 0.87 MG/DL (0.70-1.30); GLOMERULAR FILTRATION RATE > 60.0 (>60); GLUCOSE, FASTING 91 MG/DL (60-100); POTASSIUM SERUM 4.7 MMOL/L (3.5-5.1); SODIUM LEVEL 140 MMOL/L (136-145)
[2022-12-11 18:55] LABS: FERRITIN 17.1 NG/ML (10.5-307.3); TOTAL 25(OH) VITAMIN D 18.3 NG/ML (20.0-100.0)
[2022-12-11 18:57] LABS: VITAMIN B12 LEVEL 572 PG/ML (211-911)
[2022-12-11 19:09] LABS: PTH INTACT 103.1 PG/ML (18.5-88.0)
== END ==
LOC: M PLALAB 14:54
PROVIDERS: ATTEND Family Medicine
DX: Z98.84 Bariatric surgery status (principal)

== ENCOUNTER 2022-12-15 06:11 | Observation (INO) | payer OTHER ==
[~2022-12-15] VITALS: Ht 157.5 cm; Wt 75.3 kg
[~2022-12-15 06:11] MED LIST changes: +HEPARIN SOD (PORCINE) 5000UNITS/ML 1ML VIAL/SYRINGE SQ ONE; -OXYC1TAB23 PO; -PERCOCET PO; +ceFAZolin SOD 2 GM in IV 1 EA IV ONE
[2022-12-15] MEDS ORDERED: LR 1,000 ML IV SCH ×2 (06:55→11:00)
[2022-12-15] MEDS ORDERED: LIDOCAINE 1% SDV 5ML VIAL SC PRN (06:55)
[2022-12-15] MEDS ORDERED: GENTAMICIN SULF 80MG/2ML VIAL As Ordered ONE (07:12)
[2022-12-15] MEDS ORDERED: BUPIVACAINE LIPOSOME/PF 1.3% 20ML VIAL (13.3MG/ML)(EXPAREL) As Ordered ONE (07:12)
[2022-12-15] MEDS ORDERED: BUPIVACAINE HCL 0.25% 10ML VIAL As Ordered ONE (07:12)
[2022-12-15] MEDS ORDERED: MIDAZOLAM INJ 2MG/2ML VIAL As Ordered ONE (07:16)
[2022-12-15] MEDS ORDERED: SUGAMMADEX SODIUM 500 MG/5 ML VIAL (BRIDION) As Ordered ONE (07:17)
[2022-12-15] MEDS ORDERED: ONDANSETRON 4MG 2ML VIAL As Ordered ONE (07:17)
[2022-12-15] MEDS ORDERED: ROCURONIUM BROMIDE 50MG/5ML VIAL As Ordered ONE (07:17)
[2022-12-15] MEDS ORDERED: fentaNYL 100 MCG/2 ML INJECTION As Ordered ONE (07:17)
[2022-12-15] MEDS ORDERED: propofoL 200 MG/20 ML VIAL As Ordered ONE (07:17)
[2022-12-15] MEDS ORDERED: LIDOCAINE 2% 100MG/5ML SDV (FOR ANES.) As Ordered ONE (07:17)
[2022-12-15] MEDS ORDERED: HOME MED LIST COMPLETE! XX SCH (07:45)
[2022-12-15] MEDS ORDERED: EPINEPHrine INJ 1 MG/ML 1ML AMP As Ordered ONE (07:47)
[2022-12-15] MEDS ORDERED: LIDOCAINE 1% MDV 20ML VIAL As Ordered ONE (07:47)
[2022-12-15] MEDS ORDERED: HYDROmorphone HCL 2MG/ML 1ML VIAL As Ordered ONE (07:49)
[2022-12-15] MEDS ORDERED: ACETAMINOPHEN 1000MG 100ML IV BAG As Ordered ONE (09:05)
[2022-12-15] MEDS ORDERED: ONDANSETRON 4MG 2ML VIAL IV PRN ×2 (11:00→11:05)
[2022-12-15] MEDS ORDERED: ACETAMINOPHEN TAB 650MG DOSE (2X325MG) PO PRN (11:05)
[2022-12-15] MEDS ORDERED: PERCOCET 5MG/325MG TAB PO PRN (11:05)
[2022-12-15] MEDS ORDERED: KETOROLAC TROMETHAMINE 10 MG TAB PO PRN (11:05)
[2022-12-15] MEDS: fentaNYL 100 MCG/2 ML INJECTION IV PRN ×4 (11:33→12:12)
[2022-12-15] MEDS: oxyCODONE 5MG TAB PO PRN ×2 (11:33→12:13)
[2022-12-15 14:40] VITALS: BP 114/76
[2022-12-15 15:42] VITALS: BP 126/81
[2022-12-15] MEDS: LR 1,000 ML IV SCH (15:54)
[2022-12-15] MEDS: ceFAZolin SOD 1 GM in D5W MINI-BAG PLUS 50 ML IV SCH (15:54)
[2022-12-15 17:00] VITALS: BP 121/80
[2022-12-15 17:49] VITALS: BP 122/78
[2022-12-15 22:00] VITALS: BP 121/80
[2022-12-16] MEDS: LR 1,000 ML IV SCH (00:59)
[2022-12-16] MEDS: ceFAZolin SOD 1 GM in D5W MINI-BAG PLUS 50 ML IV SCH (00:59)
[2022-12-16 02:00] VITALS: BP 122/84
[2022-12-16 06:00] VITALS: BP 96/64
[2022-12-16 10:00] VITALS: BP 123/86
[2022-12-16 14:00] VITALS: BP 105/72
[2022-12-16] MEDS ORDERED: PERCOCET PO (14:12)
[2022-12-16] MEDS ORDERED: OXYC1TAB23 PO (14:45)
[2022-12-17] MEDS ORDERED: OXYC-517 PO (21:15)
[2022-12-17] MEDS ORDERED: BENZ1LOZ9 PO (21:15)
== END 2022-12-16 15:05 | disposition home or self-care (01) ==
LOC: M SDC 06:11 → M MS5PR 06:12
PROVIDERS: ADMIT Plastic Surgery Surgery of the Hand; ATTEND Plastic Surgery Surgery of the Hand
DX: M79.3 Panniculitis, unspecified (principal); Z91.018 Allergy to other foods; Z88.8 Allergy status to other drugs, medicaments and biological substances
CPT/HCPCS: 15830; 88300; 96365; 96366; C9290; J1100; J2405

== ENCOUNTER 2022-12-17 15:37 | Emergency (ER) | payer OTHER ==
[~2022-12-17] VITALS: Ht 157.5 cm; Wt 74.7 kg
[~2022-12-17 15:37] MED LIST changes: -HEPARIN SOD (PORCINE) 5000UNITS/ML 1ML VIAL/SYRINGE SQ ONE; +OXYC1TAB23 PO; +PERCOCET PO; -ceFAZolin SOD 2 GM in IV 1 EA IV ONE
[2022-12-17 15:39] VITALS: BP 124/87
[2022-12-17 16:25] LABS: BASO % 0.4 % (0.0-1.0); EOS # 0.1 10^3/uL (0.0-0.5); EOS % 0.9 % (0.0-3.0); HEMATOCRIT 38.7 % (42.0-52.0); LYMPH % 18.3 % (24.0-44.0); MEAN CORPUSCULAR HEMOGLOBIN 29.1 pg (27.0-33.0); MEAN CORPUSCULAR HGB CONC 33.6 g/dl (32.0-36.5); MEAN CORPUSCULAR VOLUME 86.8 fl (80.0-96.0); MONO # 0.7 10^3/uL (0.0-0.8); MONO % 12.3 % (2.0-8.0); NEUTROPHILS # 3.7 10^3/uL (1.5-8.5); NEUTROPHILS % 67.9 % (36.0-66.0); PLATELET COUNT, AUTOMATED 228 10^3/uL (150-450); RED BLOOD COUNT 4.46 10^6/uL (4.30-6.10); WHITE BLOOD COUNT 5.5 10^3/uL (4.0-10.0)
[2022-12-17 17:02] LABS: CK-MB VALUE MASS < 1.0 NG/ML (<3.6); LIPASE 31 U/L (12-53)
[2022-12-17 17:04] LABS: ALBUMIN 3.2 G/DL (3.2-5.2); ALKALINE PHOSPHATASE 67 U/L (46-116); ALT/SGPT 22 U/L (7.0-40); AST/SGOT 20 U/L (<34); BILIRUBIN,DIRECT 0.2 MG/DL (<0.4); BILIRUBIN,TOTAL 0.5 MG/DL (0.3-1.2); BLOOD UREA NITROGEN 7 MG/DL (9-23); CARBON DIOXIDE LEVEL 29 MMOL/L (20-31); CHLORIDE LEVEL 103 MMOL/L (98-107); CPK CREATINE PHOSPHOKINASE 52 U/L (46-171); CREATININE FOR GFR 0.77 MG/DL (0.70-1.30); GLOMERULAR FILTRATION RATE > 60.0 (>60); GLUCOSE, FASTING 105 MG/DL (60-100); MB/CK RELATIVE INDEX 1.92 (< OR =4); POTASSIUM SERUM 3.9 MMOL/L (3.5-5.1); SODIUM LEVEL 140 MMOL/L (136-145)
[2022-12-17 17:07] LABS: THYROID STIMULATING HORMONE 0.621 uIU/ML (0.55-4.78)
[2022-12-17] MEDS ORDERED: NS 1,000 ML IV ONE (17:15)
[2022-12-17] MEDS ORDERED: MORPHINE 2 MG/ML 1ML VIAL IV ONE (17:15)
[2022-12-17] MEDS ORDERED: ONDANSETRON 4MG 2ML VIAL IV ONE (17:15)
[2022-12-17 18:33] LABS: CK-MB VALUE MASS < 1.0 NG/ML (<3.6)
[2022-12-17 18:35] LABS: CPK CREATINE PHOSPHOKINASE 59 U/L (46-171); MB/CK RELATIVE INDEX 1.69 (< OR =4); MONO SCRN NEGATIVE (NEGATIVE)
[2022-12-17] MEDS ORDERED: ISOVUE-370 76% 100ML VIAL As Ordered ONE (18:43)
[2022-12-17 18:46] LABS: RSV AMPLIFICATION NEGATIVE (NEGATIVE)
[2022-12-17] MEDS ORDERED: CEPACOL LOZENGE MT STA (21:06)
[2022-12-17] MEDS ORDERED: BENZ1LOZ9 PO (21:15)
[2022-12-17] MEDS ORDERED: OXYC-517 PO (21:15)
== END 2022-12-17 22:11 | disposition home or self-care (01) ==
LOC: M ED 15:37
DX: R07.9 Chest pain, unspecified (principal); G89.18 Other acute postprocedural pain; R16.1 Splenomegaly, not elsewhere classified; I10 Essential (primary) hypertension; R51.9 Headache, unspecified; J45.909 Unspecified asthma, uncomplicated; F41.9 Anxiety disorder, unspecified; K21.9 Gastro-esophageal reflux disease without esophagitis; F10.10 Alcohol abuse, uncomplicated; Z98.84 Bariatric surgery status; Z88.9 Allergy status to unspecified drugs, medicaments and biological substances; Z91.048 Other nonmedicinal substance allergy status; Z79.891 Long term (current) use of opiate analgesic; Z79.899 Other long term (current) drug therapy
CPT/HCPCS: 71046; 71275; 74177; 80048; 80076; 82550; 82553; 83690; 84443; 85025; 85379; 86308; 87631; 87880; 93005; 93041; 93970; 94760; 96361; 96374; 96375; 99284; J2405